=== PATIENT | female | born 1970 | race Caucasian/White ===

== ENCOUNTER → 2019-06-03 15:21 | Outpatient (CLI) | payer BC, SELFPAY ==
[2019-06-03 18:09] LABS: Rubella IgG 184.9 IU/mL
[2019-06-03 18:10] LABS: T4 Total, Thyroxin 11.5 ug/dL (4.8-13.9); Thyroid Stim Hormone (TSH) 2.28 uIU/mL (0.358-3.74)
== END ==
LOC: MFPLAB 15:23
PROVIDERS: Family Provider Family Medicine; PCP Family Medicine; Referring Provider Family Medicine; Visit Provider Family Medicine
DX: E03.9 Hypothyroidism, unspecified (principal); Z01.84 Encounter for antibody response examination
CPT/HCPCS: 36415; 84436; 84443; 86762

== ENCOUNTER → 2019-06-10 | Outpatient (CLI) | payer BC, SELFPAY ==
--- NOTE | 2019-06-10 11:29 | BI_ITS ---
MAMMOGRAPHY - BILATERAL SCREENING 3-D TOMOSYNTHESIS REASON FOR EXAM: Female, 48 years old. Bilateral Screening 3-D tomosynthesis PERTINENT HISTORY: No significant family history. TECHNIQUE: 2-D mammograms and 3-D Tomosynthesis of the breast (s) were performed. CAD was performed. COMPARISON: 08/25/2017 FINDINGS: The breast composition is heterogeneously dense that can obscure small breast masses. Scattered benign calcifications are seen. No dense spiculated masses or suspicious microcalcifications are identified. No architectural distortion is identified. There is no skin thickening or retraction. There has been no significant change since the prior study. BI/SCREEN MAMM (CAD) W/MONAE BILAT IMPRESSION: No mammographic signs of malignancy. Routine yearly mammograms recommended. ASSESSMENT CATEGORY: BIRADS Category 2: Benign. A letter regarding these results will be sent to the patient by the facility within 30 days. FOLLOW UP RECOMMENDATION: Yearly follow up mammogram recommended. (A) Approximately 10% of breast cancers are not detected by mammography. A normal mammogram should not delay biopsy of a clinically suspicious abnormality. Electronically Signed: Jamari Thompson MD at 16:30 EDT Tel [phone], Service support ,
== END | disposition home or self-care (01) ==
PROVIDERS: Family Provider Family Medicine; PCP Family Medicine; Referring Provider Family Medicine; Visit Provider Family Medicine
DX: Z12.31 Encounter for screening mammogram for malignant neoplasm of breast (principal)
CPT/HCPCS: 77063; 77067

== ENCOUNTER 2022-07-20 08:44 | Emergency (ER) | payer OTHER, SELFPAY ==
[2022-07-20 08:46] VITALS: BP 154/118; PULSE 177; RESP 16; TEMP 35.9; O2SAT 99; BMI 31.6
--- NOTE | 2022-07-20 08:48 | EKG12_ITS ---
Test Reason : Blood Pressure : / mmHG Vent. Rate : 123 BPM Atrial Rate : 000 BPM P-R Int : 000 ms QRS Dur : 082 ms QT Int : 292 ms P-R-T Axes : 000 -10 018 degrees QTc Int : 418 ms Atrial fibrillation with rapid ventricular response Abnormal ECG Confirmed by NICHOLAS MENCHACA, JOSIAS ([id number]), video editor HENRIK LOGAN ([id number]) on 07/21/2022 10:37:58 AM Referred By: CRISTINA Confirmed By:JOSIAS PETERSON MD
[2022-07-20] MEDS: dilTIAZem 25 MG/5 ML Vial 20 MG IV BOLUS (08:55)
[2022-07-20 09:00] VITALS: BP 150/137; PULSE 135; RESP 15; O2SAT 97
[2022-07-20 09:08] LABS: Absolute Lymphocyte Count 5.38 X10^3/uL (0.83-4.51); Absolute Neutrophil Count 9.9 X10^3/uL (2.0-7.7); Basophil# 0.08 X10^3/uL; Basophil% 0.5 % (0-1); Eosinophil# 0.27 X10^3/uL; Eosinophils% 1.6 % (0-5); Hematocrit 41.7 % (37-47); Hemoglobin 12.4 g/dL (12.0-15.0); Lymphocyte # 5.38 X10^3/ul (0.83-4.51); Lymphocyte % 31.4 % (19-41); Mean Corp Hgb Conc 29.7 g/dL (32-36); Mean Corpuscular Hgb 22.9 pg (27.0-32.0); Mean Corpuscular Volume 76.9 fL (81-99); Mean Platelet Vol. 9.9 fl (6.2-12.0); Monocyte# 1.41 X10^3/uL; Monocyte% 8.2 % (0-10); NRBC Flagged by Analyzer 0 % (0-5); Neutrophil # 9.92 X10^3/uL (2.7-7.7); Neutrophil % 57.9 % (47-70); POSITIVE DIFFERENTIAL YES; Platelet Count 561 K/mm3 (150-450); RBC Distribution Width CV 14.7 % (11.6-14.6); RBC Distribution Width SD 39.7 fl (35.1-43.9); Red Blood Count 5.42 M/mm3 (4.2-5.4); White Blood Count 17.1 K/mm3 (4.4-11.0)
--- NOTE | 2022-07-20 09:10 | RAD_ITS ---
STUDY: X-RAY CHEST REASON FOR EXAM: Female, 52 years old. Palpitations TECHNIQUE: Single AP portable view of the chest. COMPARISON: None. FINDINGS: EKG electrodes are seen. There is an 8.1 cm x 6.3 cm soft tissue mass in the medial aspect of the right lung base. Correlation with a CT scan is recommended. There is no demonstrated pleural abnormality. Normal size heart. Normal mediastinum and jorge. Normal visualized pulmonary arteries. Normal visualized aortic arch and descending thoracic aorta. Normal visualized thoracic spine. Normal visualized ribs, clavicles, and shoulders. There is no demonstrated abnormality of the visualized soft tissue structures of the upper abdomen. RAD/Chest 1 View (Portable) IMPRESSION: There is a 8.1 cm x 6.3 cm rounded mass in the medial aspect of the right lung base. Correlation with the CT scan of the thorax is recommended for further evaluation. Electronically Signed: Rosendo Almeida MD at 9:33 EDT ,
[2022-07-20 09:13] LABS: Differential Indicated SCAN CRITERIA MET
[2022-07-20 09:24] LABS: International Normalized Ratio 1.1; Prothrombin Time (Protime)PT. 13.5 SECONDS (11.7-14.9)
[2022-07-20 09:25] LABS: Partial Thromboplast Time 26.7 Seconds (24.1-36.2)
[2022-07-20 09:26] LABS: Anion Gap 11 (5-15); BUN 15 mg/dL (7-18); BUN/Creat Ratio 15.8 RATIO (10-20); Calcium,Total 9.6 mg/dL (8.5-10.1); Chloride 104 mmol/L (98-107); Creatinine, Serum 0.95 mg/dL (0.55-1.02); EST Glomerular Filtration Rate 66 mL/min (>60); Est Glom Filt Rate - Afr Amer 79 mL/min (>60); Estimated Creatinine Clearance 67.36 ml/min; Glucose 144 mg/dL (74-106); Magnesium 1.7 mg/dL (1.6-2.6); Potassium 3.5 mmol/L (3.5-5.1); Sodium Level 139 mmol/L (136-145); Troponin-I HS (w/2H Reflex) 52 pg/mL (3.0-54.0)
[2022-07-20 09:49] VITALS: BP 138/91; PULSE 150; RESP 13; O2SAT 96
[2022-07-20] MEDS: dilTIAZem 60 MG Tablet PO (09:49)
[2022-07-20 11:00] VITALS: BP 116/94; PULSE 103; O2SAT 96
[2022-07-20 11:05] LABS: Reflex Troponin-HS? (from REC) Y
--- NOTE | 2022-07-20 11:18 | CT_ITS ---
STUDY: CT CHEST WITH CONTRAST REASON FOR EXAM: Female, 52 years old. Chest mass RADIATION DOSAGE (If Supplied By Facility): CTDIvol = ( 11.00 ) mGy, DLP = ( 423.06 ) mGycm TECHNIQUE: Transaxial imaging was performed following intravenous administration of IV 100mL Isovue-300. Multiplanar coronal and sagittal images were reformatted. Individualized dose optimization techniques were used for this CT. COMPARISON: Comparison is made with prior chest radiograph done earlier today. FINDINGS: CHEST Small benign-appearing bilateral axillary lymph nodes. The lungs are normal. There is no demonstrated pleural abnormality. Normal heart and pericardium. Normal mediastinum. Normal hilar regions. Normal unenhanced pulmonary arteries. Normal aorta arch and descending thoracic aorta. Normal osseous structures. There is a 2.1 cm x 1.7 cm cyst in the anterior aspect of the right lobe of the liver. CT/Chest WITH Contrast IMPRESSION: Normal enhanced CT chest. The density seen on the chest radiograph most likely represented the inferior vena cava. Electronically Signed: Rosendo Almeida MD at 12:23 EDT ,
[2022-07-20 12:00] VITALS: BP 100/70; PULSE 89; RESP 15; O2SAT 95
[2022-07-20 12:33] LABS: Troponin-I HS 48 pg/mL (3.0-54.0)
[2022-07-20 13:00] VITALS: BP 108/58; PULSE 82; RESP 17; O2SAT 96
--- NOTE | 2022-07-20 13:00 | EDS_ITS ---
HPI History of Present Illness Chief Complaint: Chest Pain Informant: patient Narrative Narrative: Presents with worsening palpitations racing heart this morning had mild symptoms yesterday evening and was able to calm down to go to bed. Symptoms worsen today, lightheaded symptoms. Denies any specific chest pains no recent travel no cough. No recent sinus infection. History of hypothyroidism and glaucoma on medications. She states in the past may had had transient symptoms however not this severe was never evaluated. Mother has a history of atrial fibrillation. Denies history of strokes diabetes hypertension or heart failure. [facility] Medical History Glaucoma Hypothyroidism Physical exam, pre-employment Home Medications diltiazem HCl 120 mg tablet,extended release 24 hr (Cardizem LA) 120 mg PO DAILY #30 tabs 07/20/22 [Rx Last Taken Unknown] levothyroxine 75 mcg tablet 75 mcg PO DAILY 07/20/22 [History Last Taken Unknown] netarsudil 0.02 %-latanoprost 0.005 % eye drops (Rocklatan) drp 07/20/22 [History Last Taken Unknown] Allergy/AdvReac Type Severity Reaction Status Date / Time Penicillins Allergy PT UNSURE Verified 07/20/22 08:45 OF REACTION Social History Smoking Status: Never smoker ROS ROS ED Constitutional Constitutional ED: Denies chills, fever(s) or sweats Eyes Eyes: Denies change in vision ENT ENT ED: Denies dysphagia or sore throat Cardiovascular Cardiovascular: Reports palpitations, racing heartbeat and other Details: Occasional lightheaded symptoms ; Denies chest pain or leg edema Respiratory/Chest Respiratory/Chest: Denies cough, dyspnea or dyspnea on exertion Gastrointestinal Gastrointestinal: Denies abdominal pain, diarrhea, nausea or vomiting Genitourinary Genitourinary ED: Denies dysuria, hematuria or urinary frequency Musculoskeletal Musculoskeletal: Denies back pain, extremity pain or neck pain Integumentary Denies rash or wounds Neurologic Neurologic: Denies headache(s), paresthesias or weakness EXAM Physical Exam Const Vital Signs: 07/20/22 08:46 07/20/22 08:50 07/20/22 09:00 Temperature 96.7 F L Temperature Source Oral Pulse Rate 177 H 135 H Respiratory Rate 16 15 Respiratory Effort Normal Non-Labored Respiratory Pattern Normal Blood Pressure 154/118 H 150/137 H Blood Pressure Mean 130 141 Pulse Ox 99 97 Oxygen Delivery Method Room Air Room Air 07/20/22 09:49 07/20/22 11:00 07/20/22 12:00 Temperature Temperature Source Pulse Rate 150 H 103 H 89 Respiratory Rate 13 15 Respiratory Effort Respiratory Pattern Blood Pressure 138/91 H 116/94 H 100/70 Blood Pressure Mean 106 101 80 Pulse Ox 96 96 95 Oxygen Delivery Method Room Air Room Air Room Air 07/20/22 13:00 Temperature Temperature Source Pulse Rate 82 Respiratory Rate 17 Respiratory Effort Respiratory Pattern Blood Pressure 108/58 L Blood Pressure Mean 74 Pulse Ox 96 Oxygen Delivery Method Room Air Positive well nourished and well developed General Appearance ED: well developed and NAD HEENT Reports moist mucous membranes normocephalic and atraumatic Eyes PERRL, EOMs intact bilaterally and conjunctivae normal General Eye ED: Yes normal appearance of both eyes Neck no lymphadenopathy and supple General: Negative for tenderness Chest Wall Chest: Negative for tenderness Resp normal respiratory effort and normal air movement Effort and Inspection: symmetric chest movement; Negative for respiratory distress Cardio Rate: tachycardic Rhythm: abnormal rhythm Peripheral Pulses: pulses 2+ throughout GI normal to inspection, nondistended, normoactive bowel sounds and non-tender Palpation: Negative for guarding or rebound tenderness present Back/Spine no CVA tenderness and no thoracic nor lumbar tenderness Extremity normal to inspection General Extremety ED: Negative for edema or tenderness General Extremity: Negative for edema Neuro oriented x3 and no sensory deficits noted Sensorium / Orientation: awake and alert Skin no rashes or lesions noted and no wounds MDM MDM MDM Narrative Medical decision making narrative: NursingWas called in the room upon patient's arrival heart rate 170s 180s on the monitor. Since her possible SVT have a close review appeared to be irregular. EKG confirmed A. fib with RVR blood pressure systolic 150s. She is given 20 mg IV Cardizem bolus. Heart rate down to 120s in the 90s, she is given 60 mg of oral Cardizem. She is monitor. Labs White count of 17 hemoglobin 12.4 creatinine 0.95 potassium 3.5. Magnesium 1.7. Initial troponin 50 2 repeat of 48. She is monitor heart rate down in the 80s rate controlled she clinically feels much better she does not feel the irregular rhythm however. There was a repeat EKG notes persistent A. fib at this time. Labs are stable worsening leukocytosis. Her chest x-ray 1 view reviewed by my self and read by radiology initial concerns for potential mediastinal mass region, CT chest IV contrast negative had concerns now the inferior vena cava. She had a small liver cysts. Discussed this with the patient. Her CHADS2 Vas score is currently 1. I spoke with our on-call fitting room associate, Dr. Wade agrees with baby aspirin for her risk factors. Recommended Cardizem 120 mg extended release daily. She will follow-up with cardiology as an outpatient. She is given follow-up. Also given PCP follow-up. Return precautions. All questions were answered. Lab Data Attestation: I reviewed the patient's lab results. Labs: Laboratory Results - last 24 hr 07/20/22 07/20/22 07/20/22 08:50 08:50 08:50 WBC 17.1 H RBC 5.42 H Hgb 12.4 Hct 41.7 MCV 76.9 L MCH 22.9 L MCHC 29.7 L RDW Std Deviation 39.7 RDW Coeff of Estevan 14.7 H Plt Count 561 H MPV 9.9 Immature Gran % (Auto) 0.400 Neut % (Auto) 57.9 Lymph % (Auto) 31.4 Owsley % (Auto) 8.2 Eos % (Auto) 1.6 Baso % (Auto) 0.5 Absolute Neuts (auto) 9.9 H Absolute Lymphs (auto) 5.38 H Nucleated RBC % 0 Differential Comment COMMENT PT 13.5 INR 1.1 APTT 26.7 Sodium 139 Potassium 3.5 Chloride 104 Carbon Dioxide 24.0 Anion Gap 11 BUN 15 Creatinine 0.95 Estim Creat Clear Calc 67.36 Est GFR (MDRD) Af Amer 79 Est GFR (MDRD) Non-Af 66 BUN/Creatinine Ratio 15.8 Glucose 144 H Calcium 9.6 Magnesium 1.7 Troponin I High Sens 52 07/20/22 12:05 WBC RBC Hgb Hct MCV MCH MCHC RDW Std Deviation RDW Coeff of Estevan Plt Count MPV Immature Gran % (Auto) Neut % (Auto) Lymph % (Auto) [place] % (Auto) Eos % (Auto) Baso % (Auto) Absolute Neuts (auto) Absolute Lymphs (auto) Nucleated RBC % Differential Comment PT INR APTT Sodium Potassium Chloride Carbon Dioxide Anion Gap BUN Creatinine Estim Creat Clear Calc Est GFR (MDRD) Af Amer Est GFR (MDRD) Non-Af BUN/Creatinine Ratio Glucose Calcium Magnesium Troponin I High Sens 48 Radiography Diagnostic Testing: Clinical Impression(s) from Imaging Studies Chest X-Ray 07/20/22 09:10 IMPRESSION: There is a 8.1 cm x 6.3 cm rounded mass in the medial aspect of the right lung base. Correlation with the CT scan of the thorax is recommended for further evaluation. Electronically Signed: Rosendo Almeida MD at 9:33 EDT , Chest CT 07/20/22 11:18 IMPRESSION: Normal enhanced CT chest. The density seen on the chest radiograph most likely represented the inferior vena cava. Electronically Signed: Rosendo Almeida MD at 12:23 EDT , EKG Initial EKG: Attestation: I personally reviewed and interpreted this EKG as follows: Comments: Atrial fibrillation RVR rate of 180, no ST or T wave changes. Follow-up EKG: Attestation: I personally reviewed and interpreted this EKG as follows: Comments: Atrial fibrillation rate of 123, no ST or T wave changes. Discharge Plan Triage Chief Complaint: Chest Pain ED Provider: Steve Carrasco Dx/Rx/DC Orders Clinical Impression: Atrial fibrillation, new onset, Atrial fibrillation, controlled, Palpitation, Liver cyst Instructions: AFib Dc Prescriptions: New Cardizem LA 120 mg tablet extended release 24 hr 120 mg PO DAILY Qty: 30 0RF No Action levothyroxine 75 mcg tablet 75 mcg PO DAILY Label Comments: TAKE 1 TABLET BY MOUTH EVERY DAY IN THE MORNING ON EMPTY STOMACH FOR 90 DAYS Rocklatan 0.02-0.005 % drops Label Comments: INSTILL 1 DROP INTO BOTH EYES EVERY DAY AT NIGHT Primary Care Provider: Care Physician,No Primary Referrals: Paresh Santacruz DO [Med Staff - [employer]] - 1 Week Coleman Douglass MD [Med Staff - Active Staff] - 1 Week Care Physician,No Primary [Primary Care Provider] - Activity Restrictions/Additional Instructions: 2.1 cm right lobe liver cyst. New onset atrial fibrillation. Rate controlled. Take Cardizem as prescribed started this evening. Take baby aspirin 81 mg daily with this. Monitor symptoms follow-up as an outpatient for further testing. Return if any worsening symptoms. Disposition Disposition: Home, Self Care
== END 2022-07-20 14:02 | disposition home or self-care (01) ==
PROVIDERS: Emergency Provider Emergency Medicine; Visit Provider Emergency Medicine
DX: I48.91 Unspecified atrial fibrillation (principal); R00.2 Palpitations; K76.89 Other specified diseases of liver; R07.9 Chest pain, unspecified
CPT/HCPCS: 71045; 71260; 80048; 83735; 84484; 85025; 85610; 85730; 93005; 96374; 99284; J7030; Q9967; A4216; J0153

== ENCOUNTER 2022-07-21 14:31 | Inpatient (IN) | payer OTHER, SELFPAY ==
[2022-07-21] VITALS (19 sets, daily range): BP systolic 101–131; BP diastolic 71–97; PULSE 96–152; RESP 16–21; TEMP 35.8–36.9; O2SAT 94–98; BMI 31.1; BMI 30.9
--- NOTE | 2022-07-21 14:35 | EKG12_ITS ---
Test Reason : PALPS Blood Pressure : / mmHG Vent. Rate : 166 BPM Atrial Rate : 091 BPM P-R Int : 000 ms QRS Dur : 076 ms QT Int : 286 ms P-R-T Axes : 000 -20 012 degrees QTc Int : 475 ms Atrial fibrillation Nonspecific ST abnormality Abnormal ECG Confirmed by NICHOLAS MENCHACA, JOSIAS ([id number]), photo editor HENRIK LOGAN ([id number]) on 07/24/2022 10:08:00 AM Referred By: Confirmed By:JOSIAS PETERSON MD
--- NOTE | 2022-07-21 14:36 | EKG12_ITS ---
Test Reason : PALPS Blood Pressure : / mmHG Vent. Rate : 165 BPM Atrial Rate : 241 BPM P-R Int : 000 ms QRS Dur : 072 ms QT Int : 288 ms P-R-T Axes : 000 -26 011 degrees QTc Int : 477 ms Atrial flutter with variable A-V block Nonspecific ST abnormality Abnormal ECG When compared with ECG of 20-JUL-2022 09:08, Atrial flutter has replaced Atrial fibrillation Confirmed by NICHOLAS MENCHACA, JOSIAS ([id number]), advertising editor HENRIK LOGAN ([id number]) on 07/25/2022 12:53:58 PM Referred By: JANEY Confirmed By:JOSIAS PETERSON MD
[2022-07-21 14:57] LABS: Absolute Lymphocyte Count 3.49 X10^3/uL (0.83-4.51); Absolute Neutrophil Count 8.2 X10^3/uL (2.0-7.7); Basophil# 0.05 X10^3/uL; Basophil% 0.4 % (0-1); Eosinophil# 0.17 X10^3/uL; Eosinophils% 1.3 % (0-5); Hematocrit 38.6 % (37-47); Hemoglobin 11.7 g/dL (12.0-15.0); Lymphocyte # 3.49 X10^3/ul (0.83-4.51); Lymphocyte % 26.7 % (19-41); Mean Corp Hgb Conc 30.3 g/dL (32-36); Mean Corpuscular Hgb 22.9 pg (27.0-32.0); Mean Corpuscular Volume 75.7 fL (81-99); Mean Platelet Vol. 9.7 fl (6.2-12.0); Monocyte# 1.09 X10^3/uL; Monocyte% 8.3 % (0-10); NRBC Flagged by Analyzer 0 % (0-5); Neutrophil # 8.21 X10^3/uL (2.7-7.7); Neutrophil % 62.9 % (47-70); Platelet Count 508 K/mm3 (150-450); RBC Distribution Width CV 14.9 % (11.6-14.6); RBC Distribution Width SD 40.2 fl (35.1-43.9); White Blood Count 13.1 K/mm3 (4.4-11.0)
--- NOTE | 2022-07-21 15:01 | EX.ED.DYSGE1 ---
HPI History of Present Illness Chief Complaint: Chest Pain Informant: patient Narrative Narrative: 52-year-old female presenting to the emergency room with a chief complaint of A. landen. Patient was seen in the emergency room yesterday for the first time with Marin. landen. She was started on diltiazem after a work-up and discharged home. This morning she felt near syncopal with heavy arms and shortness of breath. She went to see cardiology today who noted that her heart rate was in the 160s. They sent her here for admission and further evaluation. Patient notes some occasional cramping in her feet/legs. She notes that she does drink pop. She denies any recreational use of drugs. She notes that she has a history of hypothyroidism and has been on levothyroxine for many years. She is also on a oral contraceptive. She also has a history of glaucoma. Yesterday in the emergency room blood work was obtained as well as a CT of her chest. [facility] Medical History Glaucoma Hypothyroidism Physical exam, pre-employment Home Medications diltiazem HCl 120 mg capsule,extended release 24 hr 120 mg PO DAILY #30 caps 07/20/22 [Rx Last Taken Unknown] levothyroxine 75 mcg tablet 75 mcg PO DAILY 07/20/22 [History Last Taken Unknown] netarsudil 0.02 %-latanoprost 0.005 % eye drops (Rocklatan) 1 drp EACH EYE DAILY 07/20/22 [History Last Taken Unknown] aspirin 81 mg tablet,delayed release (Adult Low Dose Aspirin) 81 mg PO DAILY 07/21/22 [History Last Taken Unknown] norgestimate 0.18 mg/0.215 mg/0.25 mg-ethinyl estradiol 25 mcg tablet ([id number]) 1 tab PO DAILY 07/21/22 [History Last Taken Unknown] Allergy/AdvReac Type Severity Reaction Status Date / Time Penicillins Allergy PT UNSURE Verified 07/21/22 14:31 OF REACTION Family History Mother Atrial fibrillation Aunt Heart disease Surgical History History of toe surgery Social History Smoking Status: Never smoker alcohol intake: current details: Rare substance use type: does not use caffeine: Yes Type: coffee Number of servings: 2 ROS ROS ED Constitutional Constitutional ED: Denies chills, fever(s) or weight loss Eyes Eyes: Denies change in vision or diplopia ENT ENT ED: Denies ear pain, rhinorrhea or sore throat Cardiovascular Cardiovascular: Reports palpitations, racing heartbeat and other Details: Near syncope ; Denies chest pain or orthopnea Respiratory/Chest Respiratory/Chest: Reports dyspnea; Denies cough or orthopnea Gastrointestinal Gastrointestinal: Denies abdominal pain, diarrhea, nausea or vomiting Genitourinary Genitourinary ED: Denies dysuria, hematuria or urinary frequency Musculoskeletal Musculoskeletal: Denies arthralgias or myalgias Integumentary Denies abscess or rash Neurologic Neurologic: Denies headache(s) or weakness Psychiatric Psychiatric: Denies anxiety, depression, suicidal ideation or suicidal thoughts Endocrine Endocrinology: Denies polydipsia, polyphagia or polyuria Allergic/Immunologic Allergic/Immunologic ED: Denies mouth swelling, tongue swelling or urticaria EXAM Physical Exam Const Vital Signs: 07/21/22 14:32 07/21/22 14:50 07/21/22 14:50 Temperature 96.5 F L Temperature Source Temporal Pulse Rate 96 Respiratory Rate 16 Respiratory Effort Short of Breath Blood Pressure 120/74 Blood Pressure Mean 89 Blood Pressure Position Blood Pressure Location Pulse Ox 97 Oxygen Delivery Method Room Air Room Air 07/21/22 15:31 07/21/22 15:46 07/21/22 16:02 Temperature Temperature Source Pulse Rate 121 H 152 H 146 H Respiratory Rate 18 17 16 Respiratory Effort Blood Pressure 107/86 H 107/86 H 105/74 Blood Pressure Mean 93 93 84 Blood Pressure Position Sitting Blood Pressure Location Left Arm Pulse Ox 96 95 Oxygen Delivery Method Room Air 07/21/22 16:03 Temperature Temperature Source Pulse Rate Respiratory Rate 16 Respiratory Effort Blood Pressure Blood Pressure Mean Blood Pressure Position Blood Pressure Location Pulse Ox Oxygen Delivery Method Positive well nourished and well developed General Appearance ED: well developed HEENT Reports normocephalic, head/scalp atraumatic and moist mucous membranes Eyes PERRL and EOMs intact bilaterally Neck no lymphadenopathy, supple and no JVD Resp normal respiratory effort and clear to auscultation bilaterally Cardio no murmurs Rhythm: abnormal rhythm irregularly irregular GI normal to inspection, nondistended, normoactive bowel sounds and non-tender Palpation: soft Back/Spine no CVA tenderness and normal ROM Extremity normal to inspection General Extremety ED: Negative for edema General Extremity: Negative for edema Neuro oriented x3 and CN's II-XII intact bilaterally Sensorium / Orientation: alert Motor Exam: strength 5/5 throughout Psych mental status grossly normal Mood & Affect: Negative for depressed or tearful Skin no rashes or lesions noted and no wounds MDM MDM MDM Narrative Medical decision making narrative: Patient was given a Cardizem bolus and placed on a drip. She was also given a Lovenox shot. white count 13.1. Coags were obtained and negative. Her troponin is down from yesterday at 15. Creatinine continues to be normal 0.88. Magnesium 2.1 potassium 4.0. Plan will be admission into the hospital. Lab Data Attestation: I reviewed the patient's lab results. Labs: Laboratory Results - last 24 hr 07/21/22 07/21/22 07/21/22 14:52 14:52 14:52 WBC 13.1 H RBC 5.10 Hgb 11.7 L Hct 38.6 MCV 75.7 L MCH 22.9 L MCHC 30.3 L RDW Std Deviation 40.2 RDW Coeff of Estevan 14.9 H Plt Count 508 H MPV 9.7 Immature Gran % (Auto) 0.400 Neut % (Auto) 62.9 Lymph % (Auto) 26.7 Sac % (Auto) 8.3 Eos % (Auto) 1.3 Baso % (Auto) 0.4 Absolute Neuts (auto) 8.2 H Absolute Lymphs (auto) 3.49 Nucleated RBC % 0 PT 13.2 INR 1.0 APTT 24.4 Sodium 139 Potassium 4.0 Chloride 107 Carbon Dioxide 24.0 Anion Gap 8 BUN 14 Creatinine 0.88 Estim Creat Clear Calc 72.72 Est GFR (MDRD) Af Amer 87 Est GFR (MDRD) Non-Af 72 BUN/Creatinine Ratio 15.9 Glucose 104 Calcium 9.1 Magnesium 2.1 Total Bilirubin 0.30 AST 11 L ALT 20 Alkaline Phosphatase 61 Troponin I High Sens 15 Total Protein 8.1 Albumin 3.5 Globulin 4.6 H Albumin/Globulin Ratio 0.8 L Radiography Diagnostic Testing: Clinical Impression(s) from Imaging Studies Chest X-Ray 07/21/22 15:03 IMPRESSION: Normal x-ray examination of the chest. Electronically Signed: Rosendo Almeida MD at 15:24 EDT , Discharge Plan Dx/Rx/DC Orders Clinical Impression: Atrial fibrillation, new onset, Hypothyroidism, Near syncope Disposition Disposition: Acute Care Hospital [facility]
--- NOTE | 2022-07-21 15:03 | RAD_ITS ---
STUDY: X-RAY CHEST REASON FOR EXAM: Female, 52 years old. Chest pain. TECHNIQUE: Single AP portable view of the chest. COMPARISON: Comparison is made with prior study dated 07/20/2022. FINDINGS: EKG electrodes are seen. The lungs are clear and expanded. There is no demonstrated pleural abnormality. Normal size heart. Normal mediastinum and jorge. Normal visualized pulmonary arteries. Normal visualized aortic arch and descending thoracic aorta. Normal visualized thoracic spine. Normal visualized ribs, clavicles, and shoulders. There is no demonstrated abnormality of the visualized soft tissue structures of the upper abdomen. RAD/Chest 1 View (Portable) IMPRESSION: Normal x-ray examination of the chest. Electronically Signed: Rosendo Almeida MD at 15:24 EDT ,
[2022-07-21 15:09] LABS: Partial Thromboplast Time 24.4 Seconds (24.1-36.2); Prothrombin Time (Protime)PT. 13.2 SECONDS (11.7-14.9)
[2022-07-21] MEDS: dilTIAZem 25 MG/5 ML Vial 20 MG IV BOLUS (15:15)
[2022-07-21] MEDS: Enoxaparin 100 MG/ML Syringe 90 MG SC (15:15)
[2022-07-21 15:21] LABS: ALB/GLOB Ratio 0.8 RATIO (0.9-2.4); AST(SGOT) 11 U/L (15-37); Alanine Aminotransfer ALT/SGPT 20 U/L (13-56); Albumin, Serum 3.5 g/dL (3.2-5.0); Alkaline Phosphatase 61 U/L (45-117); Anion Gap 8 (5-15); BUN 14 mg/dL (7-18); BUN/Creat Ratio 15.9 RATIO (10-20); Calcium,Total 9.1 mg/dL (8.5-10.1); Chloride 107 mmol/L (98-107); Creatinine, Serum 0.88 mg/dL (0.55-1.02); EST Glomerular Filtration Rate 72 mL/min (>60); Est Glom Filt Rate - Afr Amer 87 mL/min (>60); Estimated Creatinine Clearance 72.72 ml/min; Globulin 4.6 g/dL (2.2-4.2); Glucose 104 mg/dL (74-106); Magnesium 2.1 mg/dL (1.6-2.6); Protein, Total 8.1 g/dL (6.4-8.2); Sodium Level 139 mmol/L (136-145); Troponin-I HS 15 pg/mL (3.0-54.0)
--- NOTE | 2022-07-21 16:14 | PCM.HP.STD ---
[facility] - General General Date of Admission: 07/21/22 HPI Narrative NIMO NAVARRO, is a 52 F who presents to the hospital with A. fib and RVR. She has a family history of A. fib in her mother. She presented to the ER yesterday morning and was started on Cardizem and aspirin and sent home. A CT of her chest at that time was negative for PE, this was likely obtained secondary to her control pills. She is continued to have palpitations as well as dizziness and near syncope, she also experienced some chest pressure. She presented to cardiology's office for follow-up and she was sent directly here secondary to her A. fib with RVR as her heart rates were sustaining in the 160s. In the ER she was started on a Cardizem drip and her heart rate appears to be coming down but it is still elevated. [facility] Medical History Glaucoma Hypothyroidism Physical exam, pre-employment Home Medications diltiazem HCl 120 mg capsule,extended release 24 hr 120 mg PO DAILY #30 caps 07/20/22 [Rx Last Taken Unknown] levothyroxine 75 mcg tablet 75 mcg PO DAILY 07/20/22 [History Last Taken Unknown] netarsudil 0.02 %-latanoprost 0.005 % eye drops (Rocklatan) 1 drp EACH EYE DAILY 07/20/22 [History Last Taken Unknown] aspirin 81 mg chewable tablet 81 mg PO DAILY HEART HEALTH 07/21/22 [History Last Taken 07/20/22] norgestimate 0.18 mg/0.215 mg/0.25 mg-ethinyl estradiol 25 mcg tablet ([id number]) 1 tab PO DAILY 07/21/22 [History Last Taken Unknown] Allergy/AdvReac Type Severity Reaction Status Date / Time Penicillins Allergy PT UNSURE Verified 07/21/22 14:31 OF REACTION Family History Mother Atrial fibrillation Aunt Heart disease Surgical History History of toe surgery Social History Smoking Status: Never smoker alcohol intake: current details: Rare substance use type: does not use caffeine: Yes Type: coffee Number of servings: 2 ROS Constitutional Constitutional: Denies chills, fatigue, fever(s) or malaise Eyes Eyes: Denies blurry vision ENT HEENT: Denies headache(s) or nasal discharge Cardiovascular Cardiovascular: Reports lightheadedness and palpitations; Denies chest pain, dyspnea on exertion or syncope Respiratory/Chest Respiratory/Chest: Denies cough, shortness of breath at rest or shortness of breath with exertion Gastrointestinal Gastrointestinal: Denies constipation, diarrhea, nausea or vomiting Genitourinary Genitourinary: Denies dysuria Neurologic Neurologic: Denies focal weakness, numbness or tremor(s) Psychiatric Psychiatric: Denies anxiety or depression Vital Signs Vital Signs Vital Signs: 07/21/22 14:32 07/21/22 14:50 07/21/22 14:50 Temperature 96.5 F L Temperature Source Temporal Pulse Rate 96 Respiratory Rate 16 Respiratory Effort Short of Breath Blood Pressure 120/74 Blood Pressure Mean 89 Blood Pressure Position Blood Pressure Location Pulse Ox 97 Oxygen Delivery Method Room Air Room Air 07/21/22 15:31 07/21/22 15:46 07/21/22 16:02 Temperature Temperature Source Pulse Rate 121 H 152 H 146 H Respiratory Rate 18 17 16 Respiratory Effort Blood Pressure 107/86 H 107/86 H 105/74 Blood Pressure Mean 93 93 84 Blood Pressure Position Sitting Blood Pressure Location Left Arm Pulse Ox 96 95 Oxygen Delivery Method Room Air 07/21/22 16:03 Temperature Temperature Source Pulse Rate Respiratory Rate 16 Respiratory Effort Blood Pressure Blood Pressure Mean Blood Pressure Position Blood Pressure Location Pulse Ox Oxygen Delivery Method Weight Weight: 199 lb Body Mass Index (BMI) 31.1 Physical Exam Narrative General: Alert, Oriented x3, Cooperative, No apparent distress HEENT: Atraumatic, PERRLA, EOMI, Normocephalic Oral: Moist Mucosa Neck: Supple, No JVD Lungs: Clear to auscultation, Normal air movement, No rhonchi, No wheeze, No rales Cardiovascular: Irregular rate and rhythm, Normal S1, Normal S2, No murmurs Abdomen: Soft, Non Tender, Non-Distended, No Hepato-splenomegaly Extremities: No edema, Capillary Refill Less than 3 Seconds Skin: No rashes, No breakdown Musculoskeletal: No Tenderness to Palpation of Joints or Extremities Neurological: Cranial nerves II-XII grossly intact, Motor Exam 5/5 strength throughout, Sensory exam intact to light touch and pain Psych/Mental Status: Normal Affect, Appropriate Results Lab / Micro Data Result Diagrams: 07/21/22 14:52 07/21/22 14:52 Labs: Laboratory Results - last 24 hr 07/21/22 14:52: WBC 13.1 H, RBC 5.10, Hgb 11.7 L, Hct 38.6, MCV 75.7 L, MCH 22.9 L, MCHC 30.3 L, RDW Std Deviation 40.2, RDW Coeff of [place] 14.9 H, Plt Count 508 H, MPV 9.7, Immature Gran % (Auto) 0.400, Neut % (Auto) 62.9, Lymph % (Auto) 26.7, [place] % (Auto) 8.3, Eos % (Auto) 1.3, Baso % (Auto) 0.4, Absolute Neuts (auto) 8.2 H, Absolute Lymphs (auto) 3.49, Nucleated RBC % 0 07/21/22 14:52: PT 13.2, INR 1.0, APTT 24.4 07/21/22 14:52: Sodium 139, Potassium 4.0, Chloride 107, Carbon Dioxide 24.0, Anion Gap 8, BUN 14, Creatinine 0.88, Estim Creat Clear Calc 72.72, Est GFR (MDRD) Af Amer 87, Est GFR (MDRD) Non-Af 72, BUN/Creatinine Ratio 15.9, Glucose 104, Calcium 9.1, Magnesium 2.1, Total Bilirubin 0.30, AST 11 L, ALT 20, Alkaline Phosphatase 61, Troponin I High Sens 15, Total Protein 8.1, Albumin 3.5, Globulin 4.6 H, Albumin/Globulin Ratio 0.8 L Radiology Impression Chest X-Ray 07/21/22 15:03 IMPRESSION: Normal x-ray examination of the chest. Electronically Signed: Rosendo Almeida MD at 15:24 EDT , Assessment & Plan Assessment/Plan (1) Paroxysmal atrial fibrillation with RVR: PLAN: Plan 1. New onset A. fib with RVR ? TSH is pending ? We will obtain an echo ? We will consult cardiology ? Continue with Tess ferreira ? She has never had these palpitations before but they did start on Sunday so we will anticoagulate for the possibility of cardioversion ? Her CHADS2 score is a 0 but her [id number] score is a 1 2. Hypothyroidism ? Stable ? Continue with Synthroid, TSH is pending DVT: Therapeutic Lovenox Charges/Coding Visit Charges Inpatient E&M: 30200 Init Hosp L2
--- NOTE | 2022-07-21 16:29 | PCM.CONS.C ---
Assessment & Plan Assessment/Plan (1) Paroxysmal atrial fibrillation with RVR: PLAN: The patient has demonstrated evidence of atrial fibrillation with rapid ventricular response. She has continued in this rhythm despite the aforementioned evaluation and care. She remains symptomatic with her palpitations and associated chest discomfort, dyspnea, as well as having concerns of near syncope. Thus she is being evaluated by the [facility] emergency room staff and the [facility] staff. She is going to be placed in the PCU for further evaluation and care. She will continue cardiac rhythm monitoring. She should be considered for rate control therapy and anticoagulant therapy. She should be considered for a follow-up transthoracic echocardiogram to further evaluate her atrial size as well as her ventricular size, wall motion, and systolic function. If her rate comes under control and she is anticoagulated then she can be considered for future elective synchronized biphasic DC cardioversion to regain sinus rhythm. However, if her rate does not come under better control then she may need to be considered for MIGUEL guided synchronized biphasic DC cardioversion. (2) Near syncope: PLAN: The patient has had episodes of near syncope. This appears to occur when she is in her rapid ventricular response. Thus she will continue evaluation care as noted. (3) Hypothyroidism: PLAN: The patient does have an underlying thyroid disorder. She should have thyroid function studies to evaluate for any obvious thyroid disorder that would be contributing to her atrial dysrhythmia. Addt'l Comments The patient's case was previously discussed with the patient, her spouse, the [facility] emergency department staff, the [facility] staff, and Dr. Keating of the [facility] staff who will be assisting in the patient's care during the upcoming weekend. This note was generated using a voice recognition system and there may be incorrect words, spelling or punctuation that were not noted when reviewing the office note prior to saving. HPI Consult Data Date of Consult: 07/21/22 HPI Narrative HPI Narrative: NIMO NAVARRO, is a 52 year old white female who presented for outpatient cardiovascular consultation earlier this afternoon for concerns of atrial fibrillation with rapid ventricular response, near syncope, hypothyroidism, and a history of glaucoma. She currently does not have a primary care physician.? 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 She states that sometime in the remote past she had an episode where she felt as if she was having a anxiety attack.? She notes that was brief and only lasted approximately 20 minutes.? There was no further evaluation at that time.? She notes this past Sunday she had a similar type event that lasted longer.? She did not feel well.? However she states that events seem to calm down somewhat.? This past week especially on Sunday she states she felt her heart going fast.? She had a difficult time sleeping because her heart rate was so fast.? She had discomfort in her chest.? She felt somewhat short of breath.? She notes with the faster heart rate she is also had episodes where she feels as if she is going to lose consciousness but she has not.? Yesterday she was evaluated in the emergency department.? It appears she was found to be in atrial fibrillation with RVR.? She was treated with IV diltiazem and subsequently a dose of oral diltiazem.? Her ventricular rate did slow somewhat.? She underwent laboratory studies which demonstrated an elevated WBC.? Her troponin I levels were negative.? Her ECG was reported as demonstrating atrial fibrillation with RVR.? She had a chest x-ray performed which raised concerns as to whether or not she had a mass in the medial aspect of the right lung base.? She subsequently had a chest CT scan performed.? The density on the chest x-ray was reported as most likely representing the inferior vena cava.? She was released from the emergency department with oral diltiazem and aspirin therapy and asked to make an outpatient cardiovascular follow-up appointment. She presented to the office this afternoon for an outpatient cardiovascular consultation.? She states since leaving the emergency department she has noted still rapid heart rates with similar symptoms as described above.? In the office she was noted to be in atrial fibrillation with rapid ventricular response.? By her ECG she had a cardiac ventricular rate of greater than 160 bpm. She describes no previous history of heart related issues.? Prior to this event she has not had ongoing chest discomfort or difficulty breathing.? She has not had episodes of orthopnea or PND or ongoing peripheral pitting edema.? There has been no previous report of near syncope or syncope. She states that she is hoping to establish care with a primary care physician that can monitor her thyroid studies more so than what she has had done through the [facility]. She was subsequently taken from the outpatient setting to the emergency department for additional evaluation and care and subsequent admission to the hospital for further inpatient evaluation and care. In the emergency department she had a troponin I level which was reported as negative. Her outpatient ECG was noted above. She had a follow-up chest x-ray which was reported as unremarkable by radiology. [facility] Medical History Glaucoma Hypothyroidism Physical exam, pre-employment Home Medications diltiazem HCl 120 mg capsule,extended release 24 hr 120 mg PO DAILY #30 caps 07/20/22 [Rx Last Taken 07/20/22] levothyroxine 75 mcg tablet 75 mcg PO DAILY thyroid 07/20/22 [History Last Taken 07/21/22] netarsudil 0.02 %-latanoprost 0.005 % eye drops (Rocklatan) 1 drp EACH EYE DAILY 07/20/22 [History Last Taken 07/20/22] aspirin 81 mg chewable tablet 81 mg PO DAILY HEART HEALTH 07/21/22 [History Last Taken 07/20/22] norgestimate 0.18 mg/0.215 mg/0.25 mg-ethinyl estradiol 25 mcg tablet ([id number]) 1 tab PO DAILY 07/21/22 [History Last Taken 07/21/22] Allergy/AdvReac Type Severity Reaction Status Date / Time Penicillins Allergy PT UNSURE Verified 07/21/22 14:31 OF REACTION Family History Mother Atrial fibrillation Aunt Heart disease Surgical History History of toe surgery Social History Smoking Status: Never smoker alcohol intake: current details: Rare substance use type: does not use caffeine: Yes Type: coffee Number of servings: 2 ROS Constitutional Constitutional: Reports as per HPI Eyes Eyes: Reports as per HPI ENT HEENT: Reports as per HPI Cardiovascular Cardiovascular: Reports chest pain, dyspnea, palpitations and other Details: Near syncope Respiratory/Chest Respiratory/Chest: Reports dyspnea Gastrointestinal Gastrointestinal: Reports as per HPI Genitourinary Genitourinary: Reports as per HPI Musculoskeletal Musculoskeletal: Reports as per HPI Integumentary Integumentary: Reports as per HPI Neurologic Neurologic: Reports as per HPI Psychiatric Psychiatric: Reports as per HPI Physical Exam Const alert, oriented x3, no apparent distress and healthy appearing Orientation / Consciousness: awake HEENT normocephalic, head/scalp atraumatic and hearing grossly normal bilaterally Eyes PERRL, EOMs intact bilaterally, conjunctivae normal and no scleral icterus Neck full ROM, supple and no JVD Carotids: normal carotid upstroke Resp normal respiratory effort and clear to auscultation bilaterally Cardio Rate: tachycardic Rhythm: abnormal rhythm irregularly irregular Heart Sounds: S1 normal and S2 normal GI normal to inspection, nondistended, normoactive bowel sounds Extremity no pedal edema Skin no rashes or lesions noted Psych mental status grossly normal Risk Stratification Risk Stratification Applicable: No Objective Data Vital Signs: Vital Signs Temp Pulse Resp BP Pulse Ox O2 Del Method 98 F 138 H 16 105/74 96 Room Air 07/21/22 16:15 07/21/22 16:15 07/21/22 16:15 07/21/22 16:15 07/21/22 16:15 07/21/22 16:15 Oxygen Delivery Method Room Air Weight: 199 lb Body Mass Index (BMI) 31.1 Intake & Output: Intake and Output for Last 24 Hours 07/19/22 07/20/22 07/21/22 23:59 23:59 23:59 Intake Total 2.58 / 2.58 Balance 2.58 / 2.58 Lab / Micro Data Result Diagrams: 07/21/22 14:52 07/21/22 14:52 Labs: Laboratory Results - last 24 hr 07/21/22 14:52: WBC 13.1 H, RBC 5.10, Hgb 11.7 L, Hct 38.6, MCV 75.7 L, MCH 22.9 L, MCHC 30.3 L, RDW Std Deviation 40.2, RDW Coeff of Estevan 14.9 H, Plt Count 508 H, MPV 9.7, Immature Gran % (Auto) 0.400, Neut % (Auto) 62.9, Lymph % (Auto) 26.7, [place] % (Auto) 8.3, Eos % (Auto) 1.3, Baso % (Auto) 0.4, Absolute Neuts (auto) 8.2 H, Absolute Lymphs (auto) 3.49, Nucleated RBC % 0 07/21/22 14:52: PT 13.2, INR 1.0, APTT 24.4 07/21/22 14:52: Sodium 139, Potassium 4.0, Chloride 107, Carbon Dioxide 24.0, Anion Gap 8, BUN 14, Creatinine 0.88, Estim Creat Clear Calc 72.72, Est GFR (MDRD) Af Amer 87, Est GFR (MDRD) Non-Af 72, BUN/Creatinine Ratio 15.9, Glucose 104, Calcium 9.1, Magnesium 2.1, Total Bilirubin 0.30, AST 11 L, ALT 20, Alkaline Phosphatase 61, Troponin I High Sens 15, Total Protein 8.1, Albumin 3.5, Globulin 4.6 H, Albumin/Globulin Ratio 0.8 L Cardiology Labs/Tests 07/21/22 14:52: WBC 13.1 H, RBC 5.10, Hgb 11.7 L, Hct 38.6, MCV 75.7 L, MCH 22.9 L, MCHC 30.3 L, Plt Count 508 H, MPV 9.7, Immature Gran % (Auto) 0.400, Neut % (Auto) 62.9, Lymph % (Auto) 26.7, [place] % (Auto) 8.3, Eos % (Auto) 1.3, Baso % (Auto) 0.4, Absolute Neuts (auto) 8.2 H, Nucleated RBC % 0 07/21/22 14:52: PT 13.2, INR 1.0, APTT 24.4 07/21/22 14:52: Sodium 139, Potassium 4.0, Chloride 107, Carbon Dioxide 24.0, Anion Gap 8, BUN 14, Creatinine 0.88, Est GFR (MDRD) Af Amer 87, Est GFR (MDRD) Non-Af 72, BUN/Creatinine Ratio 15.9, Glucose 104, Calcium 9.1, Magnesium 2.1, Total Bilirubin 0.30 Rhythm: EKG: ECHO: Stress Test: Cardiac Cath: PCI: CT Surgery: Holter monitor: EPS: PPM: CXR: Chest CT Scan: Radiography Diagnostic Testing: Radiology Impression Chest X-Ray 07/21/22 15:03 IMPRESSION: Normal x-ray examination of the chest. Electronically Signed: Rosendo Almeida MD at 15:24 EDT ,
--- NOTE | 2022-07-21 17:04 | ECHOD_ITS ---
Reason For Study: A. fib Procedure This was a 2D Doppler, Color Flow transthoracic echocardiogram. Exam performed portable in patient room. Left Ventricle The left ventricle is normal in size, thickness, and systolic function. The left ventricular ejection fraction is 65 %. Right Ventricle Normal right ventricle. Atria The left and right atria are normal. Mitral Valve Mild (1+) mitral valve insufficiency. Tricuspid Valve Normal tricuspid valve. Aortic Valve Trisinus/trileaflet aortic valve. Trivial aortic valve insufficiency. Pulmonic Valve The pulmonic valve is not well visualized. Great Vessels Normal sized aortic root. Pericardium/Pleural No pericardial effusion. MMode/2D Measurements & Calculations LVIDd: 4.6 cm IVSd: 1.1 cm Ao root diam: 3.2 cm LVIDs: 2.3 cm LVPWd: 1.0 cm RVDd: 2.6 cm FS: 49.1 % LAV(MOD-bp): 31.8 ml LVAd ap4: 26.5 cm2 LVAd ap2: 25.0 cm2 LAV(MOD-bp) Indexed: 15.8 ml/m2 LVLd ap4: 8.0 cm LVLd ap2: 7.4 cm LAV(MOD-sp2): 34.0 ml EDV(MOD-sp4): 74.4 ml EDV(MOD-sp2): 68.6 ml LAV(MOD-sp4): 24.1 ml EDV(sp4-el): 74.7 ml EDV(sp2-el): 71.1 ml LVAs ap4: 13.7 cm2 LVAs ap2: 12.8 cm2 LVLs ap4: 6.7 cm LVLs ap2: 6.3 cm ESV(MOD-sp4): 26.0 ml ESV(MOD-sp2): 21.9 ml ESV(sp4-el): 23.8 ml ESV(sp2-el): 22.1 ml EF(MOD-sp4): 65.1 % EF(MOD-sp2): 68.1 % EF(sp4-el): 68.1 % SV(MOD-sp4): 48.4 ml SV(MOD-sp2): 46.7 ml SV(sp4-el): 50.9 ml LA dimension(2D): 3.4 cm LA A4 area: 12.9 cm2 RA A4 area: 13.2 cm2 Time Measurements MV dec time: 0.16 sec Doppler Measurements & Calculations MV E max emmanuel: 104.2 cm/sec Lat Peak E' Emmanuel: 14.5 cm/sec Med Peak E' Emmanuel: 11.9 cm/sec MV A max emmanuel: 55.9 cm/sec E/E' lat: 7.2 E/E' med: 8.7 MV E/A: 1.9 MV dec slope: 636.4 cm/sec2 Ao V2 max: 147.2 cm/sec LV V1 max: 97.2 cm/sec Ao max P.7 mmHg LV V1 max P.8 mmHg PA V2 max: 85.7 cm/sec ECHO/Echo Complete Interpretation Summary The left ventricular ejection fraction is 65 %. Mild (1+) mitral valve insufficiency. Ordering Physician: Young Hughes Performed By: Halle Robertson RDCS
[2022-07-21 19:48] LABS: Thyroid Stim Hormone (TSH) 2.36 uIU/mL (0.358-3.74)
[2022-07-21] MEDS: Metoprolol Tartrate 25 MG Tablet PO (23:33)
[2022-07-22] VITALS (16 sets, daily range): BP systolic 72–109; BP diastolic 40–76; PULSE 64–100; RESP 13–18; TEMP 36.2–36.9; O2SAT 93–98
--- NOTE | 2022-07-22 05:08 | EKG12_ITS ---
Test Reason : RHYTHM CHANGE Blood Pressure : / mmHG Vent. Rate : 070 BPM Atrial Rate : 070 BPM P-R Int : 164 ms QRS Dur : 084 ms QT Int : 436 ms P-R-T Axes : 050 014 030 degrees QTc Int : 470 ms Normal sinus rhythm Low voltage QRS Borderline ECG When compared with ECG of 21-JUL-2022 14:37, MANUAL COMPARISON REQUIRED, DATA IS UNCONFIRMED Confirmed by NICHOLAS MENCHACA, JOSIAS ([id number]), news assignment editor HENRIK LOGAN ([id number]) on 07/25/2022 12:45:14 PM Referred By: Confirmed By:JOSIAS PETERSON MD
[2022-07-22 06:07] LABS: Absolute Lymphocyte Count 3.51 X10^3/uL (0.83-4.51); Basophil# 0.04 X10^3/uL; Basophil% 0.4 % (0-1); Eosinophil# 0.25 X10^3/uL; Eosinophils% 2.3 % (0-5); Hematocrit 35.4 % (37-47); Hemoglobin 11.1 g/dL (12.0-15.0); Lymphocyte # 3.51 X10^3/ul (0.83-4.51); Lymphocyte % 32.6 % (19-41); Mean Corp Hgb Conc 31.4 g/dL (32-36); Mean Corpuscular Hgb 23.7 pg (27.0-32.0); Mean Corpuscular Volume 75.6 fL (81-99); Mean Platelet Vol. 9.9 fl (6.2-12.0); Monocyte# 0.92 X10^3/uL; Monocyte% 8.6 % (0-10); NRBC Flagged by Analyzer 0 % (0-5); Neutrophil % 55.7 % (47-70); Platelet Count 410 K/mm3 (150-450); RBC Distribution Width CV 15.2 % (11.6-14.6); RBC Distribution Width SD 40.7 fl (35.1-43.9); Red Blood Count 4.68 M/mm3 (4.2-5.4); White Blood Count 10.8 K/mm3 (4.4-11.0)
[2022-07-22 06:29] LABS: Anion Gap 8 (5-15); BUN 12 mg/dL (7-18); BUN/Creat Ratio 14.1 RATIO (10-20); Calcium,Total 8.5 mg/dL (8.5-10.1); Chloride 106 mmol/L (98-107); Creatinine, Serum 0.85 mg/dL (0.55-1.02); EST Glomerular Filtration Rate 75 mL/min (>60); Est Glom Filt Rate - Afr Amer 90 mL/min (>60); Estimated Creatinine Clearance 75.29 ml/min; Glucose 103 mg/dL (74-106); Potassium 4.2 mmol/L (3.5-5.1); Sodium Level 140 mmol/L (136-145)
[2022-07-22] MEDS: Enoxaparin 100 MG/ML Syringe 90 MG SC (06:49)
[2022-07-22] MEDS: Levothyroxine 75 MCG Tablet PO (06:49)
[2022-07-22] MEDS: Aspirin E.C. 81 MG Tablet PO (08:14)
[2022-07-22] MEDS: norgestimate-ethinyl estradioL 1 EACH TABLET PO (08:15)
[2022-07-22] MEDS: dilTIAZem CD 180 MG Capsule PO (09:19)
[2022-07-22] MEDS: 0.9% Saline Lock 10 ML Syringe IV (09:25)
--- NOTE | 2022-07-22 10:35 | CASEMGMT ---
JUNO VELAZQUEZ Assessment: Face to Face with pt for initial transition planning/care coordination assessment. JUNO VELAZQUEZ introduced self and role at [facility], pt voices understanding and consents to assessment. Pt is A/O x4 and answers all questions appropriately at this time. Pt sitting up in bed in no distress. Care providers, pharmacy, and demographics verified/updated. Admitting Dx: Afib with RVR PCP:Pt does not have PCP. Pt provided with a local healthcare directory. Pt states she was assigned a PCP in the ER. Specialists:Pt denies. Preferred Pharmacy: [facility] Insurance: [employer] Prescription Benefit: yes LW/HPOA: Pt denies having a LW/DPOA and denies need for info regarding AD. LNOK: Brock Michelle, Living Arrangements: Pt lives with in a mobile home with 5 steps to enter with a rail. Pt reports she is I in ADL's and denies concerns at home. Transportation: Pt drives self and denies concerns with transportation. DME/HHC/SNF: Pt denies having any DME, hx of HHC or SNF stays. Pt states no concerns with going home at time of dc. Pt states no further concerns/needs. CM to follow. Advised pt to ask CM if any further question/concerns/needs arise, voices understanding. Pt Goal: Home Plan: Home, follow for anticoag need
--- NOTE | 2022-07-22 12:40 | NURSING ---
Verbal report given to Holger Peña RN who is assuming care at this time.
[2022-07-22 12:44] LABS: D-Dimer Quantitative (DVT/PE) < 0.27 FEU/ug/m (0.27-0.49)
--- NOTE | 2022-07-22 12:52 | PN.CARD_ITS ---
Subjective Subjective No complaints. Converted to normal sinus rhythm spontaneously overnight. Objective Data Vital Signs: Vital Signs Temp Pulse Resp BP Pulse Ox O2 Del Method 98.4 F 74 13 109/75 96 Room Air 07/22/22 11:44 07/22/22 11:44 07/22/22 11:44 07/22/22 11:44 07/22/22 11:44 07/22/22 11:44 Oxygen Delivery Method Room Air Weight: 197 lb 1.492 oz Body Mass Index (BMI) 30.9 Intake & Output: Intake and Output for Last 24 Hours 07/20/22 07/21/22 07/22/22 23:59 23:59 23:59 Intake Total 104.58 / 104.58 101.66 / 101.66 Balance 104.58 / 104.58 101.66 / 101.66 Lab / Micro Data Result Diagrams: 07/22/22 05:30 07/22/22 05:30 Labs: Laboratory Results - last 24 hr 07/21/22 14:52: WBC 13.1 H, RBC 5.10, Hgb 11.7 L, Hct 38.6, MCV 75.7 L, MCH 22.9 L, MCHC 30.3 L, RDW Std Deviation 40.2, RDW Coeff of Estevan 14.9 H, Plt Count 508 H , MPV 9.7, Immature Gran % (Auto) 0.400, Neut % (Auto) 62.9, Lymph % (Auto) 26.7, [place] % (Auto) 8.3, Eos % (Auto) 1.3, Baso % (Auto) 0.4, Absolute Neuts (auto) 8.2 H, Absolute Lymphs (auto) 3.49, Nucleated RBC % 0 07/21/22 14:52: PT 13.2, INR 1.0, APTT 24.4 07/21/22 14:52: Sodium 139, Potassium 4.0, Chloride 107, Carbon Dioxide 24.0, Anion Gap 8, BUN 14, Creatinine 0.88, Estim Creat Clear Calc 72.72, Est GFR (MDRD) Af Amer 87, Est GFR (MDRD) Non-Af 72, BUN/Creatinine Ratio 15.9, Glucose 104, Calcium 9.1, Magnesium 2.1, Total Bilirubin 0.30, AST 11 L, ALT 20, Alkaline Phosphatase 61, Troponin I High Sens 15, Total Protein 8.1, Albumin 3.5, Globulin 4.6 H, Albumin/Globulin Ratio 0.8 L 07/21/22 14:52: TSH 2.36 07/22/22 05:30: WBC 10.8, RBC 4.68, Hgb 11.1 L, Hct 35.4 L, MCV 75.6 L, MCH 23.7 L, MCHC 31.4 L, RDW Std Deviation 40.7, RDW Coeff of Estevan 15.2 H, Plt Count 410, MPV 9.9, Immature Gran % (Auto) 0.400, Neut % (Auto) 55.7, Lymph % (Auto) 32.6, [place] % (Auto) 8.6, Eos % (Auto) 2.3, Baso % (Auto) 0.4, Absolute Neuts (auto) 6.0, Absolute Lymphs (auto) 3.51, Nucleated RBC % 0 07/22/22 05:30: Sodium 140, Potassium 4.2, Chloride 106, Carbon Dioxide 26.0, Anion Gap 8, BUN 12, Creatinine 0.85, Estim Creat Clear Calc 75.29, Est GFR (MDRD) Af Amer 90, Est GFR (MDRD) Non-Af 75, BUN/Creatinine Ratio 14.1, Glucose 103, Calcium 8.5 07/22/22 11:55: D-Dimer Quant (PE/DVT) < 0.27 L Cardiology Labs/Tests 07/21/22 14:52: WBC 13.1 H, RBC 5.10, Hgb 11.7 L, Hct 38.6, MCV 75.7 L, MCH 22.9 L, MCHC 30.3 L, Plt Count 508 H, MPV 9.7, Immature Gran % (Auto) 0.400, Neut % (Auto) 62.9, Lymph % (Auto) 26.7, [place] % (Auto) 8.3, Eos % (Auto) 1.3, Baso % (Auto) 0.4, Absolute Neuts (auto) 8.2 H, Nucleated RBC % 0 07/21/22 14:52: PT 13.2, INR 1.0, APTT 24.4 07/21/22 14:52: Sodium 139, Potassium 4.0, Chloride 107, Carbon Dioxide 24.0, Anion Gap 8, BUN 14, Creatinine 0.88, Est GFR (MDRD) Af Amer 87, Est GFR (MDRD) Non-Af 72, BUN/Creatinine Ratio 15.9, Glucose 104, Calcium 9.1, Magnesium 2.1, Total Bilirubin 0.30 07/22/22 05:30: WBC 10.8, RBC 4.68, Hgb 11.1 L, Hct 35.4 L, MCV 75.6 L, MCH 23.7 L, MCHC 31.4 L, Plt Count 410, MPV 9.9, Immature Gran % (Auto) 0.400, Neut % (Auto) 55.7, Lymph % (Auto) 32.6, [place] % (Auto) 8.6, Eos % (Auto) 2.3, Baso % (Auto) 0.4, Absolute Neuts (auto) 6.0, Nucleated RBC % 0 07/22/22 05:30: Sodium 140, Potassium 4.2, Chloride 106, Carbon Dioxide 26.0, Anion Gap 8, BUN 12, Creatinine 0.85, Est GFR (MDRD) Af Amer 90, Est GFR (MDRD) Non-Af 75, BUN/Creatinine Ratio 14.1, Glucose 103, Calcium 8.5 07/22/22 11:55: D-Dimer Quant (PE/DVT) < 0.27 L Rhythm: EKG: ECHO: Stress Test: Cardiac Cath: PCI: CT Surgery: Holter monitor: EPS: PPM: CXR: Chest CT Scan: Radiography Diagnostic Testing: Radiology Impression Chest X-Ray 07/21/22 15:03 IMPRESSION: Normal x-ray examination of the chest. Electronically Signed: Rosendo Almeida MD at 15:24 EDT , Echocardiogram 07/21/22 17:04 Interpretation Summary The left ventricular ejection fraction is 65 %. Mild (1+) mitral valve insufficiency. Ordering Physician: Young Hughes Performed By: Halle Robertson RDCS Physical Exam Narrative Heart sounds 1 and 2 are normal. Chest clear to auscultation bilaterally. Abdomen soft bowel sounds positive. Alert oriented x3. No ankle edema. Assessment & Plan Assessment/Plan (1) Atrial fibrillation, new onset: PLAN: Converted to normal sinus rhythm spontaneously. Continue aspirin. Continue diltiazem for now. Follow-up as outpatient with Dr. Douglass. If further episodes, then she will likely need consult with electrophysiology for possible A. fib ablation. Counseled to stay away from caffeinated beverages. PLAN: Plan May discharge home.
--- NOTE | 2022-07-22 13:39 | DCINST_ITS ---
Discharge Instructions Diet Discharge Diet: No restrictions Activity Discharge Activity: Return to Normal Activity Dressing / Incision Call your doctor if you observe: Fever of 101 or Higher, Shortness of breath, Dizziness, Fainting spells, Swelling in the ankles, Chest pain and Increased palpitations (irregular heartbeat) Follow Up Care Test Results: Test results from this visit will be discussed in further detail at your follow- up appointment, if applicable. Discharge Plan Admission Admit Date/Time: 07/21/22 16:09 Attending Provider: Young Hughes Primary Care Provider: Care Physician,No Primary Consulting Providers: Coleman Douglass Discharge Orders/Prescriptions Prescriptions: New diltiazem HCl 180 mg Capsule,Extended Release 24hr 180 mg PO DAILY Qty: 30 0RF Continued norgestimate-ethinyl estradiol [[id number]-Cbdgjx] 0.18/0.215/0.25 mg-25 mcg tablet 1 tab PO DAILY levothyroxine 75 mcg tablet 75 mcg PO DAILY Label Comments: TAKE 1 TABLET BY MOUTH EVERY DAY IN THE MORNING ON EMPTY STOMACH FOR 90 DAYS Rocklatan 0.02-0.005 % drops 1 drp EACH EYE DAILY Label Comments: INSTILL 1 DROP INTO BOTH EYES EVERY DAY AT NIGHT aspirin 81 mg Tablet,Chewable 81 mg PO DAILY Discontinued diltiazem HCl 120 mg capsule,extended release 24hr 120 mg PO DAILY Qty: 30 11RF Referrals / Follow Up: Coleman Douglass MD [Med Staff - Active Staff] - Within 1 Month Care Physician,No Primary [Primary Care Provider] - Disposition Disposition (needs filled in before D/C Order can be placed): Home, Self Care
--- NOTE | 2022-07-22 13:54 | DS.PCM_ITS ---
Providers Date of Admission: 07/21/22 Primary Care Physician: Lynnette Primary Care Phys Consultations 07/21/22 17:04 Consult: Cardiology Routine Consulting Provider: Coleman Douglass Reason for Consult: Afib with RVR EMERGENT Consult: No MD Notified: Yes Date Notified: 07/21/22 Time Notified: 16:14 Method of Notification: Verbal Reason For Visit: AFIB RVR Diagnosis Discharge Diagnosis (1) Atrial fibrillation, new onset: Status: Acute Code(s): I48.91 - Unspecified atrial fibrillation Medications at Discharge Home Medications levothyroxine 75 mcg tablet 75 mcg PO DAILY thyroid 07/20/22 netarsudil 0.02 %-latanoprost 0.005 % eye drops (Rocklatan) 1 drp EACH EYE DAILY eye health 07/20/22 aspirin 81 mg chewable tablet 81 mg PO DAILY HEART HEALTH 07/21/22 norgestimate 0.18 mg/0.215 mg/0.25 mg-ethinyl estradiol 25 mcg tablet (Zse-Tq-Mqoeaw) 1 tab PO DAILY control 07/21/22 diltiazem HCl 180 mg capsule,extended release 24 hr 180 mg PO DAILY #30 caps 07/22/22 Hospital Course Operations None Procedures 2-D Echocardiogram Summary of Care Provided Minutes Spent on Discharge: 36 Hospital Course: Per HPI: NIMO NAVARRO, is a 52 F who presents to the hospital with A. fib and RVR.? She has a family history of A. fib in her mother.? She presented to the ER yesterday morning and was started on Cardizem and aspirin and sent home.? A CT of her chest at that time was negative for PE, this was likely obtained secondary to her control pills.? She is continued to have palpitations as well as dizziness and near syncope, she also experienced some chest pressure.? She presented to cardiology's office for follow-up and she was sent directly here secondary to her A. fib with RVR as her heart rates were sustaining in the 160s.? In the ER she was started on a Cardizem drip and her heart rate appears to be coming down but it is still elevated. Hospital Course: 1. New onset A. fib with RVR?52-year-old female who presented to the hospital t he day prior with A. fib was discharged on aspirin and Cardizem. Is unclear whether or not she had ever converted to normal sinus rhythm prior to discharge home however she presented back to the hospital after following up with cardiology as an outpatient was found to be in RVR with a heart rate of 160. She was started on a Cardizem drip and converted to normal sinus rhythm this morning spontaneously. Cardiology was consulted and decided that aspirin would be enough since it on CHADS2 score she is a 0 but on [id number] she is a 1. I did increase her Cardizem from the 120 mg that she was discharged on to 180 mg p.o. daily. 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 Echo was also obtained and this was unremarkable with a normal EF. She was discharged faster than anticipated secondary to appropriate care and fast conversion to normal sinus rhythm. 2. Hypothyroidism is a chronic medical condition which complicate her care. Her home medications were continued where appropriate. TSH was normal. Physical Exam Narrative General: Alert, Oriented x3, Cooperative, No apparent distress HEENT: Atraumatic, PERRLA, EOMI, Normocephalic Oral: Moist Mucosa Neck: Supple, No JVD Lungs: Clear to auscultation, Normal air movement, No rhonchi, No wheeze, No rales Cardiovascular: Regular rate and rhythm, Normal S1, Normal S2, No murmurs Abdomen: Soft, Non Tender, Non-Distended, No Hepato-splenomegaly Extremities: No edema, Capillary Refill Less than 3 Seconds Skin: No rashes, No breakdown Musculoskeletal: No Tenderness to Palpation of Joints or Extremities Neurological: Cranial nerves II-XII grossly intact, Motor Exam 5/5 strength throughout, Sensory exam intact to light touch and pain Psych/Mental Status: Normal Affect, Appropriate Weight / BMI Weight Weight: 197 lb 1.492 oz Body Mass Index (BMI) 30.9 ABG / Lab / Microbiology Data Result Diagrams: 07/22/22 05:30 07/22/22 05:30 Laboratory: Laboratory Results - last 24 hr 07/21/22 14:52: WBC 13.1 H, RBC 5.10, Hgb 11.7 L, Hct 38.6, MCV 75.7 L, MCH 22.9 L, MCHC 30.3 L, RDW Std Deviation 40.2, RDW Coeff of Estevan 14.9 H, Plt Count 508 H , MPV 9.7, Immature Gran % (Auto) 0.400, Neut % (Auto) 62.9, Lymph % (Auto) 26.7, [place] % (Auto) 8.3, Eos % (Auto) 1.3, Baso % (Auto) 0.4, Absolute Neuts (auto) 8.2 H, Absolute Lymphs (auto) 3.49, Nucleated RBC % 0 07/21/22 14:52: PT 13.2, INR 1.0, APTT 24.4 07/21/22 14:52: Sodium 139, Potassium 4.0, Chloride 107, Carbon Dioxide 24.0, Anion Gap 8, BUN 14, Creatinine 0.88, Estim Creat Clear Calc 72.72, Est GFR (MDRD) Af Amer 87, Est GFR (MDRD) Non-Af 72, BUN/Creatinine Ratio 15.9, Glucose 104, Calcium 9.1, Magnesium 2.1, Total Bilirubin 0.30, AST 11 L, ALT 20, Alkaline Phosphatase 61, Troponin I High Sens 15, Total Protein 8.1, Albumin 3.5, Globulin 4.6 H, Albumin/Globulin Ratio 0.8 L 07/21/22 14:52: TSH 2.36 07/22/22 05:30: WBC 10.8, RBC 4.68, Hgb 11.1 L, Hct 35.4 L, MCV 75.6 L, MCH 23.7 L, MCHC 31.4 L, RDW Std Deviation 40.7, RDW Coeff of Estevan 15.2 H, Plt Count 410, MPV 9.9, Immature Gran % (Auto) 0.400, Neut % (Auto) 55.7, Lymph % (Auto) 32.6, [place] % (Auto) 8.6, Eos % (Auto) 2.3, Baso % (Auto) 0.4, Absolute Neuts (auto) 6.0, Absolute Lymphs (auto) 3.51, Nucleated RBC % 0 07/22/22 05:30: Sodium 140, Potassium 4.2, Chloride 106, Carbon Dioxide 26.0, Anion Gap 8, BUN 12, Creatinine 0.85, Estim Creat Clear Calc 75.29, Est GFR (MDRD) Af Amer 90, Est GFR (MDRD) Non-Af 75, BUN/Creatinine Ratio 14.1, Glucose 103, Calcium 8.5 07/22/22 11:55: D-Dimer Quant (PE/DVT) < 0.27 L Radiography Diagnostic Testing: Radiology Impression Chest X-Ray 07/21/22 15:03 IMPRESSION: Normal x-ray examination of the chest. Electronically Signed: Rosendo Almeida MD at 15:24 EDT , Echocardiogram 07/21/22 17:04 Interpretation Summary The left ventricular ejection fraction is 65 %. Mild (1+) mitral valve insufficiency. Ordering Physician: Young Hughes Performed By: Halle Robertson RDCS D/C Instructions Discharge Diet: No restrictions Call your doctor if you observe: Fever of 101 or Higher, Shortness of breath, Dizziness, Fainting spells, Swelling in the ankles, Chest pain and Increased palpitations (irregular heartbeat) Meaningful Use Info Meaningful Use Diagnoses (Choose all that apply): None applicable Discharge Plan Admission Admit Date/Time: 07/21/22 16:09 Attending Provider: Young Hughes Primary Care Provider: Care Physician,No Primary Consulting Providers: Coleman Douglass Discharge Orders/Prescriptions Prescriptions: New diltiazem HCl 180 mg Capsule,Extended Release 24hr 180 mg PO DAILY Qty: 30 0RF Continued norgestimate-ethinyl estradiol [Ptk-Ed-Ihsgaw] 0.18/0.215/0.25 mg-25 mcg tablet 1 tab PO DAILY levothyroxine 75 mcg tablet 75 mcg PO DAILY Label Comments: TAKE 1 TABLET BY MOUTH EVERY DAY IN THE MORNING ON EMPTY STOMACH FOR 90 DAYS Rocklatan 0.02-0.005 % drops 1 drp EACH EYE DAILY Label Comments: INSTILL 1 DROP INTO BOTH EYES EVERY DAY AT NIGHT aspirin 81 mg Tablet,Chewable 81 mg PO DAILY Discontinued diltiazem HCl 120 mg capsule,extended release 24hr 120 mg PO DAILY Qty: 30 11RF Referrals / Follow Up: Coleman Douglass MD [Med Staff - Active Staff] - Within 1 Month Care Physician,No Primary [Primary Care Provider] - Disposition Disposition (needs filled in before D/C Order can be placed): Home, Self Care Charges/Coding Visit Charges Inpatient E&M: 69919 Disch Hosp
--- NOTE | 2022-07-22 15:17 | NURSING ---
Charting reviewed with Holger Peña RN
== END 2022-07-22 14:32 | disposition home or self-care (01) | DRG 310 ==
LOC: ED 15:38 → PCU 16:39
PROVIDERS: Internal Medicine Cardiovascular Disease; Admitting Provider Family Medicine; Emergency Provider Emergency Medicine; Visit Provider Family Medicine
DX: I48.0 Paroxysmal atrial fibrillation (principal); E03.9 Hypothyroidism, unspecified; Z79.82 Long term (current) use of aspirin; Z79.899 Other long term (current) drug therapy; Z82.49 Family history of ischemic heart disease and other diseases of the circulatory system
CPT/HCPCS: 36415; 71045; 80048; 80053; 83735; 84443; 84484; 85025; 85379; 85610; 85730; 93005; 93306; 99285; Q9957; A4216

== ENCOUNTER → 2022-08-18 | Outpatient (CLI) | payer OTHER, SELFPAY ==
--- NOTE | 2022-08-18 16:50 | US_ITS ---
STUDY: ULTRASOUND - URINARY BLADDER REASON FOR EXAM: Female, 52 years old. trouble urinating TECHNIQUE: Ultrasound evaluation of the urinary bladder was performed with real-time and static benoit-scale imaging. COMPARISON: None. FINDINGS: There is no right UVJ calculus. There is a visualized right ureteral jet. There is no left UVJ calculus. There is a visualized left ureteral jet. The distended volume of the urinary bladder is 470 ml. The empty volume of the urinary bladder is 17 ml. The bladder wall is within normal limits. The bladder wall measures . There is no demonstrated bladder wall mass lesion. There are no demonstrated bladder calculi. US/Post Void Residual Bladder IMPRESSION: Normal ultrasound of the urinary bladder. Electronically Signed: Ronnie Perea MD at 18:03 EDT ,
--- NOTE | 2022-08-18 16:50 | US_ITS ---
STUDY: ULTRASOUND TRANSVAGINAL CLINICAL: Female, 52 years old. nodule on cervix, difficult to assess visually TECHNIQUE: Transvaginal COMPARISON: None. FINDINGS: Normal uterine size measuring 10.8 x 9.7 x 7.4 cm in maximal craniocaudal dimension. 6.5 cm hypoechoic mass in the posterior body the uterus consistent with an intramural fibroid. 3 cm hypoechoic mass in the posterior body the uterus consistent with an intramural fibroid. 2 cm isoechoic mass in the posterior body the uterus consistent with a submucosal fibroid.. The uterus is retroflexed. Normal endometrial thickness measuring 7 mm. There are no endometrial masses, and there is no fluid in the endometrial cavity. Small nabothian cysts. The ovaries are not visualized. There is no free fluid in the pelvis. Polycystic ovary disease: No. US/Transvaginal Non- IMPRESSION: Enlarged fibroid uterus. Electronically Signed: Ronnie Perea MD at 18:07 EDT ,
== END | disposition home or self-care (01) ==
PROVIDERS: PCP Internal Medicine; Referring Provider Internal Medicine; Visit Provider Internal Medicine
DX: R33.9 Retention of urine, unspecified (principal); N88.9 Noninflammatory disorder of cervix uteri, unspecified
CPT/HCPCS: 51798; 76830

== ENCOUNTER → 2022-08-31 | Outpatient (CLI) | payer OTHER, SELFPAY ==
--- NOTE | 2022-08-31 16:20 | BI_ITS ---
MAMMOGRAPHY - BILATERAL SCREENING REASON FOR EXAM: Female, 52 years old. Routine annual screening examination. PERTINENT HISTORY: Non-contributory. TECHNIQUE: Digital bilateral breast monae (3D mammographic acquisition) in the CC and MLO projections. 2-D mediolateral oblique (MLO) and craniocaudad (CC) views of both breasts were obtained. CAD: Full Field Digital Mammography with Computer Added Detection was performed. COMPARISON: Comparison is made with prior study dated 06/10/2019 and 08/25/2017 FINDINGS: Breast Composition: The breasts are heterogeneously dense, which may obscure small masses. There are no dominant masses or suspicious calcifications. No other significant abnormalities are identified. There has been no significant change since the prior study. BI/SCRN MAMM (CAD)W/MONAE BILAT IMPRESSION: Stable bilateral screening mammogram. Yearly follow-up mammogram recommended. (A) ASSESSMENT CATEGORY: BIRADS Category 1: Negative. A letter regarding these results will be sent to the patient by the facility within 30 days. Approximately 10% of breast cancers are not detected by mammography. A normal mammogram should not delay biopsy of a clinically suspicious abnormality. [id number] Electronically Signed: Rosendo Almeida MD at 8:39 EST ,
== END | disposition home or self-care (01) ==
LOC: OPBI 09-01 07:24
PROVIDERS: PCP Internal Medicine; Visit Provider Internal Medicine
DX: Z12.31 Encounter for screening mammogram for malignant neoplasm of breast (principal)
CPT/HCPCS: 77063; 77067

== ENCOUNTER 2022-09-18 09:02 | Outpatient (CLI) | payer OTHER, SELFPAY | END 2022-09-18 23:59 | disposition home or self-care (01) | LOC: PSN 09:03 | PROVIDERS: PCP Internal Medicine; Referring Provider Nurse Practitioner Gerontology; Visit Provider Nurse Practitioner Gerontology | DX: R00.2 Palpitations (principal) | CPT/HCPCS: 93225; 93226 ==

== ENCOUNTER → 2022-12-25 | Outpatient (CLI) | payer OTHER, SELFPAY | END | disposition home or self-care (01) | LOC: SL 20:04 | PROVIDERS: PCP Internal Medicine; Referring Provider Nurse Practitioner Family; Visit Provider Nurse Practitioner Family | DX: G47.10 Hypersomnia, unspecified (principal); I48.91 Unspecified atrial fibrillation | CPT/HCPCS: 95810 ==

== ENCOUNTER → 2024-01-03 | Outpatient (CLI) | payer OTHER, SELFPAY ==
[2024-01-03 17:07] LABS: Absolute Lymphocyte Count 3.28 X10^3/uL (0.83-4.51); Absolute Neutrophil Count 5.1 X10^3/uL (2.0-7.7); Basophil# 0.04 X10^3/uL; Basophil% 0.4 % (0-1); Eosinophil# 0.27 X10^3/uL; Eosinophils% 2.8 % (0-5); Hematocrit 28.3 % (37-47); Hemoglobin 7.6 g/dL (12.0-15.0); Lymphocyte # 3.28 X10^3/ul (0.83-4.51); Lymphocyte % 34.2 % (19-41); Mean Corp Hgb Conc 26.9 g/dL (32-36); Mean Corpuscular Hgb 16.8 pg (27.0-32.0); Mean Corpuscular Volume 62.6 fL (81-99); Mean Platelet Vol. 10.1 fl (6.2-12.0); Monocyte# 0.86 X10^3/uL; NRBC Flagged by Analyzer 0 % (0-5); Neutrophil # 5.12 X10^3/uL (2.7-7.7); Neutrophil % 53.4 % (47-70); Platelet Count 494 K/mm3 (150-450); RBC Distribution Width CV 18.5 % (11.6-14.6); RBC Distribution Width SD 40.3 fl (35.1-43.9); Red Blood Count 4.52 M/mm3 (4.2-5.4); White Blood Count 9.6 K/mm3 (4.4-11.0)
[2024-01-03 17:53] LABS: ALB/GLOB Ratio 0.9 RATIO (0.9-2.4); AST(SGOT) 15 U/L (15-37); Alanine Aminotransfer ALT/SGPT 28 U/L (13-56); Albumin, Serum 3.7 g/dL (3.2-5.0); Alkaline Phosphatase 61 U/L (45-117); Anion Gap 8 (5-15); BUN 8 mg/dL (7-18); BUN/Creat Ratio 10.2 RATIO (10-20); Chloride 106 mmol/L (98-107); Cholesterol 182 mg/dL (200); Creatinine, Serum 0.78 mg/dL (0.55-1.02); EST Glomerular Filtration Rate 81 mL/min (>60); Est Glom Filt Rate - Afr Amer 98 mL/min (>60); Glucose 91 mg/dL (74-106); High Density Lipoprotein 46 mg/dL; Magnesium 2.3 mg/dL (1.6-2.6); Protein, Total 7.7 g/dL (6.4-8.2); Sodium Level 137 mmol/L (136-145); Triglycerides 160 mg/dL; Very Low Density Lipoprotein 32 mg/dL (5-40)
--- OUTSIDE RECORDS SUMMARY | 2024-01-03 22:32 | XMS RPT_ITS | CCD ---
Author Name Unknown Address [address] [place] [address] Organization [facility] Care Team Providers Care Wet Process Head Miller Name Role Phone Unavailable Primary Care Provider Unavailabl e SELF Referring Unavailable JOSE M JEROME Attending Unavailable Allergies Allergy Classification Reported Allergen(s) Allergy Type Date of Onset Reaction(s) Facility (1 source) Penicillins Drug Allergy 12-03-2023 Anaphylaxis [facility] Medications Current Medications Medication Drug Class(es) Dates Sig (Normalized) Sig (Original) benoxinate hydrochloride 4 mg/ml / fluorescein sodium 3 mg/ml ophthalmic solution (1 source) Diagnostic Dye Start: 12-03-2023 End: 12-04-2023 fluorescein-benoxi faby 0.3-0.4 % 1 Drop (FLURESS) phenylephrine hydrochloride 25 mg/ml ophthalmic solution (1 source) alpha-1 Adrenergic Agonist Start: 12-03-2023 End: 12-04-2023 PHENYLephrine 2.5 % 1 Drop (AK-DILATE, SARABJIT-SYNEPHRINE) tropicamide 10 mg/ml ophthalmic solution (1 source) Anticholinergic Start: 12-03-2023 End: 12-04-2023 tropicamide 1 % 1 Drop (MYDRIACYL) Completed/Discontinued Medications Medication Drug Class(es) Dates Sig (Normalized) Sig (Original) apixaban 5 mg oral tablet (1 source) Factor Xa Inhibitor Start: 11-19-2023 take 1 tablet by mouth every twelve hours ELIQUIS 5 mg tab(s) Take 1 tablet by mouth every 12 hours. 0 11/19/2023 Active Problems Problem Classification Problem Date Documented Da te Episodic/Chronic Glaucoma (1 source) Preglaucoma, unspecified, bilateral; Translations: [Preglaucoma, unspecified] 12-03-2023 Chronic Results Test Name Value Interpretation Reference Range Facil ity Encounters Encounter Date Encounter Type Care Provider Facility Start: 12-03-2023 End: 12-03-2023 ambulatory SELF Facility:[facility] Start: 12-03-2023 End: 12-03-2023 Patient encounter procedure Jose M Jerome MD Work Phone: Ophthalmology Procedures Date Procedure Procedure Detail Performing Clinician Start: 12-03-2023 Ophthalmic us dx cor dl pachymetry uni/bi Jose M Jerome MD Work Phone: Start: 12-03-2023 End: 12-03-2023 Visual field xm uni/bi w/interp extended exam Jose M Jerome MD Work Phone: Plan of Treatment Date Care Activity Detail Author Start: 09-13-2028 Urine microalbumin profile DTa P,Tdap,Td Vaccine (2 - Td or Tdap) [facility] Start: 10-22-2023 Depression Assessment Depression Ass essment [facility] Start: 06-22-2023 Covid-19 Vaccine () Covid-19 Vaccine () [facility] Start: 06-22-2023 Influenza vaccination Influenza Vacc ine (#1) [facility] Start: 10-22-2022 Depression Assessment Depression Ass essment [facility] Start: 2020 Shingrix Vaccine (1 of 2) Shingrix V accine (1 of 2) [facility] Start: 2015 Cologuard (FIT-DNA) Cologuard (FIT-D NA) [facility] Start: 2015 Colonoscopy Colonoscopy [facility] Start: 2015 Colorectal Cancer Screening Colorectal Cancer Screening [facility] Start: [address] Colonography [facility] Start: 2015 Diabetes Screening Diabetes Screenin g [facility] Start: 2015 Fecal Occult Blood Fecal Occult Bloo d [facility] Start: 2015 Lipid 1996 panel - S benjamin or Plasma Lipid Screening [facility] Start: 2015 Lipid panel Lipid Screening [facility] Start: 2015 Screening for malign ant neoplasm of colon [facility] Start: 2015 [facility] Start: 2010 Mammography Mammogram Screening [facility] Start: 2010 Screening for malign ant neoplasm of breast Mammogram Screening [facility] Start: 2000 HPV Testing HPV Testing [facility] Start: 2000 Screening for malign ant neoplasm of cervix HPV Testing [facility] Start: 1991 Pap Testing Pap Testing [facility] Start: 1991 Screening for malign ant neoplasm of cervix Pap Testing [facility] Start: 1989 Urine microalbumin profile DTa P,Tdap,Td Vaccine (1 - Tdap) [facility] Start: 1988 Hepatitis C Screening Hepatitis C [facility] Start: 1988 Hepatitis C screening Hepatitis C [facility] Start: 1988 HIV Screening HIV Screening [facility] Start: 1988 HIV screening HIV Screening [facility] Start: 1970 Covid-19 Vaccine (#1) Covid-19 Vacci ne (#1) [facility] Start: 1970 Hepatitis B Vaccine (1 of 3 - 3-dose series) Hepatitis B Vaccine (1 of 3 - 3-dose series) [facility] Immunizations Immunization Date Immunization Notes Care Provider Fa [facility] 08-01-2019 influenza virus vacc ine, unspecified formulation Jose M Jerome MD Work Phone: [facility] Payers Date Payer Category Payer Private Health Insurance [id number] 2021 Private Health Insurance [id number] Social History Date Type Detail Facility Tobacco smoking stat [facility] Tobacco smoking consumption unknown [facility] Start: 1970 Sex Assigned At Not on file [facility] Start: 12-03-2023 Gender identity Not on file [facility] Start: 12-03-[address] [facility] Ex-smoker [facility] End: 10-22-1989 History of tobacco use Current smoker [facility] End: 10-22-1989 History of tobacco use Cigarette Smoker [facility] Start: 12-03-2023 Tobacco use and exposure Smokeless t obacco non-user [facility] Start: 12-03-2023 Alcohol intake Ex-drinker (finding) [facility] Start: 12-03-2023 History of Social function [facility] National Score (1-10 0), lower number is lower risk 47 [facility] Progress note 12-03-2023 Note Date & Type Note Facility 12-03-2023 Note HNO ID: [id number] Author: JOSE M JEROME MD Service: ? Author Type: Physician Type: Progress Notes Filed: 12/03/2023 14:15 Note Text: New from [facility] Tmax: high 20's per patient; Pachy: 584, 573 Lasers and Surgeries: OD: 2022 Selected laser trabecul[place]SLT[place] OS: 2022 Selected laser trab[place]ul[place]SLT) [place])? Ocular Medication Intol and Non-efficacy: Now on rocklatan 10/22 Next on timolol 10/22, rocklatan 10/22 -HVF 11/2023 OD essentially normal OS double arcs -OCT 11/2023 OD diffuse thinning OS diffuse thinning # Primary open angle glaucoma (POAG) mild right eye, severe left eye - previously documented as pigmentary glaucoma, I'm only seeing fine endothelial pigmentation without hyperpigmented TM or zonular pigment deposit - thick pachy - on rocklatan 10/22, many drop ineffectiveness at [facility] - add timolol every morning both eyes - follow 2 months, intraocular pressure - goal mid/high teens right eye, mid teens left eye tentatively # CL wearer both eyes I have confirmed and edited as necessary the relevant ophthalmic history, ROS, and the neuro exam findings as obtained by others. I have seen and examined Hannah Navarro. I have discussed the case and the management of this patient's care with the Resident/Fellow, if applicable. I also have reviewed and agree with the assessment and plan as stated above and agree with all of its relevant components. Jose M Jerome MD [facility] History of Present illness Narrative 12-03-2023 Jose M Jerome MD - 12/03/2023 12:44 PM EST Note Date & Type Note Facility 12-03-2023 History of Presen t illness Narrative New from [facility] Tmax: high 20's per patient; Pachy: 584, 573 Lasers and Surgeries: OD: 2022 Selected [place] OS: 2022 Selected laser trab[place]oplasty [place]SLT) [place])? Ocular Medication Intol and Non-efficacy: Now on rocklatan 10/22 Next on timolol 10/22, rocklatan 10/22 -HVF 11/2023 OD essentially normal OS double arcs -OCT 11/2023 OD diffuse thinning OS diffuse thinning # Primary open angle glaucoma (POAG) mild right eye, severe left eye - previously documented as pigmentary glaucoma, I'm only seeing fine endothelial pigmentation without hyperpigmented TM or zonular pigment deposit - thick pachy - on rocklatan 10/22, many drop ineffectiveness at [facility] - add timolol every morning both eyes - follow 2 months, intraocular pressure - goal mid/high teens right eye, mid teens left eye tentatively # CL wearer both eyes I have confirmed and edited as necessary the relevant ophthalmic history, ROS, and the neuro exam findings as obtained by others. I have seen and examined Hannah Navarro. I have discussed the case and the management of this patient's care with the Resident/Fellow, if applicable. I also have reviewed and agree with the assessment and plan as stated above and agree with all of its relevant components. Jose M Jerome MD documented in this encounter [facility] Note 09-24-2023 Telephone Encounter - Monica Blankenship - 09/24/2023 1:53 PM ESTTelephone Encounter - Monica Blankenship - 09/24/2023 1:24 PM ESTTelephone Encounter - Monica Blankenship - 09/24/2023 1:24 PM EST Note Date & Type Note Facility 09-24-2023 Miscellaneous Notes Formattin g of this note might be different from the original. Bonnie scheduled appt, I called the and [facility] with info regarding appointment The appointment needs a referral, called second floor appt desk, Bonnie will do referral and appt, can call be back [facility] appt. Images from the original note were not included. View All Conversations on this Encounter Jose M Jerome MD You 1 hour ago (11:30 AM) Add on to jarvis 10/01 open new patient slot, but tell patient to come in before 3pm Dr. Rodriguez [facility] referring pt to you. High IOP uncontrolled under medication, moderate glaucoma. Would like patient seen this week if possible 09/24/23. Please call [facility] with appt into [phone] Please advise re appointment Faxing today's office notes and VF documented in this encounter [facility] Evaluation note Note Date & Type Note Facility documented in this encounter [facility] Summary Purpose Family History No Family History Records Found Advance Directives No Advanced Directives Records Found Additional Source Comments Source Comments (unrecognize d section and content) In the event this informatio n is protected by the Federal Confidentiality of Alcohol and Drug Abuse Patient Records regulations: The Federal rules restrict any use of the information to criminally investigate or prosecute any alcohol or drug abuse patient.[facility] the event this information is protected by the Federal Confidentiality of Alcohol and Drug Abuse Patient Records regulations: The Federal rules restrict any use of the information to criminally investigate or prosecute any alcohol or drug abuse patient.[facility] Reason for Visit (unrecogniz ed section and content) Active Administered Medications - up to 3 most recent administrations Administered Medications (un recognized section and content) INFORMATION SOURCE (unrecogn ized section and content) FOR RECORDS PERTAINING TO PATIENTS WHO ARE OR HAVE BEEN ENROLLED IN A CHEMICAL DEPENDENCY/SUBSTANCEABUSE PROGRAM, SOME INFORMATION MAY BE OMITTED. This clinical summary was aggregated from multiple sources. Caution should be exercised in using it in the provision of clinical care. This summary normalizes information from multiple sources, and as a consequence, information in this document may materially change the coding, format and clinical context of patient data. In addition, data may be omitted in some cases. CLINICAL DECISIONS SHOULD BE BASED ON THE PRIMARY CLINICAL RECORDS. [employer] provides no warranty or guarantee of the accuracy or completeness of information in this document.
== END | disposition home or self-care (01) ==
LOC: LAB 16:29
PROVIDERS: PCP Internal Medicine; Referring Provider Nurse Practitioner Gerontology; Visit Provider Nurse Practitioner Gerontology
DX: R42 Dizziness and giddiness (principal); E78.2 Mixed hyperlipidemia; E03.9 Hypothyroidism, unspecified
CPT/HCPCS: 36415; 80053; 80061; 83735; 84443; 85025

== ENCOUNTER → 2024-01-04 | Outpatient (CLI) | payer OTHER, SELFPAY ==
[2024-01-04 12:46] LABS: Absolute Lymphocyte Count 2.29 X10^3/uL (0.83-4.51); Absolute Neutrophil Count 4.9 X10^3/uL (2.0-7.7); Basophil# 0.05 X10^3/uL; Basophil% 0.6 % (0-1); Eosinophil# 0.26 X10^3/uL; Eosinophils% 3.2 % (0-5); Hematocrit 30.5 % (37-47); Lymphocyte # 2.29 X10^3/ul (0.83-4.51); Lymphocyte % 27.9 % (19-41); Mean Corp Hgb Conc 26.2 g/dL (32-36); Mean Corpuscular Hgb 16.7 pg (27.0-32.0); Mean Corpuscular Volume 63.5 fL (81-99); Mean Platelet Vol. 10.3 fl (6.2-12.0); Monocyte# 0.65 X10^3/uL; Monocyte% 7.9 % (0-10); NRBC Flagged by Analyzer 0 % (0-5); Neutrophil # 4.94 X10^3/uL (2.7-7.7); Neutrophil % 60.2 % (47-70); Platelet Count 464 K/mm3 (150-450); RBC Distribution Width CV 18.6 % (11.6-14.6); RBC Distribution Width SD 41.6 fl (35.1-43.9); White Blood Count 8.2 K/mm3 (4.4-11.0)
[2024-01-04 13:08] LABS: Ferritin 3 ng/mL (8-252); Iron 14 ug/dL (50-170); Iron Binding Capacity,Total 533 ug/dL (250-450)
== END | disposition home or self-care (01) ==
LOC: BIMLAB 10:20
PROVIDERS: PCP Internal Medicine; Visit Provider Nurse Practitioner
DX: D64.9 Anemia, unspecified (principal)
CPT/HCPCS: 36415; 82728; 83540; 83550; 85025

== ENCOUNTER → 2024-01-07 | Outpatient (CLI) | payer OTHER, SELFPAY | END | disposition home or self-care (01) | LOC: LABSPEC 16:23 | PROVIDERS: PCP Internal Medicine; Referring Provider Nurse Practitioner; Visit Provider Nurse Practitioner | DX: D64.9 Anemia, unspecified (principal) | CPT/HCPCS: 82274 ==

== ENCOUNTER → 2024-01-14 | Outpatient (CLI) | payer OTHER, SELFPAY ==
[2024-01-14 15:34] LABS: Hematocrit 32.3 % (37-47); Hemoglobin 8.5 g/dL (12.0-15.0); Mean Corp Hgb Conc 26.3 g/dL (32-36); Mean Corpuscular Hgb 17.2 pg (27.0-32.0); Mean Corpuscular Volume 65.4 fL (81-99); Mean Platelet Vol. 10.9 fl (6.2-12.0); POSITIVE MORPHOLOGY YES; Platelet Count 466 K/mm3 (150-450); RBC Distribution Width CV 21.4 % (11.6-14.6); RBC Distribution Width SD 47.4 fl (35.1-43.9); Red Blood Count 4.94 M/mm3 (4.2-5.4)
[2024-01-14 15:40] LABS: Scan Indicated on CBC? Y/N YES- FLAGS NOTED
[2024-01-14 16:30] LABS: Differential Comment SCANNED
== END | disposition home or self-care (01) ==
LOC: BIMLAB 12:12
PROVIDERS: PCP Internal Medicine; Referring Provider Nurse Practitioner; Visit Provider Nurse Practitioner
DX: D64.9 Anemia, unspecified (principal)
CPT/HCPCS: 36415; 85027

== ENCOUNTER → 2024-03-10 | Outpatient (CLI) | payer OTHER, SELFPAY ==
[2024-03-10 15:32] LABS: Absolute Lymphocyte Count 2.44 X10^3/uL (0.83-4.51); Basophil# 0.04 X10^3/uL; Basophil% 0.6 % (0-1); Eosinophil# 0.21 X10^3/uL; Eosinophils% 3.3 % (0-5); Hematocrit 40.6 % (37-47); Lymphocyte # 2.44 X10^3/ul (0.83-4.51); Lymphocyte % 38.2 % (19-41); Mean Corp Hgb Conc 29.6 g/dL (32-36); Mean Corpuscular Hgb 21.7 pg (27.0-32.0); Mean Corpuscular Volume 73.6 fL (81-99); Mean Platelet Vol. 11.1 fl (6.2-12.0); Monocyte# 0.68 X10^3/uL; Monocyte% 10.6 % (0-10); NRBC Flagged by Analyzer 0 % (0-5); Neutrophil # 3.01 X10^3/uL (2.7-7.7); Neutrophil % 47.1 % (47-70); POSITIVE MORPHOLOGY YES; Platelet Count 430 K/mm3 (150-450); RBC Distribution Width CV 21.7 % (11.6-14.6); Red Blood Count 5.52 M/mm3 (4.2-5.4); White Blood Count 6.4 K/mm3 (4.4-11.0)
[2024-03-10 15:39] LABS: Differential Indicated SCAN CRITERIA MET
[2024-03-10 16:36] LABS: Ferritin 7 ng/mL (8-252); Iron 27 ug/dL (50-170)
== END | disposition home or self-care (01) ==
LOC: BIMLAB 11:58
PROVIDERS: PCP Internal Medicine; Visit Provider Nurse Practitioner
DX: D50.0 Iron deficiency anemia secondary to blood loss (chronic) (principal)
CPT/HCPCS: 36415; 82728; 83540; 85025

== ENCOUNTER → 2024-06-02 | Outpatient (CLI) | payer OTHER, SELFPAY ==
--- NOTE | 2024-06-02 14:42 | BI_ITS ---
MAMMOGRAPHY - BILATERAL SCREENING REASON FOR EXAM: Female, 53 years old. Routine annual screening examination. PERTINENT HISTORY: Non-contributory. TECHNIQUE: Digital bilateral breast monae (3D mammographic acquisition) in the CC and MLO projections. 2-D mediolateral oblique (MLO) and craniocaudad (CC) views of both breasts were obtained. CAD: Full Field Digital Mammography with Computer Added Detection was performed. COMPARISON: Comparison is made with prior study of August 31, 2022 and June 10, 2019. FINDINGS: Breast Composition: The breasts are heterogeneously dense, which may obscure small masses. There are no dominant masses or suspicious calcifications. No other significant abnormalities are identified. There has been no significant change since the prior study. BI/SCRN MAMM (CAD)W/MONAE BILAT IMPRESSION: Stable bilateral screening mammogram. Yearly follow-up mammogram recommended. (A) ASSESSMENT CATEGORY: BIRADS Category 1: Negative. A letter regarding these results will be sent to the patient by the facility within 30 days. Approximately 10% of breast cancers are not detected by mammography. A normal mammogram should not delay biopsy of a clinically suspicious abnormality. [id number] Electronically Signed: Rosendo Almeida MD at 15:30 EDT ,
== END | disposition home or self-care (01) ==
LOC: OPBI 14:42
PROVIDERS: PCP Internal Medicine; Referring Provider Nurse Practitioner Women's Health; Visit Provider Nurse Practitioner Women's Health
DX: Z12.31 Encounter for screening mammogram for malignant neoplasm of breast (principal)
CPT/HCPCS: 77063; 77067

== ENCOUNTER → 2024-06-06 | Outpatient (CLI) | payer OTHER, SELFPAY ==
--- NOTE | 2024-06-06 16:55 | US_ITS ---
EXAM: US PELVIS TRANSABDOMINAL LIMITED AND TRANSVAGINAL CLINICAL INDICATION: menorrhagia TECHNIQUE: Transabdominal (limited) and transvaginal pelvic ultrasound was performed with grayscale and color Doppler imaging. Transvaginal imaging was used for better evaluation of the endometrium and adnexa. COMPARISON: No relevant prior studies available. FINDINGS: UTERUS/CERVIX: There is a hypoechoic mass in the uterus compatible with fibroid that measures 5.5 x 5.6 x 5.7 cm. The uterus measures 12.8 x 7.3 x 9.8 cm. Uterus is heterogeneous in echogenicity. The endometrium measures 8 mm. There is a trace amount of fluid within the endometrium. There are questionable areas along the wall of the endometrium there is slightly echogenic possibly representing tiny endometrial polyps. There is a small hypoechoic fibroid that measures 3.1 x 2.2 x 2.6 cm. There is a third hypoechoic fibroid that measures 2.8 x 2.0 x 2.2 cm. Anteverted. RIGHT OVARY: The right ovary measures 1.8 x 1.3 x 1.2 cm. Blood flow is present in the right ovary. LEFT OVARY: The left ovary is not visualized. FREE FLUID: None. BLADDER: Bladder measures 5.7 x 4.9 x 7.4 cm for a volume of 180 mL. US/Pelvic w/ Transvaginal IMPRESSION: Multiple uterine fibroids. There is a trace amount of fluid within the endometrium. There are questionable endometrial polyps present. If indicated further evaluation with MRI may be beneficial. No other abnormalities are identified. Electronically Signed: Og Stock MD at 0:04 EDT ,
== END | disposition home or self-care (01) ==
LOC: US 16:53
PROVIDERS: PCP Internal Medicine; Referring Provider Nurse Practitioner Women's Health; Visit Provider Nurse Practitioner Women's Health
DX: N92.0 Excessive and frequent menstruation with regular cycle (principal)
CPT/HCPCS: 76830; 76856

== ENCOUNTER → 2024-06-27 | Outpatient (CLI) | payer OTHER, SELFPAY ==
[2024-06-27 11:52] LABS: Absolute Lymphocyte Count 2.75 X10^3/uL (0.83-4.51); Absolute Neutrophil Count 3.5 X10^3/uL (2.0-7.7); Basophil# 0.05 X10^3/uL; Basophil% 0.7 % (0-1); Eosinophil# 0.31 X10^3/uL; Eosinophils% 4.3 % (0-5); Hematocrit 40.6 % (37-47); Lymphocyte # 2.75 X10^3/ul (0.83-4.51); Lymphocyte % 37.7 % (19-41); Mean Corp Hgb Conc 29.6 g/dL (32-36); Mean Corpuscular Hgb 23.1 pg (27.0-32.0); Mean Corpuscular Volume 78.2 fL (81-99); Mean Platelet Vol. 10.7 fl (6.2-12.0); Monocyte# 0.71 X10^3/uL; Monocyte% 9.7 % (0-10); NRBC Flagged by Analyzer 0 % (0-5); Neutrophil # 3.45 X10^3/uL (2.7-7.7); Neutrophil % 47.3 % (47-70); Platelet Count 460 K/mm3 (150-450); RBC Distribution Width CV 12.8 % (11.6-14.6); Red Blood Count 5.19 M/mm3 (4.2-5.4); White Blood Count 7.3 K/mm3 (4.4-11.0)
[2024-06-27 12:55] LABS: Estradiol < 11.0 pg/mL
== END | disposition home or self-care (01) ==
LOC: BIMLAB 08:37
PROVIDERS: Nurse Practitioner Women's Health; PCP Internal Medicine; Referring Provider Physician Assistant; Visit Provider Physician Assistant
DX: N92.0 Excessive and frequent menstruation with regular cycle (principal); E03.9 Hypothyroidism, unspecified; D50.9 Iron deficiency anemia, unspecified
CPT/HCPCS: 36415; 82670; 83001; 84443; 85025

== ENCOUNTER → 2024-08-08 | Outpatient (CLI) | payer OTHER, SELFPAY ==
--- NOTE | 2024-08-08 11:17 | RAD_ITS ---
STUDY: X-RAY CHEST REASON FOR EXAM: Female, 54 years old. cough TECHNIQUE: Frontal and lateral views of the chest. COMPARISON: 07/21/2022. FINDINGS: The lungs are clear and expanded. There is no demonstrated pleural abnormality. Normal size heart. Normal mediastinum and jorge. Normal visualized pulmonary arteries. Normal visualized aortic arch and descending thoracic aorta. Normal visualized thoracic spine. Normal visualized ribs, clavicles, and shoulders. There is no demonstrated abnormality of the visualized soft tissue structures of the upper abdomen. RAD/Chest PA and Lateral IMPRESSION: Normal x-ray examination of the chest. Electronically Signed: Dylon Terry MD at 15:24 EDT ,
== END | disposition home or self-care (01) ==
LOC: MTRAD 11:17
PROVIDERS: PCP Internal Medicine; Referring Provider Nurse Practitioner; Visit Provider Nurse Practitioner
DX: R05.9 Cough, unspecified (principal)
CPT/HCPCS: 71046

== ENCOUNTER 2024-12-01 12:05 | Observation (INO) | payer BC, SELFPAY ==
[2024-12-01] VITALS (39 sets, daily range): BP systolic 78–148; BP diastolic 49–104; PULSE 73–170; RESP 10–23; TEMP 36.4–36.8; O2SAT 94–100; BMI 31.1; BMI 29.2
--- NOTE | 2024-12-01 12:15 | RAD_ITS ---
EXAM: XR Chest, 1 View CLINICAL INDICATION: TECHNIQUE: Frontal view of the chest. COMPARISON: No relevant prior studies available. FINDINGS: LUNGS AND PLEURAL SPACES: Pulmonary venous congestion. No consolidation. No pneumothorax. HEART: Unremarkable. No cardiomegaly. MEDIASTINUM: Unremarkable. Normal mediastinal contour. BONES/JOINTS: Unremarkable. No acute fracture. RAD/Chest 1 View (Portable) IMPRESSION: Pulmonary venous congestion. Reading [facility]
--- NOTE | 2024-12-01 12:15 | EKG12_ITS ---
Test Reason : CP Blood Pressure : */* mmHG Vent. Rate : 162 BPM Atrial Rate : 73 BPM P-R Int : * ms QRS Dur : 76 ms QT Int : 268 ms P-R-T Axes : * -36 25 degrees QTcB Int : 439 ms Critical Test Result: High HR Atrial fibrillation with rapid ventricular response Left axis deviation Nonspecific ST abnormality Abnormal ECG Confirmed by Cristobal Adame ([id number]), development editor HENRIK LOGAN ([id number]) on 12/02/2024 10:07:35 AM Referred By: BB/ Confirmed By: Cristobal Adame
--- NOTE | 2024-12-01 12:16 | EDS_ITS ---
HPI History of Present Illness Chief Complaint: Chest Pain Informant: patient Narrative Narrative: 54-year-old female presenting with chest heaviness, palpitations. Patient states she looked at her watch and it showed she was in atrial fibrillation. She has history of atrial fibrillation and was previously on medication. These medications including Cardizem and Eliquis were recently discontinued by cardiology. She stopped Eliquis approximately 1 week ago. Prior similar symptoms: Yes Recent Illness/Hospitalization: No PFSH PFSH Medical History GERD (gastroesophageal reflux disease) Headache, migraine Goiter Wrist fracture Afib Seasonal allergies Hypothyroidism Glaucoma Home Medications ?Medication ?Instructions ?Recorded ?Last Taken ?Type netarsudil 0.02 %-latanoprost 1 drp EACH EYE DAILY eye health 07/20/22 07/20/22 History 0.005 % eye drops (Rocklatan) timolol maleate 0.5 % eye drops 1 drp ophthalmic (eye) DAILY 12/25/23 Unknown History levothyroxine 75 mcg tablet 75 mcg PO DAILY thyroid #9 0 tabs 09/22/24 Unknown Rx Allergy/AdvReac Type Severity Reaction Status Date / Time Penicillins Allergy Anaphylaxis Verified 12/01/24 12:09 Family History Mother Atrial fibrillation Arthritis Hypertension Aunt Heart disease Brother Asthma Sister Arthritis Father CVA (cerebral vascular accident) Cerebral AVM Alzheimer disease Parkinsons disease Grandmother Cancer Brother Epilepsy Surgical History S/P laser trabeculoplasty of eye History of toe surgery Social History household members: spouse current occupational status: employed current occupation: [employer] Smoking Status: Never smoker Electronic Cigarette Use: not used alcohol intake: current alcohol intake frequency: holidays/special occasions only details: Rare substance use type: does not use caffeine: Yes Type: coffee Number of servings: 2 what type of physical activity do you participate in: none do you feel safe at home: Yes additional social history: - 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 [employer] ROS ROS ED Constitutional Constitutional ED: Denies fever(s) Eyes Eyes: Denies change in vision ENT ENT ED: Denies rhinorrhea or sore throat Cardiovascular Cardiovascular: Reports chest pain and palpitations Respiratory/Chest Respiratory/Chest: Denies cough or dyspnea Gastrointestinal Gastrointestinal: Denies abdominal pain, diarrhea, nausea or vomiting Genitourinary Genitourinary ED: Denies dysuria Musculoskeletal Musculoskeletal: Denies myalgias Integumentary Denies rash Neurologic Neurologic: Denies headache(s) Psychiatric Psychiatric: Denies suicidal thoughts EXAM Physical Exam Const Vital Signs: 12/01/24 12:06 12/01/24 12:09 12/01/24 12:29 Temperature 98.3 F Temperature Source Oral Pulse Rate 166 H Respiratory Rate 16 Respiratory Effort Normal Non-Labored Blood Pressure 146/104 H Blood Pressure Mean 118 Pulse Ox 99 97 Oxygen Delivery Method Room Air Room Air 12/01/24 12:30 12/01/24 12:47 12/01/24 13:00 Temperature Temperature Source Pulse Rate 109 H 122 H Respiratory Rate 16 13 Respiratory Effort Blood Pressure 123/86 H 104/71 Blood Pressure Mean 98 81 Pulse Ox 96 95 95 Oxygen Delivery Method 12/01/24 13:15 12/01/24 13:30 12/01/24 13:45 Temperature Temperature Source Pulse Rate 143 H 157 H Respiratory Rate 14 13 Respiratory Effort Blood Pressure 102/80 95/81 H 109/75 Blood Pressure Mean 89 88 85 Pulse Ox 98 95 Oxygen Delivery Method 12/01/24 14:00 12/01/24 14:01 Temperature Temperature Source Pulse Rate 142 H 148 H Respiratory Rate 18 18 Respiratory Effort Blood Pressure 95/72 107/91 H Blood Pressure Mean 82 97 Pulse Ox 100 97 Oxygen Delivery Method Positive well nourished and well developed General Appearance ED: well developed HEENT Reports normocephalic and head/scalp atraumatic Eyes PERRL and EOMs intact bilaterally Neck supple General: Negative for tenderness Chest Wall inspection of chest normal Resp normal respiratory effort and clear to auscultation bilaterally Cardio Rate: tachycardic Rhythm: abnormal rhythm irregularly irregular GI non-tender and non-distended Palpation: soft; Negative for guarding or rebound tenderness present no CVA tenderness Extremity normal to inspection Neuro oriented x3 Sensorium / Orientation: alert Psych mental status grossly normal MDM MDM MDM Narrative Medical decision making narrative: 54-year-old female presenting with palpitations, chest tightness. EKG shows atrial fibrillation with RVR, rate of 162. She was given Cardizem IV. Rate improved but then went back up to 140. She was given another dose of Cardizem IV. CBC, chemistries unremarkable. Troponin is negative. Chest x-ray read by myself and radiology shows pulmonary venous congestion. Discussed with hosp italist. She was given a dose of amiodarone. She will be admitted. History & Record Review Discussion w/independent historian: Patient Additional record(s) reviewed:: Prior outpatient record Lab Data Attestation: I reviewed the patient's lab results. Labs: Laboratory Results - last 24 hr 12/01/24 12:15 WBC 10.7 RBC 5.89 H Hgb 14.7 Hct 47.2 H MCV 80.1 L MCH 25.0 L MCHC 31.1 L RDW Std Deviation 40.2 RDW Coeff of Estevan 13.8 Plt Count 387 MPV 9.7 Immature Gran % (Auto) 0.200 Neut % (Auto) 46.6 L Lymph % (Auto) 39.3 [place] % (Auto) 9.9 Eos % (Auto) 3.5 Baso % (Auto) 0.5 Absolute Neuts (auto) 5.0 Absolute Lymphs (auto) 4.22 Nucleated RBC % 0 Sodium 139 Potassium 4.2 Chloride 104 Carbon Dioxide 29.0 Anion Gap 6 BUN 14 Creatinine 0.74 Estim Creat Clear Calc 100.27 Est GFR (MDRD) Af Amer 106 Est GFR (MDRD) Non-Af 87 BUN/Creatinine Ratio 19.0 Glucose 97 Calcium 10.3 H Troponin I High Sens 4 Radiography Chest X-Ray - ED: 1 View, Read by ED Physician and Read by Radiologist Diagnostic Testing: Clinical Impression(s) from Imaging Studies Chest X-Ray 12/01/24 12:15 IMPRESSION: Pulmonary venous congestion. Reading Location: [facility] EKG Initial EKG: Attestation: I personally reviewed and interpreted this EKG as follows: Interpretation: Atrial Fibrillation Management Discussion w/another healthcare provider: Hospitalist Discharge Plan Triage Chief Complaint: Chest Pain ED Provider: Cesilia Crawley Dx/Rx/DC Orders Clinical Impression: Atrial fibrillation with rapid ventricular response Prescriptions: No Action timolol maleate 0.5 % drops 1 drp ophthalmic (eye) DAILY Patient Comments: USE 1 DROP IN BOTH EYES EVERY MORNING. Rocklatan 0.02-0.005 % drops 1 drp EACH EYE DAILY Patient Comments: INSTILL 1 DROP INTO BOTH EYES EVERY DAY AT NIGHT levothyroxine 75 mcg tablet 75 mcg PO DAILY Qty: 90 0RF Primary Care Provider: Lisa Bowman Referrals: Lisa Bowman MD [Primary Care Provider] - Print Language: Latvian Disposition Disposition: Acute Care Hospital [facility]
[2024-12-01] MEDS: Aspirin 81 MG TAB.CHEW 324 MG PO (12:25)
[2024-12-01] MEDS: dilTIAZem 25 MG/5 ML Vial 20 MG IV BOLUS (12:26)
[2024-12-01 12:31] LABS: Absolute Lymphocyte Count 4.22 X10^3/uL (0.83-4.51); Basophil# 0.05 X10^3/uL; Basophil% 0.5 % (0-1); Eosinophil# 0.38 X10^3/uL; Eosinophils% 3.5 % (0-5); Hematocrit 47.2 % (37-47); Hemoglobin 14.7 g/dL (12.0-15.0); Lymphocyte # 4.22 X10^3/ul (0.83-4.51); Lymphocyte % 39.3 % (19-41); Mean Corp Hgb Conc 31.1 g/dL (32-36); Mean Corpuscular Volume 80.1 fL (81-99); Mean Platelet Vol. 9.7 fl (6.2-12.0); Monocyte# 1.06 X10^3/uL; Monocyte% 9.9 % (0-10); NRBC Flagged by Analyzer 0 % (0-5); Neutrophil % 46.6 % (47-70); Platelet Count 387 K/mm3 (150-450); RBC Distribution Width CV 13.8 % (11.6-14.6); RBC Distribution Width SD 40.2 fl (35.1-43.9); Red Blood Count 5.89 M/mm3 (4.2-5.4); White Blood Count 10.7 K/mm3 (4.4-11.0)
[2024-12-01 13:04] LABS: Anion Gap 6 (5-15); BUN 14 mg/dL (7-18); Calcium,Total 10.3 mg/dL (8.5-10.1); Chloride 104 mmol/L (98-107); Creatinine, Serum 0.74 mg/dL (0.55-1.02); EST Glomerular Filtration Rate 87 mL/min (>60); Est Glom Filt Rate - Afr Amer 106 mL/min (>60); Estimated Creatinine Clearance 100.27 ml/min; Glucose 97 mg/dL (74-106); Potassium 4.2 mmol/L (3.5-5.1); Sodium Level 139 mmol/L (136-145); Troponin-I HS (w/2H Reflex) 4 pg/mL (3.0-54.0)
[2024-12-01] MEDS: dilTIAZem 25 MG/5 ML Vial 10 MG IV BOLUS (14:17)
[2024-12-01 14:22] LABS: Reflex Troponin-HS? (from REC) Y
--- NOTE | 2024-12-01 14:32 | HP.PCM.HOS_ITS ---
HPI - General General Date of Admission: 12/01/24 Date of Service: 12/01/24 Chief Complaint: Palpitations/chest pressure HPI Narrative NIMO NAVARRO, is a 54 F who presented to the emergency department at [facility] on 12/01/2024 with a chief complaint of chest heaviness and palpitations. Patient does have a history of atrial fibrillation and was recently taken off her Cardizem and Eliquis by cardiology nurse practitioner on 10/27/2024 but she had not had any events since 2021. She reported that on the day of presentation she started having chest pressure and heaviness and looked at her watch it did demonstrate atrial fibrillation. She states that she knew she did not have it prior to this as she typically now can tell when she goes into it. Initially when she was diagnosed she should could not tell when she went into it on the first time as she was not sure was going on but since that point in time she has been able to identify this fairly readily. Her Eliquis was stopped about 1 week ago. She denied any recent illnesses in the last week but did have COVID about a month ago. I does also sound like she was treated for a post COVID superinfection bacterial pneumonia which she completed antibiotics recently as well. Vital signs on presentation showed a temperature of 98.3, heart rate 166, respiratory rate 16, blood pressure was 146/104 and pulse ox was 99% on room air. CBC shows a normal hemoglobin but is microcytic. It appears it has been microcytic and is trending up. Chemistry panel is unremarkable troponin initially was 4. TSH was 1.43. Chest x-ray showed some pulmonary venous congestion was otherwise unremarkable. Upon my review, it appears fairly clear and seems to be mildly underpenetrated. EKG was A-fib with RVR with normal intervals and no signs of ST-T wave changes concerning for acute ischemia. I did discuss the possibility of cardioversion with the emergency department physician as the patient seems to know exactly when she went to A-fib however ED did not want to consider cardioversion as there was no clear documentation of her onset of A-fib and she is not anticoagulated. We gave her an amiodarone bolus in hopes that this was converted her [facility] Medical History GERD (gastroesophageal reflux disease) Headache, migraine Goiter Wrist fracture Afib Seasonal allergies Hypothyroidism Glaucoma Home Medications ?Medication ?Instructions ?Recorded ?Last Taken ?Type netarsudil 0.02 %-latanoprost 1 drp EACH EYE DAILY eye health 07/20/22 07/20/22 History 0.005 % eye drops (Rocklatan) timolol maleate 0.5 % eye drops 1 drp ophthalmic (eye) DAILY 12/25/23 Unknown History levothyroxine 75 mcg tablet 75 mcg PO DAILY thyroid #9 0 tabs 09/22/24 Unknown Rx Allergy/AdvReac Type Severity Reaction Status Date / Time Penicillins Allergy Anaphylaxis Verified 12/01/24 12:09 Family History Mother Atrial fibrillation Arthritis Hypertension Aunt Heart disease Brother Asthma Sister Arthritis Father CVA (cerebral vascular accident) Cerebral AVM Alzheimer disease Parkinsons disease Grandmother Cancer Brother Epilepsy Surgical History S/P laser trabeculoplasty of eye History of toe surgery Social History household members: spouse current occupational status: employed current occupation: [employer] Smoking Status: Never smoker Electronic Cigarette Use: not used alcohol intake: current alcohol intake frequency: holidays/special occasions only details: Rare substance use type: does not use caffeine: Yes Type: coffee Number of servings: 2 what type of physical activity do you participate in: none do you feel safe at home: Yes 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 [employer] Vital Signs Vital Signs Vital Signs: 12/01/24 12:06 12/01/24 12:09 12/01/24 12:29 Temperature 98.3 F Temperature Source Oral Pulse Rate 166 H Respiratory Rate 16 Respiratory Effort Normal Non-Labored Blood Pressure 146/104 H Blood Pressure Mean 118 Pulse Ox 99 97 Oxygen Delivery Method Room Air Room Air 12/01/24 12:30 12/01/24 12:47 12/01/24 13:00 Temperature Temperature Source Pulse Rate 109 H 122 H Respiratory Rate 16 13 Respiratory Effort Blood Pressure 123/86 H 104/71 Blood Pressure Mean 98 81 Pulse Ox 96 95 95 Oxygen Delivery Method 12/01/24 13:15 12/01/24 13:30 12/01/24 13:45 Temperature Temperature Source Pulse Rate 143 H 157 H Respiratory Rate 14 13 Respiratory Effort Blood Pressure 102/80 95/81 H 109/75 Blood Pressure Mean 89 88 85 Pulse Ox 98 95 Oxygen Delivery Method 12/01/24 14:00 12/01/24 14:01 Temperature Temperature Source Pulse Rate 142 H 148 H Respiratory Rate 18 18 Respiratory Effort Blood Pressure 95/72 107/91 H Blood Pressure Mean 82 97 Pulse Ox 100 97 Oxygen Delivery Method Weight Weight: 90.3 kg Body Mass Index (BMI) 31.1 Physical Exam Const alert, oriented x3, no apparent distress, healthy appearing and well nourished Constitutional Narrative: Overweight, middle-aged, white female, sitting up in bed, appears comfortable, does not appear toxic, very pleasant General Appearance: cooperative HEENT normocephalic, head/scalp atraumatic, hearing grossly normal bilaterally and moist oral mucous membranes HEENT Narrative: Mallampati 3, no thrush Resp normal respiratory effort, no retractions, no use of accessory muscles and clear to auscultation bilaterally Auscultation: Negative for rales, rhonchi or wheezes Cardio S1 normal heart sound, S2 normal heart sound, no murmurs, no rub, no gallops and no clicks Cardio Narrative: Tachycardic and irregularly irregular GI normal to inspection, nondistended, normoactive bowel sounds, soft to palpation and non-tender Extremity no clubbing, cyanosis or edema Extremity Narrative: Radial and pedal pulses are 2+ Neuro oriented x3, moves all extremities and no focal motor deficits Speech: speech normal Psych affect normal Psych Narrative: Very pleasant, interacts appropriately Results Lab / Micro Data 12/01/24 12:15 12/01/24 12:15 Labs: Laboratory Results - last 24 hr 12/01/24 12:15: WBC 10.7, RBC 5.89 H, Hgb 14.7, Hct 47.2 H, MCV 80.1 L, MCH 25.0 L, MCHC 31.1 L, RDW Std Deviation 40.2, RDW Coeff of Estevan 13.8, Plt Count 387, MPV 9.7, Immature Gran % (Auto) 0.200, Neut % (Auto) 46.6 L, Lymph % (Auto) 39.3, [place] % (Auto) 9.9, Eos % (Auto) 3.5, Baso % (Auto) 0.5, Absolute Neuts (auto) 5.0, Absolute Lymphs (auto) 4.22, Nucleated RBC % 0, Sodium 139, Potassium 4.2, Chloride 104, Carbon Dioxide 29.0, Anion Gap 6, BUN 14, Creatinine 0.74, Estim Creat Clear Calc 100.27, Est GFR (MDRD) Af Amer 106, Est GFR (MDRD) Non-Af 87, BUN/Creatinine Ratio 19.0, Glucose 97, Calcium 10.3 H, Troponin I High Sens 4 Imaging Radiology Impression Chest X-Ray 12/01/24 12:15 IMPRESSION: Pulmonary venous congestion. Reading Location: [facility] Assessment & Plan Assessment/Plan (1) Palpitations: (2) Chest pressure: (3) Atrial fibrillation with rapid ventricular response: PLAN: Plan A-fib with RVR -Recurrent -Was recently taken off her Cardizem 180 mg daily and Eliquis about 1 week ago by cardiology -Cardioversion deferred by emergency department due to not on clarity on onset and not on anticoagulation -Amiodarone bolus given and if this is not cardiovert we will start Cardizem drip -If amiodarone bolus does cardiovert will restart Cardizem p.o. 180 mg daily tomorrow a.m. -Start Eliquis 5 mg p.o. twice daily -May need to consider amiodarone drip tomorrow to achieve cardioversion if bolus does not work -Monitor on telemetry -Check echocardiogram as patient has not had one since 2021 -TSH was within normal limits Chest pressure -Likely related to the above -Cycle cardiac enzymes -Check chest echocardiogram Hypothyroidism -Check TSH -Continue home levothyroxine Glaucoma -Continue home eyedrops DVT prophylaxis -Eliquis as above CODE STATUS -Full code as verified on admission Charges/Coding Visit Charges Inpatient E&M: 51550 Init Hosp L2
[2024-12-01 15:15] LABS: Troponin-I HS 9 pg/mL (3.0-54.0)
[2024-12-01] MEDS: Amiodarone 150 MG in Dextrose 5%-Water (100mL Bag) 100 ML 600 MG IV BOLUS (15:31)
--- NOTE | 2024-12-01 17:59 | ECHOD_ITS ---
Reason For Study Reason For Study: Afib/Flutter Procedure This was a 2D Doppler, Color Flow transthoracic echocardiogram. Exam performed portable in patient room. Left Ventricle Normal LV size. The estimated ejection fraction is 65 %. No evidence for diastolic dysfunction. No regional wall motion abnormalities noted. Right Ventricle Normal RV size. Normal systolic function. Atria The left and right atria are normal. No doppler evidence for ASD. Mitral Valve There is no mitral valve stenosis. No mitral valve insufficiency. Tricuspid Valve There is no tricuspid stenosis. Unable to estimate RV systolic pressure due to inadequate jet, pulmonary artery pressure probably normal. Aortic Valve Trisinus/trileaflet aortic valve. There is no aortic stenosis. Trivial aortic valve insufficiency. Pulmonic Valve There is no pulmonic valvular stenosis. No pulmonic valve insufficiency. Great Vessels The aortic root is not well visualized. Pericardium/Pleural Trivial pericardial effusion. MMode/2D Measurements & Calculations LVIDd: 4.2 cm IVSd: 1.1 cm Ao root diam: 3.4 cm LVIDs: 2.5 cm LVPWd: 0.88 cm RVDd: 3.0 cm FS: 42.0 % LAV(MOD-bp): 45.1 ml LA A4 area: 16.5 cm2 LA dimension(2D): 3.1 cm LAV(MOD-bp) Indexed: 23.0 ml/m2 LAV(MOD-sp2): 52.4 ml LAV(MOD-sp4): 37.3 ml TAPSE: 1.9 cm RA A4 area: 15.9 cm2 Time Measurements MV dec time: 0.21 sec Doppler Measurements & Calculations MV E max emmanuel: 64.9 cm/sec Lat Peak E' Emmanuel: 14.4 cm/sec Med Peak E' Emmanuel: 9.3 cm/sec MV A max emmanuel: 43.1 cm/sec E/E' lat: 4.5 E/E' med: 7.0 MV E/A: 1.5 MV V2 max: 65.4 cm/sec MV P1/2t max emmanuel: 67.3 cm/sec Ao V2 max: 106.8 cm/sec MV max P.7 mmHg MV P1/2t: 62.2 msec Ao max P.6 mmHg MV V2 mean: 38.1 cm/sec MV dec slope: 317.1 cm/sec2 Ao V2 mean: 72.9 cm/sec MV mean P.67 mmHg Ao mean P.5 mmHg MV V2 VTI: 14.8 cm MVA(P1/2t): 3.5 cm2 Ao V2 VTI: 20.7 cm AV (velocity ratio): 0.87 LV V1 max: 99.5 cm/sec LV V1 max P.0 mmHg LV V1 mean P.1 mmHg LV V1 mean: 68.2 cm/sec LV V1 VTI: 18.0 cm ECHO/Echo Complete Interpretation Summary The estimated ejection fraction is 65 %. No evidence for diastolic dysfunction. Trivial aortic valve insufficiency. Trivial pericardial effusion. Ordering Physician: Leonor Salas Referring Physician: Lisa Bowman Performed By: August Quintero RCS
[2024-12-01] MEDS: Diltiazem 125 MG in Dextrose 5%-Water (100mL Bag) 100 ML IV (18:31)
[2024-12-01 18:51] LABS: Troponin-I HS 11 pg/mL (3.0-54.0)
[2024-12-01] MEDS: APIXABAN 5 MG TABLET PO (21:05)
[2024-12-02] VITALS (9 sets, daily range): BP systolic 78–111; BP diastolic 43–66; PULSE 76–106; RESP 13–18; TEMP 36.6–36.8; O2SAT 94–98
[2024-12-02] MEDS: 0.9% Normal Saline (500mL Bag) 500 ML 999 ML IV (00:15)
--- NOTE | 2024-12-02 03:46 | NURSING ---
Pt ambulated to the bathroom, heart rate in the 120s-140s while up. Returned to 90s-low 100's when back to bed. Patient denies any symptoms. BP 92/46
[2024-12-02 04:11] LABS: Absolute Lymphocyte Count 3.76 X10^3/uL (0.83-4.51); Absolute Neutrophil Count 3.9 X10^3/uL (2.0-7.7); Basophil# 0.05 X10^3/uL; Basophil% 0.6 % (0-1); Eosinophil# 0.31 X10^3/uL; Eosinophils% 3.5 % (0-5); Hematocrit 43.8 % (37-47); Hemoglobin 14.2 g/dL (12.0-15.0); Lymphocyte # 3.76 X10^3/ul (0.83-4.51); Lymphocyte % 42.2 % (19-41); Mean Corp Hgb Conc 32.4 g/dL (32-36); Mean Corpuscular Hgb 25.9 pg (27.0-32.0); Mean Corpuscular Volume 79.9 fL (81-99); Mean Platelet Vol. 9.9 fl (6.2-12.0); Monocyte# 0.92 X10^3/uL; Monocyte% 10.3 % (0-10); NRBC Flagged by Analyzer 0 % (0-5); Neutrophil # 3.85 X10^3/uL (2.7-7.7); Neutrophil % 43.1 % (47-70); Platelet Count 321 K/mm3 (150-450); RBC Distribution Width CV 14.1 % (11.6-14.6); RBC Distribution Width SD 40.6 fl (35.1-43.9); Red Blood Count 5.48 M/mm3 (4.2-5.4); White Blood Count 8.9 K/mm3 (4.4-11.0)
[2024-12-02 05:06] LABS: ALB/GLOB Ratio 0.9 RATIO (0.9-2.4); AST(SGOT) 37 U/L (15-37); Alanine Aminotransfer ALT/SGPT 53 U/L (13-56); Albumin, Serum 3.4 g/dL (3.2-5.0); Alkaline Phosphatase 67 U/L (45-117); Anion Gap 8 (5-15); BUN 17 mg/dL (7-18); BUN/Creat Ratio 23.9 RATIO (10-20); Calcium,Total 9.4 mg/dL (8.5-10.1); Chloride 107 mmol/L (98-107); Creatinine, Serum 0.71 mg/dL (0.55-1.02); EST Glomerular Filtration Rate 91 mL/min (>60); Est Glom Filt Rate - Afr Amer 110 mL/min (>60); Estimated Creatinine Clearance 101.36 ml/min; Globulin 3.9 g/dL (2.2-4.2); Glucose 97 mg/dL (74-106); Magnesium 1.9 mg/dL (1.6-2.6); Phosphorus 4.5 mg/dL (2.5-4.9); Protein, Total 7.3 g/dL (6.4-8.2); Sodium Level 140 mmol/L (136-145)
[2024-12-02] MEDS: Levothyroxine 75 MCG Tablet PO (05:58)
--- NOTE | 2024-12-02 07:20 | EKG12_ITS ---
Test Reason : CONVERTED TO NS Blood Pressure : */* mmHG Vent. Rate : 73 BPM Atrial Rate : 73 BPM P-R Int : 160 ms QRS Dur : 80 ms QT Int : 404 ms P-R-T Axes : 55 -14 33 degrees QTcB Int : 445 ms Normal sinus rhythm Low voltage QRS Borderline ECG No previous ECGs available Confirmed by Cristobal Adame ([id number]), field map editor HENRIK LOGAN ([id number]) on 12/03/2024 6:56:59 AM Referred By: KRISTOPHER Confirmed By: Cristobal Adame
[2024-12-02] MEDS: APIXABAN 5 MG TABLET PO (08:28)
[2024-12-02] MEDS: Timolol 0.5% 5ML OPTH.BTL 1 DRP EACH EYE (08:33)
--- NOTE | 2024-12-02 09:15 | CASEMGMT ---
JUNO VELAZQUEZ Assessment: Face to Face with pt for initial transition planning/care coordination assessment. RN CAROLINE introduced self and role at [facility], pt voices understanding and consents to assessment. Pt is A&O x4 and answers all questions appropriately at this time. Pt sitting up in bed in no distress. Care providers, pharmacy, and demographics verified/updated. Strata: 1 Admitting Dx: AFIB with RVR PCP: Colby Specialists: SONNY Preferred Pharmacy: [facility] Insurance: Luis Prescription Benefit: yes LNOK: , Brock Living Arrangements: Pt lives with in a mobile home with 5 steps to enter. ADLs: Pt I at baseline Transportation: Pt drives self and denies concerns with transportation. DME: Wheelchair but does not use it. HHC/SNF: Denies hx of. Pt states no concerns with going home at time of dc. Pt states no further concerns/needs. CM to follow. Advised pt to ask CM if any further question/concerns/needs arise, voices understanding. Pt Goal: Home Plan: Home with family support. Lynda FRAIRE CM
--- NOTE | 2024-12-02 10:19 | DCINST_ITS ---
Discharge Instructions Diet Discharge Diet: Low fat / Low cholesterol DC O2, CPAP, BIPAP needs Home O2 Discharge instructions: No Dressing / Incision Discharge Activity: Return to Normal Activity Dressing / Incision Call your doctor if you observe: Fever of 101 or Higher, Shortness of breath, Dizziness, Fainting spells, Swelling in the ankles, Chest pain and Increased palpitations (irregular heartbeat) Follow Up Care Test Results: Test results from this visit will be discussed in further detail at your follow-up appointment, if applicable. Discharge Plan Admission Admit Date/Time: 12/01/24 14:36 Attending Provider: Young Hughes Primary Care Provider: Lisa Bowman Consulting Providers: Leonor Salas Discharge Orders/Prescriptions Prescriptions: New diltiazem HCl 180 mg Capsule,Extended Release 24hr 180 mg PO DAILY 30 Days Qty: 30 0RF Eliquis 5 mg Tablet 5 mg PO BID 30 Days Qty: 60 0RF Continued timolol maleate 0.5 % drops 1 drp ophthalmic (eye) DAILY Patient Comments: USE 1 DROP IN BOTH EYES EVERY MORNING. Rocklatan 0.02-0.005 % drops 1 drp EACH EYE DAILY Patient Comments: INSTILL 1 DROP INTO BOTH EYES EVERY DAY AT NIGHT levothyroxine 75 mcg tablet 75 mcg PO DAILY Qty: 90 0RF Referrals / Follow Up: Lisa Bowman MD [Primary Care Provider] - Within 1 Week Fede Meyer NP, [employer] OPERATOR-C [Med Staff - [facility] Prof] - Within 3 Months Disposition Disposition (needs filled in before D/C Order can be placed): Home, Self Care
[2024-12-02] MEDS: dilTIAZem CD 180 MG Capsule PO (10:45)
--- NOTE | 2024-12-02 11:57 | CASEMGMT ---
Patient has order for discharge. Patient is discharging on Eliquis, JUNO CM called [facility], copay is $10. RN CM in to discuss needs at discharge. Patient updated regarding copay cost for Eliquis. Patient denies needs or help at discharge. Patient had no further questions or concerns.
--- NOTE | 2024-12-02 13:20 | PHA.DC.MR.R ---
Pharmacy [place] Med Reconciliation Pharmacy Service has performed discharge medication reconciliation for this patient. The patient's discharge medication list was reviewed for discrepancies and discrepancies were resolved. Medications at Discharge Home Medications netarsudil 0.02 %-latanoprost 0.005 % eye drops (Rocklatan) 1 drp EACH EYE DAILY eye health 07/20/22 timolol maleate 0.5 % eye drops 1 drp ophthalmic (eye) DAILY 12/25/23 levothyroxine 75 mcg tablet 75 mcg PO DAILY thyroid #90 tabs 09/22/24 apixaban 5 mg tablet (Eliquis) 5 mg PO BID 30 days #60 tabs 12/02/24 diltiazem HCl 180 mg capsule,extended release 24 hr 180 mg PO DAILY 30 days #30 caps 12/02/24
--- NOTE | 2024-12-02 16:38 | PCM.DC.SUM ---
Providers Date of Admission: 12/01/24 Primary Care Physician: Dr. Lisa Bowman MD Reason For Visit: AFIB WITH RVR Diagnosis Discharge Diagnosis (1) Palpitations: Status: Chronic Code(s): R00.2 - Palpitations (2) Chest pressure: Status: Acute Code(s): R07.89 - Other chest pain (3) Atrial fibrillation with rapid ventricular response: Status: Acute Code(s): I48.91 - Unspecified atrial fibrillation Medications at Discharge Home Medications netarsudil 0.02 %-latanoprost 0.005 % eye drops (Rocklatan) 1 drp EACH EYE DAILY eye health 07/20/22 timolol maleate 0.5 % eye drops 1 drp ophthalmic (eye) DAILY 12/25/23 levothyroxine 75 mcg tablet 75 mcg PO DAILY thyroid #90 tabs 09/22/24 apixaban 5 mg tablet (Eliquis) 5 mg PO BID 30 days #60 tabs 12/02/24 diltiazem HCl 180 mg capsule,extended release 24 hr 180 mg PO DAILY 30 days #30 caps 12/02/24 Hospital Course Operations None Procedures None Summary of Care Provided Minutes Spent on Discharge: 35 Hospital Course: Per HPI: NIMO NAVARRO, is a 54 F who presented to the emergency department at [facility] on 12/01/2024 with a chief complaint of chest heaviness and palpitations. Patient does have a history of atrial fibrillation and was recently taken off her Cardizem and Eliquis by cardiology nurse practitioner on 10/27/2024 but she had not had any events since 2021. She reported that on the day of presentation she started having chest pressure and heaviness and looked at her watch it did demonstrate atrial fibrillation. She states that she knew she did not have it prior to this as she typically now can tell when she goes into it. Initially when she was diagnosed she should could not tell when she went into it on the first time as she was not sure was going on but since that point in time she has been able to identify this fairly readily. Her Eliquis was stopped about 1 week ago. She denied any recent illnesses in the last week but did have COVID about a month ago. I does also sound like she was treated for a post COVID superinfection bacterial pneumonia which she completed antibiotics recently as well. Vital signs on presentation showed a temperature of 98.3, heart rate 166, respiratory rate 16, blood pressure was 146/104 and pulse ox was 99% on room air. CBC shows a normal hemoglobin but is microcytic. It appears it has been microcytic and is trending up. Chemistry panel is unremarkable troponin initially was 4. TSH was 1.43. Chest x-ray showed some pulmonary venous congestion was otherwise unremarkable. Upon my review, it appears fairly clear and seems to be mildly underpenetrated. EKG was A-fib with RVR with normal intervals and no signs of ST-T wave changes concerning for acute ischemia. I did discuss the possibility of cardioversion with the emergency department physician as the patient seems to know exactly when she went to A-fib however ED did not want to consider cardioversion as there was no clear documentation of her onset of A-fib and she is not anticoagulated. We gave her an amiodarone bolus in hopes that this was converted her Hospital Course: 1. A-fib with RVR?54-year-old female with a history of A-fib presented to the hospital with recurrent A-fib with RVR. She states that in October she had seen her metal tester who had recommended taking her off of her Cardizem and Eliquis since she had not had any A-fib in the last couple of months. However she presented to the hospital with RVR and received multiple boluses of Cardizem as well as a dose of amiodarone and started on a Cardizem drip. This was stopped around midnight due to hypotension and then she did spontaneously convert to normal sinus rhythm this morning. I did restart her Cardizem at 180 mg daily which she was able to tolerate without any significant lightheadedness or dizziness. Her heart rate remained in normal sinus rhythm therefore she was discharged home on her old medication including Eliquis 5 mg p.o. twice daily as well as Cardizem 180 mg p.o. daily. I discussed with her the plan for discharge and she expressed understanding of the risks and benefits of going home and would like to go home today. Also of note her echocardiogram was done with an EF of 65% and no diastolic dysfunction. 2. Hypothyroidism, glaucoma are chronic medical conditions complicate her care. Her home medications were continued where appropriate of note her TSH was in her normal range. Physical Exam Narrative General: Alert, Oriented x3, Cooperative, No apparent distress HEENT: Atraumatic, PERRLA, EOMI, Normocephalic Oral: Moist Mucosa Neck: Supple, No JVD Lungs: Clear to auscultation, Normal air movement, No rhonchi, No wheeze, No rales Cardiovascular: Regular rate, Regular Rhythm, Normal S1, Normal S2, No murmurs Abdomen: Soft, Non Tender, Non-Distended, No Hepato-splenomegaly Extremities: No edema, Capillary Refill Less than 3 Seconds Skin: No rashes, No breakdown Musculoskeletal: No Tenderness to Palpation of Joints or Extremities Neurological: No focal neurological deficits, Motor Exam 5/5 strength throughout, Sensory exam intact to light touch and pain Psych/Mental Status: Normal Affect, Appropriate Weight / BMI Weight Weight: 186 lb 15.232 oz Body Mass Index (BMI) 29.2 ABG / Lab / Microbiology Data 12/02/24 03:08 12/02/24 03:08 Laboratory: Laboratory Results - last 24 hr 12/01/24 18:24: Troponin I High Sens 11 12/02/24 03:08: WBC 8.9, RBC 5.48 H, Hgb 14.2, Hct 43.8, MCV 79.9 L, MCH 25.9 L, MCHC 32.4, RDW Std Deviation 40.6, RDW Coeff of [place] 14.1, Plt Count 321, MPV 9.9, Immature Gran % (Auto) 0.300, Neut % (Auto) 43.1 L, Lymph % (Auto) 42.2 H, [place] % (Auto) 10.3 H, Eos % (Auto) 3.5, Baso % (Auto) 0.6, Absolute Neuts (auto) 3.9, Absolute Lymphs (auto) 3.76, Nucleated RBC % 0, Sodium 140, Potassium 4.0, Chloride 107, Carbon Dioxide 25.0, Anion Gap 8, BUN 17, Creatinine 0.71, Estim Creat Clear Calc 101.36, Est GFR (MDRD) Af Amer 110, Est GFR (MDRD) Non-Af 91, BUN/Creatinine Ratio 23.9 H, Glucose 97, Calcium 9.4, Phosphorus 4.5, Magnesium 1.9, Total Bilirubin 0.40, AST 37, ALT 53, Alkaline Phosphatase 67, Total Protein 7.3, Albumin 3.4, Globulin 3.9, Albumin/Globulin Ratio 0.9 Radiography Diagnostic Testing: Radiology Impression Echocardiogram 12/01/24 17:59 Interpretation Summary The estimated ejection fraction is 65 %. No evidence for diastolic dysfunction. Trivial aortic valve insufficiency. Trivial pericardial effusion. Ordering Physician: Leonor Salas Referring Physician: Lisa Bowman Performed By: August Quintero RCS D/C Instructions Discharge Diet: Low fat / Low cholesterol Call your doctor if you observe: Fever of 101 or Higher, Shortness of breath, Dizziness, Fainting spells, Swelling in the ankles, Chest pain and Increased palpitations (irregular heartbeat) DC O2, CPAP, BIPAP Needs Home O2 Discharge instructions: No Meaningful Use Info Meaningful Use Meaningful Use Diagnoses (Choose all that apply): None applicable Ischemic Stroke Statin Dosing Therapy Reference: STATIN DOSE THERAPY REFERENCE: * Patients > 75 years receive moderate or high dose statin therapy. * Patients 75 years or YOUNGER should receive HIGH intensity statin dose unless contraindicated. You will be required to document reason for non-treatment if statin daily dose does not meet guidelines. HIGH DOSE STATIN THERAPY DAILY Atorvastatin > than or = to 40 mg Rosuvastatin > than or = to 20 mg Amlodipine + Atorvastatin > than or = to 2.5/40 mg Ezetimibe + Simvastatin 10/80 mg Simvastatin 80mg Discharge Plan Admission Admit Date/Time: 12/01/24 14:36 Attending Provider: Yonug Hughes Primary Care Provider: Lisa Bowman Consulting Providers: Leonor Salas Discharge Orders/Prescriptions Prescriptions: New diltiazem HCl 180 mg Capsule,Extended Release 24hr 180 mg PO DAILY 30 Days Qty: 30 0RF Eliquis 5 mg Tablet 5 mg PO BID 30 Days Qty: 60 0RF Continued timolol maleate 0.5 % drops 1 drp ophthalmic (eye) DAILY Patient Comments: USE 1 DROP IN BOTH EYES EVERY MORNING. Rocklatan 0.02-0.005 % drops 1 drp EACH EYE DAILY Patient Comments: INSTILL 1 DROP INTO BOTH EYES EVERY DAY AT NIGHT levothyroxine 75 mcg tablet 75 mcg PO DAILY Qty: 90 0RF Referrals / Follow Up: Lisa Bowman MD [Primary Care Provider] - Within 1 Week Fede Meyer NP, ASSISTANT PROFESSOR OF BUSINESS-C [Med Staff - Adv Practice Prof] - Within 3 Months Disposition Disposition (needs filled in before D/C Order can be placed): Home, Self Care Charges/Coding Visit Charges Inpatient E&M: 72732 Disch Hosp >30min
== END 2024-12-02 10:22 | disposition home or self-care (01) ==
LOC: ED 14:39 → PCU 17:50
PROVIDERS: Admitting Provider Internal Medicine; Emergency Provider Emergency Medicine; PCP Internal Medicine; Visit Provider Family Medicine
DX: I48.91 Unspecified atrial fibrillation (principal); Z79.890 Hormone replacement therapy; R07.89 Other chest pain; Z86.16 Personal history of COVID-19; E03.9 Hypothyroidism, unspecified; K21.9 Gastro-esophageal reflux disease without esophagitis; H40.9 Unspecified glaucoma; Z79.899 Other long term (current) drug therapy
CPT/HCPCS: 36415; 71045; 80048; 80053; 83735; 84100; 84443; 84484; 85025; 93005; 93306; 96361; 96365; 96366; 96367; 96375; 96376; 99221; 99285; Q9957; A4216; G0378

== ENCOUNTER 2025-03-13 09:34 | Day surgery (SDC) | payer BC, SELFPAY ==
--- NOTE | 2025-03-12 13:21 | PAT.ANE_ITS ---
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 When Was Last Pacemaker Check QUESTION #4 FULL TEXT: You/Your Family Experience fever (hyperthermia) with Anesthesia Last Oral Intake Last Oral intake: Last Oral Intake NPO since Meds taken in AM with sips of water? 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 Female Yes 03/11/25 15:40 HX of Motion Sickness Yes 03/11/25 15:40 HX of N/V After Surgery No 03/11/25 15:40 Non-Smoker Yes 03/11/25 15:40 Duration of Surgery greater No 03/11/25 15:40 than 60 minutes Number of Risk Factors 3 03/11/25 15:40 PONV Score Moderate Risk 03/11/25 15:40 Height & Weight Height & Weight: Anesthesia: Height & Weight Height 5 ft 7 in 02/26/25 08:34 Respiratory Assessment Respiratory Assessment - roll shop supervisor: Respiratory Tract Infection Hx - roll shop supervisor Hx Respiratory Tract Infection No 03/11/25 15:40 STOP Sleep Apnea STOP Sleep Apnea - roll shop supervisor: STOP Sleep Apnea - roll shop supervisor Hx Hypertension No 03/11/25 15:40 Hx Sleep Apnea No 03/11/25 15:40 CPAP BIPAP Do you snore loudly (louder No 03/11/25 15:40 than talking or can be heard Do you often feel tired/ No 03/11/25 15:40 fatigued/ sleepy during daytime? Has anyone observed you stop No 03/11/25 15:40 breathing during sleep? STOP Results Negative 03/11/25 15:40 QUESTION #5 FULL TEXT : Do you snore loudly (louder than talking or can be heard through closed doors)? 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 Specify any problems Hx of Preganancy in last 3 No 03/11/25 15:40 Months Nurse Filling Out Transfusion VCHRISTIN 03/11/25 15:40 & Questions: Date: 03/11/25 03/11/25 15:40 Time: 15:42 03/11/25 15:40 Patient unable to answer at this time (ie. confused, unrespo /Reproduction History /Reproductive History - roll shop supervisor: /Reproductive Hx- roll shop supervisor Hx Now No 03/11/25 15:40 Gestational Age (in weeks): EDC: Hx Hx Para Hx Section SAB No 03/11/25 15:40 PFSH Medical History Wears contact lenses Wears glasses Thyroid disease Excessive bleeding Back pain Non-smoker History of pain when walking History of Holter monitoring Cardiology follow-up encounter History of atrial fibrillation Hemorrhoids Constipation Encounter for screening colonoscopy COVID GERD (gastroesophageal reflux disease) Headache, migraine Goiter Wrist fracture Afib Seasonal allergies Hypothyroidism Glaucoma Home Medications ?Medication ?Instructions ?Recorded ?Last Taken ?Type netarsudil 0.02 %-latanoprost 1 drp EACH EYE DAILY eye health 07/20/22 07/20/22 History 0.005 % eye drops (Rocklatan) timolol maleate 0.5 % eye drops 1 drp ophthalmic (eye) DAILY 12/25/23 Unknown History apixaban 5 mg tablet (Eliquis) 5 mg PO BID 90 days #18 0 tabs 12/11/24 03/09/25 Rx diltiazem HCl 180 mg 180 mg PO DAILY 90 days #90 caps 12/11/24 Unknown Rx capsule,extended release 24 hr levothyroxine 75 mcg tablet 75 mcg PO DAILY thyroid #9 0 tabs 01/20/25 Unknown Rx Allergy/AdvReac Type Severity Reaction Status Date / Time Penicillins Allergy Anaphylaxis Verified 03/12/25 08:04 Family History Mother Atrial fibrillation Arthritis Hypertension Aunt Heart disease Brother Asthma Sister Arthritis Father CVA (cerebral vascular accident) Cerebral AVM Alzheimer disease Parkinsons disease Grandmother Cancer Brother Epilepsy Surgical History (Updated 03/12/25 @ 08:[address] 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 Normal sinus rhythm 73 bpm. Low voltage QRS. Echo (EF%) pertinent findings: 12/01/2024. EF 65%. Trivial pericardial effusion. Consult pertinent findings: Cardiology. 03/12/2025. Chronic atrial fibrillation. Discontinue Eliquis 1 week after recovering from the colonoscopy bowel prep. Continue Cardizem CD. Recommendation Anesthesia Recommendation Anesthesia recommendation: OPTIMIZED for anesthesia
[2025-03-13 10:06] VITALS: BP 122/73; PULSE 73; RESP 16; TEMP 36.9; O2SAT 97; BMI 29.5
--- NOTE | 2025-03-13 10:06 | NURSING ---
pt refused test
--- NOTE | 2025-03-13 10:07 | PCM.PRE.AN2 ---
ASA Classification* ASA Classification ASA Classification: 2 Assessment & Plan Anesthesia* Anesthesia Assessment Anesthesia Assessment: Discussed sedation and/or anesthesia options, risks, benefits, and alternatives with patient/parents/legal guardian/POA. Questions invited. The patient/parents/legal guardian/POA seems to understand and agrees to proceed with anesthesia plan. Reviewed the physical assessment, medical history, allergy history and patient home medications list prior to surgery/procedure/anesthetic and documented any changes. Performed airway and anesthesia risk assessments. Anesthesia Type Anesthesia Type: MAC Anesthesia Focused Assessment* Airway Assessment Mouth opens: >3 cm Mallampati Score: II Focused Labs Anesthesia Preop lab: CBC WBC 8.9 K/mm3 (4.4-11.0) 12/02/24 03:08 12/02/24 RBC 5.48 M/mm3 (4.2-5.4) H 12/02/24 03:08 12/02/24 Hgb 14.2 g/dL (12.0-15.0) 12/02/24 03:08 12/02/24 Hct 43.8 % (37-47) 12/02/24 03:08 12/02/24 Plt Count 321 K/mm3 (150-450) 12/02/24 03:08 12/02/24 CHEMISTRY Potassium 4.0 mmol/L (3.5-5.1) 12/02/24 03:08 12/02/24 Sodium 140 mmol/L (136-145) 12/02/24 03:08 12/02/24 Magnesium 1.9 mg/dL (1.6-2.6) 12/02/24 03:08 12/02/24 Phosphorus 4.5 mg/dL (2.5-4.9) 12/02/24 03:08 12/02/24 BUN 17 mg/dL (7-18) 12/02/24 03:08 12/02/24 Creatinine 0.71 mg/dL (0.55-1.02) 12/02/24 03:08 12/02/24 Glucose 97 mg/dL (74-106) 12/02/24 03:08 12/02/24 TSH 1.430 uIU/mL (0.358-3.740) 12/01/24 14:33 12/01/24 COAG PT 13.2 SECONDS (11.7-14.9) 07/21/22 14:52 07/21/22 Pre-Assessment Diagnosis/Proposed Procedure Planned Operative Procedure(s): COLONOSCOPY Anesthesia History Anesthesia History - 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 When Was Last Pacemaker Check QUESTION #4 FULL TEXT: You/Your Family Experience fever (hyperthermia) with Anesthesia Last Oral Intake Last Oral intake: Last Oral Intake NPO since Meds taken in AM with sips of water? Meds patient instructed to take am of surgery PONV PONV - nurse infection control: PONV - nurse infection control Female Yes 03/11/25 15:40 HX of Motion Sickness Yes 03/11/25 15:40 HX of N/V After Surgery No 03/11/25 15:40 Non-Smoker Yes 03/11/25 15:40 Duration of Surgery greater No 03/11/25 15:40 than 60 minutes Number of Risk Factors 3 03/11/25 15:40 PONV Score Moderate Risk 03/11/25 15:40 Height & Weight Height & Weight: Anesthesia: Height & Weight Height 5 ft 7 in 03/12/25 08:04 Respiratory Assessment Respiratory Assessment - nurse infection control: Respiratory Tract Infection Hx - nurse infection control Hx Respiratory Tract Infection No 03/11/25 15:40 STOP Sleep Apnea STOP Sleep Apnea - nurse infection control: STOP Sleep Apnea - nurse infection control Hx Hypertension No 03/11/25 15:40 Hx Sleep Apnea No 03/11/25 15:40 CPAP BIPAP Do you snore loudly (louder No 03/11/25 15:40 than talking or can be heard Do you often feel tired/ No 03/11/25 15:40 fatigued/ sleepy during daytime? Has anyone observed you stop No 03/11/25 15:40 breathing during sleep? STOP Results Negative 03/11/25 15:40 QUESTION #5 FULL TEXT : Do you snore loudly (louder than talking or can be heard through closed doors)? 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 Specify any problems Hx of Preganancy in last 3 No 03/11/25 15:40 Months Nurse Filling Out Transfusion VCHRISTIN 03/11/25 15:40 & Questions: Date: 03/11/25 03/11/25 15:40 Time: 15:42 03/11/25 15:40 Patient unable to answer at this time (ie. confused, unrespo /Reproduction History /Reproductive History - nurse infection control: /Reproductive Hx- nurse infection control Hx Now No 03/11/25 15:40 Gestational Age (in weeks): EDC: Hx Hx Para Hx Section SAB No 03/11/25 15:40 Active Medications Active Medications: Current Medications Generic Name Dose Route Start Last Admin Trade Name Freq PRN Reason Stop Dose Admin Lactated Ringer's 1,000 mls @ 15 mls/hr 03/13/25 09:45 IV .Q48H ALANNA PFSH Medical History Wears contact lenses Wears glasses Thyroid disease Excessive bleeding Back pain Non-smoker History of pain when walking History of Holter monitoring Cardiology follow-up encounter History of atrial fibrillation Hemorrhoids Constipation Encounter for screening colonoscopy COVID GERD (gastroesophageal reflux disease) Headache, migraine Goiter Wrist fracture Afib Seasonal allergies Hypothyroidism Glaucoma Home Medications ?Medication ?Instructions ?Recorded ?Last Taken ?Type netarsudil 0.02 %-latanoprost 1 drp EACH EYE DAILY eye health 07/20/22 07/20/22 History 0.005 % eye drops (Rocklatan) timolol maleate 0.5 % eye drops 1 drp ophthalmic (eye) DAILY 12/25/23 Unknown History apixaban 5 mg tablet (Eliquis) 5 mg PO BID 90 days #180 tabs 12/11/24 03/09/25 Rx diltiazem HCl 180 mg 180 mg PO DAILY 90 days #90 caps 12/11/24 Unknown Rx capsule,extended release 24 hr levothyroxine 75 mcg tablet 75 mcg PO DAILY thyroid #90 tabs 01/20/25 Unknown Rx Allergy/AdvReac Type Severity Reaction Status Date / Time Penicillins Allergy Anaphylaxis Verified 03/13/25 10:05 Family History Mother Atrial fibrillation Arthritis Hypertension Aunt Heart disease Brother Asthma Sister Arthritis Father CVA (cerebral vascular accident) Cerebral AVM Alzheimer disease Parkinsons disease Grandmother Cancer Brother Epilepsy Surgical History S/P laser trabeculoplasty of eye History of toe surgery Social History household members: spouse current occupational status: employed current occupation: [employer] Smoking Status: Never smoker Electronic Cigarette Use: not used alcohol intake: current alcohol intake frequency: holidays/special occasions only details: Rare substance use type: does not use caffeine: Yes Type: coffee Number of servings: 2 what type of physical activity do you participate in: none do you feel safe at home: Yes 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
[2025-03-13] MEDS: Lactated Ringers 1,000 ML 15 ML IV (10:12)
--- NOTE | 2025-03-13 10:15 | PCM.HP.BLA ---
History and Physical Date of Admission: 03/13/25 Intake Vital Signs 01/21/2508:06 02/27/2508:34 Height 5 ft 7 in 5 ft 7 in Weight: 188 lb 8 oz 193 lb 6 oz BMI 29.5 30.2 BP 148/78 H 115/81 H Blood Pressure Location Lt brachial Rt brachial Position Sitting Sitting Respiration 16 18 Pulse 69 63 Pulse Source Monitor Monitor Temp 97.7 F L 97.6 F L Temp Source Temporal Temporal Pulse Oximetry (%) 97 99 Oxygen Delivery Method room air room air Intake Visit Reasons: COLONOSCOPY Chief Complaint: colonoscopy Is patient in pain?: No Allergies Penicillins Allergy (Verified 02/26/25 08:35) Anaphylaxis Medications ?Medication ?Instructions ?Recorded ?Confirmed ?Type netarsudil 0.02 %-latanoprost 1 drp EACH EYE DAILY eye health 07/20/22 02/26/25 History 0.005 % eye drops (Rocklatan) timolol maleate 0.5 % eye drops 1 drp ophthalmic (eye) DAILY 12/25/23 02/26/25 History apixaban 5 mg tablet (Eliquis) 5 mg PO BID 90 days #180 tabs 12/11/24 02/26/25 Rx diltiazem HCl 180 mg 180 mg PO DAILY 90 days #90 caps 12/11/24 02/26/25 Rx capsule,extended release 24 hr cyclobenzaprine 5 mg tablet 5 mg PO BID PRN muscle spasm #10 01/20/25 02/26/25 Rx tabs levothyroxine 75 mcg tablet 75 mcg PO DAILY thyroid #90 tabs 01/20/25 02/26/25 Rx prednisone 20 mg tablet 40 mg (2 x 20 mg) PO QDAY #10 tabs 01/20/25 02/26/25 Rx PFSH Medical History (Updated 02/26/25 @ 08:34 by Honey Barry LPN) Hemorrhoids Constipation Encounter for screening colonoscopy COVID GERD (gastroesophageal reflux disease) Headache, migraine Goiter Wrist fracture Afib Seasonal allergies Hypothyroidism Glaucoma Surgical History S/P laser trabeculoplasty of eye History of toe surgery Family History Mother Atrial fibrillation Arthritis HypertensionAunt Heart diseaseBrother AsthmaSister ArthritisFather CVA (cerebral vascular accident) Cerebral AVM Alzheimer disease Parkinsons diseaseGrandmother Cancer GUBrother Epilepsy Social History household members: spouse current occupational status: employed current occupation: [employer] Smoking Status: Never smoker Electronic Cigarette Use: not used alcohol intake: current alcohol intake frequency: holidays/special occasions only details: Rare substance use type: does not use caffeine: Yes Type: coffee Number of servings: 2 what type of physical activity do you participate in: none do you feel safe at home: Yes 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 She reports that her brothers both had colon cancer within the last year. She reports no blood in the stool or abdominal pain. She is on Eliquis for A-fib. ROS General General: Yes fatigue; No weight change, appetite, colon cancer, breast cancer or weakness HEENT HEENT: Yes eye surgery; No difficulty swallowing, eye injury, swollen glands or hoarseness Endo Endocrine: Yes thyroid disease; No diabetes mellitus, thyroid cancer, Hair loss, heat intolerance or cold intolerance Skin Skin: No rash or changing moles Musc Musculoskeletal: Yes back problems; No arthritis, rheumatoid arthritis, gout or joint pain Cardio Cardiovascular: Yes atrial fibrillation; No murmur, pacemaker, heart disease, high blood pressure, heart attack, heart stent, palpitations, shortness of breath with exertion or chest pain Psych Psychiatric: No depression, anxiety or hearing voices Resp Respiratory: No shortness of breath, No sleep apnea, Yes cough, No COPD, No asthma, No emphysema and No wheezing Gastro Gastrointestinal: No abdominal pain, No nausea or vomiting, No diarrhea, Yes constipation, No blood in stool, No acid reflux, Yes hemorrhoids, No ulcers, No gallbladder problem and No black,tarry stools Misael Hematologic: Yes blood thinners, No blood disorders, No bleeding, Yes anemia and No blood clots Neuro Neurologic: No numbness, No tingling and No weakness Exam Const General: cooperative Orientation: alert and oriented x3 HENMT Head: normal to inspection Neck Neck: normal visual inspection and full ROM Chest Chest palpation & inspection: normal inspection of the chest Resp Effort & Inspection: normal respiratory effort Auscultation: clear to auscultation bilaterally Cardio Rate: regular rate Rhythm: regular rhythm GI Inspection: non-distended Palpation: soft and nontender Skin General: no rashes or lesions noted Neuro General: patient alert and patient oriented x3 Extrem General: full ROM Psych Appearance: grossly normal Mental Status: mental status grossly normal Assessment and Plan Assessment and Plan (1) Encounter for screening colonoscopy: Status: Acute Plan: I explained endoscopy in detail to the patient. I explained the risks including but not limited to stroke or heart attack with anesthesia, perforation of the GI tract, bleeding, infection. I explained that any of these could necessitate further emergency surgery. The patient understands and all questions were answered sufficiently. The patient wishes to proceed with procedure. Patient will hold Eliquis for 2 days prior to surgery Patient will need recall in 5 years even if we do not find any polyps due to family history. Chad Ordoñez MD Pager: [facility] [address] [place] [address] [address] [place] [address] Office: I have seen and examined the patient and reviewed the H&P and there are no clinical changes
--- NOTE | 2025-03-13 10:43 | OP.COLON_ITS ---
Patient Name: Hannah Michelle Procedure Date: 03/13/2025 10:19 AM Date of : 1970 Age: 54 Procedure: Colonoscopy Indications: Screening in patient at increased risk: Family history of 1st-degree relative with colorectal cancer before age 60 years Providers: Chad Ordoñez MD Medicines: Propofol per Anesthesia Patient Profile: This is a 54 year old female. Refer to note in patient chart for documentation of history and physical. Last Colonoscopy: none. The patient's first colonoscopy is today. Complications: No immediate complications. Procedure: Pre-Anesthesia Assessment: - Prior to the procedure, a History and Physical was performed, and patient medications and allergies were reviewed. The patient's tolerance of previous anesthesia was also reviewed. The risks and benefits of the procedure and the sedation options and risks were discussed with the patient. All questions were answered, and informed consent was obtained. Prior Anticoagulants: The patient has taken Eliquis (apixaban), last dose was 2 days prior to procedure. After reviewing the risks and benefits, the patient was deemed in satisfactory condition to undergo the procedure. After I obtained informed consent, the scope was passed under direct vision. Throughout the procedure, the patient's blood pressure, pulse, and oxygen saturations were monitored continuously. The Colonoscope was introduced through the anus and advanced to the cecum, identified by appendiceal orifice and ileocecal valve. The colonoscopy was performed without difficulty. The patient tolerated the procedure well. The quality of the bowel preparation was good. The ileocecal valve, appendiceal orifice, and rectum were photographed. Scope In: 10:28:32 AM Scope Withdrawal Time 0 hours 7 minutes 21 seconds Scope Out: 10:42:12 AM Total Procedure Duration Time 0 hours 13 minutes 40 seconds Findings: The entire examined colon appeared normal on direct and retroflexion views. Impression: - The entire examined colon is normal on direct and retroflexion views. - No specimens collected. Recommendation: - Discharge patient to home. - Resume previous diet. - Continue present medications. - Repeat colonoscopy in 5 years for screening purposes. Procedure Code(s): --- Professional --- 16074, Colonoscopy, flexible; diagnostic, including collection of specimen(s) by brushing or washing, when performed (separate procedure) Diagnosis Code(s): --- Professional --- Z80.0, Family history of malignant neoplasm of digestive organs CPT copyright 2021 [employer]. All rights reserved. The codes documented in this report are preliminary and upon cement boat and barge loader review may be revised to meet current compliance requirements. Chad Ordoñez MD 03/13/2025 10:43:19 AM This report has been signed electronically. Number of Addenda: 0 Note Initiated On: 03/13/2025 10:19 AM
--- NOTE | 2025-03-13 10:44 | OP.CCLET_ITS ---
03/13/2025 Lisa Bowman Md Re : Colonoscopy procedure for Hannah Michelle Dear Colby This procedure was performed on Thursday, March 13, 2025. My impressions and recommendations are as follows: Impressions : - The entire examined colon is normal on direct and retroflexion views. - No specimens collected. Recommendations : - Discharge patient to home. - Resume previous diet. - Continue present medications. - Repeat colonoscopy in 5 years for screening purposes. My findings are described in the full procedure note, which is enclosed. If I can be of further assistance, please feel free to contact me at Doctor phone number(s): , Work: . Sincerely, Chad Ordoñez MD 03/13/2025 10:43:19 AM This report has been signed electronically.
[2025-03-13 10:45] VITALS: BP 105/67; BP 122/73; PULSE 74; RESP 16; TEMP 36.5; O2SAT 100
--- NOTE | 2025-03-13 10:47 | PCM.POST.ANE ---
Anesthesia: Postop Eval I Current Vital Signs Temperature: 97.7 F Pulse Rate: 70 Blood Pressure: 105/67 Respiratory Rate: 16 Pulse Ox: 98 Oxygen Delivery Method: Room Air Assessment Airway patent: Yes Spontaneous unlabored respirations: Yes Mental status: Awake and Calm nausea: No Vomiting: No Anesthesia Complication: No Fluid Hydration Crystalloid volume administer (ml): 300 Total IV fluid infused: 300 Progress Note Anesthesia document: Postop Eval 1 completed: Yes
[2025-03-13 10:48] VITALS: BP 105/67; PULSE 70; RESP 16; TEMP 36.5; O2SAT 98
[2025-03-13 10:50] VITALS: BP 114/70; BP 122/73; PULSE 74; RESP 16; O2SAT 100
[2025-03-13 10:56] VITALS: BP 117/78; BP 122/73; PULSE 69; RESP 16; TEMP 36.1; O2SAT 99
[2025-03-13 11:09] VITALS: BP 122/73
--- NOTE | 2025-03-13 11:40 | POSTOPAN2_ITS ---
Anesthesia Postop Eval I Sum Postop Eval Completion status Anesthesia document: Postop Eval 1 completed: Yes Anesthesia Postop Eval I Summary Anesthesia Postop Eval I Summary: Anesthesia Postop Eval I: Assessment Summary Airway patent Yes 03/13/25 10:48 [employer]FORMING [email or web address][email or web address] Spontaneous unlabored Yes 03/13/25 10:48 [employer]ING [email or web address] respirations Mental status Awake,Calm 03/13/25 10:48 [email or web address] nausea No 03/13/25 10:48 [email or web address] Vomiting No 03/13/25 10:48 [employer]ING [email or web address] Anesthesia Postop Eval I: Fluid Summary Crystalloid volume administer 300 03/13/25 10:48 PERFORMING [email or web address]BR (ml) Colloids volume administered ( ml) Blood Product volume administered (ml) Total IV fluid infused 300 03/13/25 10:48 PER[employer]ING [email or web address] Anesthesia Postop Eval I: Summary Notes Anesthesia Complication No 03/13/25 10:48 [email or web address] Anesthesia Complication Comment: Post-operative progress note Anesthesia: Postop Eval II Evaluation Mental status: Awake Pain Level: 0 nausea: No Vomiting: No
--- NOTE | 2025-03-13 11:40 | PCM.POSTANE2 ---
Anesthesia Postop Eval I Sum Postop Eval Completion status Anesthesia document: Postop Eval 1 completed: Yes Anesthesia Postop Eval I Summary Anesthesia Postop Eval I Summary: Anesthesia Postop Eval I: Assessment Summary Airway patent Yes 03/13/25 10:48 [email or web address] Spontaneous unlabored Yes 03/13/25 10:48 BULK [email or web address] respirations Mental status Awake,Calm 03/13/25 10:48 BULK [email or web address] nausea No 03/13/25 10:48 BULK [email or web address][employer]BR Vomiting No 03/13/25 10:48 BULK [email or web address] Anesthesia Postop Eval I: Fluid Summary Crystalloid volume administer 300 03/13/25 10:48 BULK [email or web address] (ml) Colloids volume administered ( ml) Blood Product volume administered (ml) Total IV fluid infused 300 03/13/25 10:48 BULK [email or web address] Anesthesia Postop Eval I: Summary Notes Anesthesia Complication No 03/13/25 10:48 BULK [email or web address] Anesthesia Complication Comment: Post-operative progress note Anesthesia: Postop Eval II Evaluation Mental status: Awake Pain Level: 0 nausea: No Vomiting: No
== END 2025-03-13 11:24 | disposition home or self-care (01) ==
LOC: EN 09:35 → AC 09:36
PROVIDERS: PCP Internal Medicine; Referring Provider Internal Medicine; Visit Provider Surgery
PROC: 0DJD8ZZ Inspection of Lower Intestinal Tract, Via Natural or Artificial Opening Endoscopic (ICD-10-PCS; CPT 45378; principal; 2025-03-13 10:40)
DX: Z12.11 Encounter for screening for malignant neoplasm of colon (principal); I48.91 Unspecified atrial fibrillation; Z79.01 Long term (current) use of anticoagulants; K21.9 Gastro-esophageal reflux disease without esophagitis; Z79.890 Hormone replacement therapy; E03.9 Hypothyroidism, unspecified; Z80.0 Family history of malignant neoplasm of digestive organs
CPT/HCPCS: 45378

== ENCOUNTER → 2025-06-01 | Outpatient (CLI) | payer BC, SELFPAY ==
--- NOTE | 2025-06-01 14:00 | RAD_ITS ---
PROCEDURE: CHEST PA AND LATERAL 06/01/2025 REASON FOR EXAM: CHEST PAIN TECHNIQUE: CHEST PA AND LATERAL COMPARISON: Chest x-ray dated 12/01/2024 FINDINGS: Heart size and configuration are within normal limits. Pulmonary vasculature and hilar structures are unremarkable. Trachea is midline Lungs are expanded and clear without evidence of atelectasis, consolidation, effusion, pneumonic infiltrate or pneumothoraces. Osseous structures appear grossly unremarkable. Soft tissue structures are unremarkable. RAD/Chest PA and Lateral IMPRESSION: No acute cardiopulmonary process is identified radiographically. Reading Location: [id number]
--- NOTE | 2025-06-01 14:00 | RAD_ITS ---
PROCEDURE: CHEST PA AND LATERAL 06/01/2025 REASON FOR EXAM: CHEST PAIN TECHNIQUE: CHEST PA AND LATERAL COMPARISON: Chest x-ray dated 12/01/2024 FINDINGS: Heart size and configuration are within normal limits. Pulmonary vasculature and hilar structures are unremarkable. Trachea is midline Lungs are expanded and clear without evidence of atelectasis, consolidation, effusion, pneumonic infiltrate or pneumothoraces. Osseous structures appear grossly unremarkable. Soft tissue structures are unremarkable. RAD/Chest PA and Lateral IMPRESSION: No acute cardiopulmonary process is identified radiographically. Reading Location: [id number]
[2025-06-01 14:21] LABS: Hematocrit 45.1 % (37-47); Hemoglobin 14.9 g/dL (12.0-15.0); Immature Granulocytes Count 0.020 X10^3/uL (0.0-0.0); Mean Corp Hgb Conc 33.0 g/dL (32-36); Mean Corpuscular Volume 82.0 fL (81-99); Mean Platelet Vol. 9.5 fl (6.2-12.0); NRBC Flagged by Analyzer 0 % (0-5); Platelet Count 332 K/mm3 (150-450); RBC Distribution Width CV 12.4 % (11.6-14.6); RBC Distribution Width SD 37.3 fl (35.1-43.9); Red Blood Count 5.50 M/mm3 (4.2-5.4); White Blood Count 8.2 K/mm3 (4.4-11.0)
[2025-06-01 14:42] LABS: D-Dimer Quantitative (DVT/PE) 0.27 FEU/ug/m (0.27-0.49)
[2025-06-01 15:21] LABS: AST(SGOT) 22 U/L (<=31); Alanine Aminotransfer ALT/SGPT 25 U/L (<=34); Albumin, Serum 4.5 g/dL (3.5-5.0); Alkaline Phosphatase 88 U/L (35-104); Anion Gap 12 (5-15); BUN 9 mg/dL (4-19); BUN/Creat Ratio 15.3 RATIO (10-20); Calcium,Total 9.8 mg/dL (7.6-11.0); Carbon Dioxide 24.8 mmol/L (21.0-32.0); Chloride 104 mmol/L (98-108); Ferritin 52 ng/mL (22-378); Globulin 3.1 g/dL (2.2-4.2); Glucose 86 mg/dL (70-99); Iron 79 ug/dL (50-170); Iron Binding Capacity,Total 335 ug/dL (250-450); Iron Binding Capacity,Unsat 256 ug/dL (228-428); Potassium 4.3 mmol/L (3.3-5.1); Troponin T High Sensitivity < 6 ng/L (<=14)
== END | disposition home or self-care (01) ==
LOC: RAD 13:43
PROVIDERS: PCP Internal Medicine; Referring Provider Internal Medicine; Visit Provider Internal Medicine
DX: D50.0 Iron deficiency anemia secondary to blood loss (chronic) (principal); R07.9 Chest pain, unspecified
CPT/HCPCS: 36415; 71046; 80053; 82728; 83540; 83550; 84484; 85025; 85379

== ENCOUNTER → 2025-06-02 | Outpatient (CLI) | payer BC, SELFPAY ==
--- NOTE | 2025-06-02 07:30 | EKG12_ITS ---
Test Reason : CP Blood Pressure : */* mmHG Vent. Rate : 63 BPM Atrial Rate : 63 BPM P-R Int : 162 ms QRS Dur : 80 ms QT Int : 402 ms P-R-T Axes : 47 -6 35 degrees QTcB Int : 411 ms Normal sinus rhythm Low voltage QRS Borderline ECG Confirmed by Cristobal Adame ([id number]), editorial assistant YULIYA LOPEZ ([id number]) on 06/02/2025 11:45:37 AM Referred By: Lisa Bowman Confirmed By: Cristobal Adame
--- OUTSIDE RECORDS SUMMARY | 2025-06-02 07:39 | XMS RPT_ITS | CCD ---
Author Organization [facility] Care Team Providers Care Integrated [employer] Ic Layout Designer Name Role Phone Care Physician, No Primary Primary Care Provider Unavailable Care Physician, No Primary Referring Provider Un available Dr. Coleman Douglass Attending Provider Dr. Alex Robles Emergency Provider Dr. Young Hughes Admit Provider Dr. Young Hughes Attending Provider Dr. Young Hughes Other Provider Dr. Prem Keating Attending Provider Dr. Coleman Douglass Other Provider Dr. Lisa Bowman Attending Provider [phone] Jonathan FURS SALESPERSON, REZAC Naheed Attending Provider Dr. Lisa Bowman Primary Care Provider Unavailable Primary Care Provider Unavailabl e SELF Referring Unavailable SARTHAK JEROME Attending Unavailable Dr. Lisa Bowman Primary Care Provider Dr. Lisa Bowman Referring Provider [phone] Jonathan FURS SALESPERSON, FURS SALESPERSON-C Naheed Attending Provider Jose L CARDENAS, PA Ever Lopez Attending Provider NURSE, BIM Attending Provider Unavailable TRIXIE Andersen Attending Provider [phone] Unavailable Primary Care Provider UnavailDr. Lisa Bardales MD Primary Care Provider [phone] Dr. Lisa Bowman MD Referring Provider Tiago MENCHACA, Dr. Bonilla Attending Provider Deep MENCHACA, Dr. Jain Attending Provider Tiago MENCHACA, Dr. Bonilla Other Provider Colby MENCHACA, Dr. Gonzalez Attending Provider Mitali FURS SALESPERSON, Veronica Referring Unavailable Mitali FURS SALESPERSON, Veronica Attending Unavailable Colby, Lisa Primary Care Unavailable Colby, Lisa Primary Care Unavailable Jacob Bustillo Referring Unavailable Jacob Bustillo Attending Unavailable [place], Lisa Referring Unavailable [place], Lisa Primary Care Unavailable Chelsey Tomas Attending Unavailable Colby, Lisa Attending Unavailable Colby, Lisa Referring Unavailable [place], Lisa Primary Care Unavailable Young Hughes Attending Unavailable Colby, Lisa Primary Care Unavailable Leonor Salas Consulting Unavailable Leonor Salas Admitting Unavailable [place], Lisa Referring Unavailable [place], Lisa Primary Care Unavailable Chad Ordoñez Attending Unavailable [place], Lisa Attending Unavailable Colby, Lisa Referring Unavailable Colby, Lisa Primary Care Unavailable [place], Lisa Attending Unavailable Colby, Lisa Referring Unavailable Colby, Lisa Primary Care Unavailable [place], Lisa Primary Care Unavailable Jacob Bustillo Attending Unavailable Colby, Lisa Referring Unavailable [place], Lisa Referring Unavailable [place], Lisa Primary Care Unavailable Cristobal Adame Attending Unavailable [place], Lisa Attending Unavailable [place], Lisa Primary Care Unavailable [place], Lisa Referring Unavailable Colby, Lisa Referring Unavailable [place], Lisa Primary Care Unavailable Chad Ordoñez Attending Unavailable Colby, Lisa Primary Care Unavailable Jacob Bustillo Attending Unavailable [place], Lisa Referring Unavailable [place], Lisa Primary Care Unavailable Beka Wade Attending Unavailabl e [place], Lisa Referring Unavailable [place], Lisa Primary Care Unavailable Chad Ordoñez Attending Unavailable Chad Ordoñez Consulting Unavailable Colby, Lisa Primary Care Unavailable Leonor Salas Attending Unavailable Leonor Salas Consulting Unavailable Leonor Salas Admitting Unavailable Young Hughes Attending Unavailable Young Hughes Consulting Unavailable Colby, Lisa Referring Unavailable Colby, Lisa Primary Care Unavailable Mitali FURS SALESPERSON, Veronica Attending Unavailable Colby, Lisa Attending Unavailable [place], Lisa Referring Unavailable Colby, Lisa Primary Care Unavailable Fede Meyer NP Attending Unavailable [place], Lisa Primary Care Unavailable Colby, Lisa Referring Unavailable Ferullo, Lori Referring Unavailable Ferullo Lori Attending Unavailable Colby, Lisa Primary Care Unavailable Colby, Lisa Referring Unavailable Ferullo Lori Attending Unavailable Colby, Lisa Primary Care Unavailable [place], Lisa Referring Unavailable Colby, Lisa Primary Care Unavailable Jacob Bustillo Attending Unavailable Mitali FURS SALESPERSONVeronica Referring Unavailable Veronica Jasmine NP Attending Unavailable [place], Lisa Primary Care Unavailable Allergies Allergy Classification Reported Allergen(s) Allergy Type Date of Onset Reaction(s) Facility (11 sources) Penicillins Allergy to substance 07-20-2022 Anaphylaxis [facility] (2 sources) Penicillins Drug Allergy 12-03-[address] [facility] (1 source) Penicillins Drug allergy (disorder) 06-01-2025 [facility] Repository Medications Current Medications Medication Drug Class(es) Dates Sig (Normalized) Sig (Original) benoxinate hydrochloride 4 mg/ml / fluorescein sodium 3 mg/ml ophthalmic solution (1 source) Diagnostic Dye Start: 12-03-2023 End: 12-04-2023 fluorescein-benoxina te 0.3-0.4 % 1 Drop (FLURESS) cyclobenzaprine hydrochloride 5 mg oral tablet (2 sources) Muscle Relaxant Start: 06-01-2025 take 1 tablet by mouth twice daily as needed for pain Cyclobenzaprine 5 mg tablet Active 5 mg PO TWICE A DAY as needed for pain June 01, 2025 12:00am Start: 01-20-2025 End: 03-11-2025 take 1 tablet by mouth twice daily as needed for muscle spasms Cyclobenzaprine 5 mg tablet Discontinued 5 mg PO TWICE A DAY as needed for muscle spasm 10 January 20, 2025 12:00am March 11, 2025 3:32pm 24 hr dilTIAZem hydrochloride 180 mg extended release oral capsule (20 sources) Calcium Channel Rayo Start: 12-02-2024 End: 12-11-2024 take 1 capsule by mouth once daily Diltiazem Hcl 180 mg capsule,extended release 24hr Active 180 mg PO DAILY 90 90 December 11, 2024 5:14pm Start: 07-22-2022 End: 10-27-2024 take 1 capsule by mouth once daily Diltiazem Hcl 180 mg capsule,extended release 24hr Discontinued 180 mg PO DAILY 90 3 July 30, 2024 7:59am October 27, 2024 11:12am Start: 07-20-2022 End: 07-22-2022 take 1 capsule by mouth once daily Diltiazem Hcl 120 mg capsule,extended release 24hr Discontinued 120 mg PO DAILY 30 July 20, 2022 12:00am July 22, 2022 1:46pm Start: 07-20-2022 End: 07-20-2022 take 1 tablet by mouth once daily Diltiazem Hcl (Cardizem La) 120 mg tablet extended release 24 hr Discontinued 120 mg PO DAILY 30 July 20, 2022 12:00am July 20, 2022 3:39pm Comment on above: Take 1 capsule by [facility] every afternoon. latanoprost 0.05 mg/ml / netarsudil 0.2 mg/ml ophthalmic solution (15 sources) Prostaglandin Analog, Rho Kinase Inhibitor Start: 09-05-20 End: 02-18-20 take 1 drop(s) into the eye(s) once daily at bedtime ROCKLATAN 0.02-0.005 % ophthalmic solution Use 1 Drop in both eyes daily at bedtime. 7.5 mL 5 12/03/2023 02/18/2024 Discontinued Start: 07-20-2022 netarsudil-lat anoprost (ROCKLATAN) 0.02-0.005 % ophthalmic solution Use 1 Drop in both eyes daily at bedtime. 10 mL 3 02/18/2024 Active Start: 07-20-2022 Netarsudil-Lat anoprost (Rocklatan) 0.02-0.005 % drops Active 1 DRP EACH EYE DAILY July 20, 2022 12:00am Start: 07-20-2022 Netarsudil-Lat anoprost (Rocklatan) 0.02-0.005 % drops Active DRP July 20, 2022 12:00am Comment on above: Use 1 Drop in both e yes daily at bedtime. levothyroxine sodium 0.075 mg oral tablet (20 sources) l-Thyroxine Start: 07-20-20 End: 04-16-20 take 1 tablet by mouth once daily Levothyroxine 75 mcg tablet Active 75 ug PO DAILY 90 April 16, 2025 8:20am thyroid Comment on above: Take 1 tablet by delgado once daily. omeprazole 20 mg delayed release oral capsule (1 source) Proton Pump Inhibitor Start: 06-01-20 take 1 capsule by mouth once daily Omeprazole 20 mg capsule,delayed release(DR/EC) Active 20 mg PO daily 14 June 01, 2025 12:00am phenylephrine hydrochloride 25 mg/ml ophthalmic solution (1 source) alpha-1 Adrenergic Agonist Start: 12-03-19 End: 12-04-19 PHENYLephrine 2.5 % 1 Drop (AK-DILATE, SARABJIT-SYNEPHRINE) 12 hr timolol 5 mg/ml ophthalmic solution (10 sources) beta-Adrenergic Rayo Start: 12-30-19 timolol maleate (TIMOPTIC) 0.5 % ophthalmic solution USE 1 DROP IN BOTH EYES EVERY MORNING. 30 mL 5 12/29/2024 Active Start: 12-25-2023 Timolol Maleat e 0.5 % drops Active 1 NMA OPHTHALMIC DAILY December 25, 2023 1:00am Start: 12-03-2023 End: 12-29-2024 timolol maleate (TIMOPTIC) 0 .5 % ophthalmic solution Use 1 Drop in both eyes every morning. 30 mL 5 12/03/2023 12/29/2024 Discontinued Comment on above: Use 1 Drop in both e yes every morning. tropicamide 10 mg/ml ophthalmic solution (1 source) Anticholinergic Start: 12-03-2023 End: 12-04-2023 tropicamide 1 % 1 Drop (MYDRIACYL) Completed/Discontinued Medications Medication Drug Class(es) Dates Sig (Normalized) Sig (Original) [id number] 200 actuat albuterol 0.09 mg/actuat metered dose inhaler (1 source) beta2-Adrenergic Agonist Start: 08-08-2024 End: 12-01-2024 Albuterol Sulfate 90 mcg/actuation HFA aerosol inhaler Discontinued 2 NMA INHALATION EVERY 6 HOURS as needed for shortness of breath or wheezing 6.7 0 August 08, 2024 12:00am December 01, 2024 1:30pm apixaban 5 mg oral tablet (20 sources) Factor Xa Inhibitor Start: 11-19-2023 take 1 tablet by mouth every twelve hours ELIQUIS 5 mg tab(s) Take 1 tablet by mouth every 12 hours. 11/19/2023 Active Start: 07-24-2022 End: 06-01-2025 take 1 tablet by mouth twice daily Apixaban (Eliquis) 5 mg tablet Discontinued 5 mg PO TWICE A DAY 180 90 1 December 11, 2024 5:14pm June 01, 2025 12:57pm Comment on above: Take 1 tablet by delgado th every 12 hours. aspirin 81 mg chewable tablet (9 sources) Platelet Aggregation Inhibitor, Nonsteroidal Anti-inflammatory Drug Start: 2 End: 2 take 1 tablet by mouth once daily Aspirin 81 mg Tablet,Chewable Discontinued 81 mg PO DAILY July 21, 2022 12:00am July 24, 2022 10:04am [facility] benzonatate 100 mg oral capsule (11 sources) Non-narcotic Antitussive Start: 4 End: 5 Benzonatate 100 mg capsule Discontinued 100 mg PO 2 to 3 times per day as needed for cough 30 0 August 08, 2024 12:00am December 01, 2024 1:30pm Start: 12-25-2023 End: 01-07-2024 take 1 capsule by mouth three times daily as needed for cough Benzonatate 200 mg capsule Discontinued 200 mg PO THREE TIMES A DAY as needed for cough 14 0 December 25, 2023 1:00am January 07, 2024 3:58pm Start: 01-05-2023 End: 06-04-2023 take 2 capsules by mouth three times daily as needed for cough Benzonatate 100 mg capsule Discontinued 200 mg PO THREE TIMES A DAY as needed for cough 30 0 January 05, 2023 12:00am June 04, 2023 10:49am Start: 01-05-2023 End: 06-04-2023 take 200 mg by mouth three times daily Benzonatate Discontinued 200 MG PO THREE TIMES A DAY January 05, 2023 12:00am June 04, 2023 10:49am doxycycline hyclate 100 mg oral capsule (1 source) Tetracycline-class Drug Start: 11-07-2024 End: 12-01-2024 take 1 capsule by mouth twice daily Doxycycline Hyclate 100 mg capsule Discontinued 100 mg PO TWICE A DAY 20 November 07, 2024 1:00am December 01, 2024 1:30pm Norgestimate-Ethi nyl Estradiol (20 sources) Progestin, Estrogen Start: 04-22-2024 End: 06-27-2024 take 1 tablet by mouth once daily Norgestimate-Ethi nyl Estradiol (Heg-Ed-Hqraah) 0.18/0.215/0.25 mg-25 mcg tablet Discontinued 1 {tbl} PO DAILY 84 April 22, 2024 7:38am June 27, 2024 8:07am 1 TAB orally; continuous, skipping placebo pills Start: 03-11-2024 End: 04-22-2024 take 1 tablet by mouth once daily Norgestimate-Ethinyl Estradiol (Fnx-In-Arngre) 0.18/0.215/0.25 mg-25 mcg tablet Discontinued 1 {tbl} PO DAILY 84 March 11, 2024 10:31am April 22, 2024 7:38am 1 TAB orally; continuous, skipping placebo pills Start: 03-11-2024 End: 03-11-2024 take 1 tablet by mouth once daily Norgestimate-Ethinyl Estradiol (Fvc-Na-Imcpqu) 0.18/0.215/0.25 mg-25 mcg tablet Discontinued 0 .ROUTE .COMPLEX 84 0 March 11, 2024 8:49am March 11, 2024 10:32am TAKE 1 TABLET BY MOUTH EVERY DAY Start: 01-07-2024 End: 03-11-2024 take 1 tablet by mouth once daily Norgestimate-Ethinyl Estradiol (Gvb-Jp-Racvmd) 0.18/0.215/0.25 mg-25 mcg tablet Discontinued 0 .ROUTE .COMPLEX 84 0 January 07, 2024 4:46pm March 11, 2024 8:49am TAKE 1 TABLET BY MOUTH EVERY DAY Start: 01-07-2024 take 1 tablet by delgado th once daily Norgestimate-Ethinyl Estradiol (Iaa-Qu-Rexmlw) 0.18/0.215/0.25 mg-25 mcg tablet Active 0 .ROUTE .COMPLEX 84 January 07, 2024 4:46pm TAKE 1 TABLET BY MOUTH EVERY DAY Start: 10-19-2023 End: 01-07-2024 take 1 tablet by mouth once daily Norgestimate-Ethinyl Estradiol (Lna-Dh-Kxpltp) 0.18/0.215/0.25 mg-25 mcg tablet Discontinued 0 .ROUTE .COMPLEX 84 0 October 19, 2023 4:18pm January 07, 2024 4:46pm TAKE 1 TABLET BY MOUTH EVERY DAY Start: 10-19-2023 End: 01-07-2024 take 1 tablet by mouth once daily Norgestimate-Ethinyl Estradiol (Ekv-Md-Pguzkl) 0.18/0.215/0.25 mg-25 mcg tablet Discontinued 0 .ROUTE .COMPLEX 84 October 19, 2023 4:18pm January 07, 2024 4:46pm TAKE 1 TABLET BY MOUTH EVERY DAY Start: 10-19-2023 take 1 tablet by mouth once TR I-LO-GELA 0.18/0.215/0.25 mg- 25 mcg Take 1 tablet by mouth every afternoon. 10/19/2023 Active Start: 10-19-2023 take 1 tablet by mouth once TR I-LO-GELA 0.18/0.215/0.25 mg- 25 mcg Take 1 tablet by mouth every afternoon. 0 10/19/2023 Active Start: 06-04-2023 End: 10-19-2023 Norgestimate-Ethinyl Estradi ol (Vnh-Td-Zcctes) 0.18/0.215/0.25 mg-25 mcg tablet Discontinued 1 {tbl} PO DAILY 84 0 June 04, 2023 11:29am October 19, 2023 4:19pm control Start: 06-04-2023 End: 10-19-2023 take 1 tablet by mouth once daily Norgestimate-Ethinyl Estradiol (Lqt-Fj-Bcfujc) 0.18/0.215/0.25 mg-25 mcg tablet Discontinued 1 TABLET PO DAILY 84 June 04, 2023 11:29am October 19, 2023 4:19pm Start: 05-14-2023 End: 06-04-2023 Norgestimate-Ethinyl Estradi ol (Rud-Yv-Mhhvuf) 0.18/0.215/0.25 mg-25 mcg tablet Discontinued 1 {tbl} PO DAILY 84 0 May 14, 2023 11:53am June 04, 2023 11:30am control Start: 05-14-2023 End: 06-04-2023 take 1 tablet by mouth once daily Norgestimate-Ethinyl Estradiol (Nos-Xg-Quuemd) 0.18/0.215/0.25 mg-25 mcg tablet Discontinued 1 TABLET PO DAILY 84 May 14, 2023 11:53am June 04, 2023 11:30am Start: 02-08-2023 End: 05-14-2023 Norgestimate-Ethinyl Estradi ol (Cbp-Yd-Utezdf) 0.18/0.215/0.25 mg-25 mcg tablet Discontinued 1 {tbl} PO DAILY 84 0 February 08, 2023 8:04am May 14, 2023 11:53am control Start: 02-08-2023 End: 05-14-2023 take 1 tablet by mouth once daily Norgestimate-Ethinyl Estradiol (Fsi-Rl-Kridbv) 0.18/0.215/0.25 mg-25 mcg tablet Discontinued 1 TABLET PO DAILY 84 February 08, 2023 8:04am May 14, 2023 11:53am Start: 11-16-2022 End: 02-08-2023 Norgestimate-Ethinyl Estradi ol (Pxd-Fz-Ojnwsu) 0.18/0.215/0.25 mg-25 mcg tablet Discontinued 1 {tbl} PO DAILY 84 0 November 16, 2022 3:10pm February 08, 2023 8:04am control Start: 11-16-2022 End: 02-08-2023 take 1 tablet by mouth once daily Norgestimate-Ethinyl Estradiol (Ruu-Rd-Mygxjb) 0.18/0.215/0.25 mg-25 mcg tablet Discontinued 1 TABLET PO DAILY November 16, 2022 3:10pm February 08, 2023 8:04am Start: 07-21-2022 End: 11-16-2022 Norgestimate-Ethinyl Estradi ol (Fgr-Pa-Oucieg) 0.18/0.215/0.25 mg-25 mcg tablet Discontinued 1 {tbl} PO DAILY July 21, 2022 12:00am November 16, 2022 3:11pm control Start: 07-21-2022 End: 11-16-2022 take 1 tablet by mouth once daily Norgestimate-Ethinyl Estradiol (Kkz-Vg-Ijeqcx) 0.18/0.215/0.25 mg-25 mcg tablet Discontinued 1 TABLET PO DAILY July 21, 2022 12:00am November 16, 2022 3:11pm Start: 07-21-2022 take 1 tablet by delgado once daily Norgestimate-Ethinyl Estradiol (Yxz-Hs-Dlhmxh) 0.18/0.215/0.25 mg-25 mcg tablet Active 1 TABLET PO DAILY July 20, 2022 11:00pm Start: 07-21-2022 take 1 tablet by delgado th once daily Norgestimate-Ethinyl Estradiol (Kao-Ku-Cmbolc) 0.18/0.215/0.25 mg-25 mcg tablet Active 1 TABLET PO DAILY July 21, 2022 12:00am Comment on above: Take 1 tablet by delgado every afternoon. ferrous sulfate 325 mg delayed release oral tablet (8 sources) Start: 03-11-2025 End: 03-12-2025 take 1 tablet by mouth every other day Ferrous Sulfate 325 mg (65 mg iron) tablet,delayed release (DR/EC) Discontinued 325 mg PO EVERY OTHER DAY March 11, 2025 12:00am March 12, 2025 8:05am Start: 01-04-2024 End: 10-27-2024 take 1 tablet by mouth every other day Ferrous Sulfate 325 mg (65 mg iron) tablet,delayed release (DR/EC) Discontinued 325 mg PO every other day 45 October 01, 2024 1:34pm October 27, 2024 10:43am methylPREDNISolone 4 mg oral tablet (10 sources) Corticosteroid Start: 12-25-2023 End: 01-07-2024 take 1 tablet by mouth once Methylprednisolone (Medrol (Vick)) 4 mg tablets,dose pack Discontinued 0 PO per package directions 21 0 December 25, 2023 1:00am January 07, 2024 3:59pm PO PER PKG DIR Start: 01-05-2023 End: 01-11-2023 take 1 tablet by mouth once Methylprednisolone (Medrol (Vick)) 4 mg tablets,dose pack Discontinued 4 mg PO per package directions 21 6 0 January 05, 2023 12:00am January 10, 2023 12:00am January 11, 2023 12:05am predniSONE 20 mg oral tablet (3 sources) Start: 01-20-2025 End: 03-11-2025 take 2 tablets by mouth once daily Prednisone 20 mg tablet Discontinued 40 mg PO daily 10 0 January 20, 2025 12:00am March 11, 2025 3:32pm Start: 11-07-2024 End: 12-01-2024 take 1 tablet by mouth three times daily Prednisone 10 mg tablet Discontinued 10 mg PO THREE TIMES A DAY 9 0 November 07, 2024 1:00am December 01, 2024 1:30pm Start: 08-08-2024 End: 08-13-2024 take 2 tablets by mouth once daily in the morning Prednisone 20 mg tablet Discontinued 40 mg PO EVERY MORNING 10 5 0 August 08, 2024 12:00am August 12, 2024 12:00am August 13, 2024 12:08am Problems Problem Classification Problem Date Documented Da te Episodic/Chronic Acute bronchitis (5 sources) Acute bronchitis; Translations: [Acute bronchitis, unspecified] 06-04-2023 Episodic Administrative/social admission (19 sources) Patient encounter status; Translations: [Encounter for pre-employment examination] Episodic Benign neoplasm of uterus (1 source) Uterine leiomyoma; Translations: [Leiomyoma of uterus, unspecified] 06-14-2024 Episodic Comment on above: multiple, up to 5cm. possible polyps. Consult SM Cardiac dysrhythmias (20 sources) Atrial fibrillation; Translations: [Unspecified atrial fibrillation] Onset: 12-04-2024 Chronic Cardiac dysrhythmias (20 sources) Palpitations; Translations: [Palpitations] Onset: 12-04-2024 Episodic Conditions associated with dizziness or vertigo (10 sources) Dizziness; Translations: [Dizziness and giddiness] 01-03-2024 Episodic Deficiency and other anemia (1 source) Iron deficiency anemia secondary to blood loss (chronic); Translations: [Iron deficiency anemia secondary to blood loss (chronic)] Onset: 01-20-2025 Chronic Deficiency and other anemia (5 sources) Anemia; Translations: [Anemia, unspecified] 01-04-2024 Episodic Deficiency and other anemia (5 sources) Iron deficiency anemia; Translations: [Iron deficiency anemia, unspecified] 01-07-2024 Episodic Deficiency and other anemia (4 sources) Iron deficiency anemia, unspecified; Translations: [Iron deficiency anemia, unspecified] 01-07-2024 Episodic Genitourinary symptoms and ill-defined conditions (2 sources) Retention of urine, unspecified; Translations: [Retention of urine, unspecified] Episodic Glaucoma (1 source) Preglaucoma, unspecified, bilateral; Translations: [Preglaucoma, unspecified] 12-03-2023 Chronic Hemorrhoids (1 source) Hemorrhoids; Translations: [Unspecified hemorrhoids] 02-26-2025 Episodic Immunizations and screening for infectious disease (5 sources) Contact with and (suspected) exposure to other viral communicable diseases; Translations: [Contact with or suspected exposure to other viral communicable disease] 06-04-2023 Episodic Menstrual disorders (2 sources) Menorrhagia; Translations: [Excessive and frequent menstruation with regular cycle] Onset: 07-18-2024 06-14-2024 Chronic Comment on above: enlarged uterus Nonspecific chest pain (6 sources) Chest discomfort; Translations: [Other chest pain] Onset: 12-04-2024 12-01-2024 Episodic Other aftercare (2 sources) Encounter for follow-up examination after completed treatment for conditions other than malignant neoplasm; Translations: [Other follow-up examination] Episodic Other aftercare (1 source) Long-term current use of anticoagulant; Translations: [FCI (current) use of anticoagulants] 04-10-2024 Episodic Other female genital disorders (2 sources) Noninflammatory disorder of cervix uteri, unspecified; Translations: [Unspecified noninflammatory disorder of cervix] Episodic Other gastrointestinal disorders (1 source) Constipation; Translations: [Constipation, unspecified] 02-26-2025 Episodic Other liver diseases (10 sources) Liver cyst; Translations: [Other specified diseases of liver] 07-28-2022 Chronic Other lower respiratory disease (1 source) Cough; Translations: [Cough] 01-19-2025 Episodic Other nutritional; endocrine; and metabolic disorders (1 source) Obese class I; Translations: [Class 1 obesity] 12-11-2024 Chronic Other screening for suspected conditions (not mental disorders or infectious disease) (8 sources) Encounter for screening for malignant neoplasm of colon; Translations: [Special screening for malignant neoplasms of colon] Onset: 2024 Episodic Other upper respiratory infections (1 source) Sinusitis; Translations: [Chronic sinusitis, unspecified] 01-19-2025 Chronic Residual codes; unclassified (7 sources) Hypersomnia; Translations: [Hypersomnia, unspecified] 08-20-2022 Chronic Residual codes; unclassified (2 sources) Hypersomnia, unspecified; Translations: [Hypersomnia, unspecified] Chronic Residual codes; unclassified (2 sources) Immunization not carried out because of patient refusal; Translations: [Vaccination not carried out because of patient refusal] Episodic Syncope (17 sources) Near syncope; Translations: [Syncope and collapse] Episodic Thyroid disorders (20 sources) Hypothyroidism; Translations: [Hypothyroidism, unspecified] Onset: 06-27-2024 Chronic Unclassified (1 source) Cough, unspecified; Translations: [Cough, unspecified] Onset: 08-26-2024 Unclassified (1 source) Subacute cough; Translations: [Subacute cough] Onset: 08-18-2024 Viral infection (1 source) Disease caused by 2019-nCoV; Translations: [COVID-19] 01-19-2025 Episodic Viral infection (1 source) COVID-19; Translations: [COVID-19] Onset: 08-18-2024 Results Test Name Value Interpretation Reference Range Facility CBC W/Diff, Automatedon 05-22 Absolute Lymph 2.93 X10 3/uL Normal 0.83-4.51 [facility] Comment on above: Performed By: #### L [id number], L503.6030, L100.0100, L500.4050, L300.8000, [id number] #### [facility] [address] [place], [address] Absolute Neut 4.1 X10 3/uL Normal 2.0-7.7 [facility] Comment on above: Performed By: #### L [id number], [id number], L100.0100, L500.4050, L300.8000, [id number] #### [facility] [address] [place], [address] Basophils/100 WBC (Bld) 0.6 % Normal 0-1 [facility] Comment on above: Performed By: #### L [id number], [id number], L100.0100, L500.4050, L300.8000, [id number] #### [facility] [address] [place], [address] Eosinophils/100 WBC (Bld) 4.3 % Normal 0-5 [facility] Comment on above: Performed By: #### L [id number], [id number], L100.0100, L500.4050, L300.8000, [id number] #### [facility] [address] [place], [address] Erythrocyte distribution width (RBC) [Ratio] 12.4 % Normal 11.6-14.6 [facility] Comment on above: Performed By: #### L [id number], [id number], L100.0100, L500.4050, L300.8000, [id number] #### [facility] [address] [place], [address] Hematocrit (Bld) [Volume fraction] 45.1 % Normal 37-47 [facility] Comment on above: Performed By: #### L [id number], [id number], L100.0100, L500.4050, L300.8000, [id number] #### [facility] [address] [place], [address] Hemoglobin (Bld) [Mass/Vol] 14.9 g/dL Normal 12.0-15.0 [facility] Comment on above: Performed By: #### L [id number], [id number], L100.0100, L500.4050, L300.8000, [id number] #### [facility] [address] [place], [address] IG% 0.200 Normal 0.0-0.9 [facility] Comment on above: Result Comment: IG% - Immature Granulocytes (promyelocytes, myelocytes and metamyelocytes) > 1% indicates that a LEFT SHIFT is Present. Performed By: #### L 501.4021, L503.6030, L100.0100, L500.4050, L300.8000, L503.6550 #### [facility] [address] [place], [address] Lymphocytes/100 WBC (Bld) 35.6 % Normal 19-41 [facility] Comment on above: Performed By: #### L 501.4021, L503.6030, L100.0100, L500.4050, L300.8000, L503.6550 #### [facility] [address] [place], [address] MCH (RBC) [Entitic mass] 27.1 pg Normal 27.0-32.0 [facility] Comment on above: Performed By: #### L 501.4021, L503.6030, L100.0100, L500.4050, L300.8000, L503.6550 #### [facility] [address] [place], [address] MCHC (RBC) [Mass/Vol] 33.0 g/dL Normal 32-36 [facility] Comment on above: Performed By: #### L 501.4021, L503.6030, L100.0100, L500.4050, L300.8000, L503.6550 #### [facility] [address] [place], [address] MCV (RBC) [Entitic vol] 82.0 fL Normal 81-99 [facility] Comment on above: Performed By: #### L 501.4021, L503.6030, L100.0100, L500.4050, L300.8000, L503.6550 #### [facility] [address] [place], [address] Monocytes/100 WBC (Bld) 9.5 % Normal 0-10 [facility] Comment on above: Performed By: #### L 501.4021, L503.6030, L100.0100, L500.4050, L300.8000, L503.6550 #### [facility] [address] [place], [address] Neutrophils/100 WBC (Bld) 49.8 % Normal 47-70 [facility] Comment on above: Performed By: #### L 501.4021, L503.6030, L100.0100, L500.4050, L300.8000, L503.6550 #### [facility] [address] [place], [address] Nucleated RBC (Bld) [#/Vol] 0 10*3/uL Normal 0-5 [facility] Comment on above: Performed By: #### L 501.4021, L503.6030, L100.0100, L500.4050, L300.8000, L503.6550 #### [facility] [address] [place], [address] Platelet mean volume (Bld) [Entitic vol] 9.5 fL Normal 6.2-12.0 [facility] Comment on above: Performed By: #### L 501.4021, L503.6030, L100.0100, L500.4050, L300.8000, L503.6550 #### [facility] [address] [place], [address] Platelets (Bld) [#/Vol] 332 10*3/uL Normal 150-450 [facility] Comment on above: Performed By: #### L 501.4021, L503.6030, L100.0100, L500.4050, L300.8000, L503.6550 #### [facility] [address] [place], [address] RBC (Bld) [#/Vol] 5.50 10*6/uL High 4.2-5.4 [facility] Comment on above: Performed By: #### L 501.4021, L503.6030, L100.0100, L500.4050, L300.8000, L503.6550 #### [facility] [address] [place], [address] RDW SD 37.3 fl Normal 35.1-43.9 [facility] Comment on above: Performed By: #### L 501.4021, L503.6030, L100.0100, L500.4050, L300.8000, L503.6550 #### [facility] [address] [place], [address] WBC (Bld) [#/Vol] 8.2 10*3/uL Normal 4.4-11.0 [facility] Comment on above: Performed By: #### L 501.4021, L503.6030, L100.0100, L500.4050, L300.8000, L503.6550 #### [facility] [address] [place], [address] Chest PA and Lateralon 06-01 Chest PA and Lateral [facility] Imaging Services [address] [place] [address] Chest PA and Lateral MR#: [id number] Acct: [id number] Name: HANNAH NAVARRO Rep #: [id number] : 1970 F 54 From: Terrie Arceo PCP: Dr. Lisa Bowman MD Status: REG CLI Study: Chest PA and Lateral Date of Exam: 06/01/25 Exam# [id number] Ordering Dr: Lisa Bowman MD PROCEDURE: CHEST PA AND LATERAL 06/01/2025 REASON FOR EXAM: CHEST PAIN TECHNIQUE: CHEST PA AND LATERAL COMPARISON: Chest x-ray dated 12/01/2024 FINDINGS: Heart size and configuration are within normal limits. Pulmonary vasculature and hilar structures are unremarkable. Trachea is midline Lungs are expanded and clear without evidence of atelectasis, consolidation, effusion, pneumonic infiltrate or pneumothoraces. Osseous structures appear grossly unremarkable. Soft tissue structures are unremarkable. RAD/Chest PA and Lateral IMPRESSION: No acute cardiopulmonary process is identified radiographically. Reading Location: [id number] CC: Dr. Lisa Bowman MD Manuscript Editor: Signed Normal [facility] Comprehensive Metabolic Prof deon 06-01-2025 Albumin [Mass/Vol] 4.5 g/dL Normal 3.5-5.0 [facility] Comment on above: Performed By: #### L 501.4021, L503.6030, L100.0100, L500.4050, L300.8000, L503.6550 #### [facility] [address] [place], [address] Albumin/Globulin [Mass ratio] 1.4 {ratio} Normal 0.9-2.4 [facility] Comment on above: Performed By: #### L 501.4021, L503.6030, L100.0100, L500.4050, L300.8000, L503.6550 #### [facility] [address] [place], [address] ALK PHOS 88 U/L Normal 35-104 [facility] Comment on above: Performed By: #### L 501.4021, L503.6030, L100.0100, L500.4050, L300.8000, L503.6550 #### [facility] [address] [place], [address] ALT [Catalytic activity/Vol] 25 U/L Normal <=34 [facility] Comment on above: Performed By: #### L 501.4021, L503.6030, L100.0100, L500.4050, L300.8000, L503.6550 #### [facility] [address] [place], [address] AST [Catalytic activity/Vol] 22 U/L Normal <=31 [facility] Comment on above: Performed By: #### L 501.4021, L503.6030, L100.0100, L500.4050, L300.8000, L503.6550 #### [facility] [address] [place], [address] Bilirubin [Mass/Vol] 0.38 mg/dL Normal 0.00-1.30 [facility] Comment on above: Performed By: #### L 501.4021, L503.6030, L100.0100, L500.4050, L300.8000, L503.6550 #### [facility] [address] [place], [address] BUN/CRE 15.3 RATIO Normal 10-20 [facility] Comment on above: Performed By: #### L 501.4021, L503.6030, L100.0100, L500.4050, L300.8000, L503.6550 #### [facility] [address] [place], [address] Calcium [Mass/Vol] 9.8 mg/dL Normal 7.6-11.0 [facility] Comment on above: Performed By: #### L 501.4021, L503.6030, L100.0100, L500.4050, L300.8000, L503.6550 #### [facility] [address] [place], [address] Chloride [Moles/Vol] 104 mmol/L Normal 98-108 [facility] Comment on above: Performed By: #### L 501.4021, L503.6030, L100.0100, L500.4050, L300.8000, L503.6550 #### [facility] [address] [place], [address] CO2 [Moles/Vol] 24.8 mmol/L Normal 21.0-32.0 [facility] Comment on above: Performed By: #### L 501.4021, L503.6030, L100.0100, L500.4050, L300.8000, L503.6550 #### [facility] [address] [place], [address] Creatinine [Mass/Vol] 0.58 mg/dL Low 0.70-1.20 [facility] Comment on above: Performed By: #### L 501.4021, L503.6030, L100.0100, L500.4050, L300.8000, L503.6550 #### [facility] [address] [place], [address] GAP 12 Normal 5-15 [facility] Comment on above: Performed By: #### L 501.4021, L503.6030, L100.0100, L500.4050, L300.8000, L503.6550 #### [facility] [address] [place], [address] GFR/1.73 sq M.predicted among non-blacks MDRD (S/P/Bld) [Vol rate/Area] 108 mL/min/{1.73_m2} Normal >60 [facility] Comment on above: Result Comment: mL/m in/1.73m2 CKD-EPI Creatinine Equation (2020) Performed By: #### L 501.4021, L503.6030, L100.0100, L500.4050, L300.8000, L503.6550 #### [facility] [address] [place], [address] Globulin (S) [Mass/Vol] 3.1 g/dL Normal 2.2-4.2 [facility] Comment on above: Performed By: #### L 501.4021, L503.6030, L100.0100, L500.4050, L300.8000, L503.6550 #### [facility] [address] [place], [address] Glucose [Mass/Vol] 86 mg/dL Normal 70-99 [facility] Comment on above: Performed By: #### L 501.4021, L503.6030, L100.0100, L500.4050, L300.8000, L503.6550 #### [facility] [address] [place], [address] Potassium [Moles/Vol] 4.3 mmol/L Normal 3.3-5.1 [facility] Comment on above: Performed By: #### L 501.4021, L503.6030, L100.0100, L500.4050, L300.8000, L503.6550 #### [facility] [address] [place], [address] Sodium [Moles/Vol] 141 mmol/L Normal 133-145 [facility] Comment on above: Performed By: #### L 501.4021, L503.6030, L100.0100, L500.4050, L300.8000, L503.6550 #### [facility] [address] [place], [address] T PROT 7.6 g/dL Normal 5.9-8.4 [facility] Comment on above: Performed By: #### L 501.4021, L503.6030, L100.0100, L500.4050, L300.8000, L503.6550 #### [facility] [address] [place], [address] Urea nitrogen [Mass/Vol] 9 mg/dL Normal 4-19 [facility] Comment on above: Performed By: #### L 501.4021, L503.6030, L100.0100, L500.4050, L300.8000, L503.6550 #### [facility] [address] [place], [place], [address] D-Dimer Quantitative (DVT/PE )on 06-01-2025 D-DIMER QUANT 0.27 FEU/ug/m Normal 0.27-0.49 [facility] Comment on above: Result Comment: NORM AL D-Dimer level (<0.50) indicates no DVT or PE. Performed By: #### L 501.4021, L503.6030, L100.0100, L500.4050, L300.8000, L503.6550 #### [facility] [address] [place], [address] Ferritinon 06-01-2025 Ferritin [Mass/Vol] 52 ng/mL Normal 22-378 [facility] Comment on above: Performed By: #### L 501.4021, L503.6030, L100.0100, L500.4050, L300.8000, L503.6550 #### [facility] [address] [place], [place], [address] Internal Medicine Office Vis iton 06-01-2025 Internal Medicine Office Visit [facility] [address] [place], [place] [address] OFFICE VISIT Date of Service: 06/01/25 MR#: [id number] Acct: [id number] Name: HANNAH NAVARRO Rep #: [id number] : 1970 Provider: Dr. Lisa cox MD Age/Sex: 54/F Location: [facility] Status: Signed Intake Vital Signs 03/13/25 10:06 06/01/25 12:58 Height 5 ft 7 in 5 ft 7 in Weight: 199 lb BMI 31.1 BP 124/76 H Blood Pressure Location Lt brachial Position Sitting Respiration 16 Pulse 76 Pulse Source Monitor Temp 97.4 F L Temp Source Temporal Pulse Oximetry (%) 97 Oxygen Delivery Method room air Intake Visit Reasons: Pain in chest. Feels like middle of chest. Cough Chief Complaint: cough Accompanied by: Self Is patient in pain?: Yes (chest/ neck) Pain scale (1-10): 5 Allergies Penicillins Allergy (Verified 06/01/25 12:53) Anaphylaxis Medications ???Medication ???Instructions ???Recorded ???Confirmed ???Type netarsudil 0.02 %-latanoprost 1 drp EACH EYE DAILY eye health 06/01/25 History 0.005 % eye drops (Rocklatan) timolol maleate 0.5 % eye drops 1 drp ophthalmic (eye) DAILY 12/2406/01/25 History diltiazem HCl 180 mg 180 mg PO DAILY 90 days #90 caps 0 12/11/24 06/01/25 Rx capsule,extended release 24 hr levothyroxine 75 mcg tablet 75 mcg PO DAILY thyroid #90 tabs 0 04/16/25 06/01/25 Rx cyclobenzaprine 5 mg tablet 5 mg PO BID PRN pain #20 tabs 05/2206/01/25 Rx omeprazole 20 mg capsule,delayed 20 mg PO QDAY #14 caps 06/01/25 Rx release PFSH Medical History Wears contact lenses Wears glasses Thyroid disease Excessive bleeding Back pain Non-smoker History of pain when walking History of Holter monitoring Cardiology follow-up encounter History of atrial fibrillation Hemorrhoids Constipation Encounter for screening colonoscopy COVID GERD (gastroesophageal reflux disease) Headache, migraine Goiter Wrist fracture Afib Seasonal allergies Hypothyroidism Glaucoma Surgical History S/P laser trabeculoplasty of eye History of toe surgery Family History Mother Atrial fibrillation Arthritis Hypertension Aunt Heart disease Brother Asthma Sister Arthritis Father CVA (cerebral vascular accident) Cerebral AVM Alzheimer disease Parkinsons disease Grandmother Cancer Brother Epilepsy Social History household members: spouse current occupational status: employed current occupation: [employer] Smoking Status: Never smoker Electronic Cigarette Use: not used alcohol intake: current alcohol intake frequency: holidays/special occasions only details: Rare substance use type: does not use caffeine: Yes Type: coffee Number of servings: 2 what type of physical activity do you participate in: none do you feel safe at home: Yes 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 She presents with complaints of chest pain and a cough. She reports that about a month ago, she was busy at work and was lifting children. She reports she developed some chest soreness which later went away. She states she would get intermittent pain after that. She reports since , she has been having a constant heavinessin her chest. She reports her symptoms seem to be worse with movement and she feels the pain into her neck and arms bilaterally. 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 She reports she is occasionally bringing up a clear mucous. She reports the pain in her chest seems to radiate up into her throat and she does admit to heartburn symptoms as well. She states it doesn't feel like a typical sore throat. She reports she has been monitoring her heart rate with her watch and it has not gone into Afib. She denies any associated shortness of breath. She reports she has been taking tylenol at night which does seem to help her sleep. She reports she has also been having pain in her left ear. She states she has had that intermittently for a couple of years, but states it has been worse since as well. Symptoms include: Fever (=100.4F) or Chills: No Cough: Yes Shortness of breath or difficulty breathing: Yes Fatigue: Yes Muscle aches: No Headache: Yes New loss of smell or taste: No Sore throat: No Nasal congestion: No Rhinorrhea: Yes Nausea: No? Vomiting: No Diarrhea: No OTC meds/remedies that the patient has tried: Tylenol High risk category assessmen (more content not included)... Normal [facility] Iron+Iron Binding Capacityon 06-01-2025 Iron [Mass/Vol] 79 ug/dL Normal 50-170 [facility] Comment on above: Performed By: #### L 501.4021, L503.6030, L100.0100, L500.4050, L300.8000, L503.6550 #### [facility] [address] [place], [address] IRON SATURATION 24.0 Normal 13-59 [facility] Comment on above: Performed By: #### L 501.4021, L503.6030, L100.0100, L500.4050, L300.8000, L503.6550 #### [facility] [address] [place], [address] TIBC 335 ug/dL Normal 250-450 [facility] Comment on above: Performed By: #### L 501.4021, L503.6030, L100.0100, L500.4050, L300.8000, L503.6550 #### [facility] [address] [place], [address] UIBC 256 ug/dL Normal 228-428 [facility] Comment on above: Performed By: #### L 501.4021, L503.6030, L100.0100, L500.4050, L300.8000, L503.6550 #### [facility] [address] [place], [address] L501.4021on 06-01-2025 Trop T High Sen < 6 Normal <=14 [facility] Comment on above: Performed By: #### L 501.4021, L503.6030, L100.0100, L500.4050, L300.8000, L503.6550 #### [facility] [address] [place], [address] Troponin T HS 2 HRon 025 Trop T High Sen Normal <=14 [facility] Comment on above: Result Comment: TROP HS WAS ALREADY ORDERED Performed By: #### L 499.0042 ####[facility] [address] [place], [address] Colonoscopy Reporton 234 Colonoscopy Report [facility] Medical Records Department [address] [place] [address] Colonoscopy Report MR#: [id number] Acct: [id number] Name: HANNAH NAVARRO Rep #: [id number] : 1970 54 From: Chad Ordoñez MD PCP: Dr. Lisa Bowman MD Status:[facility] Patient Name: Hannah Navarro Procedure Date: 03/13/2025 10:19 AM Date of : 1970 Age: 54 Procedure: Colonoscopy Indications: Screening in patient at increased risk: Family history of 1st-degree relative with colorectal cancer before age 60 years Providers: Chad Ordoñez MD Medicines: Propofol per Anesthesia Patient Profile: This is a 54 year old female. Refer to note in patient chart for documentation of history and physical. Last Colonoscopy: none. The patient's first colonoscopy is today. Complications: No immediate complications. Procedure: Pre-Anesthesia Assessment: - Prior to the procedure, a History and Physical was performed, and patient medications and allergies were reviewed. The patient's tolerance of previous anesthesia was also reviewed. The risks and benefits of the procedure and the sedation options and risks were discussed with the patient. All questions were answered, and informed consent was obtained. Prior Anticoagulants: The patient has taken Eliquis (apixaban), last dose was 2 days prior to procedure. After reviewing the risks and benefits, the patient was deemed in satisfactory condition to undergo the procedure. After I obtained informed consent, the scope was passed under direct vision. Throughout the procedure, the patient's blood pressure, pulse, and oxygen saturations were monitored continuously. The Colonoscope was introduced through the anus and advanced to the cecum, identified by appendiceal orifice and ileocecal valve. The colonoscopy was performed without difficulty. The patient tolerated the procedure well. The quality of the bowel preparation was good. The ileocecal valve, appendiceal orifice, and rectum were photographed. Scope In: 10:28:32 AM Scope Withdrawal Time 0 hours 7 minutes 21 seconds Scope Out: 10:42:12 AM Total Procedure Duration Time 0 hours 13 minutes 40 seconds Findings: The entire examined colon appeared normal on direct and retroflexion views. Impression: - The entire examined colon is normal on direct and retroflexion views. - No specimens collected. Recommendation: - Discharge patient to home. - Resume previous diet. - Continue present medications. - Repeat colonoscopy in 5 years for screening purposes. Procedure Code(s): --- Professional --- 78953, Colonoscopy, flexible; diagnostic, including collection of specimen(s) by brushing or washing, when performed (separate procedure) Diagnosis Code(s): --- Professional --- Z80.0, Family history of malignant neoplasm of digestive organs CPT copyright 2021 [employer]. All rights reserved. The codes documented in this report are preliminary and upon mainspring fabrication supervisor review may be revised to meet current compliance requirements. Chad Ordoñez MD 03/13/2025 10:43:19 AM This report has been signed electronically. Number of Addenda: 0 Note Initiated On: 03/13/2025 10:19 AM 03/13/25 1043 Date Chad Ordoñez MD Cosigner Signature: Date (if indicated) CC: Dr. Lisa Bowman MD; Dr. Chad Ordoñez MD Date Dictated: 03/13/25 1019 Date Transcribed: Manuscript Editor: BREANN Signed [facility] MR/POSTOP.ANEon 03-13-2025 MR[facility]OP[facility] Medical Records Department [address] [place] [address] Anesthesia Postop Eval I 03/13/25 1047 MR#: [id number] Acct: [id number] Name: HANNAH NAVARRO HANNY Rep #: [id number] : 1970 54 From: Morteza Bustamante CRNA PCP: Dr. Lisa Bowman MD Status:[facility] Y Race: C Location: [place] [address] Anesthesia: Postop Eval I Current Vital Signs Temperature: 97.7 F Pulse Rate: 70 Blood Pressure: 105/67 Respiratory Rate: 16 Pulse Ox: 98 Oxygen Delivery Method: Room Air Assessment Airway patent: Yes Spontaneous unlabored respirations: Yes Mental status: Awake and Calm nausea: No Vomiting: No Anesthesia Complication: No Fluid Hydration Crystalloid volume administer (ml): 300 Total IV fluid infused: 300 Progress Note Anesthesia document: Postop Eval 1 completed: Yes 03/13/25 1048 Date Morteza Bustamante [employer] Cosigner Signature: Date CC: Signed [facility] MR/[id number] 03-13-2025 MR/POSTOPAN2 [facility] Medical Records Department [address] [address] Anesthesia Postop Eval II 03/13/25 1140 MR#: [id number] Acct: [id number] Name: MELANIEHANNAHMarin GAMINO Rep #: [id number] : 1970 54 From: Brendan Mehta MD PCP: Dr. Lisa Bowman MD Status:[facility] Y Race: C Location: EN Anesthesia Postop Eval I Sum Postop Eval Completion status Anesthesia document: Postop Eval 1 completed: Yes Anesthesia Postop Eval I Summary Anesthesia Postop Eval I Summary: Anesthesia Postop Eval I: Assessment Summary Airway patent Yes 03/13/25 10:48 [employer] Spontaneous unlabored Yes 03/13/25 10:48 [employer] respirations Mental status Awake,Calm 03/13/25 10:48 [employer] nausea No 03/13/25 10:48 [employer] Vomiting No 03/13/25 10:48 [employer] Anesthesia Postop Eval I: Fluid Summary Crystalloid volume administer 300 03/13/25 10:48 [employer] (ml) Colloids volume administered ( ml) Blood Product volume administered (ml) Total IV fluid infused 300 03/13/25 10:48 [employer] Anesthesia Postop Eval I: Summary Notes Anesthesia Complication No 03/13/25 10:48 [employer] Anesthesia Complication Comment: Post-operative progress note Anesthesia: Postop Eval II Evaluation Mental status: Awake Pain Level: 0 nausea: No Vomiting: No 03/13/25 1140 Date Brendan Oneil Signature: Date CC: Signed Normal [facility] Cardiology Visit Reporton Cardiology Visit Report [facility] [place] [address] OFFICE VISIT Date of Service: 03/12/25 MR#: [id number] Acct: [id number] Name: HANNAH NAVARRO Rep #: [id number] : 1970 Provider: Dr. Cristobal sutherland MD Age/Sex: 54/F Location: [facility] Status: Signed HPI HPI History of Present Illness Details: Patient is a very pleasant 54-year-old white female that comes today for monitoring of her cardiovascular disease. Patient has a history of paroxysmal atrial fibrillation. Her last episode was November 2024. In October 2024 she had had her Eliquis and diltiazem discontinued because she had been in sinus rhythm for almost 3 years. She did have somewhat of a slow heart rate at that time and therefore the Cardizem was discontinued. Her HKQ4LE0-LNVy score equals 1 and she was switched from Eliquis to aspirin. The patient simply went back into atrial fibrillation November 2024 and was converted with diltiazem. She has been on Eliquis since that point in time. The patient also was recovering from a COVID infection approximately a month earlier that was complicated by a postviral bacterial pneumonia. She stopped the Eliquis 3 days ago in preparation for colonoscopy tomorrow. This is a screening colonoscopy. The patient has minimally elevated LDL cholesterol at 104 otherwise her lipids are at goal. She has no history of hypertension diabetes TIA or any type of vascular disease. The patient reports she is doing very well in her home environment denies any syncope or near syncope denies any palpitations. The patient has an android smart watch that identified her atrial fibrillation as well as she felt the palpitations in November. 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 Accompanied by: Self Is patient in pain?: No Allergies Penicillins Allergy (Verified 03/12/25 08:04) Anaphylaxis Medications ???Medication ???Instructions ???Recorded ???Confirmed ???Type netarsudil 0.02 %-latanoprost 1 drp EACH EYE DAILY eye health 03/12/25 History 0.005 % eye drops (Rocklatan) timolol maleate 0.5 % eye drops 1 drp ophthalmic (eye) DAILY 12/2403/12/25 History apixaban 5 mg tablet (Eliquis) 5 mg PO BID 90 days #180 tabs /03/12/25 Rx diltiazem HCl 180 mg 180 mg PO DAILY 90 days #90 caps 0 12/11/24 03/12/25 Rx capsule,extended release 24 hr levothyroxine 75 mcg tablet 75 mcg PO DAILY thyroid #90 tabs 0 01/20/25 03/12/25 Rx Ejection fraction %: 65 Have you fallen in the past year?: No PFSH Medical History Wears contact lenses Wears glasses Thyroid disease Excessive bleeding Back pain Non-smoker History of pain when walking History of Holter monitoring Cardiology follow-up encounter History of atrial fibrillation Hemorrhoids Constipation Encounter for screening colonoscopy COVID GERD (gastroesophageal reflux disease) Headache, migraine Goiter Wrist fracture Afib Seasonal allergies Hypothyroidism Glaucoma Surgical History (Updated 03/12/25 @ 08:[address] Cristobal Adame MD) S/P laser trabeculoplasty of eye History of toe surgery Family History Mother Atrial fibrillation Arthritis Hypertension Aunt Heart disease Brother Asthma Sister Arthritis Father CVA (cerebral vascular accident) Cerebral AVM Alzheimer disease Parkinsons disease Grandmother Cancer Brother Epilepsy Social History household members: spouse current occupational status: employed current occupation: [employer] Smoking Status: Never smoker Electronic Cigarette Use: not used alcohol intake: current alcohol intake frequency: holidays/special occasions only details: Rare substance use type: does not use caffeine: Yes Type: coffee Number of servings: 2 what type of physical activity do you participate in: none do you feel safe at home: Yes 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 Normal [facility] /[place] 03-12-2025 MR/MATT [facility] Medical Records Department [address] [place] [address] PAT - Anesthesia 03/12/25 1321 MR#: [id number] Acct: [id number] Name: HANNAH NAVARRO Rep #: [id number] : 1970 54 From: Brendan Mehta MD PCP: Dr. 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 When Was Last Pacemaker Check QUESTION #4 FULL TEXT: You/Your Family Experience fever (hyperthermia) with Anesthesia Last Oral Intake Last Oral intake: Last Oral Intake NPO since Meds taken in AM with sips of water? 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 Female Yes 03/11/25 15:40 HX of Motion Sickness Yes 03/11/25 15:40 HX of N/V After Surgery No 03/11/25 15:40 Non-Smoker Yes 03/11/25 15:40 Duration of Surgery greater No 03/11/25 15:40 than 60 minutes Number of Risk Factors 3 03/11/25 15:40 PONV Score Moderate Risk 03/11/25 15:40 Height Weight Height Weight: Anesthesia: Height Weight Height 5 ft 7 in 02/26/25 08:34 Respiratory Assessment Respiratory Assessment - software sales manager: Respiratory Tract Infection Hx - software sales manager Hx Respiratory Tract Infection No 03/11/25 15:40 STOP Sleep Apnea STOP Sleep Apnea - software sales manager: STOP Sleep Apnea - software sales manager Hx Hypertension No 03/11/25 15:40 Hx Sleep Apnea No 03/11/25 15:40 CPAP BIPAP Do you snore loudly (louder No 03/11/25 15:40 than talking or can be heard Do you often feel tired/ No 03/11/25 15:40 fatigued/ sleepy during daytime? Has anyone observed you stop No 03/11/25 15:40 breathing during sleep? STOP Results Negative 03/11/25 15:40 QUESTION #5 FULL TEXT : Do you snore loudly (louder than talking or can be heard through closed doors)? 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 Specify any problems Hx of Preganancy in last 3 No 03/11/25 15:40 Months Nurse Filling Out Transfusion VCHRISTIN 03/11/25 15:40 Questions: Date: 03/11/25 03/11/25 15:40 Time: 15:42 03/11/25 15:40 Patient unable to answer at this time (ie. confused, unrespo /Reproducti on History /Reproducti ve History - software sales manager: /Reproducti ve Hx- software sales manager Hx Now No 03/11/25 15:40 Gestational Age (in weeks): EDC: Hx Hx Para Hx Section SAB No 03/11/25 15:40 PFSH Medical History Wears contact lenses Wears glasses Thyroid disease Excessive bleeding Back pain Non-smoker History of pain when walking History of Holter monitoring Cardiology follow-up encounter History of atrial fibrillation Hemorrhoids Constipation Encounter for screening colonoscopy COVID GERD (gastroesophageal reflux disease) Headache, migraine Goiter Wrist fracture Afib Seasonal allergies Hypothyroidism Glaucoma Home Medications ???Medication ???Instructions ???Recorded ???Last Taken ???Type netarsudil 0.02 %-latanoprost 1 drp EACH EYE DAILY eye health 07/20/22 History 0.005 % eye drops (Rocklatan) timolol maleate 0.5 % eye drops 1 drp ophthalmic (eye) DAILY 12/24 Unknown History apixaban 5 mg tablet (Eliquis) 5 mg PO BID 90 days #180 tabs /2 03/09/25 Rx diltiazem HCl 180 mg 180 mg PO DAILY 90 days #90 caps 0 12/11/24 Unknown Rx capsule,ex (more content not included)... Normal [facility] Surgery Visit Reporton 02-26 Surgery Visit Report [facility] [address] [place] [address] OFFICE VISIT Date of Service: 02/26/25 MR#: [id number] Acct: [id number] Name: HANNAH NAVARRO Rep #: [id number] : 1970 Provider: Dr. Chad pillai MD Age/Sex: 54/F Location: [facility] Status: Signed Intake Vital Signs 01/20/25 08:06 02/26/25 08:34 Height 5 ft 7 in 5 ft 7 in Weight: 188 lb 8 oz 193 lb 6 oz BMI 29.5 30.2 BP 148/78 H 115/81 H Blood Pressure Location Lt brachial Rt brachial Position Sitting Sitting Respiration 16 18 Pulse 69 63 Pulse Source Monitor Monitor Temp 97.7 F L 97.6 F L Temp Source Temporal Temporal Pulse Oximetry (%) 97 99 Oxygen Delivery Method room air room air Intake Visit Reasons: COLONOSCOPY Chief Complaint: colonoscopy Is patient in pain?: No Allergies Penicillins Allergy (Verified 02/26/25 08:35) Anaphylaxis Medications ???Medication ???Instructions ???Recorded ???Confirmed ???Type netarsudil 0.02 %-latanoprost 1 drp EACH EYE DAILY eye health 02/26/25 History 0.005 % eye drops (Rocklatan) timolol maleate 0.5 % eye drops 1 drp ophthalmic (eye) DAILY 12/2402/26/25 History apixaban 5 mg tablet (Eliquis) 5 mg PO BID 90 days #180 tabs 02/2 025 02/26/25 Rx diltiazem HCl 180 mg 180 mg PO DAILY 90 days #90 caps 0 12/11/24 02/26/25 Rx capsule,extended release 24 hr cyclobenzaprine 5 mg tablet 5 mg PO BID PRN muscle spasm #10 0 01/20/25 02/26/25 Rx tabs levothyroxine 75 mcg tablet 75 mcg PO DAILY thyroid #90 tabs 0 01/20/25 02/26/25 Rx prednisone 20 mg tablet 40 mg (2 x 20 mg) PO QDAY #10 tabs 01/20/25 02/26/25 Rx PFSH Medical History (Updated 02/26/25 @ 08:34 by Honey Barry LPN) Hemorrhoids Constipation Encounter for screening colonoscopy COVID GERD (gastroesophageal reflux disease) Headache, migraine Goiter Wrist fracture Afib Seasonal allergies Hypothyroidism Glaucoma Surgical History S/P laser trabeculoplasty of eye History of toe surgery Family History Mother Atrial fibrillation Arthritis Hypertension Aunt Heart disease Brother Asthma Sister Arthritis Father CVA (cerebral vascular accident) Cerebral AVM Alzheimer disease Parkinsons disease Grandmother Cancer Brother Epilepsy Social History household members: spouse current occupational status: employed current occupation: [employer] Smoking Status: Never smoker Electronic Cigarette Use: not used alcohol intake: current alcohol intake frequency: holidays/special occasions only details: Rare substance use type: does not use caffeine: Yes Type: coffee Number of servings: 2 what type of physical activity do you participate in: none do you feel safe at home: Yes 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 She reports that her brothers both had colon cancer within the last year. She reports no blood in the stool or abdominal pain. She is on Eliquis for A-fib. ROS General General: Yes fatigue; No weight change, appetite, colon cancer, breast cancer or weakness HEENT HEENT: Yes eye surgery; No difficulty swallowing, eye injury, swollen glands or hoarseness Endo Endocrine: Yes thyroid disease; No diabetes mellitus, thyroid cancer, Hair loss, heat intolerance or cold intolerance Skin Skin: No rash or changing moles Musc Musculoskeletal: Yes back problems; No arthritis, rheumatoid arthritis, gout or joint pain Cardio Cardiovascular: Yes atrial fibrillation; No murmur, pacemaker, heart disease, high blood pressure, heart attack, heart stent, palpitations, shortness of breath with exertion or chest pain Psych Psychiatric: No depression, anxiety or hearing voices Resp Respiratory: No shortness of breath, No sleep apnea, Yes cough, No COPD, No asthma, No emphysema and No wheezing Gastro Gastrointestinal: No abdominal pain, No nausea or vomiting, No diarrhea, Yes constipation, No blood in stool, No acid reflux, Yes hemorrhoids, No ulcers, No gallbladder problem and No black,tarry stools Misael Hematologic: Yes blood thinners, No blood disorders, No bleeding, Yes anemia and No blood clots Neuro Neurologic: No numbness, No tingling and No weakness Exam Const General: cooperative Orientation: alert and oriented x3 HENMT Head: normal to inspection Neck Neck: normal visual inspection and full ROM Chest Chest palpation inspection: normal inspection of the chest Resp Effort Inspection: normal respiratory effor (more content not included)... Normal [facility] Internal Medicine Office Vis gwendolyn 01-19-2025 Internal Medicine Office Visit [id number] [place] [address] [place] [address] OFFICE VISIT Date of Service: 01/20/25 MR#: [id number] Acct: [id number] Name: HANNAH NAVARRO Rep #: [id number] : 1970 Provider: Dr. 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 Accompanied by: Self Is patient in pain?: Yes Pain scale (1-10): 9 Allergies Penicillins Allergy (Verified 01/20/25 08:04) Anaphylaxis Have you fallen in the past year?: No Nurse's Note: right side back pain into leg PFSH Medical History COVID GERD (gastroesophageal reflux disease) Headache, migraine Goiter Wrist fracture Afib Seasonal allergies Hypothyroidism Glaucoma Surgical History S/P laser trabeculoplasty of eye History of toe surgery Family History Mother Atrial fibrillation Arthritis Hypertension Aunt Heart disease Brother Asthma Sister Arthritis Father CVA (cerebral vascular accident) Cerebral AVM Alzheimer disease Parkinsons disease Grandmother Cancer Brother Epilepsy Social History (Updated 01/20/25 @ 08:[address] 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 1. Little interest or pleasure in doing things: not at all 2. Feeling down, depressed, or hopeless: not at all 3. Trouble falling or staying asleep, or sleeping too much: several days 4. Feeling tired or having little energy: several days 5. Poor appetite or overeating: not at all 6. Feeling bad about yourself - or that you are a failure or have let yourself and your family down: several days 7. Trouble concentrating on things, such as reading the newspaper or watching television: not at all 8. Moving or speaking so slowly that other people could have noticed? - Or the opposite - being so fidgety or restless that you have been moving around a lot more than usual: not at all 9. Thoughts that you would be better off or of hurting yourself in some way: not at all Total score: 3 If you checked off any problems, how difficult have these problems made it for you to do your work, take care of things at home, or get along with other people?: not difficult at all Source: Developed by Drs. Carlos Yarbrough, Flavia Saucedo, Allan Moreno and colleagues, with an educational brigitte from [employer]. HPI HPI Chief Complaint: back pain Details: HANNAH NAVARRO, is a 54 F who presents to the office today for a follow up. She never did her blood work or screening as previously ordered. She still doesn't want a COVID/shingles vaccine. She doesn't smoke and does need refills. She reports she has been doing better in terms of eating healthy and has recently lost 8 pounds. She reports she is active at work. She doesn't do any formal exercise. The patient reports she hasn't had any further afib episodes since her hospital stay in November. She has been taking her medications as prescribed without any problems. She still needs to schedule a follow up with cardiology as she hasn't seen them in over a year. She takes her thyroid medication first thing in the morning before anything else without problems. The patient reports she is no longer on the OCP. She reports she stopped it in May and hasn't had another menstrual period since then. She has been getting menopausal symptoms such as hot flashes, but states they are manageable. The patient has concerns about hip pain. She reports that when she was here in October, she mentioned that she was having right hip pain and was told it was bursitis. She states about 3 weeks ago, it started feeling better. She reports on Sunday, she started having pain again, which is worse than w (more content not included)... Normal [facility] Internal Medicine Office Vis gwendolyn 12-11-2024 Internal Medicine Office Visit [facility] [address] [place] [address] [place] [address] OFFICE VISIT Date of Service: 12/11/24 MR#: [id number] Acct: [id number] Name: HANNAH NAVARRO Rep #: [id number] : 1970 Provider: THERESA Estrada Age/Sex: 54/F Location: [facility] Status: Signed Intake Vital Signs 12/01/24 18:00 12/11/24 15:29 Height 5 ft 7 in 5 ft 7 in Weight: 194 lb 8 oz BMI 30.4 BP 108/68 Blood Pressure Location Rt brachial Position Sitting Respiration 16 Pulse 93 Pulse Source Monitor Temp 97.3 F L Temp Source Temporal Pulse Oximetry (%) 97 Oxygen Delivery Method room air Intake Visit Reasons: [facility] FU Chief Complaint: fu 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 Accompanied by: Self Is patient in pain?: No Allergies Penicillins Allergy (Verified 12/11/24 15:25) Anaphylaxis Medications ???Medication ???Instructions ???Recorded ???Confirmed ???Type netarsudil 0.02 %-latanoprost 1 drp EACH EYE DAILY eye health 12/11/24 History 0.005 % eye drops (Rocklatan) timolol maleate 0.5 % eye drops 1 drp ophthalmic (eye) DAILY 12/2412/11/24 History levothyroxine 75 mcg tablet 75 mcg PO DAILY thyroid #90 tabs 1 11/23/23 12/11/24 Rx apixaban 5 mg tablet (Eliquis) 5 mg PO BID 90 days #180 tabs 11/2312/11/24 Rx diltiazem HCl 180 mg 180 mg PO DAILY 90 days #90 caps 0 12/11/24 12/11/24 Rx capsule,extended release 24 hr Have you fallen in the past year?: No Nurse's Note: afib at [facility] er medication brought heart rate down and back in normal rythym with 12-24 hours [facility] Medical History GERD (gastroesophageal reflux disease) Headache, migraine Goiter Wrist fracture Afib Seasonal allergies Hypothyroidism Glaucoma Surgical History S/P laser trabeculoplasty of eye History of toe surgery Family History Mother Atrial fibrillation Arthritis Hypertension Aunt Heart disease Brother Asthma Sister Arthritis Father CVA (cerebral vascular accident) Cerebral AVM Alzheimer disease Parkinsons disease Grandmother Cancer Brother Epilepsy Social History household members: spouse current occupational status: employed current occupation: 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 She presented to the ED with some shortness of breath, racing heart, and heaviness in the chest. She noticed this when she was at work and so after it did not quickly convert back to normal she presented to the ED. they kept her for observation and restarted her medications. Once she was converted she was released. She has not had any type of chest pains or pressures or shortness of breath or any signs or symptoms of atrial fibrillation. She has been taking her medication as directed. 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 She only drinks small amt of caffeine via tea. She does not use any nicotine products. She does not consume ETOH She does not currently get regular exercise. She is active at work. ROS Const Constitutional: No body ache, excessive sweating, fatigue, fever(s), frequent falls, headache(s), snoring, weakness, weight change, sleep problems or change in appetite Eyes Eyes: No blurry vision, change in vision, eye pain or Light sensitivity ENT ENT: No abnormal hearing, ear or mastoid pain, tinnitus, nasal congestion, headache(s), neck pain or sore throat Resp Respiratory: No cough, shortness of breath, snoring or wheezing Cardio Cardiology: No chest pain at rest, chest pain with exertion, excessive sweating, shortness of breath, dyspnea on exertion, lightheadedness, orthopnea or palpitations Gastro GI: No abdominal pain, change in bowel habits, constipation, cramping, diarrhea, nausea/dyspepsia or vomiting Genitourinary-Female : No burning urination, painful urination, urinary incontinence, urinary frequency, blood in urine, abnormal periods or pelvic pain Musc Musculoskeletal: No abnormal gait, joint pain, back pain, limited range of motion, neck pain, numbness, stiffness, tingling or Arthritis Skin Skin: No dry skin, rednes (more content not included)... Normal [facility] 12 Lead EKGon 12-02-2024 12 Lead EKG [facility] Cardiovascular Services [address] [place] [address] 12 Lead EKG 12/02/24 0729 MR#: [id number] Acct: [id number] Name: HANNAH NAVARRO Rep #: [id number] : 1970 54 From: rCistobal Adame MD Attending Dr: Dr. Young Hughes MD Status : DIS RIKA Ordering Dr: Leonor Salas DO Date: 12/02/24 Location: U Sex: F C Admitted: 12/01/24 Test Reason : CONVERTED TO NS Blood Pressure : */* mmHG Vent. Rate : 73 BPM Atrial Rate : 73 BPM P-R Int : 160 ms QRS Dur : 80 ms QT Int : 404 ms P-R-T Axes : 55 -14 33 degrees QTcB Int : 445 ms Normal sinus rhythm Low voltage QRS Borderline ECG No previous ECGs available Confirmed by Cristobal Adame ([id number]), film or videotape editor HENRIK LOGAN ([id number]) on 12/03/2024 6:56:59 AM Referred By: KRISTOPHER Confirmed By: Cristobal Adame 12/03/24 0657 Date Cristobal Adame MD CC: Dr. Lisa Bowman MD; Dr. Leonor Salas DO; Dr. Young Hughes MD Signed [facility] CBC W/Diff, Automatedon 11-22 Absolute Lymph 3.76 X10 3/uL Normal 0.83-4.51 [facility] Comment on above: Performed By: #### L 100.0100, L500.4050, L501.5200, L501.2300 ####[facility] [address] [place], [address] Absolute Neut 3.9 X10 3/uL Normal 2.0-7.7 [facility] Comment on above: Performed By: #### L 100.0100, L500.4050, L501.5200, L501.2300 ####[facility] [address] [place], [address] Basophils/100 WBC (Bld) 0.6 % Normal 0-1 [facility] Comment on above: Performed By: #### L 100.0100, L500.4050, L501.5200, L501.2300 ####[facility] [address] [place], [address] Eosinophils/100 WBC (Bld) 3.5 % Normal 0-5 [facility] Comment on above: Performed By: #### L 100.0100, L500.4050, L501.5200, L501.2300 ####[facility] [address] [place], [address] Erythrocyte distribution width (RBC) [Ratio] 14.1 % Normal 11.6-14.6 [facility] Comment on above: Performed By: #### L 100.0100, L500.4050, L501.5200, L501.2300 ####[facility] [address] [place], [address] Hematocrit (Bld) [Volume fraction] 43.8 % Normal 37-47 [facility] Comment on above: Performed By: #### L 100.0100, L500.4050, L501.5200, L501.2300 ####[facility] [address] [place], [address] Hemoglobin (Bld) [Mass/Vol] 14.2 g/dL Normal 12.0-15.0 [facility] Comment on above: Performed By: #### L 100.0100, L500.4050, L501.5200, L501.2300 ####[facility] [address] [place], [address] IG% 0.300 Normal 0.0-0.9 [facility] Comment on above: Result Comment: IG% - Immature Granulocytes (promyelocytes, myelocytes and metamyelocytes) > 1% indicates that a LEFT SHIFT is Present. Performed By: #### L 100.0100, L500.4050, L501.5200, L501.2300 ####[facility] [address] [place], [address] Lymphocytes/100 WBC (Bld) 42.2 % High 19-41 [facility] Comment on above: Performed By: #### L 100.0100, L500.4050, L501.5200, L501.2300 ####[facility] [address] [place], [address] MCH (RBC) [Entitic mass] 25.9 pg Low 27.0-32.0 [facility] Comment on above: Performed By: #### L 100.0100, L500.4050, L501.5200, L501.2300 ####[facility] [address] [place], [address] MCHC (RBC) [Mass/Vol] 32.4 g/dL Normal 32-36 [facility] Comment on above: Performed By: #### L 100.0100, L500.4050, L501.5200, L501.2300 ####[facility] [address] [place], [address] MCV (RBC) [Entitic vol] 79.9 fL Low 81-99 [facility] Comment on above: Performed By: #### L 100.0100, L500.4050, L501.5200, L501.2300 ####[facility] [address] [place], [address] Monocytes/100 WBC (Bld) 10.3 % High 0-10 [facility] Comment on above: Performed By: #### L 100.0100, L500.4050, L501.5200, L501.2300 ####[facility] [address] [place], [address] Neutrophils/100 WBC (Bld) 43.1 % Low 47-70 [facility] Comment on above: Performed By: #### L 100.0100, L500.4050, L501.5200, L501.2300 ####[facility] [address] [place], [address] Nucleated RBC (Bld) [#/Vol] 0 10*3/uL Normal 0-5 [facility] Comment on above: Performed By: #### L 100.0100, L500.4050, L501.5200, L501.2300 ####[facility] [address] [place], [address] Platelet mean volume (Bld) [Entitic vol] 9.9 fL Normal 6.2-12.0 [facility] Comment on above: Performed By: #### L 100.0100, L500.4050, L501.5200, L501.2300 ####[facility] [address] [place], [address] Platelets (Bld) [#/Vol] 321 10*3/uL Normal 150-450 [facility] Comment on above: Performed By: #### L 100.0100, L500.4050, L501.5200, L501.2300 ####[facility] [address] [place], [address] RBC (Bld) [#/Vol] 5.48 10*6/uL High 4.2-5.4 [facility] Comment on above: Performed By: #### L 100.0100, L500.4050, L501.5200, L501.2300 ####[facility] [address] [place], [address] RDW SD 40.6 fl Normal 35.1-43.9 [facility] Comment on above: Performed By: #### L 100.0100, L500.4050, L501.5200, L501.2300 ####[facility] [address] [place], [address] WBC (Bld) [#/Vol] 8.9 10*3/uL Normal 4.4-11.0 [facility] Comment on above: Performed By: #### L 100.0100, L500.4050, L501.5200, L501.2300 ####[facility] [address] [place], [address] [facility] 12-02-2024 Albumin [Mass/Vol] 3.4 g/dL Normal 3.2-5.0 [facility] Comment on above: Performed By: #### L 100.0100, L500.4050, L501.5200, L501.2300 ####[facility] [address] [place], [address] Albumin/Globulin [Mass ratio] 0.9 {ratio} Normal 0.9-2.4 [facility] Comment on above: Performed By: #### L 100.0100, L500.4050, L501.5200, L501.2300 ####[facility] [address] [place], [address] ALK P 67 U/L Normal 45-117 [facility] Comment on above: Performed By: #### L 100.0100, L500.4050, L501.5200, L501.2300 ####[facility] [address] [place], [address] ALT [Catalytic activity/Vol] 53 U/L Normal 13-56 [facility] Comment on above: Performed By: #### L 100.0100, L500.4050, L501.5200, L501.2300 ####[facility] [address] [place], [address] AST [Catalytic activity/Vol] 37 U/L Normal 15-37 [facility] Comment on above: Performed By: #### L 100.0100, L500.4050, L501.5200, L501.2300 ####[facility] [address] [place], [address] Bilirubin [Mass/Vol] 0.40 mg/dL Normal 0.20-1.00 [facility] Comment on above: Result Comment: For patients on eltrombopag therapy, use of Dimension Victor TBIL is not recommended. Performed By: #### L 100.0100, L500.4050, L501.5200, L501.2300 ####[facility] [address] [place], [address] BUN/CRE 23.9 RATIO High 10-20 [facility] Comment on above: Performed By: #### L 100.0100, L500.4050, L501.5200, L501.2300 ####[facility] [address] [place], [address] CA,Total 9.4 mg/dL Normal 8.5-10.1 [facility] Comment on above: Performed By: #### L 100.0100, L500.4050, L501.5200, L501.2300 ####[facility] [address] [place], [address] Chloride [Moles/Vol] 107 mmol/L Normal 98-107 [facility] Comment on above: Performed By: #### L 100.0100, L500.4050, L501.5200, L501.2300 ####[facility] [address] [place], [address] CO2 [Moles/Vol] 25.0 mmol/L Normal 21.0-32.0 [facility] Comment on above: Performed By: #### L 100.0100, L500.4050, L501.5200, L501.2300 ####[facility] [address] [place], [address] Creatinine [Mass/Vol] 0.71 mg/dL Normal 0.55-1.02 [facility] Comment on above: Result Comment: The validity of the calculated GFR GFRAA in patients over 70 years has not been determined. Clinical correlation is essential. Performed By: #### L 100.0100, L500.4050, L501.5200, L501.2300 ####[facility] [address] [place], [address] ECRCL 101.36 ml/min Normal [facility] Comment on above: Performed By: #### L 100.0100, L500.4050, L501.5200, L501.2300 ####[facility] [address] [place], [address] EST GFR - AA 110 mL/min Normal >60 [facility] Comment on above: Result Comment: Afri can Georgian GFR Calc Performed By: #### L 100.0100, L500.4050, L501.5200, L501.2300 ####[facility] [address] [place], [address] GAP 8 Normal 5-15 [facility] Comment on above: Performed By: #### L 100.0100, L500.4050, L501.5200, L501.2300 ####[facility] [address] [place], [address] GFR/1.73 sq M.predicted among non-blacks MDRD (S/P/Bld) [Vol rate/Area] 91 mL/min/{1.73_m2} Normal >60 [facility] Comment on above: Result Comment: Non- GFR Calc Performed By: #### L 100.0100, L500.4050, L501.5200, L501.2300 ####[facility] [address] [place], [address] Globulin (S) [Mass/Vol] 3.9 g/dL Normal 2.2-4.2 [facility] Comment on above: Performed By: #### L 100.0100, L500.4050, L501.5200, L501.2300 ####[facility] [address] [place], [address] Glucose [Mass/Vol] 97 mg/dL Normal 74-106 [facility] Comment on above: Performed By: #### L 100.0100, L500.4050, L501.5200, L501.2300 ####[facility] [address] [place], [address] Potassium [Moles/Vol] 4.0 mmol/L Normal 3.5-5.1 [facility] Comment on above: Performed By: #### L 100.0100, L500.4050, L501.5200, L501.2300 ####[facility] [address] [place], [address] Sodium [Moles/Vol] 140 mmol/L Normal 136-145 [facility] Comment on above: Performed By: #### L 100.0100, L500.4050, L501.5200, L501.2300 ####[facility] [address] [place], [address] T PROT 7.3 g/dL Normal 6.4-8.2 [facility] Comment on above: Performed By: #### L 100.0100, L500.4050, L501.5200, L501.2300 ####[facility] [address] [place], [address] Urea nitrogen [Mass/Vol] 17 mg/dL Normal 7-18 [facility] Comment on above: Performed By: #### L 100.0100, L500.4050, L501.5200, L501.2300 ####[facility] [address] [place], [address] Discharge Instructionon 11-22 Discharge Instruction [facility] Medical Records Department [address] [place] [address] Instructions for Home/Discharge Instructions 12/02/24 1019 MR#: [id number] Acct: [id number] Name: HANNAH NAVARRO Rep #: [id number] : 1970 54 From: Young Hughes MD PCP: Dr. Lisa Bowman MD Status:ADM RIKA Discharge Instructions Diet Discharge Diet: Low fat / Low cholesterol DC O2, CPAP, BIPAP needs Home O2 Discharge instructions: No Dressing / Incision Discharge Activity: Return to Normal Activity Dressing / Incision Call your doctor if you observe: Fever of 101 or Higher, Shortness of breath, Dizziness, Fainting spells, Swelling in the ankles, Chest pain and Increased palpitations (irregular heartbeat) Follow Up Care Test Results: Test results from this visit will be discussed in further detail at your follow-up appointment, if applicable. Discharge Plan Admission Admit Date/Time: 12/01/24 14:36 Attending Provider: Young Hughes Primary Care Provider: Lisa Bowman Consulting Providers: Leonor Salas Discharge Orders/Prescriptions Prescriptions: New diltiazem HCl 180 mg Capsule,Extended Release 24hr 180 mg PO DAILY 30 Days Qty: 30 0RF Eliquis 5 mg Tablet 5 mg PO BID 30 Days Qty: 60 0RF Continued timolol maleate 0.5 % drops 1 drp ophthalmic (eye) DAILY Patient Comments: USE 1 DROP IN BOTH EYES EVERY MORNING. Rocklatan 0.02-0.005 % drops 1 drp EACH EYE DAILY Patient Comments: INSTILL 1 DROP INTO BOTH EYES EVERY DAY AT NIGHT levothyroxine 75 mcg tablet 75 mcg PO DAILY Qty: 90 0RF Referrals / Follow Up: Lisa Bowman MD [Primary Care Provider] - Within 1 Week Fede Meyer FURS SALESPERSON, FURS SALESPERSON-C [Med Staff - [facility] Prof] - Within 3 Months Disposition Disposition (needs filled in before D/C Order can be placed): Home, Self Care 12/02/24 1023 Young Hughes MD CC: Dr. Lisa Bowman MD; Dr. Leonor Salas, DO Signed Normal [facility] Magnesiumon 12-02-2024 Magnesium [Mass/Vol] 1.9 mg/dL Normal 1.6-2.6 [facility] Comment on above: Performed By: #### L 100.0100, L500.4050, L501.5200, L501.2300 ####[facility] [address] [place], [address] Phosphoruson 12-02-2024 Phosphate [Mass/Vol] 4.5 mg/dL Normal 2.5-4.9 [facility] Comment on above: Performed By: #### L 100.0100, L500.4050, L501.5200, L501.2300 ####[facility] [address] [place], [address] 12 Lead EKGon 12-01-2024 12 Lead EKG [facility] Cardiovascular Services [address] [place] [address] 12 Lead EKG 12/01/24 1207 MR#: [id number] Acct: [id number] Name: HANNAH NAVARRO Rep #: [id number] : 1970 54 From: Cristobal Adame MD Attending Dr: Dr. Young Hughes MD Status : ADM RIKA Ordering Dr: Cesilia Crawley MD Date: 12/01/24 Location: U Sex: F C Admitted: 12/01/24 Test Reason : CP Blood Pressure : */* mmHG Vent. Rate : 162 BPM Atrial Rate : 73 BPM P-R Int : * ms QRS Dur : 76 ms QT Int : 268 ms P-R-T Axes : * -36 25 degrees QTcB Int : 439 ms Critical Test Result: High HR Atrial fibrillation with rapid ventricular response Left axis deviation Nonspecific ST abnormality Abnormal ECG Confirmed by Cristobal Adame ([id number]), film or videotape editor HENRIK LOGAN ([id number]) on 12/02/2024 10:07:35 AM Referred By: BB/ Confirmed By: Cristobal Adame 12/02/24 1007 Date Cristobal Adame MD CC: Dr. Cesilia Crawley MD; Dr. Lisa Bowman MD; Dr. Young Hughes MD Signed Normal [facility] Basic Metabolic Profile (BMP )on 12-01-2024 BUN/CRE 19.0 RATIO Normal 10-20 [facility] Comment on above: Performed By: #### L 500.2500, L501.5425, L100.0100 ####[facility] [address] [place], [address] CA,Total 10.3 mg/dL High 8.5-10.1 [facility] Comment on above: Performed By: #### L 500.2500, L501.5425, L100.0100 ####[facility] [address] [place], [address] Chloride [Moles/Vol] 104 mmol/L Normal 98-107 [facility] Comment on above: Performed By: #### L 500.2500, L501.5425, L100.0100 ####[facility] [address] [place], [address] CO2 [Moles/Vol] 29.0 mmol/L Normal 21.0-32.0 [facility] Comment on above: Performed By: #### L 500.2500, L501.5425, L100.0100 ####[facility] [address] [place], [address] Creatinine [Mass/Vol] 0.74 mg/dL Normal 0.55-1.02 [facility] Comment on above: Result Comment: The validity of the calculated GFR GFRAA in patients over 70 years has not been determined. Clinical correlation is essential. Performed By: #### L 500.2500, L501.5425, L100.0100 ####[facility] [address] [place], [address] ECRCL 100.27 ml/min Normal [facility] Comment on above: Performed By: #### L 500.2500, L501.5425, L100.0100 ####[facility] [address] [place], [address] EST GFR - AA 106 mL/min Normal >60 [facility] Comment on above: Result Comment: Afri can Georgian GFR Calc Performed By: #### L 500.2500, L501.5425, L100.0100 ####[facility] [address] [place], [address] GAP 6 Normal 5-15 [facility] Comment on above: Performed By: #### L 500.2500, L501.5425, L100.0100 ####[facility] [address] [place], [address] GFR/1.73 sq M.predicted among non-blacks MDRD (S/P/Bld) [Vol rate/Area] 87 mL/min/{1.73_m2} Normal >60 [facility] Comment on above: Result Comment: Non- GFR Calc Performed By: #### L 500.2500, L501.5425, L100.0100 ####[facility] [address] [place], [address] Glucose [Mass/Vol] 97 mg/dL Normal 74-106 [facility] Comment on above: Performed By: #### L 500.2500, L501.5425, L100.0100 ####[facility] [address] [place], [address] Potassium [Moles/Vol] 4.2 mmol/L Normal 3.5-5.1 [facility] Comment on above: Performed By: #### L 500.2500, L501.5425, L100.0100 ####[facility] [address] [place], [address] Sodium [Moles/Vol] 139 mmol/L Normal 136-145 [facility] Comment on above: Performed By: #### L 500.2500, L501.5425, L100.0100 ####[facility] [address] [place], [address] Urea nitrogen [Mass/Vol] 14 mg/dL Normal 7-18 [facility] Comment on above: Performed By: #### L 500.2500, L501.5425, L100.0100 ####[facility] [address] [place], [address] CBC W/Diff, Automatedon 02-1 0-2024 Absolute Lymph 4.22 X10 3/uL Normal 0.83-4.51 [facility] Comment on above: Performed By: #### L 500.2500, L501.5425, L100.0100 ####[facility] [address] [place], [address] Absolute Neut 5.0 X10 3/uL Normal 2.0-7.7 [facility] Comment on above: Performed By: #### L 500.2500, L501.5425, L100.0100 ####[facility] [address] [place], [address] Basophils/100 WBC (Bld) 0.5 % Normal 0-1 [facility] Comment on above: Performed By: #### L 500.2500, L501.5425, L100.0100 ####[facility] [address] [place], [address] Eosinophils/100 WBC (Bld) 3.5 % Normal 0-5 [facility] Comment on above: Performed By: #### L 500.2500, L501.5425, L100.0100 ####[facility] [address] [place], [address] Erythrocyte distribution width (RBC) [Ratio] 13.8 % Normal 11.6-14.6 [facility] Comment on above: Performed By: #### L 500.2500, L501.5425, L100.0100 ####[facility] [address] [place], [address] Hematocrit (Bld) [Volume fraction] 47.2 % High 37-47 [facility] Comment on above: Performed By: #### L 500.2500, L501.5425, L100.0100 ####[facility] [address] [place], [address] Hemoglobin (Bld) [Mass/Vol] 14.7 g/dL Normal 12.0-15.0 [facility] Comment on above: Performed By: #### L 500.2500, L501.5425, L100.0100 ####[facility] [address] [place], [address] IG% 0.200 Normal 0.0-0.9 [facility] Comment on above: Result Comment: IG% - Immature Granulocytes (promyelocytes, myelocytes and metamyelocytes) > 1% indicates that a LEFT SHIFT is Present. Performed By: #### L 500.2500, L501.5425, L100.0100 ####[facility] [address] [place], [address] Lymphocytes/100 WBC (Bld) 39.3 % Normal 19-41 [facility] Comment on above: Performed By: #### L 500.2500, L501.5425, L100.0100 ####[facility] [address] [place], [address] MCH (RBC) [Entitic mass] 25.0 pg Low 27.0-32.0 [facility] Comment on above: Performed By: #### L 500.2500, L501.5425, L100.0100 ####[facility] [address] [place], [address] MCHC (RBC) [Mass/Vol] 31.1 g/dL Low 32-36 [facility] Comment on above: Performed By: #### L 500.2500, L501.5425, L100.0100 ####[facility] [address] [place], [address] MCV (RBC) [Entitic vol] 80.1 fL Low 81-99 [facility] Comment on above: Performed By: #### L 500.2500, L501.5425, L100.0100 ####[facility] [address] [place], [address] Monocytes/100 WBC (Bld) 9.9 % Normal 0-10 [facility] Comment on above: Performed By: #### L 500.2500, L501.5425, L100.0100 ####[facility] [address] [place], [address] Neutrophils/100 WBC (Bld) 46.6 % Low 47-70 [facility] Comment on above: Performed By: #### L 500.2500, L501.5425, L100.0100 ####[facility] [address] [place], [address] Nucleated RBC (Bld) [#/Vol] 0 10*3/uL Normal 0-5 [facility] Comment on above: Performed By: #### L 500.2500, L501.5425, L100.0100 ####[facility] [address] [place], [address] Platelet mean volume (Bld) [Entitic vol] 9.7 fL Normal 6.2-12.0 [facility] Comment on above: Performed By: #### L 500.2500, L501.5425, L100.0100 ####[facility] [address] [place], [address] Platelets (Bld) [#/Vol] 387 10*3/uL Normal 150-450 [facility] Comment on above: Performed By: #### L 500.2500, L501.5425, L100.0100 ####[facility] [address] [place], [address] RBC (Bld) [#/Vol] 5.89 10*6/uL High 4.2-5.4 [facility] Comment on above: Performed By: #### L 500.2500, L501.5425, L100.0100 ####[facility] [address] [place], [address] RDW SD 40.2 fl Normal 35.1-43.9 [facility] Comment on above: Performed By: #### L 500.2500, L501.5425, L100.0100 ####[facility] [address] [place], [address] WBC (Bld) [#/Vol] 10.7 10*3/uL Normal 4.4-11.0 [facility] Comment on above: Performed By: #### L 500.2500, L501.5425, L100.0100 ####[facility] [address] [place], [address] Chest 1 View (Portable)on Chest 1 View (Portable) [facility] Imaging Services [address] [place] [address] Chest 1 View (Portable) MR#: [id number] Acct: [id number] Name: HANNAH NAVARRO Rep #: [id number] : 1970 F 54 From: Paresh Carrasco MD PCP: Dr. Lisa Bowman MD Status: PRE ER Study: Chest 1 View (Portable) Date of Exam: 12/01/24 Exam# [id number] Ordering Dr: Cesilia Crawley MD EXAM: XR Chest, 1 View CLINICAL INDICATION: TECHNIQUE: Frontal view of the chest. COMPARISON: No relevant prior studies available. FINDINGS: LUNGS AND PLEURAL SPACES: Pulmonary venous congestion. No consolidation. No pneumothorax. HEART: Unremarkable. No cardiomegaly. MEDIASTINUM: Unremarkable. Normal mediastinal contour. BONES/JOINTS: Unremarkable. No acute fracture. RAD/Chest 1 View (Portable) IMPRESSION: Pulmonary venous congestion. Reading Location: [facility] CC: Dr. Cesilia Crawley MD; Dr. Lisa Bowman MD Manuscript Editor: Signed Normal [facility] Echo Completeon 12-01-2024 Echo Complete [facility] Cardiovascular Services [address] [place] [address]. [place] [address] Echo Complete 12/02/24 0835 MR#: [id number] Acct: [id number] Name: HANNAH NAVARRO Rep #: [id number] : 1970 54 From: Beka Wade MD Attending Dr: Dr. Young Hughes MD Status : DIS RIKA Ordering Dr: Leonor Salas DO Date: 12/01/24 Location: PCU Sex: F C Admitted: 12/01/24 Reason For Study Reason For Study: Afib/Flutter Procedure This was a 2D Doppler, Color Flow transthoracic echocardiogram. Exam performed portable in patient room. Left Ventricle Normal LV size. The estimated ejection fraction is 65 %. No evidence for diastolic dysfunction. No regional wall motion abnormalities noted. Right Ventricle Normal RV size. Normal systolic function. Atria The left and right atria are normal. No doppler evidence for ASD. Mitral Valve There is no mitral valve stenosis. No mitral valve insufficiency. Tricuspid Valve There is no tricuspid stenosis. Unable to estimate RV systolic pressure due to inadequate jet, pulmonary artery pressure probably normal. Aortic Valve Trisinus/trileaflet aortic valve. There is no aortic stenosis. Trivial aortic valve insufficiency. Pulmonic Valve There is no pulmonic valvular stenosis. No pulmonic valve insufficiency. Great Vessels The aortic root is not well visualized. Pericardium/Pleural Trivial pericardial effusion. MMode/2D Measurements Calculations LVIDd: 4.2 cm IVSd: 1.1 cm Ao root diam: 3.4 cm LVIDs: 2.5 cm LVPWd: 0.88 cm RVDd: 3.0 cm FS: 42.0 % LAV(MOD-bp): 45.1 ml LA A4 area: 16.5 cm2 LA dimension(2D): 3.1 cm LAV(MOD-bp) Indexed: 23.0 ml/m2 LAV(MOD-sp2): 52.4 ml LAV(MOD-sp4): 37.3 ml TAPSE: 1.9 cm RA A4 area: 15.9 cm2 Time Measurements MV dec time: 0.21 sec Doppler Measurements Calculations MV E max geneva: 64.9 cm/sec Lat Peak E' [place]: 14.4 cm/sec Med Peak E' [place]: 9.3 cm/sec MV A max geneva: 43.1 cm/sec E/E' lat: 4.5 E/E' med: 7.0 MV E/A: 1.5 MV V2 max: 65.4 cm/sec MV P1/2t max geneva: 67.3 cm/sec Ao V2 max: 106.8 cm/sec MV max P.7 mmHg MV P1/2t: 62.2 msec Ao max P.6 mmHg MV V2 mean: 38.1 cm/sec MV dec slope: 317.1 cm/sec2 Ao V2 mean: 72.9 cm/sec MV mean P.67 mmHg Ao mean P.5 mmHg MV V2 VTI: 14.8 cm MVA(P1/2t): 3.5 cm2 Ao V2 VTI: 20.7 cm AV (velocity ratio): 0.87 LV V1 max: 99.5 cm/sec LV V1 max P.0 mmHg LV V1 mean P.1 mmHg LV V1 mean: 68.2 cm/sec LV V1 VTI: 18.0 cm ECHO/Echo Complete Interpretation Summary The estimated ejection fraction is 65 %. No evidence for diastolic dysfunction. Trivial aortic valve insufficiency. Trivial pericardial effusion. Ordering Physician: Leonor Salas Referring Physician: Lisa Bowman Performed By: August Quintero RCS 12/02/24 1439 Date Beka Wade MD CC: Dr. Lisa Bowman MD; Dr. Leonor Salas DO; Dr. Young Hughes MD Date Dictated: 12/02/2435 Date Transcribed: 12/02/241438 Manuscript Editor: Signed Normal [facility] Emergency Department Summary on 12-01-2024 Emergency Department Summary [facility] Medical Records Department [address] [place] [id number] Emergency Department Summary 12/01/24 MR#: [id number] Acct: [id number] Name: HANNAH NAVARRO Rep #: [id number] : 1970 54 From: Cesilia Crawley MD PCP: Dr. Lisa Bowman MD Status:REG ER Location: ED HPI History of Present Illness Chief Complaint: Chest Pain Informant: patient Narrative Narrative: 54-year-old female presenting with chest heaviness, palpitations. Patient states she looked at her watch and it showed she was in atrial fibrillation. She has history of atrial fibrillation and was previously on medication. These medications including Cardizem and Eliquis were recently discontinued by cardiology. She stopped Eliquis approximately 1 week ago. Prior similar symptoms: Yes Recent Illness/Hospitalizat ion: No PFSH PFSH Medical History GERD (gastroesophageal reflux disease) Headache, migraine Goiter Wrist fracture Afib Seasonal allergies Hypothyroidism Glaucoma Home Medications ???Medication ???Instructions ???Recorded ???Last Taken ???Type netarsudil 0.02 %-latanoprost 1 drp EACH EYE DAILY eye health 07/20/22 History 0.005 % eye drops (Rocklatan) timolol maleate 0.5 % eye drops 1 drp ophthalmic (eye) DAILY 12/24 Unknown History levothyroxine 75 mcg tablet 75 mcg PO DAILY thyroid #90 tabs 1 11/23/23 Unknown Rx Allergy/AdvReac Type Severity Reaction Status Date / Time Penicillins Allergy Anaphylaxis Verified 12/01/24 12:09 Family History Mother Atrial fibrillation Arthritis Hypertension Aunt Heart disease Brother Asthma Sister Arthritis Father CVA (cerebral vascular accident) Cerebral AVM Alzheimer disease Parkinsons disease Grandmother Cancer Brother Epilepsy Surgical History S/P laser trabeculoplasty of eye History of toe surgery Social History household members: spouse current occupational status: employed current occupation: 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[employer] ROS ROS ED Constitutional Constitutional ED: Denies fever(s) Eyes Eyes: Denies change in vision ENT ENT ED: Denies rhinorrhea or sore throat Cardiovascular Cardiovascular: Reports chest pain and palpitations Respiratory/Chest Respiratory/Chest: Denies cough or dyspnea Gastrointestinal Gastrointestinal: Denies abdominal pain, diarrhea, nausea or vomiting Genitourinary Genitourinary ED: Denies dysuria Musculoskeletal Musculoskeletal: Denies myalgias Integumentary Denies rash Neurologic Neurologic: Denies headache(s) Psychiatric Psychiatric: Denies suicidal thoughts EXAM Physical Exam Const Vital Signs: 12/01/24 12:06 12/01/24 12:09 12/01/24 12:29 Temperature 98.3 F Temperature Source Oral Pulse Rate 166 H Respiratory Rate 16 Respiratory Effort Normal Non-Labored Blood Pressure 146/104 H Blood Pressure Mean 118 Pulse Ox 99 97 Oxygen Delivery Method Room Air Room Air 12/01/24 12:30 12/01/24 12:47 12/01/24 13:00 Temperature Temperature Source Pulse Rate 109 H 122 H Respiratory Rate 16 13 Respiratory Effort Blood Pressure 123/86 H 104/71 Blood Pressure Mean 98 81 Pulse Ox 96 95 95 Oxygen Delivery Method 12/01/24 13:15 12/01/24 13:30 12/01/24 13:45 Temperature Temperature Source Pulse Rate 143 H 157 H Respiratory Rate 14 13 Respiratory Effort Blood Pressure 102/80 95/81 H 109/75 Blood Pressure Mean 89 88 85 Pulse Ox 98 95 Oxygen Delivery Method 12/01/24 14:00 12/01/24 14:01 Temperature Temperature Source Pulse Rate 142 H 148 H Respiratory Rate 18 18 Respiratory Effort Blood Pressure 95/72 107/91 H Blood Pressure Mean 82 97 Pulse Ox 100 97 Oxygen Delivery Method Positive well nourished and well developed General Appearance ED: well developed HEENT Reports normocephalic and head/scalp atraumatic Eyes PERRL and EOMs intact bilaterally Neck supple General: Negative for tenderness Chest Wall inspection of chest normal Resp normal respiratory effort and clear to auscultation bilaterally Cardio Rate: tachyca (more content not included)... Normal [facility] H AND P Exam - Hospitaliston 12-01-2024 H&P Exam - Hospitalist [facility] Medical Records Department [address] [place] [address] H P Exam - Hospitalist 12/01/24 1432 MR#: [id number] Acct: [id number] Name: HANNAH NAVARRO Rep #: [id number] : 1970 54 From: Leonor Salas DO PCP: Dr. Lisa Bowman MD Status:ADM RIKA Location: [place] [address] HPI - General General Date of Admission: 12/01/24 Date of Service: 12/01/24 Chief Complaint: Palpitations/chest pressure HPI Narrative HANNAH NAVARRO, is a 54 F who presented to the emergency department at [facility] on 12/01/2024 with a chief complaint of chest heaviness and palpitations. Patient does have a history of atrial fibrillation and was recently taken off her Cardizem and Eliquis by cardiology nurse practitioner on 10/27/2024 but she had not had any events since 2021. She reported that on the day of presentation she started having chest pressure and heaviness and looked at her watch it did demonstrate atrial fibrillation. She states that she knew she did not have it prior to this as she typically now can tell when she goes into it. Initially when she was diagnosed she should could not tell when she went into it on the first time as she was not sure was going on but since that point in time she has been able to identify this fairly readily. Her Eliquis was stopped about 1 week ago. She denied any recent illnesses in the last week but did have COVID about a month ago. I does also sound like she was treated for a post COVID superinfection bacterial pneumonia which she completed antibiotics recently as well. Vital signs on presentation showed a temperature of 98.3, heart rate 166, respiratory rate 16, blood pressure was 146/104 and pulse ox was 99% on room air. CBC shows a normal hemoglobin but is microcytic. It appears it has been microcytic and is trending up. Chemistry panel is unremarkable troponin initially was 4. TSH was 1.43. Chest x-ray showed some pulmonary venous congestion was otherwise unremarkable. Upon my review, it appears fairly clear and seems to be mildly underpenetrated. EKG was A-fib with RVR with normal intervals and no signs of ST-T wave changes concerning for acute ischemia. I did discuss the possibility of cardioversion with the emergency department physician as the patient seems to know exactly when she went to A-fib however ED did not want to consider cardioversion as there was no clear documentation of her onset of A-fib and she is not anticoagulated. We gave her an amiodarone bolus in hopes that this was converted her [facility] Medical History GERD (gastroesophageal reflux disease) Headache, migraine Goiter Wrist fracture Afib Seasonal allergies Hypothyroidism Glaucoma Home Medications ???Medication ???Instructions ???Recorded ???Last Taken ???Type netarsudil 0.02 %-latanoprost 1 drp EACH EYE DAILY eye health 07/20/22 History 0.005 % eye drops (Rocklatan) timolol maleate 0.5 % eye drops 1 drp ophthalmic (eye) DAILY 12/24 Unknown History levothyroxine 75 mcg tablet 75 mcg PO DAILY thyroid #90 tabs 1 11/23/23 Unknown Rx Allergy/AdvReac Type Severity Reaction Status Date / Time Penicillins Allergy Anaphylaxis Verified 12/01/24 12:09 Family History Mother Atrial fibrillation Arthritis Hypertension Aunt Heart disease Brother Asthma Sister Arthritis Father CVA (cerebral vascular accident) Cerebral AVM Alzheimer disease Parkinsons disease Grandmother Cancer Brother Epilepsy Surgical History S/P laser trabeculoplasty of eye History of toe surgery Social History household members: spouse current occupational status: employed current occupation: 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 Normal [facility] L501.4020on 12-01-2024 TROPONIN-I HS 11 pg/mL Normal 3.0-54.0 [facility] Comment on above: Order Comment: Comme nts: SPECIMEN #3'TROP' Serial specimen #1, #2 or #3: 3 Result Comment: Brendon valdivia Note: New Test Units and Gender Specific Reference Ranges. For more information see Policy Stat Procedure Victor High Sensitivity Troponin (TNIH) and attachments. Performed By: #### L 501.4020 ####[facility] [address] [place], [address] TROPONIN-I HS 9 pg/mL Normal 3.0-54.0 [facility] Comment on above: Result Comment: Plea se Note: New Test Units and Gender Specific Reference Ranges. For more information see Policy Stat Procedure Victor High Sensitivity Troponin (TNIH) and attachments. Performed By: #### L 501.4020, L501.9520 ####[facility] [address] [place], [address] L501.5425on 12-01-2024 TROPONIN-I HS 4 pg/mL Normal 3.0-54.0 [facility] Comment on above: Order Comment: 1Y Result Comment: Plemarin se Note: New Test Units and Gender Specific Reference Ranges. For more information see Policy Stat Procedure Victor High Sensitivity Troponin (TNIH) and attachments. Performed By: #### L 500.2500, L501.5425, L100.0100 ####[facility] [address] [place], [address] Thyroid Stim Hormone (TSH)on 12-01-2024 TSH 1.430 uIU/mL Normal 0.358-3.740 [facility] Comment on above: Performed By: #### L 501.4020, L501.9520 ####[facility] [address] [place], [address] Internal Medicine Office Vis iton 11-07-2024 Internal Medicine Office Visit [facility] [address] [place] [address] [place] [address] OFFICE VISIT Date of Service: 11/07/24 MR#: [id number] Acct: [id number] Name: HANNAH NAVARRO Rep #: [id number] : 1970 Provider: THERESA Estrada Age/Sex: 54/F Location: [facility] Status: Signed Intake Vital Signs 10/27/24 09:38 11/07/24 08:09 Height 5 ft 7 in 5 ft 7 in Weight: 193 lb 190 lb BMI 30.2 29.7 BP 113/75 118/64 Blood Pressure Location Lt brachial Lt brachial Position Sitting Sitting Respiration 16 16 Pulse 66 70 Pulse Source NIBP Monitor Temp 97.7 F L Temp Source Temporal Pulse Oximetry (%) 98 Oxygen Delivery Method room air Intake Visit Reasons: CONTINUOUS CONGESTION SINCE JUN. 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 Accompanied by: Self Is patient in pain?: No Allergies Penicillins Allergy (Verified 11/07/24 08:06) Anaphylaxis Medications ???Medication ???Instructions ???Recorded ???Confirmed ???Type netarsudil 0.02 %-latanoprost 1 drp EACH EYE DAILY eye health 07/20/22 11/07/24 History 0.005 % eye drops (Rocklatan) apixaban 5 mg tablet (Eliquis) 5 mg PO BID #180 tabs 11/19/23 11/07/24 Rx timolol maleate 0.5 % eye drops 1 drp ophthalmic (eye) DAILY 12/25/23 11/07/24 History albuterol sulfate 90 mcg/actuation 2 puff inhalation Q6H PRN 08/08/24 11/07/24 Rx aerosol inhaler shortness of breath or wheezing #6.7 grams benzonatate 100 mg capsule 100 mg PO BID-TID PRN cough #30 08/08/24 11/07/24 Rx caps levothyroxine 75 mcg tablet 75 mcg PO DAILY thyroid #90 tabs 09/22/24 11/07/24 Rx doxycycline hyclate 100 mg capsule 100 mg PO BID #20 caps 11/07/24 11/07/24 Rx prednisone 10 mg tablet 10 mg PO TID #9 tabs 11/07/24 11/07/24 Rx PFSH Medical History GERD (gastroesophageal reflux disease) Headache, migraine Goiter Wrist fracture Afib Seasonal allergies Hypothyroidism Glaucoma Surgical History S/P laser trabeculoplasty of eye History of toe surgery Family History Mother Atrial fibrillation Arthritis Hypertension Aunt Heart disease Brother Asthma Sister Arthritis Father CVA (cerebral vascular accident) Cerebral AVM Alzheimer disease Parkinsons disease Grandmother Cancer Brother Epilepsy Social History household members: spouse current occupational status: employed current occupation: 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 Patient states that they symptoms have been occurring since around June. She did appear to have Covid in July but again symptoms started prior. She states that right before she had a flare up where her sinuses became full and she was having pressures / pains and then she has had this congested / stuffy feeling in the left ear. She states that the cough has lingered throughout all of this. The cough is a dry cough. She states that it will feel full and sounds will be a little muffled. 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 Patient did not get flu shots She has not had any fevers ROS Const Constitutional: No body ache, chills, excessive sweating, fatigue, fever(s), frequent falls, headache(s), snoring, weakness, weight change or change in appetite Eyes Eyes: No blurry vision, change in vision, eye pain or Light sensitivity ENT ENT: Positive for ear or mastoid pain, nasal congestion, sinus pressure and sinus pain; No abnormal hearing, tinnitus, headache(s), neck pain or sore throat Resp Respiratory: Positive for cough; No shortness of breath, snoring or wheezing Cardio Cardiology: No chest pain at rest, chest pain with exertion, excessive sweating, dyspnea on exertion, lightheadedness, orthopnea or palpitations Gastro GI: No abdominal pain, change in bowel habits, constipation, cramping, diarrhea, nausea/dyspepsia or vomiting Genitourinary-Female : No burning urination, painful urination, urinary incontinence or urinary frequency Musc Musculoskeletal: No abnormal gait, joint pain, back pain, limited range of motion, muscle weakness, neck pain or numbnes (more content not included)... Normal [facility] Cardiology Visit Reporton Cardiology Visit Report [facility] [address] [place] [address] OFFICE VISIT Date of Service: 10/27/24 MR#: [id number] Acct: [id number] Name: HANNAH NAVARRO Rep #: [id number] : 1970 Provider: TRIXIE mann Age/Sex: 54/F Location: [facility] Status: Signed HPI HPI History of Present Illness Details: This is a 54-year-old white female who presents today for outpatient cardiovascular follow-up visit. She was previously consulted based upon concerns of atrial fibrillation with rapid ventricular response, near-syncope, hypothyroidism, and a history of glaucoma. She was evaluated in the emergency room on 07/20/2022, she was found to be in atrial fibrillation with RVR. She was treated with IV diltiazem and subsequently a dose of oral diltiazem. Her ventricular rate did slow somewhat. She underwent laboratory studies which demonstrated an elevated WBC. Her troponin I levels were negative. Her ECG was reported as demonstrating atrial fibrillation with RVR. She was discharged home on Cardizem 120mg daily, and baby aspirin. She was instructed to follow up with cardiology. She followed up with cardiology on 07/21/2022 and was noted to be in fibrillation with RVR in the office. She continued to have palpitations, dizziness, and near syncope. She was then admitted to the hospital for further work-up. She underwent an echocardiogram on 07/21 which demonstrated and ejection fraction of 65%, normal left and right atrial size, and no wall motion abnormality was noted. While in the hospital, she converted to sinus rhythm on her own. She was later discharged home on Eliquis 5mg twice daily, and Cardizem 180mg daily. She does have occasional palpitations that are short lasting and described as a fast. She states this is very quick, and normally when lying down. She denies chest pain, pressure or heaviness. She does have occasional SOB with climbing stairs-this is nothing new or worsening. She attributes this to her weight. She denies Orthopnea, and PND. She does not have bleeding issues; no blood in urine, stool or nosebleeds. She denies any decrease in energy level, myalgias, or claudication. She does not have edema, or sudden weight gain. She denies dizziness, lightheadedness, syncopal or near syncopal episodes, and headaches. 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 Is patient in pain?: No Allergies Penicillins Allergy (Verified 10/27/24 09:42) Anaphylaxis Medications ???Medication ???Instructions ???Recorded ???Confirmed ???Type netarsudil 0.02 %-latanoprost 1 drp EACH EYE DAILY eye health 07/20/22 10/27/24 History 0.005 % eye drops (Rocklatan) apixaban 5 mg tablet (Eliquis) 5 mg PO BID #180 tabs 11/19/23 10/27/24 Rx timolol maleate 0.5 % eye drops 1 drp ophthalmic (eye) DAILY 12/25/23 10/27/24 History albuterol sulfate 90 mcg/actuation 2 puff inhalation Q6H PRN 08/08/24 10/27/24 Rx aerosol inhaler shortness of breath or wheezing #6.7 grams benzonatate 100 mg capsule 100 mg PO BID-TID PRN cough #30 08/08/24 10/27/24 Rx caps levothyroxine 75 mcg tablet 75 mcg PO DAILY thyroid #90 tabs 09/22/24 10/27/24 Rx Ejection fraction %: 54 Have you fallen in the past year?: No PFSH Medical History GERD (gastroesophageal reflux disease) Headache, migraine Goiter Wrist fracture Afib Seasonal allergies Hypothyroidism Glaucoma Surgical History S/P laser trabeculoplasty of eye History of toe surgery Family History Mother Atrial fibrillation Arthritis Hypertension Aunt Heart disease Brother Asthma Sister Arthritis Father CVA (cerebral vascular accident) Cerebral AVM Alzheimer disease Parkinsons disease Grandmother Cancer Brother Epilepsy Social History household members: spouse current occupational status: employed current occupation: 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 Normal [facility] Chest PA and Lateralon 08-08 Chest PA and Lateral [facility] Imaging Services [address] [place] [address] Chest PA and Lateral MR#: [id number] Acct: [id number] Name: HANNAH NAVARRO Rep #: [id number] : 1970 F 54 From: Dylon arceo MD PCP: Dr. Lisa Bowman MD Status: [facility] Study: Chest PA and Lateral Date of Exam: 08/08/24 Exam# [id number] Ordering Dr: Lori Andersen FURS SALESPERSON-C [id number] STUDY: X-RAY CHEST REASON FOR EXAM: Female, 54 years old. cough TECHNIQUE: Frontal and lateral views of the chest. COMPARISON: 07/21/2022. FINDINGS: The lungs are clear and expanded. There is no demonstrated pleural abnormality. Normal size heart. Normal mediastinum and jorge. Normal visualized pulmonary arteries. Normal visualized aortic arch and descending thoracic aorta. Normal visualized thoracic spine. Normal visualized ribs, clavicles, and shoulders. There is no demonstrated abnormality of the visualized soft tissue structures of the upper abdomen. RAD/Chest PA and Lateral IMPRESSION: Normal x-ray examination of the chest. Electronically Signed: Dylon Terry MD at 15:24 EDT , CC: TRIXIE Andersen; Dr. Lisa Bowman MD Manuscript Editor: Signed Normal [facility] Internal Medicine Office Vis [facility] 08-08-2024 Internal Medicine Office Visit [id number] [place] [address] [place] [address] OFFICE VISIT Date of Service: 08/08/24 MR#: [id number] Acct: [id number] Name: HANNAH NAVARRO Rep #: [id number] : 1970 Provider: TRIXIE moreno Age/Sex: 54/F Location: [facility] Status: Signed Intake Vital Signs 06/27/24 08:05 08/08/24 10:35 Height 5 ft 7 in 5 ft 7 in Weight: 174 lb 179 lb BMI 27.2 28.0 BP 118/68 130/74 H Blood Pressure Location Lt brachial Lt brachial Position Sitting Sitting Respiration 17 18 Pulse 63 75 Pulse Source Monitor Monitor Temp 97.0 F L 98.2 F Temp Source Temporal Temporal Pulse Oximetry (%) 97 98 Oxygen Delivery Method room air room air Intake Visit Reasons: ACUTE SORE THROAT, COUGH Chief Complaint: ACUTE SORE THROAT, COUGH Is patient in pain?: No Allergies Penicillins Allergy (Verified 08/08/24 10:33) Anaphylaxis Medications ???Medication ???Instructions ???Recorded ???Confirmed ???Type netarsudil 0.02 %-latanoprost 1 drp EACH EYE DAILY eye health 07/20/22 08/08/24 History 0.005 % eye drops (Rocklatan) apixaban 5 mg tablet (Eliquis) 5 mg PO BID #180 tabs 11/19/23 08/08/24 Rx timolol maleate 0.5 % eye drops 1 drp ophthalmic (eye) DAILY 12/25/23 08/08/24 History ferrous sulfate 325 mg (65 mg 325 mg PO Q OTHER DAY #90 tabs 04/30/24 08/08/24 Rx iron) tablet,delayed release levothyroxine 75 mcg tablet 75 mcg PO DAILY thyroid #90 tabs 06/16/24 08/08/24 Rx diltiazem HCl 180 mg 180 mg PO DAILY #90 caps 07/30/24 08/08/24 Rx capsule,extended release 24 hr albuterol sulfate 90 mcg/actuation 2 puff inhalation Q6H PRN 08/08/24 08/08/24 Rx aerosol inhaler shortness of breath or wheezing #6.7 grams benzonatate 100 mg capsule 100 mg PO BID-TID PRN cough #30 08/08/24 08/08/24 Rx caps prednisone 20 mg tablet 40 mg (2 x 20 mg) PO QAM 5 days 08/08/24 08/08/24 Rx #10 tabs Nurse's Note: pt reports she tested positive for covid one month ago and her symptoms have not improved all month states she lost her voice at one point, has congested non productive cough, fatique, scratchy throat PFSH Medical History GERD (gastroesophageal reflux disease) Headache, migraine Goiter Wrist fracture Afib Seasonal allergies Hypothyroidism Glaucoma Surgical History S/P laser trabeculoplasty of eye History of toe surgery Family History Mother Atrial fibrillation Arthritis Hypertension Aunt Heart disease Brother Asthma Sister Arthritis Father CVA (cerebral vascular accident) Cerebral AVM Alzheimer disease Parkinsons disease Grandmother Cancer Brother Epilepsy Social History household members: spouse current occupational status: employed current occupation: 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 She reports testing positive for covid 1 month ago per a home test. She initially reports that she had symptoms including scratchy throat, sinus pressure, body aches, she reports after 1 to 1.5 weeks of the symptoms she began to improve and felt near baseline for 4 to 5 days and her symptoms resumed 2 weeks ago including scratchy throat, dry cough, rhinorrhea, headache in the forehead region, fatigue and bodyaches. This morning she had nausea and diarrhea however this has resolved and was single episode. She has been utilizing lozenges, tea and honey for her symptoms. She denies shortness of breath, wheezing, chest pain, vomiting, sinus pressure or discomfort today. She does not smoke, no previous pulmonary history. ROS Const Constitutional: Positive for fatigue; No body ache, chills, excessive sweating, fever(s), frequent falls, headache(s), snoring, weight change, sleep problems, abnormal sleep pattern or change in appetite Eyes Eyes: No blurry vision, change in vision, eye pain or Light sensitivity ENT ENT: Positive for nasal congestion and other (scratchy throat, sore throat, RAMEY every now and then, fatique); No abnormal hearing, ear or mastoid pain, ear discharge, ear pressure, tinnitus, headache(s), neck pain (more content not included)... Normal [facility] CBC W/Diff, Automatedon 09-0 Absolute Lymph 2.75 X10 3/uL Normal 0.83-4.51 [facility] Comment on above: Performed By: #### L 501.9520, L100.0100 ####[facility] [address] [place], [address] Absolute Neut 3.5 X10 3/uL Normal 2.0-7.7 [facility] Comment on above: Performed By: #### L 501.9520, L100.0100 ####[facility] [address] [place], [address] Basophils/100 WBC (Bld) 0.7 % Normal 0-1 [facility] Comment on above: Performed By: #### L 501.9520, L100.0100 ####[facility] [address] [place], [address] Eosinophils/100 WBC (Bld) 4.3 % Normal 0-5 [facility] Comment on above: Performed By: #### L 501.9520, L100.0100 ####[facility] [address] [place], [address] Erythrocyte distribution width (RBC) [Ratio] 12.8 % Normal 11.6-14.6 [facility] Comment on above: Performed By: #### L 501.9520, L100.0100 ####[facility] [address] [place], [address] Hematocrit (Bld) [Volume fraction] 40.6 % Normal 37-47 [facility] Comment on above: Performed By: #### L 501.9520, L100.0100 ####[facility] [address] [place], [address] Hemoglobin (Bld) [Mass/Vol] 12.0 g/dL Normal 12.0-15.0 [facility] Comment on above: Performed By: #### L 501.9520, L100.0100 ####[facility] [address] [place], [address] IG% 0.300 Normal 0.0-0.9 [facility] Comment on above: Result Comment: IG% - Immature Granulocytes (promyelocytes, myelocytes and metamyelocytes) > 1% indicates that a LEFT SHIFT is Present. Performed By: #### L 501.9520, L100.0100 ####[facility] [address] [place], [address] Lymphocytes/100 WBC (Bld) 37.7 % Normal 19-41 [facility] Comment on above: Performed By: #### L 501.9520, L100.0100 ####[facility] [address] [place], [address] MCH (RBC) [Entitic mass] 23.1 pg Low 27.0-32.0 [facility] Comment on above: Performed By: #### L 501.9520, L100.0100 ####[facility] [address] [place], [address] MCHC (RBC) [Mass/Vol] 29.6 g/dL Low 32-36 [facility] Comment on above: Performed By: #### L 501.9520, L100.0100 ####[facility] [address] [place], [address] MCV (RBC) [Entitic vol] 78.2 fL Low 81-99 [facility] Comment on above: Performed By: #### L 501.9520, L100.0100 ####[facility] [address] [place], [address] Monocytes/100 WBC (Bld) 9.7 % Normal 0-10 [facility] Comment on above: Performed By: #### L 501.9520, L100.0100 ####[facility] [address] [place], [address] Neutrophils/100 WBC (Bld) 47.3 % Normal 47-70 [facility] Comment on above: Performed By: #### L 501.9520, L100.0100 ####[facility] [address] [place], [address] Nucleated RBC (Bld) [#/Vol] 0 10*3/uL Normal 0-5 [facility] Comment on above: Performed By: #### L 501.95, L100.0100 ####[facility] [address] [place], [address] Platelet mean volume (Bld) [Entitic vol] 10.7 fL Normal 6.2-12.0 [facility] Comment on above: Performed By: #### L 501.9519, L100.0100 ####[facility] [address] [place], [address] Platelets (Bld) [#/Vol] 460 10*3/uL High 150-450 [facility] Comment on above: Performed By: #### L 501.9519, L100.0100 ####[facility] [address] [place], [address] RBC (Bld) [#/Vol] 5.19 10*6/uL Normal 4.2-5.4 [facility] Comment on above: Performed By: #### L 501.9519, L100.0100 ####[facility] [address] [place], [address] RDW SD 36.0 fl Normal 35.1-43.9 [facility] Comment on above: Performed By: #### L 501.9519, L100.0100 ####[facility] [address] [place], [address] WBC (Bld) [#/Vol] 7.3 10*3/uL Normal 4.4-11.0 [facility] Comment on above: Performed By: #### L 501.95, L100.0100 ####[facility] [address] [place], [address] Estradiolon 06-27-2024 ESTRADIOL < 11.0 Normal [facility] Comment on above: Result Comment: NORM AL REFERENCE RANGES FEMALE FOLLICULAR 21.4 - 164.8 pg/mL MID-CYCLE PEAK 49.9 - 367.2 pg/mL LUTEAL 40.2 - 259.0 pg/mL POST-MENOPAUSAL ON MHT <11.0 - 462.1 pg/mL NOT ON MHT <11.0 - 58.3 pg/mL MALE <11.0 - 52.5 pg/mL NOTE: [facility] HAS CONFIRMED THE DRUG FULVETRANT (FASLODEX) MAY CAUSE FALSELY ELEVATED ESTRADIOL RESULTS WHEN USING THIS TEST METHOD. IF PATIENT IS TAKING FULVESTRANT AN ALTERNATIVE METHOD SHOULD BE USED TO DETERMINE ESTRADIOL CONCENTRATION. Performed By: #### L 3100.5125, L3300.1750 ####[facility] [address] [place], [address] Follicle Stimulating Hormone on 06-27-2024 FSH 63.0 mIU/mL Normal [facility] Comment on above: Result Comment: NORMAL REFERENCE RANGES FEMALE FOLLICULAR 2.3 - 12.6 mIU/mL MID-CYCLE PEAK 5.2 - 17.5 mIU/mL LUTEAL 1.7 - 12.9 mIU/mL POST-MENOPAUSAL ON MHT 5.9 - 72.8 mIU/mL NOT ON MHT 12.7 - 132.2 mlU/mL MALE 0.7 - 10.8 mIU/mL Performed By: #### L 3100.5125, L3300.1750 ####[facility] [address] [place], [address] Internal Medicine Office Vis [place] 06-27-2024 Internal Medicine Office Visit [facility] [address] [place] [address] [place] [address] OFFICE VISIT Date of Service: 06/27/24 MR#: [id number] Acct: [id number] Name: HANNAH NAVARRO Rep #: [id number] : 1970 Provider: THERESA Estrada Age/Sex: 53/F Location: [facility] Status: Signed Intake Vital Signs 05/27/24 10:47 06/27/24 08:05 Height 5 ft 7 in 5 ft 7 in Weight: 174 lb BMI 27.2 BP 118/68 Blood Pressure Location Lt brachial Position Sitting Respiration 17 Pulse 63 Pulse Source Monitor Temp 97.0 F L Temp Source Temporal Pulse Oximetry (%) 97 Oxygen Delivery Method room air Intake Visit Reasons: WORK PHYSICAL Chief Complaint: Work Physcial Is patient in pain?: No Allergies Penicillins Allergy (Verified 06/27/24 08:06) Anaphylaxis Medications ???Medication ???Instructions ???Recorded ???Confirmed ???Type netarsudil 0.02 %-latanoprost 1 drp EACH EYE DAILY eye health 07/20/22 06/27/24 History 0.005 % eye drops (Rocklatan) apixaban 5 mg tablet (Eliquis) 5 mg PO BID #180 tabs 11/19/23 06/27/24 Rx diltiazem HCl 180 mg 180 mg PO DAILY 11/19/23 06/27/24 History capsule,extended release 24 hr timolol maleate 0.5 % eye drops 1 drp ophthalmic (eye) DAILY 12/25/23 06/27/24 History ferrous sulfate 325 mg (65 mg 325 mg PO Q OTHER DAY #90 tabs 04/30/24 06/27/24 Rx iron) tablet,delayed release levothyroxine 75 mcg tablet 75 mcg PO DAILY thyroid #90 tabs 06/16/24 06/27/24 Rx PFSH Medical History GERD (gastroesophageal reflux disease) Headache, migraine Goiter Wrist fracture Afib Seasonal allergies Hypothyroidism Glaucoma Surgical History S/P laser trabeculoplasty of eye History of toe surgery Family History Mother Atrial fibrillation Arthritis Hypertension Aunt Heart disease Brother Asthma Sister Arthritis Father CVA (cerebral vascular accident) Cerebral AVM Alzheimer disease Parkinsons disease Grandmother Cancer Brother Epilepsy Social History household members: spouse current occupational status: employed current occupation: 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 Patient has held this role for a very long time at other facilities. Overall patient is a healthy 53-year-old female with some history of some iron deficiency anemia thought to be secondary to irregular/heavy menstrual cycles. Patient does have regular labs to evaluate this most recently having some iron studies done in February of this year showing still some slight iron deficiency. Patient does follow-up regularly with [facility] and they are actually discussing the possibility of a D C. Patient states that she has been taking her iron supplement and actually has stopped taking her hormone therapy. She states that since stopping this medication she has actually felt a lot better and has dropped/lost quite a bit of weight. She has not noticed changes in her menstrual irregularities. Patient does have a history of atrial fibrillation that is followed annually by cardiology. She does take her anticoagulation as well as her diltiazem regularly. Patient does have a history of having hypothyroidism. Levels have been good most recently back in December of this year. She does however state though that since she has lost all of this weight she has noticed a little bit of recent hair loss and changes in her appetite. She does take her medication every morning with a glass of water. Patient does have a history of glaucoma and therefore she does see ophthalmology every 6 months. Currently controlled with medicated drops Patient does have a history of some seasonal allergies occasionally taking an antihistamine. Patient did have routine labs done back in December of this year all of which she states were normal Patient states that she is up-to-date with immunizations although does not have a record of these immunizations. ROS Const Constitutional: No body ache, chills, excessive sweating, fatigue, feve (more content not included)... Normal [facility] Thyroid Stim Hormone (TSH)on 06-27-2024 TSH 1.080 uIU/mL Normal 0.358-3.740 [facility] Comment on above: Performed By: #### L 501.9520, L100.0100 ####[facility] [address] [place], [address] Pelvic w/ Transvaginalon Pelvic w/ Transvaginal [facility] Imaging Services [address] [place] [address] Pelvic w/ Transvaginal MR#: [id number] Acct: [id number] Name: HANNAH NAVARRO Rep #: [id number] : 1970 F 53 From: Og Stock MD PCP: Dr. Lisa Bowman MD Status: [facility] Study: Pelvic w/ Transvaginal Date of Exam: 06/06/24 Exam# [id number] Ordering Dr: Veronica Jasmine FURS SALESPERSON FURS SALESPERSON -C [id number] EXAM: US PELVIS TRANSABDOMINAL LIMITED AND TRANSVAGINAL CLINICAL INDICATION: menorrhagia TECHNIQUE: Transabdominal (limited) and transvaginal pelvic ultrasound was performed with grayscale and color Doppler imaging. Transvaginal imaging was used for better evaluation of the endometrium and adnexa. COMPARISON: No relevant prior studies available. FINDINGS: UTERUS/CERVIX: There is a hypoechoic mass in the uterus compatible with fibroid that measures 5.5 x 5.6 x 5.7 cm. The uterus measures 12.8 x 7.3 x 9.8 cm. Uterus is heterogeneous in echogenicity. The endometrium measures 8 mm. There is a trace amount of fluid within the endometrium. There are questionable areas along the wall of the endometrium there is slightly echogenic possibly representing tiny endometrial polyps. There is a small hypoechoic fibroid that measures 3.1 x 2.2 x 2.6 cm. There is a third hypoechoic fibroid that measures 2.8 x 2.0 x 2.2 cm. Anteverted. RIGHT OVARY: The right ovary measures 1.8 x 1.3 x 1.2 cm. Blood flow is present in the right ovary. LEFT OVARY: The left ovary is not visualized. FREE FLUID: None. BLADDER: Bladder measures 5.7 x 4.9 x 7.4 cm for a volume of 180 mL. US/Pelvic w/ Transvaginal IMPRESSION: Multiple uterine fibroids. There is a trace amount of fluid within the endometrium. There are questionable endometrial polyps present. If indicated further evaluation with MRI may be beneficial. No other abnormalities are identified. Electronically Signed: Og Stock MD at 0:04 EDT , CC: TRIXIE Jasmine; Dr. Lisa Bowman MD Manuscript Editor: Signed Normal [facility] SCRN MAMM (CAD)W/MONAE BILATo n 06-02-2024 SCRN MAMM (CAD)W/MONAE BILAT [facility] Imaging Services [address] [place] [address] [id number] SCRN MAMM (CAD)W/MONAE BILAT MR#: [id number] Acct: [id number] Name: HANNAH NAVARRO Rep #: [id number] : 1970 F 53 From: Rosendo zhang MD PCP: Dr. Lisa Bowman MD Status: [facility] Study: SCRN MAMM (CAD)W/MONAE BILAT Date of Exam: 05/22 12/15 Exam# [id number] Ordering Dr: Veronica Jasmine NP [employer] SALESPERSON -C [id number] MAMMOGRAPHY - BILATERAL SCREENING REASON FOR EXAM: Female, 53 years old. Routine annual screening examination. PERTINENT HISTORY: Non-contributory. TECHNIQUE: Digital bilateral breast monae (3D mammographic acquisition) in the CC and MLO projections. 2-D mediolateral oblique (MLO) and craniocaudad (CC) views of both breasts were obtained. CAD: Full Field Digital Mammography with Computer Added Detection was performed. COMPARISON: Comparison is made with prior study of August 31, 2022 and June 10, 2019. FINDINGS: Breast Composition: The breasts are heterogeneously dense, which may obscure small masses. There are no dominant masses or suspicious calcifications. No other significant abnormalities are identified. There has been no significant change since the prior study. BI/SCRN MAMM (CAD)W/MONAE BILAT IMPRESSION: Stable bilateral screening mammogram. Yearly follow-up mammogram recommended. (A) ASSESSMENT CATEGORY: BIRADS Category 1: Negative. A letter regarding these results will be sent to the patient by the facility within 30 days. Approximately 10% of breast cancers are not detected by mammography. A normal mammogram should not delay biopsy of a clinically suspicious abnormality. [id number] Electronically Signed: Rosendo Almeida MD at 15:30 EDT , CC: TRIXIE Jasmine; Dr. Lisa Bowman MD Manuscript Editor: Signed Normal [facility] Basophil percentageOrdered B y: Lori Andersen on 01-14-2024 Hemoglobin (Bld) [Mass/Vol] 8.5 g/dL 12.0-15.0 [facility] WBC (Bld) [#/Vol] 8.0 10*3/uL 4.4-11.0 [facility] Blood manual differential co mment interpretation (narrative result)Ordered By: Lori Chackobing on 01-14-2024 Manual differential comment Matteo (Bld) [Interp] SCANNED [facility] Comment on above: ANISOCYTOSIS 2+POLYC HROMASIA 1+MICROCYTES 2+MACROCYTES 1+OVALOCYTES RARE Determination of erythrocyte mean corpuscular volume (MCV)Ordered By: Lori Andersen on 01-14-2024 MCV (RBC) [Entitic vol] 65.4 fL 81-99 [facility] Erythrocyte distribution wid th ratioOrdered By: Lori Andersen on 01-14-2024 Erythrocyte distribution width (RBC) [Ratio] 21.4 % 11.6-14.6 [facility] Erythrocyte distribution wid th standard deviationOrdered By: Lori Andersen on 01-14-2024 Erythrocyte distribution width (RBC) [Entitic vol] 47.4 fL 35.1-43.9 [facility] Hematocrit Auto (Bld) [Volum e fraction]Ordered By: Lori Andersen on 01-14-2024 Hematocrit (Bld) [Volume fraction] 32.3 % 37-47 [facility] Laboratory - Hematology and Cell countsOrdered By: Lori Andersen on 01-14-2024 MCH (RBC) [Entitic mass] 17.2 pg 27.0-32.0 [facility] MCHC (RBC) [Mass/Vol] 26.3 g/dL 32-36 [facility] Platelet mean volume (Bld) [Entitic vol] 10.9 fL 6.2-12.0 [facility] Platelets (Bld) [#/Vol] 466 10*3/uL 150-450 [facility] RBC Auto (Bld) [#/Vol]Ordere d By: Lori Andersen on 01-14-2024 RBC (Bld) [#/Vol] 4.94 10*6/uL 4.2-5.4 [facility] Stool gastrointestinal hemog lobin detection by immunologic methodOrdered By: Lori Andersen on 01-07-2024 Lower GI hemoglobin IA Ql (Stl) [facility] Absolute lymphocyte countOrd ered By: Lori Andersen on 01-04-2024 Lymphocytes Auto (Unsp spec) [#/Vol] 2.29 10*3/uL 0.83-4.51 [facility] Automated lymphocyte count a s percentage of total leukocytesOrdered By: Lori Andersen on 01-04-2024 Lymphocytes/100 WBC Auto (Unsp spec) 27.9 % 19-41 [facility] Basophil percentageOrdered B y: Lori Hollyrebecca on 01-04-2024 Basophils/100 WBC (Bld) 0.6 % 0-1 [facility] Eosinophils/100 WBC (Bld) 3.2 % 0-5 [facility] Hemoglobin (Bld) [Mass/Vol] 8.0 g/dL 12.0-15.0 [facility] Monocytes/100 WBC (Bld) 7.9 % 0-10 [facility] Neutrophils (Bld) [#/Vol] 4.9 10*3/uL 2.0-7.7 [facility] Neutrophils/100 WBC (Bld) 60.2 % 47-70 [facility] WBC (Bld) [#/Vol] 8.2 10*3/uL 4.4-11.0 [facility] Determination of erythrocyte mean corpuscular volume (MCV)Ordered By: Lori Andersen on 01-04-2024 MCV (RBC) [Entitic vol] 63.5 fL 81-99 [facility] Erythrocyte distribution wid th ratioOrdered By: Lori Andersen on 01-04-2024 Erythrocyte distribution width (RBC) [Ratio] 18.6 % 11.6-14.6 [facility] Erythrocyte distribution wid th standard deviationOrdered By: Lori Andersen on 01-04-2024 Erythrocyte distribution width (RBC) [Entitic vol] 41.6 fL 35.1-43.9 [facility] Hematocrit Auto (Bld) [Volum e fraction]Ordered By: Lori Andersen on 01-04-2024 Hematocrit (Bld) [Volume fraction] 30.5 % 37-47 [facility] Immature granulocytes/100 WB C Auto (Bld)Ordered By: Lori Andersen on 01-04-2024 Immature granulocytes/100 WBC (Bld) 0.200 % 0.0-0.9 [facility] Comment on above: IG% - Immature Granu locytes (promyelocytes, myelocytes and metamyelocytes) > 1% indicates that a LEFT SHIFT is Present. Iron measurement (mass/mass) Ordered By: Lori Andersen on 01-04-2024 Iron (Unsp spec) [Mass/Mass] 14 ug/dL 50-170 [facility] Laboratory - Chemistry and C hemistry - challengeOrdered By: Lori Ganesh on 01-04-2024 Ferritin [Mass/Vol] 3 ng/mL 8-252 [facility] Laboratory - Hematology and Cell countsOrdered By: Lori Ganesh on 01-04-2024 MCH (RBC) [Entitic mass] 16.7 pg 27.0-32.0 [facility] MCHC (RBC) [Mass/Vol] 26.2 g/dL 32-36 [facility] Nucleated RBC/100 WBC (Bld) [Ratio] 0 % 0-5 [facility] Platelet mean volume (Bld) [Entitic vol] 10.3 fL 6.2-12.0 [facility] Platelets (Bld) [#/Vol] 464 10*3/uL 150-450 [facility] No Panel InformationOrdered By: Lori Andersen on 01-04-2024 Total Iron Binding Capacity 533 ug/dL 250-450 [facility] RBC Auto (Bld) [#/Vol]Ordere d By: Lori Andersen on 01-04-2024 RBC (Bld) [#/Vol] 4.80 10*6/uL 4.2-5.4 [facility] Absolute lymphocyte countOrd ered By: Lisa Bowman on 01-03-2024 Lymphocytes Auto (Unsp spec) [#/Vol] 3.28 10*3/uL 0.83-4.51 [facility] Automated lymphocyte count a s percentage of total leukocytesOrdered By: Lisa Bowman on 01-03-2024 Lymphocytes/100 WBC Auto (Unsp spec) 34.2 % 19-41 [facility] Basophil percentageOrdered B y: Lisa Bowman on 01-03-2024 Basophils/100 WBC (Bld) 0.4 % 0-1 [facility] Bilirubin [Mass/Vol] 0.50 mg/dL 0.20-1.00 [facility] Comment on above: For patients on eltr ombopag therapy, use of Dimension Victor TBIL is not recommended. Chloride [Moles/Vol] 106 mmol/L 98-107 [facility] Cholesterol [Mass/Vol] 182 mg/dL <200 [facility] Comment on above: <200 mg/dL Desirable 200-240 mg/dL Borderline >240 mg/dL High Risk Eosinophils/100 WBC (Bld) 2.8 % 0-5 [facility] Glucose [Mass/Vol] 91 mg/dL 74-106 [facility] Hemoglobin (Bld) [Mass/Vol] 7.6 g/dL 12.0-15.0 [facility] Monocytes/100 WBC (Bld) 9.0 % 0-10 [facility] Neutrophils (Bld) [#/Vol] 5.1 10*3/uL 2.0-7.7 [facility] Neutrophils/100 WBC (Bld) 53.4 % 47-70 [facility] Potassium [Moles/Vol] 4.0 mmol/L 3.5-5.1 [facility] Protein [Mass/Vol] 7.7 g/dL 6.4-8.2 [facility] Sodium [Moles/Vol] 137 mmol/L 136-145 [facility] Triglyceride [Mass/Vol] 160 mg/dL <199 [facility] Comment on above: The drugs N-Acetylcy steine and Metamizole may falsely depress this assay.Serum Triglycerides Reference Interval Normal <150 mg/dL Borderline high 150 - 199 mg/dL High 200 - 499 mg/dL Very High > or = 500 mg/dL WBC (Bld) [#/Vol] 9.6 10*3/uL 4.4-11.0 [facility] Determination of erythrocyte mean corpuscular volume (MCV)Ordered By: Lisa Bowman on 01-03-2024 MCV (RBC) [Entitic vol] 62.6 fL 81-99 [facility] Erythrocyte distribution wid th ratioOrdered By: Lisa Bowman on 01-03-2024 Erythrocyte distribution width (RBC) [Ratio] 18.5 % 11.6-14.6 [facility] Erythrocyte distribution wid th standard deviationOrdered By: Lisa Bowman on 01-03-2024 Erythrocyte distribution width (RBC) [Entitic vol] 40.3 fL 35.1-43.9 [facility] Hematocrit Auto (Bld) [Volum e fraction]Ordered By: Lisa Bowman on 01-03-2024 Hematocrit (Bld) [Volume fraction] 28.3 % 37-47 [facility] Immature granulocytes/100 WB C Auto (Bld)Ordered By: Lisa Bowman on 01-03-2024 Immature granulocytes/100 WBC (Bld) 0.200 % 0.0-0.9 [facility] Comment on above: IG% - Immature Granu locytes (promyelocytes, myelocytes and metamyelocytes) > 1% indicates that a LEFT SHIFT is Present. Laboratory - Chemistry and C hemistry - challengeOrdered By: Lisa Bowman on 01-03-2024 Albumin/Globulin [Mass ratio] 0.9 {ratio} 0.9-2.4 [facility] ALP [Catalytic activity/Vol] 61 U/L 45-117 [facility] ALT [Catalytic activity/Vol] 28 U/L 13-56 [facility] Cholesterol in HDL [Mass/Vol] 46 mg/dL >40 [facility] Comment on above: The drugs N-Acetylcy steine and Metamizole may falsely depress this assay. Reference Range HDL <40 mg/dL Low HDL Cholesterol HDL >or= 60 mg/dL High HDL Cholesterol Cholesterol in LDL [Mass/Vol] 104 mg/dL 0-130 [facility] CO2 [Moles/Vol] 23.0 mmol/L 21.0-32.0 [facility] Globulin (S) [Mass/Vol] 4.0 g/dL 2.2-4.2 [facility] Magnesium [Mass/Vol] 2.3 mg/dL 1.6-2.6 [facility] Urea nitrogen/Creatinine [Mass ratio] 10.2 mg/mg 10-20 [facility] Laboratory - Hematology and Cell countsOrdered By: Lisa Bowman on 01-03-2024 MCH (RBC) [Entitic mass] 16.8 pg 27.0-32.0 [facility] MCHC (RBC) [Mass/Vol] 26.9 g/dL 32-36 [facility] Nucleated RBC/100 WBC (Bld) [Ratio] 0 % 0-5 [facility] Platelet mean volume (Bld) [Entitic vol] 10.1 fL 6.2-12.0 [facility] Platelets (Bld) [#/Vol] 494 10*3/uL 150-450 [facility] No Panel InformationOrdered By: Lisa Bowman on 01-03-2024 Estimated GFR (MDRD) Amer 98 mL/min >60 [facility] Comment on above: GFR Calc Estimated GFR (MDRD) Non-Af Amer 81 mL/min >60 [facility] Comment on above: Non- GFR Calc VLDL Cholesterol 32 mg/dL 5-40 [facility] RBC Auto (Bld) [#/Vol]Ordere d By: Lisa Bowman on 01-03-2024 RBC (Bld) [#/Vol] 4.52 10*6/uL 4.2-5.4 [facility] Serum or plasma calcium chucho urement (mass/volume)Ordered By: Lisa Bowman on 01-03-2024 Calcium [Mass/Vol] 9.0 mg/dL 8.5-10.1 [facility] Serum or plasma creatinine m easurement (mass/volume)Ordered By: Lisa Bowman on 01-03-2024 Creatinine [Mass/Vol] 0.78 mg/dL 0.55-1.02 [facility] Comment on above: The validity of the calculated GFR & GFRAA in patients over 70 years has not been determined. Clinical correlation is essential. Serum or plasma thyroid stim ulating hormone (TSH) measurement (units/volume)Ordered By: Lisa Bowman on 01-03-2024 TSH Qn 1.70 uIU/mL 0.358-3.74 [facility] Serum or plasma urea nitroge n measurement (mass/volume)Ordered By: Lisa Bowman on 01-03-2024 Urea nitrogen [Mass/Vol] 8 mg/dL 7-18 [facility] Thin prep Papanicolaou smear with manual screeningOrdered By: Lisa Bowman on 01-03-2024 Thin prep Papanicolaou smear with manual screening 3.7 g/dL 3.2-5.0 [facility] Thin prep Papanicolaou smear with manual screening 15 U/L 15-37 [facility] Thin prep Papanicolaou smear with manual screening 8 5-15 [facility] Laboratory - Microbiology an d Antimicrobial susceptibilityon 12-25-2023 SARS-CoV-2 (COVID-19) RNA JERALD+probe Ql (Unsp spec) Not detected [facility] No Panel Informationon 12-24 Influenza Types A,B Rapid (Clinic) Not detected [facility] CNPNon 09-24-2023 CNPN Telephone (OPHTMN) HANNAH NAVARRO ([id number]) 1970 F Date Time Provider Department 09/24/23 SARTHAK JEROME OPHRoula During your visit today, we recorded the following information about you: Monica Blankenship 09/24/2023 10:[address] Rodriguez [facility] referring pt to you. High IOP uncontrolled under medication, moderate glaucoma. Would like patient seen this week if possible 09/24/23. Please call [facility] with appt into [phone] Please advise re appointment Faxing today's office notes and VF Monica Blankenship 09/24/2023 1:25 PM Signed View All Conversations on this Encounter Sarthak Jerome MD You 1 hour ago (11:30 AM) Add on to placentia 10/01 open new patient slot, but tell patient to come in before 3pm Monica Blankenship 09/24/2023 1:25 PM Signed The appointment needs a referral, called second floor appt desk, Bonnie will do referral and appt, can call be back [facility] appt. Monica Blankenship 09/24/2023 2:12 PM Signed Bonnie scheduled appt, I called the pt and [facility] with info regarding appointment Allergies As of Date: 09/24/2023 (Not on File) Date Reviewed: Never Reviewed Problem List As Of Date: 09/24/2023 (None) Encounter Status:Closed by MONICA BLANKENSHIP on 09/25/23 [facility] counton 07-22-2022 Lymphocytes Auto (Unsp spec) [#/Vol] 3.51 10*3/uL 0.83-4.51 [facility] Work Phone: [phone] Basophil percentageon 2021 Basophils/100 WBC (Bld) 0.4 % 0-1 [facility] Work Phone: Chloride [Moles/Vol] 106 mmol/L 98-107 [facility] Work Phone: [phone] Eosinophils/100 WBC (Bld) 2.3 % 0-5 [facility] Work Phone: [phone] Glucose [Mass/Vol] 103 mg/dL 74-106 [facility] Work Phone: [phone] Comment on above: Fasting Glucose resu lt from 100 to 125 mg/dL suggests IMPAIRED HOMEOSTASIS per A.D.A. criteria. Neutrophils (Bld) [#/Vol] 6.0 10*3/uL 2.0-7.7 [facility] Work Phone: [phone] Neutrophils/100 WBC (Bld) 55.7 % 47-70 [facility] Work Phone: [phone] Potassium [Moles/Vol] 4.2 mmol/L 3.5-5.1 [facility] Work Phone: [phone] Sodium [Moles/Vol] 140 mmol/L 136-145 [facility] Work Phone: [phone] WBC (Bld) [#/Vol] 10.8 10*3/uL 4.4-11.0 [facility] Work Phone: [phone] Blood erythrocytes count (nu mber/volume)on 07-22-2022 RBC (Bld) [#/Vol] 4.68 10*6/uL 4.2-5.4 [facility] Work Phone: [phone] Blood hemoglobin measurement (mass/volume)on 07-22-2022 Hemoglobin (Bld) [Mass/Vol] 11.1 g/dL 12.0-15.0 [facility] Work Phone: Blood lymphocytes/100 leukoc yteson 07-22-2022 Lymphocytes/100 WBC (Bld) 32.6 % 19-41 [facility] Work Phone: Blood monocytes/100 leukocyt eson 07-22-2022 Monocytes/100 WBC (Bld) 8.6 % 0-10 [facility] Work Phone: Blood platelet mean volumeon 07-22-2022 Platelet mean volume (Bld) [Entitic vol] 9.9 fL 6.2-12.0 [facility] Work Phone: Determination of erythrocyte mean corpuscular volume (MCV)on 07-22-2022 MCV (RBC) [Entitic vol] 75.6 fL 81-99 [facility] Work Phone: Hematocrit Auto (Bld) [Volum e fraction]on 07-22-2022 Hematocrit (Bld) [Volume fraction] 35.4 % 37-47 [facility] Work Phone: Laboratory - Chemistry and C hemistry - challengeon 07-22-2022 CO2 [Moles/Vol] 26.0 mmol/L 21.0-32.0 [facility] Work Phone: Urea nitrogen/Creatinine [Mass ratio] 14.1 mg/mg 10-20 [facility] Work Phone: Laboratory - Hematology and Cell countson 07-22-2022 Erythrocyte distribution width (RBC) [Entitic vol] 40.7 fL 35.1-43.9 [facility] Work Phone: Erythrocyte distribution width (RBC) [Ratio] 15.2 % 11.6-14.6 [facility] Work Phone: Immature granulocytes/100 WBC (Bld) 0.400 % 0.0-0.9 [facility] Work Phone: Comment on above: IG% - Immature Granu locytes (promyelocytes, myelocytes and metamyelocytes) > 1% indicates that a LEFT SHIFT is Present. MCH (RBC) [Entitic mass] 23.7 pg 27.0-32.0 [facility] Work Phone: Nucleated RBC/100 WBC (Bld) [Ratio] 0 % 0-5 [facility] Work Phone: MCHC Auto (RBC) [Mass/Vol]on 07-22-2022 MCHC (RBC) [Mass/Vol] 31.4 g/dL 32-36 [facility] Work Phone: No Panel Informationon 07-22 D-Dimer Quantitative (PE/DVT) < 0.27 FEU/ug/m 0.27-0.49 [facility] Work Phone: Comment on above: NORMAL D-Dimer level (<0.50) indicates no DVT or PE. Estimated Creatinine Clearance Calc 75.29 ml/min [facility] Work Phone: Estimated GFR (MDRD) Amer 90 mL/min >60 [facility] Work Phone: Comment on above: GFR Calc Estimated GFR (MDRD) Non-Af Amer 75 mL/min >60 [facility] Work Phone: Comment on above: Non- GFR Calc Platelets bldon 07-22-2022 Platelets (Bld) [#/Vol] 410 10*3/uL 150-450 [facility] Work Phone: Serum or plasma calcium chucho urement (mass/volume)on 07-22-2022 Calcium [Mass/Vol] 8.5 mg/dL 8.5-10.1 [facility] Work Phone: Serum or plasma creatinine m easurement (mass/volume)on 07-22-2022 Creatinine [Mass/Vol] 0.85 mg/dL 0.55-1.02 [facility] Work Phone: Comment on above: The validity of the calculated GFR & GFRAA in patients over 70 years has not been determined. Clinical correlation is essential. Serum or plasma urea nitroge n measurement (mass/volume)on 07-22-2022 Urea nitrogen [Mass/Vol] 12 mg/dL 7-18 [facility] Work Phone: Thin prep Papanicolaou smear with manual screeningon 07-22-2022 Thin prep Papanicolaou smear with manual screening 8 5-15 [facility] Work Phone: Absolute lymphocyte counton 07-21-2022 Lymphocytes Auto (Unsp spec) [#/Vol] 3.49 10*3/uL 0.83-4.51 [facility] Work Phone: Basophil percentageon 2021 Basophils/100 WBC (Bld) 0.4 % 0-1 [facility] Work Phone: Bilirubin [Mass/Vol] 0.30 mg/dL 0.20-1.00 [facility] Work Phone: Comment on above: For patients on eltr ombopag therapy, use of Dimension Victor TBIL is not recommended. Chloride [Moles/Vol] 107 mmol/L 98-107 [facility] Work Phone: Eosinophils/100 WBC (Bld) 1.3 % 0-5 [facility] Work Phone: Glucose [Mass/Vol] 104 mg/dL 74-106 [facility] Work Phone: Comment on above: Fasting Glucose resu lt from 100 to 125 mg/dL suggests IMPAIRED HOMEOSTASIS per A.D.A. criteria. Neutrophils (Bld) [#/Vol] 8.2 10*3/uL 2.0-7.7 [facility] Work Phone: Neutrophils/100 WBC (Bld) 62.9 % 47-70 [facility] Work Phone: Potassium [Moles/Vol] 4.0 mmol/L 3.5-5.1 [facility] Work Phone: Protein [Mass/Vol] 8.1 g/dL 6.4-8.2 [facility] Work Phone: Sodium [Moles/Vol] 139 mmol/L 136-[facility]: WBC (Bld) [#/Vol] 13.1 10*3/uL 4.4-11.0 [facility] Work Phone: Blood erythrocytes count (nu mber/volume)on 07-21-2022 RBC (Bld) [#/Vol] 5.10 10*6/uL 4.2-5.4 [facility] Work Phone: Blood hemoglobin measurement (mass/volume)on 07-21-2022 Hemoglobin (Bld) [Mass/Vol] 11.7 g/dL 12.0-15.0 [facility] Work Phone: Blood lymphocytes/100 leukoc yteson 07-21-2022 Lymphocytes/100 WBC (Bld) 26.7 % 19-41 [facility] Work Phone: Blood monocytes/100 leukocyt eson 07-21-2022 Monocytes/100 WBC (Bld) 8.3 % 0-10 [facility] Work Phone: Blood platelet mean volumeon 07-21-2022 Platelet mean volume (Bld) [Entitic vol] 9.7 fL 6.2-12.0 [facility] Work Phone: Determination of erythrocyte mean corpuscular volume (MCV)on 07-21-2022 MCV (RBC) [Entitic vol] 75.7 fL 81-99 [facility] Work Phone: Hematocrit Auto (Bld) [Volum e fraction]on 07-21-2022 Hematocrit (Bld) [Volume fraction] 38.6 % 37-47 [facility] Work Phone: INR in Blood by Coagulation assayon 07-21-2022 INR Coag (Bld) [Relative time] 1.0 {INR} [facility] Work Phone: Laboratory - Chemistry and C hemistry - challengeon 07-21-2022 ALP [Catalytic activity/Vol] 61 U/L 45-117 [facility] Work Phone: ALT [Catalytic activity/Vol] 20 U/L 13-56 [facility] Work Phone: CO2 [Moles/Vol] 24.0 mmol/L 21.0-32.0 [facility] Work Phone: [phone] Globulin (S) [Mass/Vol] 4.6 g/dL 2.2-4.2 [facility] Work Phone: Magnesium [Mass/Vol] 2.1 mg/dL 1.6-2.6 [facility] Work Phone: Urea nitrogen/Creatinine [Mass ratio] 15.9 mg/mg 10-20 [facility] Work Phone: Laboratory - Coagulationon 0 07-21-2022 aPTT Coag (Bld) [Time] 24.4 s 24.1-36.2 [facility] Work Phone: PT Coag (PPP) [Time] 13.2 s 11.7-14.9 [facility] Work Phone: Laboratory - Hematology and Cell countson 07-21-2022 Erythrocyte distribution width (RBC) [Entitic vol] 40.2 fL 35.1-43.9 [facility] Work Phone: [phone] Erythrocyte distribution width (RBC) [Ratio] 14.9 % 11.6-14.6 [facility] Work Phone: [phone] Immature granulocytes/100 WBC (Bld) 0.400 % 0.0-0.9 [facility] Work Phone: [phone] Comment on above: IG% - Immature Granu locytes (promyelocytes, myelocytes and metamyelocytes) > 1% indicates that a LEFT SHIFT is Present. MCH (RBC) [Entitic mass] 22.9 pg 27.0-32.0 [facility] Work Phone: [phone] Nucleated RBC/100 WBC (Bld) [Ratio] 0 % 0-5 [facility] Work Phone: MCHC Auto (RBC) [Mass/Vol]on 07-21-2022 MCHC (RBC) [Mass/Vol] 30.3 g/dL 32-36 [facility] Work Phone: No Panel Informationon 07-21 Estimated Creatinine Clearance Calc 72.72 ml/min [facility] Work Phone: Estimated GFR (MDRD) Amer 87 mL/min >60 [facility] Work Phone: Comment on above: GFR Calc Estimated GFR (MDRD) Non-Af Amer 72 mL/min >60 [facility] Work Phone: Comment on above: Non- GFR Calc Thyroid Stimulating Hormone (TSH) 2.36 uIU/mL 0.358-3.74 [facility] Work Phone: Troponin I High Sensitivity 15 pg/mL 3.0-54.0 [facility] Work Phone: Comment on above: Please Note: New Lety t Units and Gender Specific Reference Ranges. For more information see Policy Stat Procedure Victor High Sensitivity Troponin (TNIH) and attachments. Platelets bldon 07-21-2022 Platelets (Bld) [#/Vol] 508 10*3/uL 150-450 [facility] Work Phone: Serum or plasma albumin chucho urement (mass/volume)on 07-21-2022 Albumin [Mass/Vol] 3.5 g/dL 3.2-5.0 [facility] Work Phone: Serum or plasma albumin/glob ulin mass ratioon 07-21-2022 Albumin/Globulin [Mass ratio] 0.8 {ratio} 0.9-2.4 [facility] Work Phone: Serum or plasma calcium chucho urement (mass/volume)on 07-21-2022 Calcium [Mass/Vol] 9.1 mg/dL 8.5-10.1 [facility] Work Phone: Serum or plasma creatinine m easurement (mass/volume)on 07-21-2022 Creatinine [Mass/Vol] 0.88 mg/dL 0.55-1.02 [facility] Work Phone: Comment on above: The validity of the calculated GFR & GFRAA in patients over 70 years has not been determined. Clinical correlation is essential. Serum or plasma urea nitroge n measurement (mass/volume)on 07-21-2022 Urea nitrogen [Mass/Vol] 14 mg/dL 7-18 [facility] Work Phone: Thin prep Papanicolaou smear with manual screeningon 07-21-2022 Thin prep Papanicolaou smear with manual screening 11 U/L 15-37 [facility] Work Phone: Thin prep Papanicolaou smear with manual screening 8 5-15 [facility] Work Phone: Absolute lymphocyte counton 07-20-2022 Lymphocytes Auto (Unsp spec) [#/Vol] 5.38 10*3/uL 0.83-4.51 [facility] Work Phone: Basophil percentageon 2021 Basophils/100 WBC (Bld) 0.5 % 0-1 [facility] Work Phone: [phone] Chloride [Moles/Vol] 104 mmol/L 98-107 [facility] Work Phone: Eosinophils/100 WBC (Bld) 1.6 % 0-5 [facility] Work Phone: Glucose [Mass/Vol] 144 mg/dL 74-106 [facility] Work Phone: Comment on above: Fasting Glucose resu lt greater than or equal to 126 mg/dL suggests DIABETES MELLITUS per A.D.A. criteria. Neutrophils (Bld) [#/Vol] 9.9 10*3/uL 2.0-7.7 [facility] Work Phone: Neutrophils/100 WBC (Bld) 57.9 % 47-70 [facility] Work Phone: Potassium [Moles/Vol] 3.5 mmol/L 3.5-5.1 [facility] Work Phone: Sodium [Moles/Vol] 139 mmol/L 136-145 [facility] Work Phone: WBC (Bld) [#/Vol] 17.1 10*3/uL 4.4-11.0 [facility] Work Phone: Blood erythrocytes count (nu mber/volume)on 07-20-2022 RBC (Bld) [#/Vol] 5.42 10*6/uL 4.2-5.4 [facility] Work Phone: Blood hemoglobin measurement (mass/volume)on 07-20-2022 Hemoglobin (Bld) [Mass/Vol] 12.4 g/dL 12.0-15.0 [facility] Work Phone: Blood lymphocytes/100 leukoc yteson 07-20-2022 Lymphocytes/100 WBC (Bld) 31.4 % 19-41 [facility] Work Phone: Blood manual differential co mment interpretation (narrative result)on 07-20-2022 Manual differential comment Matteo (Bld) [Interp] COMMENT [facility] Work Phone: Comment on above: LYMPHOCYTOSIS. Blood monocytes/100 leukocyt eson 07-20-2022 Monocytes/100 WBC (Bld) 8.2 % 0-10 [facility] Work Phone: Blood platelet mean volumeon 07-20-2022 Platelet mean volume (Bld) [Entitic vol] 9.9 fL 6.2-12.0 [facility] Work Phone: Determination of erythrocyte mean corpuscular volume (MCV)on 07-20-2022 MCV (RBC) [Entitic vol] 76.9 fL 81-99 [facility] Work Phone: Hematocrit Auto (Bld) [Volum e fraction]on 07-20-2022 Hematocrit (Bld) [Volume fraction] 41.7 % 37-47 [facility] Work Phone: INR in Blood by Coagulation assayon 07-20-2022 INR Coag (Bld) [Relative time] 1.1 {INR} [facility] Work Phone: Laboratory - Chemistry and C hemistry - challengeon 07-20-2022 CO2 [Moles/Vol] 24.0 mmol/L 21.0-32.0 [facility] Work Phone: Magnesium [Mass/Vol] 1.7 mg/dL 1.6-2.6 [facility] Work Phone: Urea nitrogen/Creatinine [Mass ratio] 15.8 mg/mg 10-20 [facility] Work Phone: Laboratory - Coagulationon 0 07-20-2022 aPTT Coag (Bld) [Time] 26.7 s 24.1-36.2 [facility] Work Phone: PT Coag (PPP) [Time] 13.5 s 11.7-14.9 [facility] Work Phone: Laboratory - Hematology and Cell countson 07-20-2022 Erythrocyte distribution width (RBC) [Entitic vol] 39.7 fL 35.1-43.9 [facility] Work Phone: Erythrocyte distribution width (RBC) [Ratio] 14.7 % 11.6-14.6 [facility] Work Phone: Immature granulocytes/100 WBC (Bld) 0.400 % 0.0-0.9 [facility] Work Phone: Comment on above: IG% - Immature Granu locytes (promyelocytes, myelocytes and metamyelocytes) > 1% indicates that a LEFT SHIFT is Present. MCH (RBC) [Entitic mass] 22.9 pg 27.0-32.0 [facility] Work Phone: Nucleated RBC/100 WBC (Bld) [Ratio] 0 % 0-5 [facility] Work Phone: MCHC Auto (RBC) [Mass/Vol]on 07-20-2022 MCHC (RBC) [Mass/Vol] 29.7 g/dL 32-36 [facility] Work Phone: No Panel Informationon 07-20 Troponin I High Sensitivity 48 pg/mL 3.0-54.0 [facility] Work Phone: Comment on above: Please Note: New Lety t Units and Gender Specific Reference Ranges. For more information see Policy Stat Procedure Victor High Sensitivity Troponin (TNIH) and attachments. Estimated Creatinine Clearance Calc 67.36 ml/min [facility] Work Phone: Estimated GFR (MDRD) Amer 79 mL/min >60 [facility] Work Phone: Comment on above: GFR Calc Estimated GFR (MDRD) Non-Af Amer 66 mL/min >60 [facility] Work Phone: Comment on above: Non- GFR Calc Platelets bldon 07-20-2022 Platelets (Bld) [#/Vol] 561 10*3/uL 150-450 [facility] Work Phone: Serum or plasma calcium chucho urement (mass/volume)on 07-20-2022 Calcium [Mass/Vol] 9.6 mg/dL 8.5-10.1 [facility] Work Phone: Serum or plasma creatinine m easurement (mass/volume)on 07-20-2022 Creatinine [Mass/Vol] 0.95 mg/dL 0.55-1.02 [facility] Work Phone: Comment on above: The validity of the calculated GFR & GFRAA in patients over 70 years has not been determined. Clinical correlation is essential. Serum or plasma urea nitroge n measurement (mass/volume)on 07-20-2022 Urea nitrogen [Mass/Vol] 15 mg/dL 7-18 [facility] Work Phone: Thin prep Papanicolaou smear with manual screeningon 07-20-2022 Thin prep Papanicolaou smear with manual screening 11 5-15 [facility] Work Phone: No Panel Information [facility] Vital Signs Date Time Vital Sign Value Performing Clinician Brando richey 06-01-2025 12:58-0400 Body height 170.[address] Lisa Bowman MD Work Phone: [facility] 06-01-2025 12:58-0400 Body mass index (BMI) [Ratio] 31.1 kg/m2 Dr. Lisa Bowman MD Work Phone: [facility] 06-01-2025 12:58-0400 Body temperature 97.4 [degF] Dr. Lisa Bowman MD Work Phone: [facility] 06-01-2025 12:58-0400 Body weight 90.[address] Lisa Bowman MD Work Phone: [facility] 06-01-2025 12:58-0400 Diastolic blood pressure 76 mm[Hg] Dr. Lisa Bowman MD Work Phone: [facility] 06-01-2025 12:58-0400 Heart rate 76 /min Dr. Lisa Bowman MD Work Phone: [facility] 06-01-2025 12:58-0400 Respiratory rate 16 /min Dr. Lisa Bowman MD Work Phone: [facility] 06-01-2025 12:58-0400 SaO2% (BldA) [Mass fraction] 97 % Dr. Lisa Bowman MD Work Phone: [facility] 06-01-2025 12:58-0400 Systolic blood pressure 124 mm[Hg] Dr. Lisa Bowman MD Work Phone: [facility] 03-13-2025 10:56-0400 Body temperature 97 [degF] Dr. Lisa Bowman MD Work Phone: [facility] 03-13-2025 10:56-0400 Diastolic blood pressure 78 mm[Hg] Dr. Lisa Bowman MD Work Phone: [facility] 03-13-2025 10:56-0400 Heart rate 69 /min Dr. Lisa Bowman MD Work Phone: [facility] 03-13-2025 10:56-0400 Respiratory rate 16 /min Dr. Lisa Bowman MD Work Phone: [facility] 03-13-2025 10:56-0400 SaO2% (BldA) [Mass fraction] 99 % Dr. Lisa Bowman MD Work Phone: [facility] 03-13-2025 10:56-0400 Systolic blood pressure 117 mm[Hg] Dr. Lisa Bowman MD Work Phone: [facility] 03-13-2025 10:06-0400 Body mass index (BMI) [Ratio] 29.5 kg/m2 Dr. Lisa Bowman MD Work Phone: [facility] 03-13-2025 10:06-0400 Body weight 85.[address] Lisa Bowman MD Work Phone: [facility] 03-12-2025 08:04-0400 Body mass index (BMI) [Ratio] 29.7 kg/m2 Dr. Lisa Bowman MD Work Phone: [facility] 03-12-2025 08:04-0400 Body weight 86.[address] Lisa Bowman MD Work Phone: [facility] 03-12-2025 08:04-0400 Diastolic blood pressure 78 mm[Hg] Dr. Lisa Bowman MD Work Phone: [facility] 03-12-2025 08:04-0400 Heart rate 64 /min Dr. Lisa Bowman MD Work Phone: [facility] 03-12-2025 08:04-0400 SaO2% (BldA) [Mass fraction] 95 % Dr. Lisa Bowman MD Work Phone: [facility] 03-12-2025 08:04-0400 Systolic blood pressure 114 mm[Hg] Dr. Lisa Bowman MD Work Phone: [facility] 02-26-2025 08:34-0400 Body mass index (BMI) [Ratio] 30.2 kg/m2 Dr. Lisa Bowman MD Work Phone: [facility] 02-26-2025 08:34-0400 Body temperature 97.6 [degF] Dr. Lisa Bowman MD Work Phone: [facility] 02-26-2025 08:34-0400 Body weight 87.[address] Lisa Bowman MD Work Phone: [facility] 02-26-2025 08:34-0400 Diastolic blood pressure 81 mm[Hg] Dr. Lisa Bowman MD Work Phone: [facility] 02-26-2025 08:34-0400 Heart rate 63 /min Dr. Lisa Bowman MD Work Phone: [facility] 02-26-2025 08:34-0400 Respiratory rate 18 /min Dr. Lisa Bowman MD Work Phone: [facility] 02-26-2025 08:34-0400 SaO2% (BldA) [Mass fraction] 99 % Dr. Lisa Bowman MD Work Phone: [facility] 02-26-2025 08:34-0400 Systolic blood pressure 115 mm[Hg] Dr. Lisa Bowman MD Work Phone: [facility] 01-07-2024 16:01-0400 Body height 170.[address] Lisa Bowman Work Phone: [facility] 01-07-2024 16:01-0400 Body mass index (BMI) [Ratio] 31 kg/m2 Dr. Lisa Bowman Work Phone: [facility] 01-07-2024 16:01-0400 Body temperature 97.4 [degF] Dr. Lisa Bowman Work Phone: [facility] 01-07-2024 16:01-0400 Body weight 89.[address] Lisa Bowman Work Phone: [facility] 01-07-2024 16:01-0400 Diastolic blood pressure 70 mm[Hg] Dr. Lisa Bowman Work Phone: [facility] 01-07-2024 16:01-0400 Heart rate 76 /min Dr. Lisa Bowman Work Phone: [facility] 01-07-2024 16:01-0400 Respiratory rate 16 /min Dr. Lisa Bowman Work Phone: [facility] 01-07-2024 16:01-0400 SaO2% (BldA) [Mass fraction] 98 % Dr. Lisa Bowman Work Phone: [facility] 01-07-2024 16:01-0400 Systolic blood pressure 120 mm[Hg] Dr. Lisa Bowman Work Phone: [facility] 01-04-2024 11:04-0400 Diastolic blood pressure 70 mm[Hg] Dr. Lisa Bowman Work Phone: [facility] 01-04-2024 11:04-0400 Heart rate 82 /min Dr. Lisa Bowman Work Phone: [facility] 01-04-2024 11:04-0400 Systolic blood pressure 118 mm[Hg] Dr. Lisa Bowman Work Phone: [facility] 12-25-2023 12:47-0500 Body temperature 97.8 [degF] Dr. Lisa Bowman Work Phone: [facility] 12-25-2023 12:47-0500 Diastolic blood pressure 78 mm[Hg] Dr. Lisa Bowman Work Phone: [facility] 12-25-2023 12:47-0500 Heart rate 72 /min Dr. Lisa Bowman Work Phone: [facility] 12-25-2023 12:47-0500 Respiratory rate 14 /min Dr. Lisa Bowman Work Phone: [facility] 12-25-2023 12:47-0500 SaO2% (BldA) [Mass fraction] 99 % Dr. Lisa Bowman Work Phone: [facility] [facility] 12-25-2023 12:47-0500 Systolic blood pressure 130 mm[Hg] Dr. Lisa Bowman Work Phone: [facility] 11-19-2023 10:01-0500 Body mass index (BMI) [Ratio] 32.8 kg/m2 Dr. Lisa Bowman Work Phone: [facility] 11-19-2023 10:01-0500 Body weight 95.[address] Lisa Bowman Work Phone: [facility] 11-19-2023 10:01-0500 Diastolic blood pressure 77 mm[Hg] Dr. Lisa Bowman Work Phone: [facility] 11-19-2023 10:01-0500 Heart rate 62 /min Dr. Lisa Bowman Work Phone: [facility] 11-19-2023 10:01-0500 Respiratory rate 18 /min Dr. Lisa Bowman Work Phone: [facility] 11-19-2023 10:01-0500 SaO2% (BldA) [Mass fraction] 98 % Dr. Lisa Bowman Work Phone: [facility] 11-19-2023 10:01-0500 Systolic blood pressure 129 mm[Hg] Dr. Lisa Bowman Work Phone: [facility] 08-17-2022 15:23-0400 Body height 170.18 cm No Primary Care Physician [facility] Work Phone: 08-17-2022 15:23-0400 Body mass index (BMI) [Ratio] 30.7 kg/m2 No Primary Care Physician [facility] Work Phone: 08-17-2022 15:23-0400 Body weight 88.9 kg No Primary Care Physician [facility] Work Phone: 08-17-2022 15:23-0400 Diastolic blood pressure 83 mm[Hg] No Primary Care Physician [facility] Work Phone: 08-17-2022 15:23-0400 Heart rate 83 /min No Primary Care Physician [facility] Work Phone: 08-17-2022 15:23-0400 Respiratory rate 18 /min No Primary Care Physician [facility] Work Phone: 08-17-2022 15:23-0400 SaO2% (BldA) [Mass fraction] 94 % No Primary Care Physician [facility] Work Phone: 08-17-2022 15:23-0400 Systolic blood pressure 130 mm[Hg] No Primary Care Physician [facility] Work Phone: 07-31-2022 09:09-0400 Body mass index (BMI) [Ratio] 31.4 kg/m2 No Primary Care Physician [facility] Work Phone: 07-31-2022 09:09-0400 Body temperature 98.5 [degF] No Primary Care Physician [facility] Work Phone: 07-31-2022 09:09-0400 Body weight 91.17 kg No Primary Care Physician [facility] Work Phone: 07-31-2022 09:09-0400 Diastolic blood pressure 74 mm[Hg] No Primary Care Physician [facility] Work Phone: 07-31-2022 09:09-0400 Heart rate 82 /min No Primary Care Physician [facility] Work Phone: 07-31-2022 09:09-0400 Respiratory rate 14 /min No Primary Care Physician [facility] Work Phone: 07-31-2022 09:09-0400 SaO2% (BldA) [Mass fraction] 99 % No Primary Care Physician [facility] Work Phone: 07-31-2022 09:09-0400 Systolic blood pressure 112 mm[Hg] No Primary Care Physician [facility] Work Phone: 07-22-2022 14:18-0400 Body temperature 97.2 [degF] No Primary Care Physician [facility] Work Phone: 07-22-2022 14:18-0400 Diastolic blood pressure 71 mm[Hg] No Primary Care Physician [facility] Work Phone: 07-22-2022 14:18-0400 Heart rate 81 /min No Primary Care Physician [facility] Work Phone: 07-22-2022 14:18-0400 Respiratory rate 16 /min No Primary Care Physician [facility] Work Phone: 07-22-2022 14:18-0400 SaO2% (BldA) [Mass fraction] 95 % No Primary Care Physician [facility] Work Phone: 07-22-2022 14:18-0400 Systolic blood pressure 107 mm[Hg] No Primary Care Physician [facility] Work Phone: 07-21-2022 17:10-0400 Body height 170.18 cm No Primary Care Physician [facility] Work Phone: 07-21-2022 17:10-0400 Body mass index (BMI) [Ratio] 30.9 kg/m2 No Primary Care Physician [facility] Work Phone: 07-21-2022 17:10-0400 Body weight 89.4 kg No Primary Care Physician [facility] Work Phone: 07-21-2022 16:32-0400 Diastolic blood pressure 97 mm[Hg] No Primary Care Physician [facility] Work Phone: 07-21-2022 16:32-0400 Heart rate 140 /min No Primary Care Physician [facility] Work Phone: 07-21-2022 16:32-0400 Respiratory rate 16 /min No Primary Care Physician [facility] Work Phone: 07-21-2022 16:32-0400 Systolic blood pressure 119 mm[Hg] No Primary Care Physician [facility] Work Phone: 07-21-2022 16:15-0400 Body temperature 98 [degF] No Primary Care Physician [facility] Work Phone: 07-21-2022 16:15-0400 SaO2% (BldA) [Mass fraction] 96 % No Primary Care Physician [facility] Work Phone: 07-21-2022 14:32-0400 Body mass index (BMI) [Ratio] 31.1 kg/m2 No Primary Care Physician [facility] Work Phone: 07-21-2022 14:32-0400 Body weight 90.26 kg No Primary Care Physician [facility] Work Phone: 07-21-2022 13:13-0400 Body height 170.18 cm No Primary Care Physician [facility] Work Phone: 07-21-2022 13:13-0400 Body mass index (BMI) [Ratio] 31.2 kg/m2 No Primary Care Physician [facility] Work Phone: 07-21-2022 13:13-0400 Body weight 90.43 kg No Primary Care Physician [facility] Work Phone: 07-21-2022 13:13-0400 Diastolic blood pressure 76 mm[Hg] No Primary Care Physician [facility] Work Phone: 07-21-2022 13:13-0400 Heart rate 140 /min No Primary Care Physician [facility] Work Phone: 07-21-2022 13:13-0400 Respiratory rate 16 /min No Primary Care Physician [facility] Work Phone: 07-21-2022 13:13-0400 Systolic blood pressure 134 mm[Hg] No Primary Care Physician [facility] Work Phone: 07-20-2022 13:00-0400 Diastolic blood pressure 58 mm[Hg] [facility] Work Phone: 07-20-2022 13:00-0400 Heart rate 82 /min [facility] Work Phone: 07-20-2022 13:00-0400 Respiratory rate 17 /min [facility] Work Phone: 07-20-2022 13:00-0400 SaO2% (BldA) [Mass fraction] 96 % [facility] Work Phone: 07-20-2022 13:00-0400 Systolic blood pressure 108 mm[Hg] [facility] Work Phone: 07-20-2022 08:46-0400 Body height 170.18 cm [facility] Work Phone: 07-20-2022 08:46-0400 Body mass index (BMI) [Ratio] 31.6 kg/m2 [facility] Work Phone: 07-20-2022 08:46-0400 Body temperature 96.7 [degF] [facility] Work Phone: 07-20-2022 08:46-0400 Body weight 91.8 kg [facility] Work Phone: Encounters Encounter Date Encounter Type Care Provider Facility Start: 06-09-2025 ambulatory Lisa Bowman Facility :[facility] Start: 06-02-2025 ambulatory Lisa Bowman Facility :[facility] Start: 06-01-2025 End: 06-01-[address] Lisa Bowman MD -[facility] Work Phone: Start: 06-01-2025 End: 06-01-[address] Lisa Bowman MD Work Phone: -[facility] Start: 03-13-2025 Non-patient / Non-visit Dr. Chad Ordoñez MD -[facility] Start: 03-13-2025 End: 03-13-2025 Admission to same day surgery center Dr. Chad Ordoñez MD -Endoscopy Work Phone: Start: 03-13-2025 End: 03-13-2025 ambulatory Lisa [place]oner[place] Facility:[facility] Start: 03-12-2025 End: 03-12-[address] Cristobal Adame MD -[facility] Work Phone: Start: 03-12-2025 End: 03-12-2025 ambulatory Lisahans Bowman Facility:[facility] Start: 02-26-2025 End: 02-26-[address] Chad Ordoñez MD -[facility] Work Phone: Start: 02-26-2025 End: 02-26-2025 ambulatory Lisawilliam Stonerlay Facility:[facility] Start: 01-20-2025 End: 01-20-2025 ambulatory Lisa [place] Facility:[facility] Start: 12-26-2024 End: 12-29-2024 Refill Sarthak Jerome MD Work Phone: Ophthalmology Comment on above: Refill Request Start: 12-11-2024 Encounter for genera l adult medical examination without abnormal findings Jacob CARDENAS [facility] Start: 12-11-[address] Lisa Bowman MD Work Phone: [facility] Start: 12-11-2024 End: 12-11-2024 ambulatory Lisa Colby Facility:[facility] Start: 12-02-2024 ambulatory Lisa Colby Facility :[facility] Start: 12-01-2024 End: 12-02-2024 ambulatory Young Hughes Facility:[facility] Start: 11-07-2024 End: 11-07-2024 ambulatory Lisa [place] Facility:[facility] Start: 10-27-2024 End: 10-27-2024 ambulatory Fede Oneill Betsy FURS SALESPERSON Facility:[facility] Start: 08-08-2024 End: 08-08-2024 ambulatory Lisa Bowman Facility:[facility] Start: 08-08-2024 End: 08-08-2024 ambulatory Lori Andersen Facility:[facility] Start: 07-09-2024 ambulatory Lisa Bowman Facility :[facility] Start: 06-27-2024 End: 06-27-2024 ambulatory Lisa Colby Facility:[facility] Start: 06-27-2024 End: 06-27-2024 ambulatory Lisa [place] Facility:[facility] Start: 06-06-2024 End: 06-06-2024 ambulatory Veronica Jasmine FURS SALESPERSON Facility:[facility] Start: 06-02-2024 End: 06-02-2024 ambulatory Veronica Benders FURS SALESPERSON Facility:[facility] Start: 02-18-2024 Refmari Jerome MD Work Phone: Ophthalmology Comment on above: Med Change Request Start: 01-14-2024 End: 01-14-[address] Lisa Bowman Work Phone: [facility] Work Phone: Start: 01-14-2024 End: 01-14-[address] Lisa Bowman Work Phone: [facility] [place] Start: 01-07-2024 End: 01-07-[address] Lisa Bowman Work Phone: [facility] Work Phone: Start: 01-07-2024 End: 01-07-[address] Lisa Bowman Work Phone: [facility] Work Phone: Start: 01-04-2024 End: 01-04-[address] Lisa Bowman Work Phone: [facility] Work Phone: Start: 01-04-2024 End: 01-04-[address] Lisa Bowman Work Phone: [facility] Work Phone: Start: 01-03-2024 End: 01-03-[address] Lisa Bowman Work Phone: [facility] Work Phone: Start: 01-03-2024 End: 01-03-[address] Lisa Bowman Work Phone: [facility]-Laboratory Work Phone: Start: 12-25-2023 End: 12-25-[address] Lisa Bowman Work Phone: [facility] Work Phone: Start: 12-03-2023 End: 12-03-2023 ambulatory SELF Facility:[facility] Start: 12-03-2023 End: 12-03-2023 Patient encounter procedure Sarthak Jerome MD Work Phone: Ophthalmology Comment on above: Glaucoma suspect of both eyes (Primary Dx) Start: 11-19-2023 End: 11-19-[address] Lisa Bowman Work Phone: [facility] Work Phone: Start: 09-24-2023 Telephone encounter Sarthak Jerome MD Work Phone: Ophthalmology Start: 08-31-2022 End: 08-31-2022 ambulatory No Primary Care Physician [facility] Work Phone: Start: 08-31-2022 End: 08-31-2022 Patient encounter procedure No Primary Care Physician [facility] Start: 08-18-2022 End: 08-18-2022 ambulatory No Primary Care Physician [facility] Work Phone: Start: 08-18-2022 End: 08-18-2022 Patient encounter procedure No Primary Care Physician [facility]-Ultrasound, [facility] Start: 08-17-2022 End: 08-17-2022 Patient encounter procedure No Primary Care Physician [facility] Start: 07-31-2022 End: 07-31-2022 Patient encounter procedure No Primary Care Physician [facility] Start: 07-22-2022 Non-patient / Non-visit No Primary Care Physician [facility] Start: 07-22-2022 Non-patient / Non-visit No Primary Care Physician [facility] Start: 07-21-2022 Non-patient / Non-visit No Primary Care Physician [facility] Start: 07-21-2022 End: 07-22-2022 Evaluation and management of inpatient No Primary Care Physician [facility] Start: 07-21-2022 End: 07-21-2022 Patient encounter procedure No Primary Care Physician [facility] Start: 07-20-2022 End: 07-20-2022 [facility] Date Procedure Procedure Detail Performing Clinician Start: 01-07-2024 Measurement of occul t blood in stool specimen using immunoassay Dr. Lisa Bowman Work Phone: Start: 12-03-2023 Ophthalmic us dx cor dl pachymetry uni/bi Sarthak Jerome MD Work Phone: Start: 12-03-2023 End: 12-03-2023 Visual field xm uni/bi w/interp extended exam Sarthak Jerome MD Work Phone: Start: 08-31-2022 Screening mammography N o Primary Care Physician Start: 08-18-2022 Transvaginal echography No Primary Care Physician Start: 08-18-2022 US scan of bladder No P rimary Care Physician Start: 07-21-2022 Plain chest X-ray No Pr imary Care Physician Start: 07-20-2022 CT of thorax with contrast Start: 07-20-2022 Plain chest X-ray Plan of Treatment Date Care Activity Detail Author Start: 09-13-2028 Urine microalbumin profile DTaP,Tdap,Td Vaccine (2 - Td or Tdap) [facility] Start: 03-13-2025 Colonoscopy flx dx w/collj spec when pfrmd DIAGNOSTIC COLONOSCOPY [facility] Start: 03-13-2025 Patient discharge [facility] Start: 06-22-2024 Covid-19 Vaccine ( season) Covid-19 Vaccine () [facility] Start: 06-22-2024 Influenza vaccination [facility] Start: 01-07-2024 Patient referral [facility] Work Phone: Start: 10-22-2023 Behavioral Health Screening Behavioral Health Screening [facility] Start: 10-22-2023 Depression Assessment Depression Assessment [facility] Start: 06-22-2023 Covid-19 Vaccine () Covid-19 Vaccine () [facility] Start: 06-22-2023 Influenza vaccination Influenza Vaccine (#1) [facility] Start: 10-22-2022 Depression Assessment Depression Assessment [facility] Start: 07-31-2022 Patient referral [facility] Work Phone: Start: 07-22-2022 Patient discharge [facility] Work Phone: Start: 07-21-2022 Ambulation without limitation [facility] Work Phone: Start: 07-21-2022 Assessment of risk of venous thromboembolism [facility] Work Phone: Start: 07-21-2022 Insertion of catheter into peripheral vein [facility] Work Phone: Start: 07-21-2022 Measuring intake and output [facility] Work Phone: Start: 07-21-2022 Providing care according to standard [facility] Work Phone: Start: 07-21-2022 Referral to training and development director [facility] Work Phone: Start: 07-21-2022 [facility] Work Phone: Start: 07-21-2022 Following clinical pathway protocol [facility] Work Phone: Start: 07-21-2022 Admission procedure [facility] Work Phone: Start: 07-21-2022 Verification routine [facility] Work Phone: Start: 07-21-2022 Thyroid stimulating hormone measurement [facility] Work Phone: Start: 07-21-2022 End: 07-21-2022 [facility] Work Phone: Start: 2020 Pneumococcal Vaccine: 50+ (1 of 1 - PCV) Pneumococcal Vaccine: 50+ (1 of 1 - PCV) [facility] Start: 2020 Shingrix Vaccine (1 of 2) Shingrix Vaccine (1 of 2) [facility] Start: 2015 Cologuard (FIT-DNA) Cologuard (FIT-DNA) [facility] Start: 2015 Colonoscopy Colonoscopy [facility] Start: 2015 Colorectal Cancer Screening Colorectal Cancer Screening [facility] Start: [address] Colonography [facility] Start: 2015 Diabetes Screening Diabetes Screening [facility] Start: 2015 Fecal Occult Blood Fecal Occult Blood [facility] Start: 2015 Lipid 1996 panel - Serum or Plasma Lipid Screening [facility] Start: 2015 Lipid panel Lipid Screening [facility] Start: 2015 Screening for malignant neoplasm of colon [facility] Start: 2015 Sigmoidoscopy Sigmoidoscopy [facility] Start: 2010 Mammography Mammogram Screening [facility] Start: 2010 Screening for malignant neoplasm of breast Mammogram Screening [facility] Start: 2000 HPV Testing HPV Testing [facility] Start: 2000 Screening for malignant neoplasm of cervix HPV Testing [facility] Start: 1991 Pap Testing Pap Testing [facility] Start: 1991 Screening for malignant neoplasm of cervix [facility] Start: 1989 Hepatitis B Vaccine (1 of 3 - 19+ 3-dose series) Hepatitis B Vaccine (1 of 3 - 19+ 3-dose series) [facility] Start: 1989 Urine microalbumin profile DTaP,Tdap,Td Vaccine (1 - Tdap) [facility] Start: 1988 Anxiety Screening Anxiety Screening [facility] Start: 1988 Depression Screening Depression Screening [facility] Start: 1988 Hepatitis C Screening Hepatitis C Screening [facility] Start: 1988 Hepatitis C screening Hepatitis C Screening [facility] Start: 1988 HIV Screening HIV Screening [facility] Start: 1988 HIV screening HIV Screening [facility] Start: 1970 Covid-19 Vaccine (#1) Covid-19 Vaccine (#1) [facility] Start: 1970 Hepatitis B Vaccine (1 of 3 - 3-dose series) Hepatitis B Vaccine (1 of 3 - 3-dose series) [facility] Ambulatory ECG [facility] Work Phone: CBC W Auto Different ial panel - Blood [facility] Colonoscopy [facility] Complete blood count [facility] Comprehensive metabo lic 2000 panel - Serum or Plasma [facility] Electrocardiographic procedure [facility] Evaluation of diagno stic study results [facility] MG Breast - bilatera l Screening [facility] Work Phone: Patient Education AFib Dc [facility] Work Phone: Patient referral [facility] Work Phone: Thyroid stimulating hormone measurement [facility] Work Phone: Troponin T.cardiac [Mass/volume] in Serum or Plasma by High sensitivity method [facility] XR Chest PA and Lateral [facility] Immunizations Immunization Date Immunization Notes Care Provider Betsey fox 09-26-2021 Covid (Pfizer) No Primary Ca re Physician [facility] 09-01-2021 Covid (Pfizer) No Primary Ca re Physician [facility] 08-01-2019 Influenza, injectabl e, Madin Kula Canine Kidney, preservative free, quadrivalent No Primary Care Physician [facility] 08-01-2019 influenza virus vaccine, unspecified formulation Sarthak Jerome MD Work Phone: [facility] 09-13-2018 tetanus toxoid, redu renée diphtheria toxoid, and acellular pertussis vaccine, adsorbed No Primary Care Physician [facility] 08-10-2017 influenza, injectabl e, quadrivalent, preservative free Dr. Lisa Bowman Work Phone: [facility] 08-10-2017 influenza, seasonal, injectable No Primary Care Physician [facility] Work Phone: 07-04-2016 influenza, injectabl e, quadrivalent, preservative free Dr. Lisa Bowman Work Phone: [facility] 07-04-2016 influenza, seasonal, injectable No Primary Care Physician [facility] Work Phone: Payers Date Payer Category Payer Unknown [id number] 2024 Unknown [id number] 2024 Self-pay [id number] 2023 Private Health Insurance [id number] 2021 Private Health Insurance [id number] Private Health Insurance [id number] Unknown ANTHEM [id number] Unknown [id number] 2.16.8 [id number] Unknown [id number] 2.16.8 [id number] Unknown [id number] 2.16.8 [id number] Unknown [id number] 2.16.8 [id number] Unknown [id number] 2.16.8 [id number] Unknown [id number] 2.16.8 [id number] Unknown [id number] 2.16.8 [id number] Unknown [id number] 2.16.8 [id number] Unknown [id number] 2.16.8 [id number] Unknown [id number] 2.16.8 [id number] Unknown [id number] 2.16.8 [id number] Unknown [id number] 2.16.8 [id number] Unknown [id number] 2.16.8 [id number] Unknown [id number] 2.16.8 [id number] Unknown [id number] 2.16.8 [id number] Unknown [id number] 2.16.8 [id number] Unknown [id number] 2.16.8 [id number] Unknown [id number] 2.16.8 [id number] Unknown [id number] 2.16.8 [id number] Unknown [id number] 2.16.8 [id number] Unknown [id number] 2.16.8 [id number] Unknown [id number] 2.16.8 [id number] Unknown [id number] 2.16.8 [id number] Unknown [id number] 2.16.8 [id number] Social History Date Type Detail Facility Start: 07-20-2022 End: 01-07-2024 Tobacco smoking status ARIS Unknown if ever smoked [facility] Start: 1970 Sex Assigned At Female [facility] Start: 1970 Sex Assigned At Not on file [facility] Start: 12-03-2023 Gender identity Not on file [facility] Start: 12-03-2023 Tobacco smoking stat NHIS Ex-smoker [facility] End: 10-22-1989 History of tobacco use Current smoker [facility] End: 10-22-1989 History of tobacco use Cigarette Smoker [facility] Start: 12-03-2023 Tobacco use and exposure Smokeless tobacco non-user [facility] Start: 12-03-2023 Alcohol intake Ex-drinker (finding) [facility] Start: 12-03-2023 History of Social function [facility] National Score (1-100), lower number is lower risk [address] [facility] Start: 03-11-2025 [facility] Goals Date Patient Goal Desired Activity /State Functional Status Date Assessment Result Facility 07-22-2022 Functional status Patient Activi ty Ambulates;Up ad pieter [facility] Work Phone: 07-22-2022 Functional status Activity Abili ty Standby Assist [facility] Work Phone: Mental Status Date Assessment Result Facility 03-13-2025 Cognitive function Voice/Name [facility] Work Phone: 07-22-2022 Cognitive function Voice/Name [facility] Work Phone: 07-21-2022 Cognitive function Level Of Cons ciousness Awake;Alert;Appropriate [facility] Work Phone: 07-20-2022 Cognitive function Level Of Cons ciousness Awake;Alert;Appropriate;Follo ws Commands [facility] Work Phone: Clinical Notes 09-24-2023 to 03-13-2025 Note Date & Type Note Facility 03-13-2025 Note [facility] Records Department [address] [place] [address] History Physical Exam 03/13/25 1015 MR#: [id number] Acct: [id number] Name: HANNAH NAVARRO Rep #: [id number] : 1970 54 From: Chad Ordoñez MD PCP: Dr. Lisa Bowman MD Status:[facility] Location: [place] [address] History and Physical Date of Admission: 03/13/25 Intake Vital Signs 01/21/2508:06 02/27/2508:34 Height 5 ft 7 in 5 ft 7 in Weight: 188 lb 8 oz 193 lb 6 oz BMI 29.5 30.2 BP 148/78 H 115/81 H Blood Pressure Location Lt brachial Rt brachial Position Sitting Sitting Respiration 16 18 Pulse 69 63 Pulse Source Monitor Monitor Temp 97.7 F L 97.6 F L Temp Source Temporal Temporal Pulse Oximetry (%) 97 99 Oxygen Delivery Method room air room air Intake Visit Reasons: COLONOSCOPY Chief Complaint: colonoscopy Is patient in pain?: No Allergies Penicillins Allergy (Verified 02/26/25 08:35) Anaphylaxis Medications ???Medication ???Instructions ???Recorded ???Confirmed ???Type netarsudil 0.02 %-latanoprost 1 drp EACH EYE DAILY eye health 07/20/22 02/26/25 History 0.005 % eye drops (Rocklatan) timolol maleate 0.5 % eye drops 1 drp ophthalmic (eye) DAILY 12/25/23 02/26/25 His tory apixaban 5 mg tablet (Eliquis) 5 mg PO BID 90 days #180 tabs 12/11/24 02/26/25 Rx diltiazem HCl 180 mg 180 mg PO DAILY 90 days #90 caps 12/11/24 02/26/25 Rx capsule,extended release 24 hr cyclobenzaprine 5 mg tablet 5 mg PO BID PRN muscle spasm #10 01/20/25 02/26/25 Rx tabs levothyroxine 75 mcg tablet 75 mcg PO DAILY thyroid #90 tabs 01/20/25 02/26/25 Rx prednisone 20 mg tablet 40 mg (2 x 20 mg) PO QDAY #10 tabs 01/20/25 Rx PFSH Medical History (Updated 02/26/25 @ 08:34 by Honey Barry LPN) Hemorrhoids Constipation Encounter for screening colonoscopy COVID GERD (gastroesophageal reflux disease) Headache, migraine Goiter Wrist fracture Afib Seasonal allergies Hypothyroidism Glaucoma Surgical History S/P laser trabeculoplasty of eye History of toe surgery Family History Mother Atrial fibrillation Arthritis HypertensionAunt Heart diseaseBrother AsthmaSister ArthritisFather CVA (cerebral vascular accident) Cerebral AVM Alzheimer disease Parkinsons diseaseGrandmother Cancer GUBrother Epilepsy Social History household members: spouse current occupational status: employed current occupation: [employer] Smoking Status: Never smoker Electronic Cigarette Use: not used alcohol intake: current alcohol intake frequency: holidays/special occasions only details: Rare substance use type: does not use caffeine: Yes Type: coffee Number of servings: 2 what type of physical activity do you participate in: none do you feel safe at home: Yes 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 She reports that her brothers both had colon cancer within the last year. She reports no blood in the stool or abdominal pain. She is on Eliquis for A-fib. ROS General General: Yes fatigue; No weight change, appetite, colon cancer, breast cancer or weakness HEENT HEENT: Yes eye surgery; No difficulty swallowing, eye injury, swollen glands or hoarseness Endo Endocrine: Yes thyroid disease; No diabetes mellitus, thyroid cancer, Hair loss, heat intolerance or cold intolerance Skin Skin: No rash or changing moles Musc Musculoskeletal: Yes back problems; No arthritis, rheumatoid arthritis, gout or joint pain Cardio Cardiovascular: Yes atrial fibrillation; No murmur, pacemaker, heart disease, high blood pressure, heart attack, heart stent, palpitations, shortness of breath with exertion or chest pain Psych Psychiatric: No depression, anxiety or hearing voices Resp Respiratory: No shortness of breath, No sleep apnea, Yes cough, No COPD, No asthma, No emphysema and No wheezing Gastro Gastrointestinal: No abdominal pain, No nausea or vomiting, No diarrhea, Yes constipation, No blood in stool, No acid reflux, Yes hemorrhoids, No ulcers, No gallbladder problem and No black,tarry stools Misael Hematologic: Yes blood thinners, No blood disorders, No bleeding, Yes anemia and No blood clots Neuro Neurologic: No numbness, No tingling and No weakness Exam Const General: cooperative Orientation: alert and oriented x3 HENMT Head: normal to inspection Neck Neck: normal visual inspection and full ROM Chest Chest palpation inspection: normal inspection of the chest Resp Effort Inspection: normal respirat (more content not included)... [facility] 02-26-2025 Evaluation note Diagnosis Onset Date Resolution Encounter for screening colonoscopy acute February 26, 2025 8: 21am Afib chronic March 12, 2025 8:01am Chest pain in adult noneactive Augus t 2024 12:54pm [facility] Work Phone: 1(878) 849-610603-07-2025 Telephone encounter Note* Telephone Encounter - Yandy Galeano - 12/26/2024 8:19 AM EST Sarthak Jerome MD filed at 12/03/2023 2:15 PM Status: Signed New from [facility] Tmax: high 20's per patient; Pachy: 584, 573 Lasers and Surgeries: OD: 2022 Selected laser trabeculoplasty (SLT) ([place])? OS: 2022 Selected laser trabeculoplasty (SLT) ([place])? Ocular Medication Intol and Non-efficacy: Now on [...] on rocklatan 10/22, many drop ineffectiveness at [place] - add timolol every morning both eyes - follow 2 months, intraocular pressure - goal mid/high teens right eye, mid teens left eye tentatively # CL wearer both eyes [facility] Work Phone: 1(225) 544-619403-07-2025 Miscellaneous Notes* Telephone Encounter - Yanyd Galeano - 12/26/2024 8:19 AM EST Sarthak Jerome MD filed at 12/03/2023 2:15 PM Status: Signed New from [facility] Tmax: high 20's per patient; Pachy: 584, 573 Lasers and Surgeries: OD: 2022 Selected laser trabeculoplasty (SLT) ([place])? OS: 2022 Selected laser trabeculoplasty (SLT) ([place])? Ocular Medication Intol and Non-efficacy: Now on [...] on rocklatan 10/22, many drop ineffectiveness at [place] - add timolol every morning both eyes - follow 2 months, intraocular pressure - goal mid/high teens right eye, mid teens left eye tentatively # CL wearer both eyes documented in this encounterUniversity [facility]als [facility]02-[facility]-2025 [facility] Medical Records Department [address] [place] [address] Discharge Summary 12/02/24 1638 MR#: [id number] Acct: [id number] Name: HANNAH NAVARRO Rep #: [id number] : 1970 54 From: Young Hughes MD PCP: Dr. Lisa Bowman MD Status:[facility] Location: [place] [address] Providers Date of Admission: 12/01/24 Primary Care Physician: Dr. Lisa Bowman MD Reason For Visit: AFIB WITH RVR Diagnosis Discharge Diagnosis (1) Palpitations: Status: Chronic Code(s): R00.2 - Palpitations (2) Chest pressure: Status: Acute Code(s): R07.89 - Other chest pain (3) Atrial fibrillation with rapid ventricular response: Status: Acute Code(s): I48.91 - Unspecified atrial fibrillation Medications at Discharge Home Medications netarsudil 0.02 %-latanoprost 0.005 % eye drops (Rocklatan) 1 drp EACH EYE DAILY eye health 07/20/22 timolol maleate 0.5 % eye drops 1 drp ophthalmic (eye) DAILY 12/25/23 levothyroxine 75 mcg tablet 75 mcg PO DAILY thyroid #90 tabs 09/22/24 apixaban 5 mg tablet (Eliquis) 5 mg PO BID 30 days #60 tabs 12/02/24 diltiazem HCl 180 mg capsule,extended release 24 hr 180 mg PO DAILY 30 days #30 caps 12/02/24 Hospital Course Operations None Procedures None Summary of Care Provided Minutes Spent on Discharge: 35 Hospital Course: Per HPI: HANNAH NAVARRO, is a 54 F who presented to the emergency department at [facility] on 12/01/2024 with a chief complaint of chest heaviness and palpitations. Patient does have a history of atrial fibrillation and was recently taken off her Cardizem and Eliquis by cardiology nurse practitioner on 10/27/2024 but she had not had any events since 2021. She reported that on the day of presentation she started having chest pressure and heaviness and looked at her watch it did demonstrate atrial fibrillation. She states that she knew she did not have it prior to this as she typically now can tell when she goes into it. Initially when she was diagnosed she should could not tell when she went into it on the first time as she was not sure was going on but since that point in time she has been able to identify this fairly readily. Her Eliquis was stopped about 1 week ago. She denied any recent illnesses in the last week but did have COVID about a month ago. I does also sound like she was treated for a post COVID superinfection bacterial pneumonia which she completed antibiotics recently as well. Vital signs on presentation showed a temperature of 98.3, heart rate 166, respiratory rate 16, blood pressure was 146/104 and pulse ox was 99% on room air. CBC shows a normal hemoglobin but is microcytic. It appears it has been microcytic and is trending up. Chemistry panel is unremarkable troponin initially was 4. TSH was 1.43. Chest x-ray showed some pulmonary venous congestion was otherwise unremarkable. Upon my review, it appears fairly clear and seems to be mildly underpenetrated. EKG was A-fib with RVR with normal intervals and no signs of ST-T wave changes concerning for acute ischemia. I did discuss the possibility of cardioversion with the emergency department physician as the patient seems to know exactly when she went to A-fib however ED did not want to consider cardioversion as there was no clear documentation of her onset of A-fib and she is not anticoagulated. We gave her an amiodarone bolus in hopes that this was converted her Hospital Course: 1. A-fib with RVR???54-year-old female with a history of A-fib presented to the hospital with recurrent A-fib with RVR. She states that in October she had seen her training and development director who had recommended taking her off of her Cardizem and Eliquis since she had not had any A-fib in the last couple of months. However she presented to the hospital with RVR and received multiple boluses of Cardizem as well as a dose of amiodarone and started on a Cardizem drip. This was stopped around midnight due to hypotension and then she did spontaneously convert to normal sinus rhythm this morning. I did restart her Cardizem at 180 mg daily which she was able to tolerate without any significant lightheadedness or dizziness. Her heart rate remained in normal sinus rhythm therefore she was discharged home on her old medication including Eliquis 5 mg p.o. twice daily as well as Cardizem 180 mg p.o. daily. I discussed with her the plan for discharge and she expressed understanding of the risks and benefits of going home and would like to go home today. Also of note her echocardiogram was done with an EF of 65% and no diastolic dysfunction. 2. Hypothyroidism, glaucoma are chronic medical conditions complicate her care. Her home medications were continued where appropriate of note her TSH was in her normal range. Physical Exam Narrative General: Alert, Oriented x3, Cooperative, No apparent distress PRETTY (more content not included)...[facility]04-29-2024 Telephone encounter Note* Telephone Encounter - Yumiko Thomas - 02/18/2024 6:48 AM EDT Patient's request for medication is as follows: Requested Prescriptions Pending Prescriptions Disp Refills netarsudil-latanoprost (ROCKLATAN) 0.02-0.005 % ophthalmic solution [Pharmacy Med Name: ROCKLATAN 0.02%-0.005% EYE DRP] 10 mL 3 Sig: Use 1 Drop in both eyes daily at bedtime. Pharmacy requesting a 90-day supply. Prescription(s) as above. Please process accordingly. Sarthak Rodriguez MD filed at 12/03/2023 2:15 PM Status: Signed New from [facility] Tmax: high 20's per patient; Pachy: 584, 573 Lasers and Surgeries: OD: 2022 Selected laser trabeculoplasty (SLT) ([place])? OS: 2022 Selected laser trabeculoplasty (SLT) ([place])? Ocular Medication Intol and Non-efficacy: Now on [...] on rocklatan 10/22, many drop ineffectiveness at [place] - add timolol every morning both eyes [...] and plan as stated above and agree withall of its relevant components. Sarthak Jerome MD [facility]04-29-2024 Miscellaneous Notes* Telephone Encounter - Yumiko Thomas - 02/18/2024 6:48 AM EDT Patient's request for medication is as follows: Requested Prescriptions Pending Prescriptions Disp Refills netarsudil-latanoprost (ROCKLATAN) 0.02-0.005 % ophthalmic solution [Pharmacy Med Name: ROCKLATAN 0.02%-0.005% EYE DRP] 10 mL 3 Sig: Use 1 Drop in both eyes daily at bedtime. Pharmacy requesting a 90-day supply. Prescription(s) as above. Please process accordingly. Sarthak Rodriguez MD filed at 12/03/2023 2:15 PM Status: Signed New from [facility] Tmax: high 20's per patient; Pachy: 584, 573 Lasers and Surgeries: OD: 2022 Selected laser trabeculoplasty (SLT) ([place])? OS: 2022 Selected laser trabeculoplasty (SLT) ([place])? Ocular Medication Intol and Non-efficacy: Now on [...] on rocklatan 10/22, many drop ineffectiveness at [place] - add timolol every morning both eyes [...] and plan as stated above and agree withall of its relevant components. Sarthak Jerome MD documented in this encounterUniversity Hospitals St. [facility]02-12-2024 NoteHNO ID: [id number] Author: SARTHAK JEROME MD Service: ? Author Type: Physician Type: Progress Notes Filed: 12/03/2023 14:15 Note Text: New from [facility] Tmax: high 20's per patient; Pachy: 584, 573 Lasers and Surgeries: OD: 2022 Selected laser trabeculoplasty (SLT) ()? OS: 2022 Selected laser trabeculoplasty (SLT) ()? Ocular Medication Intol and Non-efficacy: Now on [...] on rocklatan 10/22, many drop ineffectiveness at [place] - add timolol every morning both eyes [...] agree with all of its relevant components. Sarthak Jerome [facility]02-12-2024 History of Present illness Narrative* Sarthak Jerome MD - 12/03/2023 12:44 PM EST New from [facility] Tmax: high 20's per patient; Pachy: 584, 573 Lasers and Surgeries: OD: 2022 Selected laser trabeculoplasty (SLT) ()? OS: 2022 Selected laser trabeculoplasty (SLT) ()? Ocular Medication Intol and Non-efficacy: Now on [...] pigment deposit - thick pachy - on [facility] 10/22, many drop ineffectiveness at [place] - add timolol every morning both eyes [...] and plan as stated above and agree withall of its relevant components. Sarthak Jerome MD documented in this encounterUniversity Hospitals St. [facility]12-04-2023 Miscellaneous Notes* Telephone Encounter - Monica Blankenship - 09/24/2023 1:53 PM EST Bonnie scheduled appt, I called the pt and [facility] with info regarding appointment * Telephone Encounter - Monica Blankenship - 09/24/2023 1:24 PM EST The appointment needs a referral, called second floor appt desk, Bonnie will do referral and appt, can call be back [facility] appt. * Telephone Encounter - Monica Blankenhsip - 09/24/2023 1:24 PM EST Images from the original note were not included. View All Conversations on this Encounter Sarthak Jerome MD You 1 hour ago (11:30 AM) Add on to placentia 10/01 open new patient slot, but tell patient to come in before 3pm * Telephone Encounter - Monica Blankenship - 09/24/2023 10:[address] Rodriguez [facility] referring pt to you. High IOP uncontrolled under medication, moderate glaucoma. Would like patient seen this week if possible 09/24/23. Please call [facility] with appt into [phone] Please advise re appointment Faxing today's office notes and VF documented in this encounterCleveland Clinic [facility]ational[facility] [place] noteNo assessment information availableWHolzer Medical Center [facility] Work Phone: Evaluation note* Diagnosis Onset Date Resolution Status Atrial fibrillation, new onset acute Hypothyroidism acute Near syncope acute Atrial fibrillation, new onset acute Hypothyroidism acute Near syncope acute Paroxysmal atrial fibrillation with RVR acute [facility] Work Phone: Evaluation note* Diagnosis Onset Date Resolution Status Hypothyroidism acute Atrial fibrillation, new onset resolved Hypothyroidism acute Atrial fibrillation, new onset resolved Near syncope resolved Paroxysmal atrial fibrillation with RVR resolved Paroxysmal atrial fibrillation with RVR resolved Herpes zoster vaccination declined noneactive Screening for colon cancer n oneactive Acquired hypothyroidism none active Establishing care with new doctor, encounter for noneactive Urinary retention noneactive Screening for breast cancer noneactive Cervix abnormality noneactiv e Hospital discharge follow-up noneactive Afib acute Hypersomnolence acute Palpitations acute [facility] Work Phone: Evaluation note* Diagnosis Glaucoma suspect of both eyes- Primary Preglaucoma, unspecified documented in this encounter [facility] note* Diagnosis Onset Date Resolution Status Afib acute Palpitations chronic Iron deficiency anemia acute [facility] Work Phone: Hospital Discharge instructions Additional Instructions 2.1 cm right lobe liver cyst. New onset atrial fibrillation. Rate controlled. Take Cardizem as prescribed started this evening. Take baby aspirin 81 mg daily with this. Monitor symptoms follow-up as an outpatient for further testing. Return if any worsening symptoms.[facility] Work Phone: Reason for referral (narrative)No reason for referral information availableAdams Memorial Hospital Services Work Phone: Chief Complaint and Reason for Visit Chief Complaint CHEST TIGHTNESS Chief Complaint CHEST TIGHTNESS CP/ED REF. AFIB RVR AFIB RVR CHEST PAIN Reason for Visit Atrial fibrillation, new onset Hypothyroidism Near syncope Atrial fibrillation, new onset Hypothyroidism Near syncope Paroxysmal atrial fibrillation with RVR Chief Complaint CHEST TIGHTNESS CP/ED REF. AFIB RVR AFIB RVR CHEST PAIN AFIB RVR Reason for Visit Atrial fibrillation, new onset Hypothyroidism Near syncope Atrial fibrillation, new onset Hypothyroidism Near syncope Paroxysmal atrial fibrillation with RVR Chief Complaint CHEST TIGHTNESS CP/ED REF. 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 TROUBLE URINATING, NODULE ON CERVIX SCREENING Reason for Visit Hypothyroidism Atrial fibrillation, new onset Hypothyroidism Atrial fibrillation, new onset Near syncope Paroxysmal atrial fibrillation with RVR Paroxysmal atrial fibrillation with RVR Herpes zoster vaccination declined Screening for colon cancer Acquired hypothyroidism Establishing care with new doctor, encounter for Urinary retention Screening for breast cancer Cervix abnormality Hospital discharge follow-up Afib Hypersomnolence Palpitations Chief Complaint 1 Y FU RAMEY/NAUSEA/SORE THROAT/L EAR PAIN E-ORDER ORTHOSTATICS LAB FOLLOW UP Reason for Visit Afib Palpitations Iron deficiency anemia Chief Complaint Admit Date COLONOSCOPY February 26, 2025 8:21am 6 M FU March 12, 2025 8:01a m Pain in chest. Feels like [place]. Cough June 01, 2025 12:54pm Reason for Visit Admit Date Encounter for screening colonoscopy February 26, 2025 8:21am Afib March 12, 2025 8:01a m Chest pain in adult June 01, 2025 12 :54pm Advance Directives No Advanced Directives Records Found Advance Directive Response Recorded Date/ Time Living Will No July 20, 2022 8:59am Power of Diet Kitchen Cook No June 8:59am Advance Directive Response Recorded Date/ Time Living Will No July 21, 2022 4:43pm Power of Diet Kitchen Cook No June 4:43pm Advance Directive Response Recorded Date/ Time Living Will No July 21, 2022 3:43pm Power of Diet Kitchen Cook No June 3:43pm Advance Directive Response Recorded Date/ Time Do you have a Healthcare Power of Diet Kitchen Cook? No March 11, 2025 3:40pm Family History No Family History Records Found Relationship Condition Age at Onset Recorded Date/T elli mother Atrial fibrillation Unknown aunt Cardiac disease Unknown Relationship Condition Age at Onset Recorded Date/T elli mother Atrial fibrillation Unknown Arthritis Unknown Hypertension Unknown aunt Cardiac disease Unknown brother Asthma Unknown sister Arthritis Unknown father Cerebrovascular accident (CVA) Unknown Cerebral arteriovenous malformation Unkno wn Alzheimer's disease Unknown Parkinson's disease Unknown grandmother Malignant neoplasm Unknown brother Epilepsy Unknown Summary Purpose Additional Source Comments Goals (unrecognized section and content) Goals may be documented in a n alternate sectionGoals may be documented in an alternate sectionGoals may be documented in an alternate sectionGoals may be documented in an alternate sectionGoals may be documented in an alternate sectionGoals may be documented in an alternate section Source Comments (unrecognize d section and content) In the event this informatio n is protected by the Federal Confidentiality of Alcohol and Drug Abuse Patient Records regulations: The Federal rules restrict any use of the information to criminally investigate or prosecute any alcohol or drug abuse patient.[facility] CenterIn the event this information is protected by the Federal Confidentiality of Alcohol and Drug Abuse Patient Records regulations: The Federal rules restrict any use of the information to criminally investigate or prosecute any alcohol or drug abuse patient.[facility] CenterIn the event this information is protected by the Federal Confidentiality of Alcohol and Drug Abuse Patient Records regulations: The Federal rules restrict any use of the information to criminally investigate or prosecute any alcohol or drug abuse patient.[facility] CenterIn the event this information is protected by the Federal Confidentiality of Alcohol and Drug Abuse Patient Records regulations: The Federal rules restrict any use of the information to criminally investigate or prosecute any alcohol or drug abuse patient.[facility] Reason for Visit (unrecogniz ed section and content) Reason Comments Glaucoma Evaluation Reason Comments Med Change Request Reason Comments Refill Request Active Administered Medications - up to 3 most recent administrations Administered Medications (un recognized section and content) Medication Order MAR Action Action Date Dose Rate Site fluorescein-benoxinate 0.3-0.4 % 1 Drop (FLURESS) 1 Drop, BOTH EYES, DIRECTED, Starting on Sun12/03/23 at 1300, Until Sun12/04/23 at 0059, Administer for applanation tonometry. In the event of a Fluress shortage, administer [place]-Fluor 1 drop into both eyes as directed for applanation tonometry Given 12/03/2023 1:17 PM EST 1 Drop INFORMATION SOURCE (unrecogn ized section and content) DATE CREATED AUTHOR 12/04/2023 [facility] DATE CREATED AUTHOR AUTHOR'S ORGANIZ ATION 06/01/2025 [facility] Care Teams (unrecognized sec tion and content) Team Status: Active Member Role Status Dates Dr. Mala Ewing MD Family Provider Active Dr. Lisa Bowman MD Primary Care Provider Active Team Status: Inactive Member Role Status Dates Dr. Lisa Bowman MD Primary Care Provider, Referri ng Provider Active Naheed Castillo FURS SALESPERSON, FURS SALESPERSON-C Attending Provider Active Team Status: Inactive Member Role Status Dates Dr. Lisa Bowman MD Primary Care Provider, Referri ng Provider Active Ever Domingo PA, PA Attending Provider Active Team Status: Inactive Member Role Status Dates Dr. Lisa Bowman MD Primary Care Provider, Referri ng Provider Active BIM NURSE Attending Provider Active Team Status: Inactive Member Role Status Dates Dr. Lisa Bowman MD Primary Care Provider, Referri ng Provider Active Lori Andersen FURS SALESPERSON-C Attending Provider Active Team Status: Inactive Member Role Status Dates Dr. Lisa Bowman MD Primary Care Provider Active Naheed Castillo FURS SALESPERSON, FURS SALESPERSON-C Attending Provider, Referring P rovider Active Team Status: Active Member Role Status Dates Dr. Lisa Bowman MD Primary Care Provider Active Lori Andersen , FURS SALESPERSON-C Attending Provider Active Team Status: Active Member Role Status Dates Dr. Lisa Bowman MD Primary Care Provider Active Loridee Andersen , FURS SALESPERSON-C Attending Provider, Referring Pro vider Active Team Status: Inactive Member Role Status Dates Dr. Lisa Bowman MD Primary Care Provider Active Lori Andersen , FURS SALESPERSON-C Attending Provider Active Team Status: Inactive Member Role Status Dates Dr. Lisa Bowman MD Primary Care Provider Active Lori Andersen , FURS SALESPERSON-C Attending Provider, Referring Pro vider Active Team Status: Active Member Role/Relationship Status Dates Dr. Lisa Bowman MD Primary Care Provider Active Team Status: Inactive Member Role/Relationship Status Dates Dr. Lisa Bowman MD Primary Care Provider Active Start: February 26, 2025 End: February 26, 2025 Dr. Lisa Bowman MD Referring Provider Active Start: February 26, 2025 End: February 26, 2025 Dr. Chad Ordoñez MD Attending Provider Active Start: February 26, 2025 End: February 26, 2025 Team Status: Inactive Member Role/Relationship Status Dates Dr. Lisa Bowman MD Primary Care Provider Active Start: March 12, 2025 End: March 12, 2025 Dr. Lisa Bowman MD Referring Provider Active Start: March 12, 2025 End: March 12, 2025 Dr. Cristobal Adame MD Attending Provider Active Start: March 12, 2025 End: March 12, 2025 Team Status: Inactive Member Role/Relationship Status Dates Dr. Lisa Bowman MD Primary Care Provider Active Start: March 13, 2025 End: March 13, 2025 Dr. Lisa Bowman MD Referring Provider Active Start: March 13, 2025 End: March 13, 2025 Dr. Chad Ordoñez MD Attending Provider Active Start: March 13, 2025 End: March 13, 2025 Team Status: Active Member Role/Relationship Status Dates Dr. Lisa Bowman MD Primary Care Provider Active Start: March 13, 2025 Dr. Lisa Bowman MD Referring Provider Active Start: March 13, 2025 Dr. Chad Ordoñez MD Attending Provider Active Start: March 13, 2025 Dr. Chad Ordoñez MD Other Provider Active Start: March 13, 2025 Team Status: Inactive Member Role/Relationship Status Dates Dr. Lisa Bowman MD Primary Care Provider Active Start: June 01, 2025 End: June 01, 2025 Dr. Lisa Bowman MD Attending Provider Active Start: June 01, 2025 End: June 01, 2025 Dr. Lisa Bowman MD Referring Provider Active Start: June 01, 2025 End: June 01, 2025 FOR RECORDS PERTAINING TO PATIENTS WHO ARE [...] BE BASED ON THE PRIMARY CLINICAL RECORDS. [employer] provides no warranty or guarantee of the accuracy or completeness of information in this document.
[2025-06-05 09:08] LABS: HPV APTIMA, High Risk Negative (Negative)
== END | disposition home or self-care (01) ==
PROVIDERS: Nurse Practitioner Women's Health; PCP Internal Medicine; Referring Provider Internal Medicine; Visit Provider Internal Medicine
DX: Z12.4 Encounter for screening for malignant neoplasm of cervix (principal); R07.9 Chest pain, unspecified
CPT/HCPCS: 87624; 88175; 93005; G0145

== ENCOUNTER → 2025-06-09 | Outpatient (CLI) | payer BC, SELFPAY ==
--- NOTE | 2025-06-09 16:45 | BI_ITS ---
EXAM: SCRN MAMM (CAD)W/MONAE BILAT DATE: 06/09/2025 CLINICAL HISTORY: F, Age 54 y/o , SCREENING TECHNIQUE: SCRN MAMM (CAD)W/MONAE BILAT COMPARISON: Prior exam(s) were compared FINDINGS: TISSUE DENSITY: The breasts are heterogeneously dense, which may obscure small masses. Bilateral Breast Mammographic Findings: No suspicious masses, calcifications or other abnormalities are identified. BI/SCRN MAMM (CAD)W/MONAE BILAT IMPRESSION: No mammographic evidence of malignancy in either breast OVERALL FINAL ASSESSMENT BI-RADS 1: NEGATIVE. RECOMMENDATION: Routine annual follow-up in 1 Year A letter with findings and recommendations will be mailed to the patient. Reading Location: [id number]
== END | disposition home or self-care (01) ==
LOC: OPBI 14:57
PROVIDERS: PCP Internal Medicine; Referring Provider Internal Medicine; Visit Provider Internal Medicine
DX: Z12.31 Encounter for screening mammogram for malignant neoplasm of breast (principal)
CPT/HCPCS: 77063; 77067

== ENCOUNTER → 2025-07-01 | Outpatient (CLI) | payer BC, SELFPAY ==
--- NOTE | 2025-07-01 11:25 | EMB_PTH ---
PATIENT: NIMO NAVARRO LOC: [facility] U#:[id number] AGE/SX: 55/F ROOM: RE07/01/[address]: TRIXIE Churchill : 1970 BED: DIS: 07/01/2025 SPEC #: [id number] RECD: 07/01/25 12:00 STATUS: CODY REShawna #: [id number] PÉREZ: 07/01/25 11:[address]: Veronica Jasmine NP DEPT: SURGICAL PATHOLOGY RECD BY: Aldair Rojas ENTERED: 07/01/25 13:34 SP TYPE: ENDOM BX/C DENICE DR: Dr. Lisa Bowman MD Tissues: A - Endometrium, NOS Procedures: Surgery Specimen Level IV HEADER OPERATION: Endometrial biopsy PRE-OP DIAGNOSIS: Post menopausal bleeding TISSUE SUBMITTED: A- Endometrial lining MICROSCOPIC DIAGNOSIS A. Endometrium, biopsy: - Scant atrophic endometrium - see note. Note: Scant tissue is present. Clinical correlation is necessary to assess the adequacy of this sampling. MICROSCOPIC DESCRIPTION Slides are reviewed. GROSS DESCRIPTION A. Received in formalin labeled with the patient's name and date of is a 2.0 x 0.9 x 0.1 cm aggregate of mucoid material admixed with flecks of red apparent tissue. Entirely submitted in 1 cassette. Entirety of the specimen may not survive processing. HI 07/01/2025 CPT:04937
== END | disposition home or self-care (01) ==
LOC: LABSPEC 11:30
PROVIDERS: PCP Internal Medicine; Referring Provider Nurse Practitioner Women's Health; Visit Provider Nurse Practitioner Women's Health
DX: N95.0 Postmenopausal bleeding (principal)
CPT/HCPCS: 88305

== ENCOUNTER → 2025-07-23 | Outpatient (CLI) | payer BC, SELFPAY ==
--- NOTE | 2025-07-23 17:52 | US_ITS ---
PROCEDURE: PELVIC W/ TRANSVAGINAL 07/23/2025 REASON FOR EXAM: THICKNESS OF UTERINE LINING 2 para 2. TECHNIQUE: Procedure Code: [id number] Modality: US Procedure: PELVIC W/ TRANSVAGINAL COMPARISON: None FINDINGS: Transabdominal and endovaginal pelvic sonography were performed. Endovaginal pelvic sonography was performed for better visualization of the endometrial stripe and ovaries. Measurements: Uterus: 7.0 x 6.7 x 10.3 with a volume of 251 mL Endometrial Thickness: Not visualized due to the uterine fibroids obscuring this region. Right Ovary: 2.5 x 1.8 x 0.7 with a volume of 3.9 mL. Left Ovary: Not visualized Uterus: There are 3 hypoechoic heterogeneous mass is identified in the myometrium of the uterus measuring 3.8 x 3.5 x 4.1 cm, 2.6 x 1.9 x 1.6 cm, and 1.9 x 1.4 x 1.6 cm (this mass appears to have benign calcifications within it). These are most compatible with uterine fibroids. Nabothian cysts are seen within the cervix. There is no IUD seen. Endometrium: Not visualized due to uterine fibroids obscuring this region. Right ovary: Size contour and echogenicity are within normal limits. There is flow in the ovary. No ovarian masses are seen. Left ovary: Not visualized. No abnormal left adnexal masses are noted. Other: There is no free fluid in the cul-de-sac. Urinary bladder measures 9.3 x 8.8 x 7.1 cm. Urinary bladder volume measures 307 mL. The bladder wall is smooth. There are no masses seen within the urinary bladder. US/Pelvic w/ Transvaginal IMPRESSION: The masses within the myometrium of the uterus most likely represent uterine fi broids. Endometrial stripe thickness could not be determined due to the uterine masses obscuring this region. CT examination may be of value for further evaluation of the endometrial stripe, if clinically warranted . Normal appearance to the right ovary. Left ovary not visualized due to bowel gas obscuring this region Reading Location: [id number]
== END | disposition home or self-care (01) ==
PROVIDERS: PCP Internal Medicine; Referring Provider Nurse Practitioner Women's Health; Visit Provider Nurse Practitioner Women's Health
DX: N95.0 Postmenopausal bleeding (principal)
CPT/HCPCS: 76830; 76856

== ENCOUNTER → 2025-08-03 | Outpatient (CLI) | payer BC, SELFPAY ==
--- NOTE | 2025-08-03 18:37 | STRESSREP ---
Stress Test Report Exercise stress test. 55-year-old lady with a history of chest pain. Stress protocol: Resting EKG demonstrates normal sinus rhythm with a rate of 70 bpm resting blood pressure is 122/75 mmHg. The patient exercised according to the regular [facility] protocol for a total duration of 7 minutes attaining a maximum heart rate of 146 bpm which was 88% of maximum predicted heart rate; the maximum workload was 10.1 metabolic equivalents. At rest there were no ST or T wave changes noted to suggest ischemia and at peak exercise upsloping ST changes only were noted which did not meet the criteria for ischemia. No clinical angina was noted the test was terminated due to the target heart rate being achieved/fatigue. The peak blood pressure was 152/80 mmHg. Rate-pressure product was 18,000. Conclusion: Stress test with no EKG criteria for ischemia at a high workload
== END | disposition home or self-care (01) ==
PROVIDERS: PCP Internal Medicine; Referring Provider Internal Medicine; Visit Provider Internal Medicine
DX: R07.9 Chest pain, unspecified (principal)
CPT/HCPCS: 93017

== ENCOUNTER 2025-10-02 13:21 | Day surgery (SDC) | payer BC, SELFPAY ==
--- NOTE | 2025-09-29 08:09 | EKG12_ITS ---
Test Reason : PREOP Blood Pressure : */* mmHG Vent. Rate : 67 BPM Atrial Rate : 67 BPM P-R Int : 152 ms QRS Dur : 84 ms QT Int : 404 ms P-R-T Axes : 43 -19 23 degrees QTcB Int : 426 ms Normal sinus rhythm Low voltage QRS Borderline ECG Confirmed by Phillip Mendez ([id number]), order editor HENRIK LOGAN ([id number]) on 09/30/2025 11:40:50 AM Referred By: Chelsey Tomas Confirmed By: Phillip Mendez
[2025-09-29 10:56] LABS: AST(SGOT) 26 U/L (<=31); Alanine Aminotransfer ALT/SGPT 34 U/L (<=34); Albumin, Serum 4.4 g/dL (3.5-5.0); Alkaline Phosphatase 77 U/L (35-104); Anion Gap 10 (5-15); BUN 13 mg/dL (4-19); BUN/Creat Ratio 19.7 RATIO (10-20); Calcium,Total 9.9 mg/dL (7.6-11.0); Carbon Dioxide 26.9 mmol/L (21.0-32.0); Chloride 104 mmol/L (98-108); Globulin 3.1 g/dL (2.2-4.2); Glucose 100 mg/dL (70-99); Potassium 4.1 mmol/L (3.3-5.1)
[2025-09-29 11:00] LABS: Hematocrit 43.0 % (37-47); Hemoglobin 13.7 g/dL (12.0-15.0); Mean Corp Hgb Conc 31.9 g/dL (32-36); Mean Corpuscular Volume 84.3 fL (81-99); Mean Platelet Vol. 10.3 fl (6.2-12.0); Platelet Count 352 K/mm3 (150-450); RBC Distribution Width CV 13.0 % (11.6-14.6); RBC Distribution Width SD 39.8 fl (35.1-43.9); Red Blood Count 5.10 M/mm3 (4.2-5.4); White Blood Count 8.0 K/mm3 (4.4-11.0)
--- NOTE | 2025-09-29 16:38 | PAT.ANE_ITS ---
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 When Was Last Pacemaker Check QUESTION #4 FULL TEXT: You/Your Family Experience fever (hyperthermia) with Anesthesia Last Oral Intake Last Oral intake: Last Oral Intake NPO since Meds taken in AM with sips of water? Meds patient instructed to take am of surgery PONV PONV - structural steel equipment erector: PONV - structural steel equipment erector Female Yes 09/25/25 15:41 HX of Motion Sickness No 09/25/25 15:41 HX of N/V After Surgery No 09/25/25 15:41 Non-Smoker Yes 09/25/25 15:41 Duration of Surgery greater No 09/25/25 15:41 than 60 minutes Number of Risk Factors 2 09/25/25 15:41 PONV Score Moderate Risk 09/25/25 15:41 Height & Weight Height & Weight: Anesthesia: Height & Weight Height 5 ft 7 in 09/14/25 06:53 Respiratory Assessment Respiratory Assessment - structural steel equipment erector: Respiratory Tract Infection Hx - structural steel equipment erector Hx Respiratory Tract Infection No 09/25/25 15:41 STOP Sleep Apnea STOP Sleep Apnea - structural steel equipment erector: STOP Sleep Apnea - structural steel equipment erector Hx Hypertension No 09/25/25 15:41 Hx Sleep Apnea No 09/25/25 15:41 CPAP BIPAP Do you snore loudly (louder No 09/25/25 15:41 than talking or can be heard Do you often feel tired/ No 09/25/25 15:41 fatigued/ sleepy during daytime? Has anyone observed you stop No 09/25/25 15:41 breathing during sleep? STOP Results Negative 09/25/25 15:41 QUESTION #5 FULL TEXT : Do you snore loudly (louder than talking or can be heard through closed doors)? 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 Specify any problems Hx of Preganancy in last 3 N/A 09/25/25 15:41 Months Nurse Filling Out Transfusion NBUCHER 09/25/25 15:41 & Questions: Date: 09/25/25 09/25/25 15:41 Time: 15:43 09/25/25 15:41 Patient unable to answer at this time (ie. confused, unrespo /Reproduction History /Reproductive History - structural steel equipment erector: /Reproductive Hx- structural steel equipment erector Hx Now No 09/25/25 15:41 Gestational Age (in weeks): EDC: Hx Hx Para Hx Section SAB No 09/25/25 15:41 Does the father of the baby or his family experience fever w Father of the baby Malignant Hypertension history comment [facility] Medical History (Updated 09/25/25 @ 15:46 by Bess Larios) History of stress test History of echocardiogram Wears contact lenses Wears glasses Thyroid disease Excessive bleeding Back pain Non-smoker History of pain when walking History of Holter monitoring Cardiology follow-up encounter History of atrial fibrillation Hemorrhoids Constipation COVID GERD (gastroesophageal reflux disease) Headache, migraine Goiter Wrist fracture Afib Seasonal allergies Hypothyroidism Glaucoma Home Medications ?Medication ?Instructions ?Recorded ?Last Taken ?Type netarsudil 0.02 %-latanoprost 1 drp EACH EYE DAILY eye health 07/20/22 07/20/22 History 0.005 % eye drops (Rocklatan) timolol maleate 0.5 % eye drops 1 drp ophthalmic (eye) DAILY 12/25/23 Unknown History levothyroxine 75 mcg tablet 75 mcg PO DAILY thyroid #9 0 tabs 04/16/25 Unknown Rx aspirin 81 mg chewable tablet 81 mg PO QDAY 06/02/25 U nknown History diltiazem HCl 180 mg 180 mg PO DAILY 90 days #90 caps 07/02/25 Unknown Rx capsule,extended release 24 hr ascorbic acid (vitamin C) 100 mg 100 mg PO QDAY Unknown History tablet (Vitamin C) zinc acetate 50 mg (zinc) capsule 50 mg PO QDAY Unknown History cholecalciferol (vitamin D3) 10 10 mcg PO QDAY 5 Unknown History mcg (400 unit) capsule Allergy/AdvReac Type Severity Reaction Status Date / Time Penicillins Allergy Anaphylaxis Verified 09/25/25 15:39 Family History Mother Atrial fibrillation Arthritis Hypertension Aunt Heart disease Brother Asthma Sister Arthritis Father CVA (cerebral vascular accident) Cerebral AVM Alzheimer disease Parkinsons disease Maternal Grandmother Bladder cancer Brother Epilepsy Colon cancer Surgical History S/P colonoscopy S/P laser trabeculoplasty of eye History of toe surgery Social History adopted: No household members: spouse number of children: 2 current occupational status: employed current occupation: [employer] pets and animals: Yes (1) pets and animals: dog(s) sexually active: No Smoking Status: Never smoker Electronic Cigarette Use: not used alcohol intake: current alcohol intake frequency: holidays/special occasions only details: Rare substance use type: does not use caffeine: Yes (1-2qd) Type: tea what type of physical activity do you participate in: none frequency: other details: active worklife do you feel safe at home: Yes additional social history: - [employer]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 Conclusion. Stress test with no EKG criteria for ischemia at a high workload. Echo (EF%) pertinent findings: Echo 12/02/2024. The estimated ejection fraction is 65%. No evidence for diastolic dysfunction. Trivial aortic valve insufficiency. Trivial pericardial effusion. Recommendation Anesthesia Recommendation Anesthesia recommendation: OPTIMIZED for anesthesia
[2025-10-02] VITALS (9 sets, daily range): BP systolic 106–131; BP diastolic 68–81; PULSE 64–75; RESP 12–16; TEMP 36.1–37.3; O2SAT 95–99; BMI 31.7
--- NOTE | 2025-10-02 11:24 | PCM.HP.BLA ---
History and Physical Date of Admission: 10/02/25 Vital Signs 07/20/2507:48 08/10/2513:03 08/10/2513:08 Height 5 ft 7 in 5 ft 7 in 5 ft 7 in Weight: 202 lb 202 lb 3 oz BMI 31.6 31.6 BP 124/80 H 112/74 Blood Pressure Location Lt brachial Position Sitting Respiration 16 Pulse 64 Pulse Source Monitor Temp 97.1 F L Pulse Oximetry (%) 97 Oxygen Delivery Method room air Intake Visit Reasons: D&C preop/consult Lumber Checker Required: No Is patient in pain?: No Allergies Penicillins Allergy (Verified 08/10/25 13:03) Anaphylaxis Medications ?Medication ?Instructions ?Recorded ?Confirmed ?Type netarsudil 0.02 %-latanoprost 1 drp EACH EYE DAILY eye health 07/20/22 08/10/25 History 0.005 % eye drops (Rocklatan) timolol maleate 0.5 % eye drops 1 drp ophthalmic (eye) DAILY 12/25/23 08/10/25 History levothyroxine 75 mcg tablet 75 mcg PO DAILY thyroid #90 tabs 04/16/25 08/10/25 Rx aspirin 81 mg chewable tablet 81 mg PO QDAY 06/02/25 08/10/25 History diltiazem HCl 180 mg 180 mg PO DAILY 90 days #90 caps 07/02/25 08/10/25 Rx capsule,extended release 24 hr ascorbic acid (vitamin C) 100 mg 100 mg PO QDAY 07/20/25 08/10/25 History tablet (Vitamin C) zinc acetate 50 mg (zinc) capsule 50 mg PO QDAY 07/20/25 08/10/25 History cholecalciferol (vitamin D3) 10 10 mcg PO QDAY 08/10/25 08/10/25 History mcg (400 unit) capsule venlafaxine 37.5 mg 37.5 mg PO DAILY #30 caps 08/10/25 08/10/25 Rx capsule,extended release 24 hr (Effexor XR) Patient : No : No PFSH Medical History Wears contact lenses Wears glasses Thyroid disease Excessive bleeding Back pain Non-smoker History of pain when walking History of Holter monitoring Cardiology follow-up encounter History of atrial fibrillation Hemorrhoids Constipation COVID GERD (gastroesophageal reflux disease) Headache, migraine Goiter Wrist fracture Afib Seasonal allergies Hypothyroidism Glaucoma Surgical History S/P colonoscopy S/P laser trabeculoplasty of eye History of toe surgery Family History Mother Atrial fibrillation Arthritis Hypertension Aunt Heart disease Brother Asthma Sister Arthritis Father CVA (cerebral vascular accident) Cerebral AVM Alzheimer disease Parkinsons disease Maternal Grandmother Bladder cancer Brother Epilepsy Colon cancer Social History adopted: No household members: spouse number of children: 2 current occupational status: employed current occupation: [employer] pets and animals: Yes (1) pets and animals: dog(s) sexually active: No Smoking Status: Never smoker Electronic Cigarette Use: not used alcohol intake: current alcohol intake frequency: holidays/special occasions only details: Rare substance use type: does not use caffeine: Yes (1-2qd) Type: tea what type of physical activity do you participate in: none frequency: other details: active worklife do you feel safe at home: Yes additional social history: - [employer]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 Menopausal Symptoms - Reports mood swings, stating, Sometimes I feel like I'm going insane. - Denies hot flashes and night sweats. - Last menstrual period was over a year ago, around May. - Interested in hormone replacement therapy (HRT) to manage symptoms. - Denies chest pain, shortness of breath, or irregular heart rhythm. Postmenopausal Bleeding - Noted a pinkish discharge a few months ago, which prompted her to seek medical attention. - Denies current bleeding. - Denies pelvic pain, pelvic pressure, dyspareunia, or postcoital bleeding. Atrial Fibrillation - Currently in normal sinus rhythm. - Managed with Cardizem and daily baby aspirin. - Previously on a blood thinner, but discontinued due to low risk factors. Uterine Fibroids - Recent ultrasound revealed the presence of a couple of fibroids. Family History - No family history of heart disease. Social History - Works at a [employer]. - ; not currently sexually active, stating, My and I just... I don't know. Relationships are different. Neither of us are interested anymore. - Denies bowel or bladder complaints. History 2 Elective abortions Hx Para 2 Spontaneous abortions Hx # Term Pregnancies Ectopic pregnancies Hx # Pregnancies Multiple births # of living children 2 Past Pregnancies Del. Date Name GA/Weeks Outcome Route Bth Weight Infant Gen Labor Lgth Anesthesia Del [facility] Provider FOB Unknown Zeph Unknown Brendashannon MULTANI Narrative Constitutional: (+) night sweats Cardiovascular: (-) chest pain Respiratory: (-) shortness of breath Gastrointestinal: (-) abdominal pain, (-) bowel complaints Genitourinary: (-) pelvic pain, (-) pelvic pressure, (-) vaginal bleeding, (-) dyspareunia, (-) postcoital bleeding, (-) urinary complaints Psychiatric: (+) mood swings Endocrine: (+) hot flashes Coding Level of Care Code Off vis,est,level 4 Diagnoses Uterine leiomyoma, unspecified location D25.9 Uterine leiomyoma location: unspecified location Postmenopausal bleeding N95.0 Climacteric N95.1 Assessment and Plan Assessment and Plan (1) Uterine fibroid: Status: Acute Qualifiers: Uterine leiomyoma location: unspecified location Qualified Code(s): D25.9 - Leiomyoma of uterus, unspecified Comment: multiple, up to 4cm. possible polyps. (2) Postmenopausal bleeding: Status: Acute Comment: plan d and c hysteroscopy (3) Climacteric: Status: Acute Comment: dicsussed options plan effexor for now, would need to discuss with cardio if plan HRT Medications: New venlafaxine ER (Effexor XR) 37.5 mg PO DAILY 30 caps 12RF Plan # Menopausal and female climacteric states (N95.1): - Presenting with mood swings and mild vasomotor symptoms. - Prescribed venlafaxine 37.5 mg (once daily) to balance neurotransmitters and potentially alleviate hot flashes, night sweats, and mood fluctuations. - Discussed risks and benefits of hormone-based versus non-hormonal therapies; informed patient about potential cardiology clearance if considering future estrogen therapy. - Provided education on possible side effects of venlafaxine, including need for gradual dose adjustments if therapy changes are required. # Postmenopausal bleeding (N95.0): - History of intermittent pink-tinged discharge; most recent episode several months prior. - Scheduled dilation and curettage (D&C) with hysteroscopy to visualize and sample the endometrium, remove any polyps or submucosal fibroid components, and address potential etiologies of bleeding. - Explained diagnostic and therapeutic nature of procedure; discussed pathology evaluation to rule out pre-cancerous or malignant changes. # Intramural leiomyoma of uterus (D25.1): - Ultrasound revealed multiple fibroids potentially contributing to uterine contour changes and irregular endometrial lining. - See ?Postmenopausal bleeding? above for treatment/management plan using hysteroscopic evaluation and possible resection of any protruding fibroid tissue. # Paroxysmal atrial fibrillation (I48.0): - Currently on diltiazem; patient also taking daily low-dose aspirin per cardiology recommendation. - No recent palpitations or arrhythmia symptoms; no shortness of breath or chest pain reported. - Advised patient to inform her human insights lead ads marketing regarding potential hormonal therapy decisions for ongoing menopausal symptom management. # Encounter for other preprocedural examination (Z01.818): - Cleared for planned D&C with hysteroscopy under monitored anesthesia care. - Instructed patient to use provided antiseptic soap from the neck down the night before and the morning of surgery. - Advised no solid food for 8 hours before the procedure; clear liquids permitted until 2 hours prior. - Instructed to take morning medications (including diltiazem and aspirin) with a sip of water on the day of surgery. - Arrangements made for transportation home post-procedure; patient may resume normal activities the following day. - Provided folder with written instructions and encouraged questions or concerns prior to surgery date. Patient Instructions: - Begin venlafaxine (Effexor) 37.5 mg once daily to help with hot flashes, night sweats, and mood swings. This is a low dose; do not stop or change it suddenly?you may need to taper if the dose is adjusted in the future. - Your dilation and curettage with hysteroscopy has been arranged; our office will call you the day before with the exact time. - Use the special antiseptic soap provided from your neck down the night before and the morning of the procedure?just let the water flow over your genital area without scrubbing. - Do not eat any solid food for 8 hours before your procedure; clear liquids are allowed until 2 hours beforehand. Take your regular medications the morning of surgery with a small sip of water. - Arrange for someone to drive you to and from the surgical center on the day of the procedure. - You may resume your normal activities the day after surgery; if you feel tired or need extra rest, it?s fine to take an additional one to two days off.
--- NOTE | 2025-10-02 13:54 | PRE.ANES_ITS ---
ASA Classification* ASA Classification ASA Classification: 2 Assessment & Plan Anesthesia* Anesthesia Assessment Anesthesia Assessment: Discussed sedation and/or anesthesia options, risks, benefits, and alternatives with patient/parents/legal guardian/POA. Questions invited. The patient/parents/legal guardian/POA seems to understand and agrees to proceed with anesthesia plan. Reviewed the physical assessment, medical history, allergy history and patient home medications list prior to surgery/procedure/anesthetic and documented any changes. Performed airway and anesthesia risk assessments. Anesthesia Type Anesthesia Type: MAC Anesthesia Focused Assessment* Airway Assessment Mouth opens: >3 cm Mallampati Score: II Labs Anesthesia Preop lab: CBC WBC, (4.4-11.0) 8.0 K/mm3 09/29/25, 08: RBC, (4.2-5.4) 5.10 M/mm3 09/29/25, 08:31 Hgb, (12.0-15.0) 13.7 g/dL 09/29/25, 08: Hct, (37-47) 43.0 % 09/29/25, 08:31 Plt Count, (150-450) 352 K/mm3 09/29/25, 08:31 CHEMISTRY Potassium, (3.3-5.1) 4.1 mmol/L 09/29/25, 08:31 Sodium, (133-145) 141 mmol/L 09/29/25, 08:31 Magnesium, (1.6-2.6) 1.9 mg/dL 12/02/24, 03:08 Phosphorus, (2.5-4.9) 4.5 mg/dL 12/02/24, 03:08 BUN, (4-19) 13 mg/dL 09/29/25, 08:31 Creatinine, (0.70-1.20) 0.64 mg/dL L 09/29/25, 08:31 Glucose, (70-99) 100 mg/dL H 09/29/25, 08:31 TSH, (0.358-3.740) 1.430 uIU/mL 12/01/24, 14:33 COAG PT, (11.7-14.9) 13.2 SECONDS 07/21/22, 14:52 Tst Clinic Negative 07/01/25, 11:14 Pre-Assessment Diagnosis/Proposed Procedure Planned Operative Procedure(s): Hysteroscopy,Dilation and Curettage Anesthesia History Anesthesia History - equal employment opportunity 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 When Was Last Pacemaker Check QUESTION #4 FULL TEXT: You/Your Family Experience fever (hyperthermia) with Anesthesia Last Oral Intake Last Oral intake: Last Oral Intake NPO since Meds taken in AM with sips of water? Meds patient instructed to take am of surgery PONV PONV - equal employment opportunity officer: PONV - equal employment opportunity officer Female Yes 09/25/25 15:41 HX of Motion Sickness No 09/25/25 15:41 HX of N/V After Surgery No 09/25/25 15:41 Non-Smoker Yes 09/25/25 15:41 Duration of Surgery greater No 09/25/25 15:41 than 60 minutes Number of Risk Factors 2 09/25/25 15:41 PONV Score Moderate Risk 09/25/25 15:41 Height & Weight Height & Weight: Anesthesia: Height & Weight Height 5 ft 7 in 09/14/25 06:53 Respiratory Assessment Respiratory Assessment - equal employment opportunity officer: Respiratory Tract Infection Hx - equal employment opportunity officer Hx Respiratory Tract Infection No 09/25/25 15:41 STOP Sleep Apnea STOP Sleep Apnea - equal employment opportunity officer: STOP Sleep Apnea - equal employment opportunity officer Hx Hypertension No 09/25/25 15:41 Hx Sleep Apnea No 09/25/25 15:41 CPAP BIPAP Do you snore loudly (louder No 09/25/25 15:41 than talking or can be heard Do you often feel tired/ No 09/25/25 15:41 fatigued/ sleepy during daytime? Has anyone observed you stop No 09/25/25 15:41 breathing during sleep? STOP Results Negative 09/25/25 15:41 QUESTION #5 FULL TEXT : Do you snore loudly (louder than talking or can be heard through closed doors)? 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 Specify any problems Hx of Preganancy in last 3 N/A 09/25/25 15:41 Months Nurse Filling Out Transfusion NBUCHER 09/25/25 15:41 & Questions: Date: 09/25/25 09/25/25 15:41 Time: 15:43 09/25/25 15:41 Patient unable to answer at this time (ie. confused, unrespo /Reproduction History /Reproductive History - equal employment opportunity officer: /Reproductive Hx- equal employment opportunity officer Hx Now No 09/25/25 15:41 Gestational Age (in weeks): EDC: Hx Hx Para Hx Section SAB No 09/25/25 15:41 Does the father of the baby or his family experience fever w Father of the baby Malignant Hypertension history comment Active Medications Active Medications: Current Medications Generic Name Dose Route Start Last Admin Trade Name Freq PRN Reason Stop Dose Admin Lactated Ringer's 1,000 mls @ 15 mls/hr 10/02/25 14:00 IV .Q48H ALANNA PFSH Medical History History of stress test History of echocardiogram Wears contact lenses Wears glasses Thyroid disease Excessive bleeding Back pain Non-smoker History of pain when walking History of Holter monitoring Cardiology follow-up encounter History of atrial fibrillation Hemorrhoids Constipation COVID GERD (gastroesophageal reflux disease) Headache, migraine Goiter Wrist fracture Afib Seasonal allergies Hypothyroidism Glaucoma Home Medications ?Medication ?Instructions ?Recorded ?Last Taken ?Type netarsudil 0.02 %-latanoprost 1 drp EACH EYE DAILY eye health 07/20/22 07/20/22 History 0.005 % eye drops (Rocklatan) timolol maleate 0.5 % eye drops 1 drp ophthalmic (eye) DAILY 12/25/23 Unknown History aspirin 81 mg chewable tablet 81 mg PO QDAY 06/02/25 U nknown History diltiazem HCl 180 mg 180 mg PO DAILY 90 days #90 caps 07/02/25 Unknown Rx capsule,extended release 24 hr ascorbic acid (vitamin C) 100 mg 100 mg PO QDAY Unknown History tablet (Vitamin C) zinc acetate 50 mg (zinc) capsule 50 mg PO QDAY Unknown History cholecalciferol (vitamin D3) 10 10 mcg PO QDAY 5 Unknown History mcg (400 unit) capsule levothyroxine 75 mcg tablet 75 mcg PO DAILY thyroid #9 0 tabs 10/01/25 Unknown Rx Allergy/AdvReac Type Severity Reaction Status Date / Time Penicillins Allergy Anaphylaxis Verified 09/25/25 15:39 Family History Mother Atrial fibrillation Arthritis Hypertension Aunt Heart disease Brother Asthma Sister Arthritis Father CVA (cerebral vascular accident) Cerebral AVM Alzheimer disease Parkinsons disease Maternal Grandmother Bladder cancer Brother Epilepsy Colon cancer Surgical History S/P colonoscopy S/P laser trabeculoplasty of eye History of toe surgery Social History adopted: No household members: spouse number of children: 2 current occupational status: employed current occupation: [employer] pets and animals: Yes (1) pets and animals: dog(s) sexually active: No Smoking Status: Never smoker Electronic Cigarette Use: not used alcohol intake: current alcohol intake frequency: holidays/special occasions only details: Rare substance use type: does not use caffeine: Yes (1-2qd) Type: tea what type of physical activity do you participate in: none frequency: other details: active worklife do you feel safe at home: Yes additional social history: - [employer]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
[2025-10-02] MEDS: Lactated Ringers 1,000 ML 15 ML IV (14:35)
--- NOTE | 2025-10-02 15:30 | EMB_PTH ---
PATIENT: NIMO NAVARRO LOC: [facility] [place] U#:[id number] AGE/SX: 55/F ROOM: RE10/02/[address]: Dr. Chelsey Tomas MD : 1970 BED: DIS: 10/02/2025 SPEC #: [id number] RECD: 10/05/25 07:58 STATUS: CODY REQ #: [id number] PÉREZ: 10/02/25 15:[address]: Chelsey Tomas DEPT: SURGICAL PATHOLOGY RECD BY: Aldair Rojas ENTERED: 10/05/25 10:14 SP TYPE: ENDOM BX/C OTHR DR: Dr. Lisa Bowman MD Tissues: A - Endometrium, NOS Procedures: Surgery Specimen Level IV Comments: Called and spoke to Veronica (nurse) on 10/16/25 at 9:30am as patient has an appointment on 10/16/25 at 10:[address]am. Dr. Chavez gave approval to call office and give verbal result as [employer] Word is down at this time. HEADER OPERATION: Hysteroscopy, dilation and curettage PRE-OP DIAGNOSIS: Ovarian cyst, abnormal uterine bleeding, dysmenorrhea TISSUE SUBMITTED: A- Endometrial curettings MICROSCOPIC DIAGNOSIS A. Endometrium, curettage: - Atrophic endometrium and cervical squamous mucosa - see comment. COMMENT Note: A limited amount of superficial tissue is present. Clinical correlation is necessary to assess the adequacy of the sampling. The diagnosis was called to Dr Tomas's office 10/16/25 (by Jessica Rojas). MICROSCOPIC DESCRIPTION Slides are reviewed. GROSS DESCRIPTION A. Received in formalin labeled with the patient's name and date of . Designated as endometrial curettings is a 2.0 x 1.1 x 0.2 cm aggregate of posada-pink tissue fragments, clotted blood and mucoid material. Entirely submitted in 1 cassette. Entirety of the specimen may not survive processing. AL 10/05/2025 CPT:37295
[2025-10-02] MEDS: Midazolam 2 MG/2 ML Syringe IV (15:40)
[2025-10-02] MEDS: Lidocaine 1% (5 ml sdv) 5 ML Vial IV (15:45)
[2025-10-02] MEDS: Lidocaine 1% (20 ml mdv) 20 ML Vial (16:05)
[2025-10-02] MEDS: fentaNYL 100 MCG/2 ML Ampul IV (16:06)
--- NOTE | 2025-10-02 16:27 | PCM.OPRPT ---
Multi Select Codes Urinary/Genital Urinary/Genital CPT Codes: 22290 Hysteroscopy, Polypectomy, Symphion Operative Report (Standard) Operative Information Date of Procedure: 10/02/25 Pre-Operative Diagnosis: postmenopausal bleeding Post-Operative Diagnosis: same Surgery/Procedure Performed: dilation and curettage hysteroscopy limited radiology technician: No Type of Anesthesia: IV Sedation and Local RN Documented Start/Stop Times: Operation Date: 10/02/25 15:30 Case Time Into Pre-Op 10/02/25 13:48 Out of Pre-Op 10/02/25 15:36 Anesthesia Start 10/02/25 15:39 Into Room 10/02/25 15:39 Procedure Start 10/02/25 16:07 Procedure End 10/02/25 16:16 Anesthesia End 10/02/25 16:24 Out of Room 10/02/25 16:24 Procedure Start Time: 16:07 Procedure Stop Time: 16:16 Select all DRAINS/GRAFTS/IMPLANTS that apply: None Estimated Blood Loss: 25 Specimen collected: Yes Description of specimen(s) removed: endometrial curettings Description of surgery: Patient was prepped and draped in a normal sterile fashion under MAC anesthesia. A weighted speculum was placed in the vagina and the anterior lip of the cervix was grasped with a single-tooth tenaculum. A paracervical block was placed with 1% lidocaine. Cervix was progressively dilated to allow passage of a 7 mm hysteroscope. The lining was fully visualized and noted to have a thin fairly atrophic lining with no gross abnormalities. Uterine sounded to 8 cm. Curettage was performed and some tissue removed, sent to pathology. All instruments were removed from the vagina and excellent hemostasis was noted. Patient was awoken and taken to recovery in stable condition. Surgical Findings: thin endometrial lining Complications Complications: No
--- NOTE | 2025-10-02 16:28 | PCM.POST.ANE ---
Anesthesia: Postop Eval I Current Vital Signs Temperature: 97.3 F Pulse Rate: 74 Blood Pressure: 106/70 Respiratory Rate: 12 Pulse Ox: 97 Oxygen Delivery Method: Room Air Assessment Airway patent: Yes Spontaneous unlabored respirations: Yes Mental status: Awake and Calm nausea: No Vomiting: No Anesthesia Complication: No Fluid Hydration Crystalloid volume administer (ml): 700 Total IV fluid infused: 700 Progress Note Anesthesia document: Postop Eval 1 completed: Yes
--- NOTE | 2025-10-02 16:28 | PCM.DC ---
Discharge Instructions DC O2, CPAP, BIPAP needs Home O2 Discharge instructions: No Dressing / Incision Discharge Activity: Return to Normal Activity, May Shower and May Take a Tub Bath (after 1 week) May resume sexual activity in: 1-2 weeks Weight Bearing Status: Weight bearing as tolerated Lifting Restrictions: none Dressing / Incision Call your doctor if you observe: Fever of 101 or Higher, Using more than 1 pad per hour, Shortness of breath and Uncontrolled pain Follow Up Care Please Follow Up With: Chelsey Tomas MD When: Call [phone] to schedule appointment. Test Results: Test results from this visit will be discussed in further detail at your follow-up appointment, if applicable. Discharge Plan Admission Attending Provider: Chelsey Tomas Primary Care Provider: Lisa Bowman Instructions Print Language: Congolese Discharge Orders/Prescriptions Prescriptions: No Action timolol maleate 0.5 % drops 1 drp ophthalmic (eye) DAILY Patient Comments: USE 1 DROP IN BOTH EYES EVERY MORNING. aspirin 81 mg tablet,chewable 81 mg PO QDAY zinc acetate 50 mg (zinc) capsule 50 mg PO QDAY Vitamin C 100 mg tablet 100 mg PO QDAY cholecalciferol (vitamin D3) 10 mcg (400 unit) capsule 10 mcg PO QDAY Rocklatan 0.02-0.005 % drops 1 drp EACH EYE DAILY Patient Comments: INSTILL 1 DROP INTO BOTH EYES EVERY DAY AT NIGHT diltiazem HCl 180 mg capsule,extended release 24hr 180 mg PO DAILY 90 Days Qty: 90 1RF levothyroxine 75 mcg tablet 75 mcg PO DAILY Qty: 90 0RF Other Ambulatory Orders: 12 Lead EKG (Routine) Location: None Selected Ordered By: Dr. Chelsey Tomas Referrals / Follow Up: Lisa Bowman MD [Primary Care Provider, Internal Medicine] Disposition Disposition (needs filled in before D/C Order can be placed): Home, Self Care
--- NOTE | 2025-10-02 16:44 | POSTOPAN2_ITS ---
Anesthesia Postop Eval I Sum Postop Eval Completion status Anesthesia document: Postop Eval 1 completed: Yes Anesthesia Postop Eval I Summary Anesthesia Postop Eval I Summary: Anesthesia Postop Eval I: Assessment Summary Airway patent Yes 10/02/25 16:28 [email or web address] [email or web address] Spontaneous unlabored Yes 10/02/25 16:28 COURTESY [email or web address] DRIVER.SHOF respirations Mental status Awake,Calm 10/02/25 16:28 COURTESY [email or web address] nausea No 10/02/25 16:28 COURTESY VAN DRIVER.SHOF Vomiting No 10/02/25 16:28 COURTESY VAN DRIVER.SHOF Anesthesia Postop Eval I: Fluid Summary Crystalloid volume administer 700 10/02/25 16:28 COURTESY [email or web address] DRIVER.SHOF (ml) Colloids volume administered ( ml) Blood Product volume administered (ml) Total IV fluid infused 700 10/02/25 16:28 COURTESY VAN DRIVER.SHOF Anesthesia Postop Eval I: Summary Notes Anesthesia Complication No 10/02/25 16:28 COURTESY [email or web address] DRIVER.SHOF Anesthesia Complication Comment: Post-operative progress note Anesthesia: Postop Eval II Evaluation Mental status: Awake Pain Level: 2 nausea: No Vomiting: No
--- NOTE | 2025-10-02 16:44 | PCM.POSTANE2 ---
Anesthesia Postop Eval I Sum Postop Eval Completion status Anesthesia document: Postop Eval 1 completed: Yes Anesthesia Postop Eval I Summary Anesthesia Postop Eval I Summary: Anesthesia Postop Eval I: Assessment Summary Airway patent Yes 10/02/25 16:28 [email or web address] Spontaneous unlabored Yes 10/02/25 16:28 [email or web address] respirations Mental status Awake,Calm 10/02/25 16:28 [email or web address] nausea No 10/02/25 16:28 [email or web address].SHOF Vomiting No 10/02/25 16:28 [email or web address] Anesthesia Postop Eval I: Fluid Summary Crystalloid volume administer 700 10/02/25 16:28 [email or web address] (ml) Colloids volume administered ( ml) Blood Product volume administered (ml) Total IV fluid infused 700 10/02/25 16:28 [email or web address] Anesthesia Postop Eval I: Summary Notes Anesthesia Complication No 10/02/25 16:28 [email or web address] Anesthesia Complication Comment: Post-operative progress note Anesthesia: Postop Eval II Evaluation Mental status: Awake Pain Level: 2 nausea: No Vomiting: No
== END 2025-10-02 17:35 | disposition home or self-care (01) ==
LOC: SDC 13:27 → AC 13:28
PROVIDERS: PCP Internal Medicine; Referring Provider Obstetrics & Gynecology; Visit Provider Obstetrics & Gynecology
PROC: 0UDB8ZZ Extraction of Endometrium, Via Natural or Artificial Opening Endoscopic (ICD-10-PCS; CPT 58558; principal; 2025-10-02 15:15)
DX: N85.8 Other specified noninflammatory disorders of uterus (principal); I48.0 Paroxysmal atrial fibrillation; D25.1 Intramural leiomyoma of uterus; N95.0 Postmenopausal bleeding; N95.1 Menopausal and female climacteric states; K21.9 Gastro-esophageal reflux disease without esophagitis; E03.9 Hypothyroidism, unspecified; Z79.890 Hormone replacement therapy
CPT/HCPCS: 58558; 00952; 36415; 80053; 85027; 86850; 86900; 86901; 88305; 93005; J2405